=== PATIENT | female | born 1955 | race African-American/Black ===

== ENCOUNTER 2016-10-24 12:02 | Inpatient (IN) | payer OTHER ==
[~2016-10-24] VITALS: Ht 167.6 cm; Wt 85.0 kg
[2016-10-24] VITALS (7 sets, daily range): BP systolic 116–138; BP diastolic 65–89; PULSE 82–119; RESP 14–16; TEMP 98.2–101.4; O2SAT 94–98
[~2016-10-24 12:02] MED LIST: ASPI81 PO; IBUP-232 PO; LISI-363 PO; POLY10O EACH EYE
--- NOTE | 2016-10-24 12:16 | PD ---
Physical Exam Time Seen by Provider: 12:14 Narrative 61yo F w/ c/o right sided chest pain w/SOB and pain with breathing. Chest apin constant. Had reconstructive R breast surgery and tummy tuck 5 weeks ago. Awaiting chemotheropay tx. States she hopes she does'nt have a blood clot. Patient stable. Patient seen in triage. Awaiting bed placement. Data Data Last Documented VS Vital Signs Date Time Temp Pulse Resp B/P Pulse Ox O2 Delivery O2 Flow Rate FiO2 10/24/16 12:05 98.2 82 14 137/89 98 MDM Supervised Visit with RAFAEL: Pooja Gonzalez Oct 24, 2016 12:16
[2016-10-24] MEDS ORDERED: SODIUM CHLOR 0.9% 1000 ML INJ 1,000 ML IV ONE (12:24)
[2016-10-24] MEDS ORDERED: PIPERACIL-TAZO 4.5 GM PREMIX 100 ML IV STA (12:24)
[2016-10-24] MEDS ORDERED: VANCOMYCIN INJ 1,000 MG in SODIUM CHLOR 0.9% 250 ML INJ 250 ML IV STA (12:24)
[2016-10-24] MEDS ORDERED: MORPHINE SULFATE 8 MG/ML INJ IV PUSH ONE (12:30)
[2016-10-24] MEDS ORDERED: ONDANSETRON HCL 4 MG/2 ML VIAL IV ONE (12:30)
--- NOTE | 2016-10-24 12:55 | PD ---
HPI Chief Complaint: Pain: Acute or Chronic Time Seen by Provider: 12:43 Travel History International Travel<30 days: No Contact w/Intl Traveler<30days: No Traveled to known affect area: No History of Present Illness HPI 61-year-old female presents the emergency department with right sided chest, neck, and back pain which has been progressively worsening over the past 3 days. Patient has a history of intraductal breast cancer for which she had right breast reconstruction by Dr. Rodriguez, and patient is been being treated by the oncologist. Patient was seen by Dr. Rodriguez yesterday, and was told that he had to do some type of exploratory surgery on the breast. Patient denies fever or chills, but denies increased pain which is worse with deep breath and movement. Pain is 9 out of 10. Patient has been having daily wound dressing changes of the right breast by home health. Patient has no allergies other than Demerol. PFSH Past Medical History Cancer: Yes (BREAST) Cardiovascular Problems: Yes (PALPATATIONS/ ARRHYTHMIA) Diabetes: No GERD: Yes Hepatitis: No Hiatal Hernia: No Hypertension: Yes Immunizations Current: No Thyroid Disease: No ?: Not Menopausal: No Tubal Ligation: Yes Past Surgical History Abdominal Surgery: Yes (LAP. ALEIDA) Cholecystectomy: Yes Gynecologic Surgery: Yes (HYSTERECTOMY) Hysterectomy: Yes (ONE OVARY REMAINS) Mastectomy: Yes (RIGHT- LYMPH REMOVAL ONLY) Other Surgery: Yes Social History Alcohol Use: No Tobacco Use: No Substance Use: No Allergies-Medications (Allergen,Severity, Reaction): Coded Allergies: Demerol (Verified Allergy, Intermediate, Hallucinations, 10/24/16) Reported Meds & Prescriptions Reported Meds & Active Scripts Active Polytrim Opth (Polymyxin/Trimethoprim Sulfate) 10 Ml Soln 1 Drop EACH EYE Q4 7 Days Lisinopril 20 mg (Lisinopril) 20 Mg Tab 20 Mg PO DAILY Motrin (Ibuprofen) 600 Mg Tab 600 Mg PO QID GIVE WITH FOOD Reported Aspirin 81 Mg Tab 81 Mg PO DAILY Review of Systems Except as stated in HPI: all other systems reviewed are Neg General / Constitutional: No: Fever, Chills Eyes: No: Visual changes HENT: No: Headaches Cardiovascular: No: Chest Pain or Discomfort Respiratory: No: Shortness of Breath Gastrointestinal: No: Abdominal Pain Genitourinary: No: Dysuria Musculoskeletal: No: Pain Skin: Positive Breast Tenderness, Positive Breast Swelling, Positive Other, No Rash Neurologic: No: Weakness Psychiatric: No: Depression Endocrine: No: Polydipsia Hematologic/Lymphatic: No: Easy Bruising Physical Exam Narrative GENERAL: Patient appears in mild to moderate distress. SKIN: Warm and dry. Normal color. Normal turgor. Wound site over the right breast appears to have generalized mild dehiscence with yellowish discharge noted. This whole area is generally tender, without specific tenderness, signs of pointing, or obvious abscess. No significant erythema or lymphangitis is appreciated. Culture is obtained. HEAD: Atraumatic. Normocephalic. EYES: Pupils equal and round. No scleral icterus. No injection or drainage. ENT: No nasal bleeding or discharge. Mucous membranes pink and moist. Pharynx is clear. Airway is patent. NECK: Trachea midline. Supple and nontender. CARDIOVASCULAR: Tachycardic rate and normal rhythm. RESPIRATORY: No accessory muscle use. Clear to auscultation. Breath sounds equal bilaterally. GASTROINTESTINAL: Abdomen soft, non-tender, nondistended. Hepatic and splenic margins not palpable. MUSCULOSKELETAL: Extremities without clubbing, cyanosis, or edema. No obvious deformities. NEUROLOGICAL: Awake and alert. No obvious cranial nerve deficits. Motor grossly within normal limits. Five out of 5 muscle strength in the arms and legs. Normal speech. PSYCHIATRIC: Appropriate mood and affect; insight and judgment normal. Data Data Last Documented VS Vital Signs Date Time Temp Pulse Resp B/P Pulse Ox O2 Delivery O2 Flow Rate FiO2 10/24/16 12:05 98.2 82 14 137/89 98 Orders Electrocardiogram (10/24/16 12:24) Complete Blood Count With Diff (10/24/16 12:24) Comprehensive Metabolic Panel (10/24/16 12:24) Prothrombin Time / Inr (Pt) (10/24/16 12:24) Act Partial Throm Time (Ptt) (10/24/16 12:24) Lactic Acid Sepsis Protocol (10/24/16 12:24) Magnesium (Mg) (10/24/16 12:24) Phosphorus (Po4) (10/24/16 12:24) Lipase (10/24/16 12:24) Ckmb (Isoenzyme) Profile (10/24/16 12:24) Troponin I (10/24/16 12:24) Urinalysis - C+S If Indicated (10/24/16 12:24) Blood Culture (10/24/16 12:24) Wound Culture And Gram Stain (10/24/16 12:24) Chest, Single Ap (10/24/16 12:24) Blood Glucose (10/24/16 12:24) Ecg Monitoring (10/24/16 12:24) Iv Access Insert/Monitor (10/24/16 12:24) Oximetry (10/24/16 12:24) Oxygen Administration (10/24/16 12:24) Morphine Inj (Morphine Inj) (10/24/16 12:30) Ondansetron Inj (Zofran Inj) (10/24/16 12:30) Piperacil-Tazo 4.5 Gm Premix (Zosyn 4.5 (10/24/16 12:24) Vancomycin Inj (Vancomycin Inj) (10/24/16 12:24) Sodium Chlor 0.9% 1000 Ml Inj (Ns 1000 M (10/24/16 12:24) Ct Thorax/ Chest W Iv Contrast (10/24/16 12:24) CKMB (10/24/16 12:35) CKMB% (10/24/16 12:35) Hydromorphone Pf Inj (Dilaudid Pf Inj) (10/24/16 13:30) Labs Laboratory Tests Test 10/24/16 12:35 White Blood Count 12.7 TH/MM3 Red Blood Count 4.19 MIL/MM3 Hemoglobin 11.0 GM/DL Hematocrit 34.1 % Mean Corpuscular Volume 81.4 FL Mean Corpuscular Hemoglobin 26.2 PG Mean Corpuscular Hemoglobin 32.2 % Concent Red Cell Distribution Width 13.9 % Platelet Count 259 TH/MM3 Mean Platelet Volume 7.9 FL Neutrophils (%) (Auto) 83.0 % Lymphocytes (%) (Auto) 9.4 % Monocytes (%) (Auto) 6.9 % Eosinophils (%) (Auto) 0.2 % Basophils (%) (Auto) 0.5 % Neutrophils # (Auto) 10.6 TH/MM3 Lymphocytes # (Auto) 1.2 TH/MM3 Monocytes # (Auto) 0.9 TH/MM3 Eosinophils # (Auto) 0.0 TH/MM3 Basophils # (Auto) 0.1 TH/MM3 CBC Comment DIFF FINAL Differential Comment Prothrombin Time 11.0 SEC Prothromb Time International 1.0 RATIO Ratio Activated Partial 34.5 SEC Thromboplast Time Sodium Level 139 MEQ/L Potassium Level 3.9 MEQ/L Chloride Level 102 MEQ/L Carbon Dioxide Level 26.5 MEQ/L Anion Gap 11 MEQ/L Blood Urea Nitrogen 9 MG/DL Creatinine 0.82 MG/DL Estimat Glomerular Filtration 85 ML/MIN Rate Random Glucose 156 MG/DL Lactic Acid Level 1.4 mmol/L Calcium Level 9.1 MG/DL Phosphorus Level 3.2 MG/DL Magnesium Level 2.0 MG/DL Total Bilirubin 1.0 MG/DL Aspartate Amino Transf 25 U/L (AST/SGOT) Alanine Aminotransferase 26 U/L (ALT/SGPT) Alkaline Phosphatase 108 U/L Total Creatine Kinase 106 U/L Troponin I LESS THAN 0.02 NG/ML Total Protein 8.2 GM/DL Albumin 3.1 GM/DL Lipase 103 U/L [facility] Medical Decision Making Medical Screen Exam Complete: Yes Emergency Medical Condition: Yes Differential Diagnosis Postop infection. Abscess. Cellulitis. Sepsis. History of breast cancer. Narrative Course Patient is medically stable although tachycardic and febrile. Sepsis protocol was initiated. Labs ordered including CBC, CMP, lactic acid, blood cultures 2, wound culture, urinalysis, cardiac panel, PT PTT and INR, and magnesium and phosphorus. IV access is obtained. Patient is given 5 mg morphine IV as well as 4 mg Zofran IV. Chest x-ray is ordered as well as CT of the chest and thorax with IV contrast to evaluate for abscess in the chest wall. Patient is started on Zosyn 4.5 g IV as well as 1000 mg vancomycin IV. Patient started on normal saline bolus 1. Patient was discussed with Dr. Reyes who assessed the patient as well. Care of the patient was transferred to her at that time. CT of the chest was changed to a CTA angiogram to rule out PE as well as abscess. Please see her note for final disposition of the patient. Sepsis Criteria SIRS Criteria (2 or more): Temp > 100.9 or < 96.8, Heart rate over 90 Condition: Stable Trae Gil Oct 24, 2016 12:55
[2016-10-24 13:05] LABS: AUTOMATED NEUTROPHIL # 10.6 TH/MM3 (1.8-7.7); BASOPHIL # 0.1 TH/MM3 (0-0.2); BASOPHIL % 0.5 % (0.0-2.0); EOSINOPHIL % 0.2 % (0.0-4.0); HEMATOCRIT 34.1 % (35.0-46.0); HEMO FLAGS DIFF FINAL; LYMPH % 9.4 % (9.0-44.0); LYMPHOCYTE # 1.2 TH/MM3 (1.0-4.8); MEAN CELL VOLUME 81.4 FL (80.0-100.0); MEAN CORPUSCULAR HEMOGLOBIN 26.2 PG (27.0-34.0); MEAN CORPUSCULAR HGB CONC 32.2 % (32.0-36.0); MONO % 6.9 % (0.0-8.0); PLATELET COUNT 259 TH/MM3 (150-450); RED BLOOD COUNT 4.19 MIL/MM3 (4.00-5.30); RED CELL DISTRIBUTION WIDTH 13.9 % (11.6-17.2); WHITE BLOOD COUNT 12.7 TH/MM3 (4.0-11.0)
[2016-10-24 13:20] LABS: APTT (PATIENT) 34.5 SEC (24.3-30.1)
[2016-10-24 13:21] LABS: ANION GAP 11 MEQ/L (5-15); AST (GOT) 25 U/L (15-37); BICARBONATE 26.5 MEQ/L (21.0-32.0); BLOOD UREA NITROGEN 9 MG/DL (7-18); CHLORIDE 102 MEQ/L (98-107); GLOMERULAR FILTRATION RATE 85 ML/MIN (>89); POTASSIUM 3.9 MEQ/L (3.5-5.1); SODIUM (NA) 139 MEQ/L (136-145)
[2016-10-24 13:24] LABS: ALKALINE PHOSPHATASE 108 U/L (45-117); ALT (GPT) 26 U/L (10-53); CREATINE KINASE 106 U/L (26-192)
[2016-10-24] MEDS ORDERED: HYDROmorphone HCL PF 1 MG/ML VIAL IV PUSH ONE (13:30)
--- NOTE | 2016-10-24 13:34 | RADRPT ---
EXAM DATE/TIME: 10/24/2016 13:03 [facility] COMPARISON: No previous studies available for comparison. INDICATIONS : Chest pain. MEDICAL HISTORY : right breast ca 4 years ago and currently has right breast cancer again, recent reconstruction SURGICAL HISTORY : right breast surgery 5 weeks ago. ENCOUNTER: Initial ACUITY: 1 day PAIN SCORE: 5/10 LOCATION: Right chest FINDINGS: Right basilar patchiness is noted consistent with atelectasis and/or infiltrate. There is elevation of the right hemidiaphragm. The heart is normal. There is minimal atelectasis within the left lung base. Degenerative changes and mild scoliosis of the thoracic spine are noted. CONCLUSION: 1. Right basilar patchiness consistent with atelectasis and/or infiltrate. 2. Probable left basilar atelectasis. 3. Elevation of the right hemidiaphragm. 4. Degenerative changes and mild scoliosis of the thoracic spine. Júnior Suarez MD on October 24, 2016 at 13:27 Board Certified Radiologist. This report was verified electronically.
[2016-10-24 13:37] LABS: CKMB LESS THAN 0.5 NG/ML (0.5-3.6)
--- NOTE | 2016-10-24 14:19 | PD ---
HPI Chief Complaint: Pain: Acute or Chronic Time Seen by Provider: 12:23 Travel History International Travel<30 days: No Contact w/Intl Traveler<30days: No Traveled to known affect area: No History of Present Illness HPI 61-year-old female came to the emergency room with history of breast and neck pain for past 2-3 days. Patient says that she had a breast reconstruction surgery done by Dr. Rodriguez about 2 weeks ago. This was done at the [facility]. She was seen by him yesterday where he looked at the breast wound and expressed some brownish color fluid from it. He had told her that he would need to take her back to the OR at a later date. However her symptoms have worsened since then. Patient was tachycardic in ER. She appears to be in distress. She is hypoxic on room air at 86-87%. She was initially seen by the PA and I'm supervising him. Given the complicated nature of the case and patient being sick, I took over the care completely. [facility] Past Medical History Narrative Medical List of her past medical, surgical, social and family history was reviewed from the nursing note. Cancer: Yes (BREAST) Cardiovascular Problems: Yes (PALPATATIONS/ ARRHYTHMIA) Diabetes: No GERD: Yes Hepatitis: No Hiatal Hernia: No Hypertension: Yes Immunizations Current: No Thyroid Disease: No ?: Not Menopausal: No Tubal Ligation: Yes Past Surgical History Abdominal Surgery: Yes (LAP. ALEIDA) Cholecystectomy: Yes Gynecologic Surgery: Yes (HYSTERECTOMY) Hysterectomy: Yes (ONE OVARY REMAINS) Mastectomy: Yes (RIGHT- LYMPH REMOVAL ONLY) Other Surgery: Yes Social History Alcohol Use: No Tobacco Use: No Substance Use: No Allergies-Medications (Allergen,Severity, Reaction): Coded Allergies: Demerol (Verified Allergy, Intermediate, Hallucinations, 10/24/16) Comments List of her allergies reviewed from the nursing note. Reported Meds & Prescriptions Reported Meds & Active Scripts Active Polytrim Opth (Polymyxin/Trimethoprim Sulfate) 10 Ml Soln 1 Drop EACH EYE Q4 7 Days Lisinopril 20 mg (Lisinopril) 20 Mg Tab 20 Mg PO DAILY Motrin (Ibuprofen) 600 Mg Tab 600 Mg PO QID GIVE WITH FOOD Reported Aspirin 81 Mg Tab 81 Mg PO DAILY Narrative Medication List of her home medications reviewed from the nursing note. Review of Systems Except as stated in HPI: all other systems reviewed are Neg Physical Exam Narrative GENERAL: Awake, alert, moderate distress,anxious SKIN: Focused skin assessment warm/dry. Right breast skin graft looks necrotic especially on the superior aspect with brownish color drainage. HEAD: Atraumatic. Normocephalic. EYES: Pupils equal and round. No scleral icterus. No injection or drainage. ENT: No nasal bleeding or discharge. Mucous membranes pink and moist. NECK: Trachea midline. No JVD. CARDIOVASCULAR: Regular rate and rhythm. Tachycardia. No murmur appreciated. RESPIRATORY: No accessory muscle use. Clear to auscultation. Breath sounds equal bilaterally. GASTROINTESTINAL: Abdomen soft, non-tender, nondistended. Hepatic and splenic margins not palpable. MUSCULOSKELETAL: No obvious deformities. No clubbing. No cyanosis. No edema. NEUROLOGICAL: Awake and alert. No obvious cranial nerve deficits. Motor grossly within normal limits. Normal speech. PSYCHIATRIC: Appropriate mood and affect; insight and judgment normal. Data Data Last Documented VS Vital Signs Date Time Temp Pulse Resp B/P Pulse Ox O2 Delivery O2 Flow Rate FiO2 10/24/16 13:39 119 14 128/76 94 Nasal Cannula 3 10/24/16 12:05 98.2 Orders Electrocardiogram (10/24/16 12:24) Complete Blood Count With Diff (10/24/16 12:24) Comprehensive Metabolic Panel (10/24/16 12:24) Prothrombin Time / Inr (Pt) (10/24/16 12:24) Act Partial Throm Time (Ptt) (10/24/16 12:24) Lactic Acid Sepsis Protocol (10/24/16 12:24) Magnesium (Mg) (10/24/16 12:24) Phosphorus (Po4) (10/24/16 12:24) Lipase (10/24/16 12:24) Ckmb (Isoenzyme) Profile (10/24/16 12:24) Troponin I (10/24/16 12:24) Urinalysis - C+S If Indicated (10/24/16 12:24) Blood Culture (10/24/16 12:24) Wound Culture And Gram Stain (10/24/16 12:24) Chest, Single Ap (10/24/16 12:24) Blood Glucose (10/24/16 12:24) Ecg Monitoring (10/24/16 12:24) Iv Access Insert/Monitor (10/24/16 12:24) Oximetry (10/24/16 12:24) Oxygen Administration (10/24/16 12:24) Morphine Inj (Morphine Inj) (10/24/16 12:30) Ondansetron Inj (Zofran Inj) (10/24/16 12:30) Piperacil-Tazo 4.5 Gm Premix (Zosyn 4.5 (10/24/16 12:24) Vancomycin Inj (Vancomycin Inj) (10/24/16 12:24) Sodium Chlor 0.9% 1000 Ml Inj (Ns 1000 M (10/24/16 12:24) CKMB (10/24/16 12:35) CKMB% (10/24/16 12:35) Hydromorphone Pf Inj (Dilaudid Pf Inj) (10/24/16 13:30) Ct Pulmonary Angiogram (10/24/16 13:35) Urine Culture (10/24/16 13:15) Iohexol 350 Inj (Omnipaque 350 Inj) (10/24/16 14:37) Admit Order (Ed Use Only) (10/24/16 15:30) Labs Laboratory Tests Test 10/24/16 10/24/16 12:35 13:15 Prothrombin Time 11.0 SEC Prothromb Time International 1.0 RATIO Ratio Activated Partial 34.5 SEC Thromboplast Time Sodium Level 139 MEQ/L Potassium Level 3.9 MEQ/L Chloride Level 102 MEQ/L Carbon Dioxide Level 26.5 MEQ/L Anion Gap 11 MEQ/L Blood Urea Nitrogen 9 MG/DL Creatinine 0.82 MG/DL Estimat Glomerular Filtration 85 ML/MIN Rate Random Glucose 156 MG/DL Lactic Acid Level 1.4 mmol/L Calcium Level 9.1 MG/DL Phosphorus Level 3.2 MG/DL Magnesium Level 2.0 MG/DL Total Bilirubin 1.0 MG/DL Aspartate Amino Transf 25 U/L (AST/SGOT) Alanine Aminotransferase 26 U/L (ALT/SGPT) Alkaline Phosphatase 108 U/L Total Creatine Kinase 106 U/L Creatine Kinase MB LESS THAN 0.5 NG/ML Troponin I LESS THAN 0.02 NG/ML Total Protein 8.2 GM/DL Albumin 3.1 GM/DL Lipase 103 U/L White Blood Count 12.7 TH/MM3 Red Blood Count 4.19 MIL/MM3 Hemoglobin 11.0 GM/DL Hematocrit 34.1 % Mean Corpuscular Volume 81.4 FL Mean Corpuscular Hemoglobin 26.2 PG Mean Corpuscular Hemoglobin 32.2 % Concent Red Cell Distribution Width 13.9 % Platelet Count 259 TH/MM3 Mean Platelet Volume 7.9 FL Neutrophils (%) (Auto) 83.0 % Lymphocytes (%) (Auto) 9.4 % Monocytes (%) (Auto) 6.9 % Eosinophils (%) (Auto) 0.2 % Basophils (%) (Auto) 0.5 % Neutrophils # (Auto) 10.6 TH/MM3 Lymphocytes # (Auto) 1.2 TH/MM3 Monocytes # (Auto) 0.9 TH/MM3 Eosinophils # (Auto) 0.0 TH/MM3 Basophils # (Auto) 0.1 TH/MM3 CBC Comment DIFF FINAL Differential Comment Urine Color YELLOW Urine Turbidity CLEAR Urine pH 7.0 Urine Specific Higbee 1.015 Urine Protein TRACE mg/dL Urine Glucose (UA) NEG mg/dL Urine Ketones NEG mg/dL Urine Occult Blood NEG Urine Nitrite NEG Urine Bilirubin NEG Urine Urobilinogen LESS THAN 2.0 MG/DL Urine Leukocyte Esterase NEG Urine RBC 1 /hpf Urine WBC 1 /hpf Urine Squamous Epithelial 3 /hpf Cells Urine Bacteria OCC /hpf Urine Mucus FEW /lpf Microscopic Urinalysis Comment CATH-CULTURE IND MDM Medical Decision Making Medical Screen Exam Complete: Yes Emergency Medical Condition: Yes Medical Record Reviewed: Yes Interpretation(s) Twelve-lead EKG was reviewed by me. Normal sinus rhythm, normal axis, tachycardia, nonspecific ST-T wave changes. Heart rate of 125 bpm. Differential Diagnosis Sepsis, necrotizing fasciitis, PE Narrative Course 2:18 PM blood test results are back. Patient has slight leukocytosis. Lactic acid was within normal limit. Awaiting for CT pulmonary angiogram to be done and resulted. I spoke with Dr. Rodriguez and he wanted the patient to be admitted at [place] and he would have Dr. Tennille Ferguson consult on his behalf. Patient was given IV vancomycin and Zosyn for sepsis coverage along with IV fluid. Awaiting for the CT to be done and resulted. 3:[address] pulmonary angiogram shows a right lower lobe infiltrate. There is no PE. Awaiting for the hospitalist to call back for admission. Procedures EKG Prior to Arrival: No Physician Communication Physician Communication Dr. Rodriguez Dr. Roque Diagnosis Primary Impression: Pneumonia Qualified Code: J18.1 - Pneumonia of right lower lobe due to infectious organism Additional Impressions: Surgical wound infection Qualified Code: T81.4XXA - Surgical wound infection, initial encounter S/P breast reconstruction Qualified Code: Z98.890 - Status post right breast reconstruction Sepsis Qualified Code: A41.9 - Sepsis, due to unspecified organism Admitting Information Admitting Physician Requests: Admit Condition: Stable Jayashree Reyes MD Oct 24, 2016 14:19
[2016-10-24 14:22] LABS: BACTERIA, URINE OCC /hpf; BLOOD, URINE NEG (NEG); GLUCOSE,URINE NEG (NEG); KETONE, URINE NEG (NEG); MUCUS URINE FEW /lpf (OCC); NITRITE,URINE NEG (NEG); SQUAMOUS EPITHELIAL CELL URINE 3 /hpf (0-5); URINE COLOR YELLOW (YELLW/STRAW)
[2016-10-24 14:28] LABS: COMMENT (UR) CATH-CULTURE IND; CULTURE IF INDICATED CATH CULTURE IND
[2016-10-24] MEDS ORDERED: IOHEXOL 350 MG/ML 10 ML VIAL (for RAD DIAG) IV ONE (14:37)
--- NOTE | 2016-10-24 14:58 | RADRPT ---
EXAM DATE/TIME: 10/24/2016 14:26 [facility] COMPARISON: CT ABDOMEN & PELVIS W CONTRAST, May 17, 2013, 19:44. INDICATIONS : Right side chest pain following mastectomy. IV CONTRAST: 73 cc Omnipaque 350 (iohexol) IV RADIATION DOSE: 23.18 CTDIvol (mGy) MEDICAL HISTORY : Carcinoma, breast. Hypertension. SURGICAL HISTORY : Mastectomy, right. Hysterectomy.Tubal ligation. ENCOUNTER: Initial ACUITY: 1 week PAIN SCALE: 6/10 LOCATION: Right upper chest TECHNIQUE: Volumetric scanning of the chest was performed using a pulmonary embolism protocol MIP images were re constructed. Using automated exposure control and adjustment of the mA and/or kV according to patien t size, radiation dose was kept as low as reasonably achievable to obtain optimal diagnostic quality images. FINDINGS: There is dense consolidation in right lung base suspicious for pneumonia with slight left lung base a telectasis and/or infiltrate. The patient has had prior mastectomy on the right side and there is sof t tissue density measuring almost 8.3 cm in size in the right chest wall could be postsurgical change or possibly a flap if there is such clinical history. There is no pleural effusion. No appreciable pathological adenopathy is seen within the mediastinum. Approximate 3.2 cm cyst is present in the shawn er not changed since 2012. There is no evidence for PE for technique. CONCLUSION: 1. Right lower lobe pneumonia. 2. There is no evidence for PE for technique. 3. Soft tissue density in right chest wall could be postsurgical change in this patient with prior ma stectomy or a flap and the exact nature of the patient's surgery is not known to us. Tracy Austin MD on October 24, 2016 at 14:52 Board Certified Radiologist. This report was verified electronically.
[2016-10-24] MEDS ORDERED: RESP: ALBUTEROL 2.5 MG/IPRATROPIUM 0.5 MG NEB (PRN) NEB (17:00)
[2016-10-24] MEDS: SODIUM CHLOR 0.9% 1000 ML INJ 1,000 ML IV SCH ×2 (17:00→21:08)
[2016-10-24] MEDS ORDERED: Vancomycin Consult Pharmacy 1 EA OTHER SCH (17:00)
--- NOTE | 2016-10-24 17:00 | HHI.HP ---
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 Recently had right breast mastecomy then had right breast reconstruction and skin flap. Pt says over past several days more sob and cp into right neck with pain upon coughing. Seen by her surgeon yesterdayand apparently some purelent fluid drained from the right breast... with apparent plan to debride the wound. Pt now with more chills and came to ED. In ED noted to have right pneumonia and infected/necrotic looking right breast tissue. ED called pt's surgeon and said Dr Ngo would be covering and to admit the pt to medicine. Cx's taken in ED and vanco and zosyn given. Review of Systems Other cough cp/neck pain right breast infection Past Family Social History Past Medical History DCIS . 2010. hx radiation right breast ca. mod inv. ductal cell. .Lumpectomy mastectomy and reconstruction htn hysterectomy cholecystecomy Reported Medications Reported Meds & Active Scripts Active Polytrim Opth (Polymyxin/Trimethoprim Sulfate) 10 Ml Soln 1 Drop EACH EYE Q4 7 Days Lisinopril 20 mg (Lisinopril) 20 Mg Tab 20 Mg PO DAILY Motrin (Ibuprofen) 600 Mg Tab 600 Mg PO QID GIVE WITH FOOD Reported Aspirin 81 Mg Tab 81 Mg PO DAILY Allergies: Coded Allergies: Demerol (Verified Allergy, Intermediate, Hallucinations, 10/24/16) Family History nc Social History no etoh/tob Physical Exam Vital Signs oriented heart reg lung diminished bs right base/egophony right breast wound with necrotic tissue on edges abd incisional wound healing. no drainage. umbilical wound with some packing. currently no drainage Vital Signs Date Time Temp Pulse Resp B/P Pulse Ox O2 Delivery O2 Flow Rate FiO2 10/24/16 15:38 100.8 118 16 116/65 96 Nasal Cannula 2 10/24/16 13:39 119 14 128/76 94 Nasal Cannula 3 10/24/16 13:39 94 Nasal Cannula 3 10/24/16 13:38 119 16 128/76 95 Nasal Cannula 3 10/24/16 12:45 20 10/24/16 12:05 98.2 82 14 137/89 98 Laboratory Laboratory Tests Test 10/24/16 10/24/16 12:35 13:15 White Blood Count 12.7 Red Blood Count 4.19 Hemoglobin 11.0 Hematocrit 34.1 Mean Corpuscular Volume 81.4 Mean Corpuscular Hemoglobin 26.2 Mean Corpuscular Hemoglobin 32.2 Concent Red Cell Distribution Width 13.9 Platelet Count 259 Mean Platelet Volume 7.9 Neutrophils (%) (Auto) 83.0 Lymphocytes (%) (Auto) 9.4 Monocytes (%) (Auto) 6.9 Eosinophils (%) (Auto) 0.2 Basophils (%) (Auto) 0.5 Neutrophils # (Auto) 10.6 Lymphocytes # (Auto) 1.2 Monocytes # (Auto) 0.9 Eosinophils # (Auto) 0.0 Basophils # (Auto) 0.1 CBC Comment DIFF FINAL Differential Comment Prothrombin Time 11.0 Prothromb Time International 1.0 Ratio Activated Partial 34.5 Thromboplast Time Sodium Level 139 Potassium Level 3.9 Chloride Level 102 Carbon Dioxide Level 26.5 Anion Gap 11 Blood Urea Nitrogen 9 Creatinine 0.82 Estimat Glomerular Filtration 85 Rate Random Glucose 156 Lactic Acid Level 1.4 Calcium Level 9.1 Phosphorus Level 3.2 Magnesium Level 2.0 Total Bilirubin 1.0 Aspartate Amino Transf 25 (AST/SGOT) Alanine Aminotransferase 26 (ALT/SGPT) Alkaline Phosphatase 108 Total Creatine Kinase 106 Creatine Kinase MB LESS THAN 0.5 Troponin I LESS THAN 0.02 Total Protein 8.2 Albumin 3.1 Lipase 103 Urine Color YELLOW Urine Turbidity CLEAR Urine pH 7.0 Urine Specific [place] 1.015 Urine Protein TRACE Urine Glucose (UA) NEG Urine Ketones NEG Urine Occult Blood NEG Urine Nitrite NEG Urine Bilirubin NEG Urine Urobilinogen LESS THAN 2.0 Urine Leukocyte Esterase NEG Urine RBC 1 Urine WBC 1 Urine Squamous Epithelial 3 Cells Urine Bacteria OCC Urine Mucus FEW Microscopic Urinalysis Comment CATH-CULTURE IND Date/Time Procedure Status Source Growth 10/24/16 13:15 Urine Culture Received Urine Catheterized Urine Pending 10/24/16 12:48 Aerobic Blood Culture Received Blood Peripheral Pending 10/24/16 12:48 Anaerobic Blood Culture Received Blood Peripheral Pending 10/24/16 12:13 Gram Stain - Final Resulted Wound Breast 10/24/16 12:13 Wound Culture Resulted Wound Breast Pending Result Diagram: 10/24/16 1235 10/24/16 1235 Assessment and Plan Problem List: (1) Pneumonia Status: Acute Plan: Pt is 61 yo with hx DCIS right breast. Radiation. 2010. Now mod diff invasive ductal cell right breast. s/p mastecomy/reconstruction right now presents with surgical wound infection/necrosis right lung pna concern for sepsis cont brooad abx with vanco/zosyn blood cx plastic surgery notified. incentive spirometer prn duonebs oxygen dvt prophylaxis (2) Surgical wound infection Status: Acute Plan: see above (3) History of breast cancer Status: Chronic (4) Essential hypertension Status: Chronic Physician Certification 2 Midnight Certification Type: Admission for Inpatient Services Order for Inpatient Services 5The services are ordered in accordance with Medicare regulations or non- Medicare payer requirements, as applicable. In the case of services not specified as inpatient-only, they are appropriately provided as inpatient services in accordance with the 2-midnight benchmark. Estimated LOS (days): 5 5 days is the estimated time the patient will need to remain in the hospital, assuming treatment plan goals are met and no additional complications. Post-Hospital Plan: Home Problem Qualifiers (1) Pneumonia: Qualified Code: J18.1 - Pneumonia of right lower lobe due to infectious organism (2) Surgical wound infection: Qualified Code: T81.4XXA - Surgical wound infection, initial encounter Dany Leavitt MD Oct 24, 2016 17:00
[2016-10-24] MEDS: HYDROmorphone HCL PF 1 MG/ML VIAL IV PUSH PRN (18:52)
[2016-10-24] MEDS: PIPERACIL-TAZO 3.375 GM PREMIX 50 ML IV SCH (21:31)
[2016-10-24] MEDS: ACETAMINOPHEN 325 MG TAB PO PRN (22:50)
[2016-10-25] VITALS (8 sets, daily range): BP systolic 114–133; BP diastolic 68–83; PULSE 100–115; RESP 16–19; TEMP 99.3–101.4; O2SAT 92–97
[2016-10-25] MEDS ORDERED: VANCOMYCIN INJ 1,250 MG in SODIUM CHLOR 0.9% 250 ML INJ 250 ML IV SCH (01:00)
[2016-10-25] MEDS: PIPERACIL-TAZO 3.375 GM PREMIX 50 ML IV SCH ×4 (02:29→20:13)
[2016-10-25] MEDS: HYDROmorphone HCL PF 1 MG/ML VIAL IV PUSH PRN ×3 (04:24→14:45)
[2016-10-25 07:47] LABS: AUTOMATED NEUTROPHIL # 9.1 TH/MM3 (1.8-7.7); BASOPHIL % 0.4 % (0.0-2.0); EOSINOPHIL # 0.1 TH/MM3 (0-0.4); EOSINOPHIL % 0.4 % (0.0-4.0); HEMATOCRIT 26.3 % (35.0-46.0); HEMO FLAGS DIFF FINAL; LYMPH % 12.1 % (9.0-44.0); LYMPHOCYTE # 1.4 TH/MM3 (1.0-4.8); MEAN CELL VOLUME 80.7 FL (80.0-100.0); MEAN CORPUSCULAR HGB CONC 33.5 % (32.0-36.0); MONO % 11.1 % (0.0-8.0); PLATELET COUNT 206 TH/MM3 (150-450); RED BLOOD COUNT 3.26 MIL/MM3 (4.00-5.30); RED CELL DISTRIBUTION WIDTH 13.9 % (11.6-17.2)
[2016-10-25] MEDS: SODIUM CHLOR 0.9% 1000 ML INJ 1,000 ML IV SCH ×2 (08:30→22:48)
--- NOTE | 2016-10-25 08:31 | HHI.PR ---
Subjective Remarks pt feels much better. very thankful Objective Vitals heart reg lung diminished right base.egophony abd s/nt. umbilical open wound right breast wound...necrotic areas around edges actually look better today..no drainage abdomen horizontal incision no drainage Vital Signs Date Time Temp Pulse Resp B/P Pulse Ox O2 Delivery O2 Flow Rate FiO2 10/25/16 05:00 19 10/25/16 04:15 99.3 100 16 114/76 97 10/25/16 01:02 101.3 108 16 115/68 94 10/25/16 00:44 18 10/24/16 22:45 101.4 10/24/16 21:00 112 10/24/16 20:40 101.0 114 16 138/84 95 10/24/16 15:38 100.8 118 16 116/65 96 Nasal Cannula 2 10/24/16 13:39 119 14 128/76 94 Nasal Cannula 3 10/24/16 13:39 94 Nasal Cannula 3 10/24/16 13:38 119 16 128/76 95 Nasal Cannula 3 10/24/16 12:45 20 10/24/16 12:05 98.2 82 14 137/89 98 10/24/16 10/24/16 10/25/16 15:00 23:00 07:00 Intake Total 150 ml 200 ml Output Total 500 ml 500 ml Balance -350 ml -300 ml Intake Oral 150 ml 200 ml Output Urine Total 500 ml 500 ml # Bowel Movements 0 0 Result Diagram: 10/25/16 0634 10/24/16 1235 A/P Problem List: (1) Pneumonia Status: Acute Plan: Pt is 61 yo with hx DCIS right breast. Radiation. 2010. Now mod diff invasive ductal cell right breast. s/p mastecomy/reconstruction right now presents with surgical wound infection/necrosis right lung pna concern for sepsis cont brooad abx with vanco/zosyn blood cx pending plastic surgery notified. await reccs and wound care incentive spirometer prn duonebs oxygen dvt prophylaxis PT consult. lower ivf. (2) Surgical wound infection Status: Acute Plan: see above (3) History of breast cancer Status: Chronic (4) Essential hypertension Status: Chronic Problem Qualifiers (1) Pneumonia: Qualified Code: J18.1 - Pneumonia of right lower lobe due to infectious organism (2) Surgical wound infection: Qualified Code: T81.4XXA - Surgical wound infection, initial encounter Dany Leavitt MD Oct 25, 2016 08:30
[2016-10-25 08:45] LABS: BICARBONATE 25.1 MEQ/L (21.0-32.0); POTASSIUM 3.5 MEQ/L (3.5-5.1)
[2016-10-25] MEDS: ONDANSETRON HCL 4 MG/2 ML VIAL IV PUSH PRN ×3 (09:45→20:35)
[2016-10-25] MEDS: VANCOMYCIN 1,000 MG/NS 250 ML IV SCH ×2 (14:46)
[2016-10-25] MEDS: ACETAMINOPHEN 325 MG TAB PO PRN ×2 (14:47→22:28)
--- NOTE | 2016-10-25 16:50 | PD.CONS ---
History of Present Illness Service Plastic Surgery Consult Requested By Primary Care Physician Tomas Haas MD Diagnoses: History of Present Illness Patient is a 61yo female with history of a TRAM flap to reconstruct the right breast. She has tissue necrosis of a portion of the flap. Review of Systems Constitutional: COMPLAINS OF: Fever Integumentary: COMPLAINS OF: Breast skin changes Except as stated in HPI: all other systems reviewed are Neg Past Family Social History Allergies: Coded Allergies: Demerol (Verified Allergy, Intermediate, Hallucinations, 10/24/16) Physical Exam Vital Signs Vital Signs Date Time Temp Pulse Resp B/P Pulse Ox O2 Delivery O2 Flow Rate FiO2 10/25/16 16:20 101.4 10/25/16 12:02 93 Nasal Cannula 1.00 10/25/16 12:00 100.7 115 18 119/76 92 10/25/16 05:00 19 10/25/16 04:15 99.3 100 16 114/76 97 10/25/16 01:02 101.3 108 16 115/68 94 10/25/16 00:44 18 10/24/16 22:45 101.4 10/24/16 21:00 112 10/24/16 20:40 101.0 114 16 138/84 95 Physical Exam GENERAL: This is a well-nourished, well-developed patient, in no apparent distress. SKIN: No rashes, ecchymoses or lesions. Cool and dry. HEAD: Atraumatic. Normocephalic. No temporal or scalp tenderness. EYES: Pupils equal round and reactive. Extraocular motions intact. No scleral icterus. No injection or drainage. ENT: Nose without bleeding, purulent drainage or septal hematoma. Throat without erythema, tonsillar hypertrophy or exudate. Uvula midline. Airway patent. NECK: Trachea midline. No JVD or lymphadenopathy. Supple, nontender, no meningeal signs. CARDIOVASCULAR: Regular rate and rhythm without murmurs, gallops, or rubs. RESPIRATORY: Clear to auscultation. Breath sounds equal bilaterally. No wheezes , rales, or rhonchi. GASTROINTESTINAL: Abdomen soft, non-tender, nondistended. No hepato-splenomegaly , or palpable masses. No guarding. MUSCULOSKELETAL: Extremities without clubbing, cyanosis, or edema. No joint tenderness, effusion, or edema noted. No calf tenderness. Negative Homans sign bilaterally. NEUROLOGICAL: Awake and alert. Cranial nerves II through XII intact. Motor and sensory grossly within normal limits. Five out of 5 muscle strength in all muscle groups. Normal speech. BREAST: The right TRAM flap has peripheral necrosis and some weeping. Laboratory Laboratory Tests Test 10/25/16 10/25/16 06:34 06:35 White Blood Count 12.0 Red Blood Count 3.26 Hemoglobin 8.8 Hematocrit 26.3 Mean Corpuscular Volume 80.7 Mean Corpuscular Hemoglobin 27.0 Mean Corpuscular Hemoglobin 33.5 Concent Red Cell Distribution Width 13.9 Platelet Count 206 Mean Platelet Volume 8.2 Neutrophils (%) (Auto) 76.0 Lymphocytes (%) (Auto) 12.1 Monocytes (%) (Auto) 11.1 Eosinophils (%) (Auto) 0.4 Basophils (%) (Auto) 0.4 Neutrophils # (Auto) 9.1 Lymphocytes # (Auto) 1.4 Monocytes # (Auto) 1.3 Eosinophils # (Auto) 0.1 Basophils # (Auto) 0.0 CBC Comment DIFF FINAL Differential Comment Sodium Level 142 Potassium Level 3.5 Chloride Level 109 Carbon Dioxide Level 25.1 Anion Gap 8 Blood Urea Nitrogen 6 Creatinine 0.66 Estimat Glomerular Filtration 109 Rate Random Glucose 137 Calcium Level 8.0 Date/Time Procedure Status Source Growth 10/24/16 13:15 Urine Culture - Preliminary Resulted Urine Catheterized Urine Pseudomonas Species 10/24/16 12:48 Aerobic Blood Culture - Preliminary Resulted Blood Peripheral NO GROWTH IN 1 DAY 10/24/16 12:48 Anaerobic Blood Culture - Preliminary Resulted Blood Peripheral NO GROWTH IN 1 DAY 10/24/16 12:13 Gram Stain - Final Resulted Wound Breast 10/24/16 12:13 Wound Culture - Preliminary Resulted Gram Negative Alfred Result Diagram: 10/25/16 0634 10/25/16 0635 Course I recommend silvadene dressings BID and no tape to the skin. I have recommended a loosely fitting bra to hold the dressings. Await cultures. Continue antibiotics. Assessment and Plan Assessment and Plan as above. Tennille Ngo MD Oct 25, 2016 16:50
[2016-10-25] MEDS: SILVER SULFADIAZINE 1% CR 50 GM JAR TOPICAL SCH (20:17)
--- NOTE | 2016-10-25 20:36 | EKG ---
Date Performed: 10/24/2016 Time Performed: 13:32:24 PTAGE: 61 years EKG: SINUS TACHYCARDIA NONSPECIFIC ST & T-WAVE ABNORMALITY ST-T abnormality new from the prior t racing ABNORMAL RHYTHM ECG PREVIOUS TRACING : 08/31/2011 00.33 DOCTOR: Joby Mccarty Interpretating Date/Time 10/25/2016 20:34:35
[2016-10-26] VITALS (10 sets, daily range): BP systolic 132–170; BP diastolic 80–94; PULSE 80–103; RESP 18–20; TEMP 98.4–100.4; O2SAT 90–94
[2016-10-26] MEDS: ONDANSETRON HCL 4 MG/2 ML VIAL IV PUSH PRN ×4 (00:25→20:18)
[2016-10-26] MEDS: VANCOMYCIN 1,000 MG/NS 250 ML IV SCH ×2 (02:06)
[2016-10-26] MEDS: PIPERACIL-TAZO 3.375 GM PREMIX 50 ML IV SCH ×2 (02:06→08:55)
[2016-10-26 07:41] LABS: AUTOMATED NEUTROPHIL # 8.1 TH/MM3 (1.8-7.7); BASOPHIL % 0.3 % (0.0-2.0); EOSINOPHIL % 0.3 % (0.0-4.0); HEMATOCRIT 26.1 % (35.0-46.0); HEMO FLAGS DIFF FINAL; LYMPH % 15.8 % (9.0-44.0); LYMPHOCYTE # 1.8 TH/MM3 (1.0-4.8); MEAN CELL VOLUME 80.8 FL (80.0-100.0); MEAN CORPUSCULAR HEMOGLOBIN 26.2 PG (27.0-34.0); MEAN CORPUSCULAR HGB CONC 32.4 % (32.0-36.0); MONO % 10.9 % (0.0-8.0); NEUT % 72.7 % (16.0-70.0); PLATELET COUNT 190 TH/MM3 (150-450); RED BLOOD COUNT 3.22 MIL/MM3 (4.00-5.30); WHITE BLOOD COUNT 11.2 TH/MM3 (4.0-11.0)
[2016-10-26 08:15] LABS: BICARBONATE 22.8 MEQ/L (21.0-32.0); POTASSIUM 3.5 MEQ/L (3.5-5.1)
[2016-10-26] MEDS: HYDROmorphone HCL PF 1 MG/ML VIAL IV PUSH PRN ×2 (09:01→16:55)
[2016-10-26] MEDS: SILVER SULFADIAZINE 1% CR 50 GM JAR TOPICAL SCH ×2 (09:05→22:00)
--- NOTE | 2016-10-26 09:32 | HHI.PR ---
Subjective Remarks more nauseated this AM Objective Vitals heart reg lung diminished right base right breast necrotic tissue around surgical edges of graft. no discharge. abd s/nt/umbilical wound. no pus horizontal incision. no infection. no edema Vital Signs Date Time Temp Pulse Resp B/P Pulse Ox O2 Delivery O2 Flow Rate FiO2 10/26/16 04:00 100.4 90 18 141/83 93 10/26/16 01:36 103 10/26/16 00:00 100.0 98 18 143/80 92 10/26/16 00:00 19 10/25/16 20:57 92 Nasal Cannula 1.00 10/25/16 20:00 101.0 105 19 133/83 92 10/25/16 17:00 100.1 111 18 118/77 97 10/25/16 16:20 101.4 10/25/16 12:02 93 Nasal Cannula 1.00 10/25/16 12:00 100.7 115 18 119/76 92 10/25/16 10/25/16 10/26/16 15:00 23:00 07:00 Intake Total 240 ml Output Total 250 ml 250 ml Balance -250 ml -10 ml Intake Oral 240 ml Output Urine Total 250 ml 250 ml # Voids 2 2 Result Diagram: 10/26/16 0700 10/26/16 0700 A/P Problem List: (1) Pneumonia Status: Acute Plan: Pt is 61 yo with hx DCIS right breast. Radiation. 2010. Now mod diff invasive ductal cell right breast. s/p mastecomy/reconstruction right now presents with surgical wound infection/necrosis right lung pna concern for sepsis. ngtd urine and wound gnr on cx Now with audie today and nausea...?audie could be contrast nephropathy or AIN or ATN from antibiotics/sepsis renal dose zosyn. stop vanco for now seen by plastic who recommend topical silvadene bid f/u cx results consult renal. cont ivf. renal u/s. I/O measurement. valencia if needed. urine eosinophils. stop vanco. cont ivf incentive spirometer prn duonebs oxygen dvt prophylaxis PT consult. (2) Surgical wound infection Status: Acute Plan: see above (3) AUDIE (acute kidney injury) Status: Acute Plan: see above. (4) History of breast cancer Status: Chronic (5) Essential hypertension Status: Chronic Problem Qualifiers (1) Pneumonia: Qualified Code: J18.1 - Pneumonia of right lower lobe due to infectious organism (2) Surgical wound infection: Qualified Code: T81.4XXA - Surgical wound infection, initial encounter Dany Leavitt MD Oct 26, 2016 09:32
[2016-10-26] MEDS ORDERED: POTASSIUM CHLORIDE 20 MEQ CONTROLLED RELEASE TAB PO ONE (10:00)
[2016-10-26] MEDS ORDERED: PHARMACY ORDERED LAB ONE (13:45)
[2016-10-26] MEDS: PIPERACIL-TAZO 2.25 GM PREMIX 50 ML IV SCH ×2 (14:01→21:59)
[2016-10-26] MEDS: SODIUM CHLOR 0.9% 1000 ML INJ 1,000 ML IV SCH ×2 (14:06→20:00)
[2016-10-26] MEDS: DOCUSATE SODIUM 100 MG CAP PO SCH (20:23)
--- NOTE | 2016-10-26 23:52 | RADRPT ---
EXAM DATE/TIME: 10/26/2016 22:02 [facility] COMPARISON: No previous studies available for comparison. EXTERNAL COMPARISON : GLSS, CT ABDOMEN W/O CONTRAST, August 15, 2016 INDICATIONS : Increased BUN/creatinine. MEDICAL HISTORY : Carcinoma, breast. Hypertension. Gastroesophageal reflux disease. Palpatations/arrhythmia. Radiation therapy. Chemotherapy. SURGICAL HISTORY : Cholecystectomy. Mastectomy, right. Hysterectomy. ENCOUNTER: Initial ACUITY: 1 day PAIN SCORE: 6/10 LOCATION: Bilateral flank MEASUREMENTS: RIGHT KIDNEY: 12.7 x 5.4 x 4.8 cm LEFT KIDNEY: 10.6 x 6.1 x 5.4 cm FINDINGS: RIGHT KIDNEY: Renal cortex is normal in thickness and echotexture. No hydronephrosis, stone, or mass. LEFT KIDNEY: Renal cortex is normal in thickness and echotexture. No hydronephrosis, stone, or mass. BLADDER: Within normal limits given the degree of distension. CONCLUSION: Normal examination. Kane Mo Jr., MD on October 26, 2016 at 23:50 Board Certified Radiologist. This report was verified electronically.
[2016-10-27] VITALS (10 sets, daily range): BP systolic 129–151; BP diastolic 73–81; PULSE 70–93; RESP 18–20; TEMP 98.2–100.4; O2SAT 91–97
[2016-10-27] MEDS: ONDANSETRON HCL 4 MG/2 ML VIAL IV PUSH PRN ×4 (00:03→21:01)
[2016-10-27] MEDS ORDERED: ONDANSETRON HCL 4 MG/2 ML VIAL IV PUSH PRN (00:45)
[2016-10-27] MEDS ORDERED: ONDANSETRON INJ 8 MG in DEXTROSE 5% IN WATER INJ 50 ML IV PUSH PRN ×2 (03:00)
[2016-10-27] MEDS: PIPERACIL-TAZO 2.25 GM PREMIX 50 ML IV SCH (05:30)
[2016-10-27] MEDS: HYDROmorphone HCL PF 1 MG/ML VIAL IV PUSH PRN ×3 (05:37→23:32)
[2016-10-27] MEDS: SODIUM CHLOR 0.9% 1000 ML INJ 1,000 ML IV SCH ×2 (06:00→16:00)
[2016-10-27 07:27] LABS: AUTOMATED NEUTROPHIL # 7.6 TH/MM3 (1.8-7.7); BASOPHIL % 0.3 % (0.0-2.0); EOSINOPHIL # 0.1 TH/MM3 (0-0.4); EOSINOPHIL % 0.7 % (0.0-4.0); HEMATOCRIT 24.2 % (35.0-46.0); HEMO FLAGS DIFF FINAL; LYMPH % 14.1 % (9.0-44.0); LYMPHOCYTE # 1.4 TH/MM3 (1.0-4.8); MEAN CELL VOLUME 80.8 FL (80.0-100.0); MEAN CORPUSCULAR HEMOGLOBIN 26.5 PG (27.0-34.0); MEAN CORPUSCULAR HGB CONC 32.8 % (32.0-36.0); MONO % 7.9 % (0.0-8.0); PLATELET COUNT 210 TH/MM3 (150-450); RED BLOOD COUNT 2.99 MIL/MM3 (4.00-5.30); RED CELL DISTRIBUTION WIDTH 14.4 % (11.6-17.2); WHITE BLOOD COUNT 9.8 TH/MM3 (4.0-11.0)
[2016-10-27 07:42] LABS: BICARBONATE 19.8 MEQ/L (21.0-32.0); POTASSIUM 3.4 MEQ/L (3.5-5.1)
[2016-10-27] MEDS: DOCUSATE SODIUM 100 MG CAP PO SCH ×2 (09:37→20:59)
[2016-10-27] MEDS: SILVER SULFADIAZINE 1% CR 50 GM JAR TOPICAL SCH ×2 (09:38→21:05)
--- NOTE | 2016-10-27 09:46 | HHI.PR ---
Subjective Remarks had some abdomen pain last night. better now. vomiting with meals. breathing ok. Objective Vitals oriented no labored breathing heart reg lung diinished right base abd s/nt. horizontal incision without drainage. umbilical wound. right breast superficial necrotic tissue around graft. Vital Signs Date Time Temp Pulse Resp B/P Pulse Ox O2 Delivery O2 Flow Rate FiO2 10/27/16 08:40 94 Nasal Cannula 1.00 10/27/16 07:17 19 10/27/16 04:00 100.1 93 19 138/81 94 10/27/16 00:00 100.4 81 19 129/74 91 10/26/16 21:30 Nasal Cannula 1.00 10/26/16 21:00 80 10/26/16 20:00 99.1 100 18 140/80 93 10/26/16 16:00 98.7 87 20 170/94 93 10/26/16 12:38 94 Nasal Cannula 1.00 10/26/16 12:00 98.4 84 18 132/87 91 10/26/16 10/26/16 10/27/16 15:00 23:00 07:00 Intake Total 1195 ml 120 ml 729 ml Output Total 400 ml Balance 795 ml 120 ml 729 ml Intake Oral 600 ml 120 ml 120 ml IV Total 595 ml 609 ml Output Urine Total 400 ml # Voids 1 3 3 # Bowel Movements 1 Result Diagram: 10/27/16 0610 10/27/16 0610 A/P Problem List: (1) Pneumonia Status: Acute Plan: Pt is 61 yo with hx DCIS right breast. Radiation. 2010. Now mod diff invasive ductal cell right breast. s/p mastecomy/reconstruction right now presents with surgical wound infection/necrosis right lung pna concern for sepsis. ngtd urine and wound growing pseudomonas Now with audie and nausea... could be contrast nephropathy or AIN or ATN from antibiotics/sepsis urine eosinophils neg and renal u/s no obstruction. d/c vanco and zosyn cefepime and azithromycin. renal dose. seen by plastic who recommend topical silvadene bid f/u cx results consulted renal. cont ivf. I/O measurement. valencia if needed. so far pt making urine. cont ivf kub today. incentive spirometer prn duonebs oxygen dvt prophylaxis PT consult. (2) Surgical wound infection Status: Acute Plan: see above (3) AUDIE (acute kidney injury) Status: Acute Plan: see above. (4) History of breast cancer Status: Chronic (5) Essential hypertension Status: Chronic Problem Qualifiers (1) Pneumonia: Qualified Code: J18.1 - Pneumonia of right lower lobe due to infectious organism (2) Surgical wound infection: Qualified Code: T81.4XXA - Surgical wound infection, initial encounter Dany Leavitt MD Oct 27, 2016 09:46
[2016-10-27] MEDS ORDERED: POTASSIUM CHLORIDE 20 MEQ CONTROLLED RELEASE TAB PO ONE (10:15)
--- NOTE | 2016-10-27 11:53 | RADRPT ---
EXAM DATE/TIME: 10/27/2016 11:21 [facility] COMPARISON: No previous studies available for comparison. INDICATIONS : Abdomen Pain MEDICAL HISTORY : Carcinoma, breast. Hypertension SURGICAL HISTORY : Mastectomy, right. Hysterectomy. Tubal ligation. ENCOUNTER: Initial ACUITY: 2 days PAIN SCORE: 6/10 LOCATION: Bilateral Abdominal FINDINGS: Supine view of the abdomen was performed. The abdominal bowel gas pattern is normal. No abnormal ma sses, calcifications, or organomegaly is seen. The osseous structures are unremarkable. Clips are se en in the right upper quadrant. There are rounded calcifications in the pelvis likely related to phle boliths. CONCLUSION: No acute disease. Jose Alfredo Pradhan MD on October 27, 2016 at 11:51 Board Certified Radiologist. This report was verified electronically.
[2016-10-27] MEDS: AZITHROMYCIN INJ 500 MG in SODIUM CHLOR 0.9% 250 ML INJ 250 ML IV SCH (12:12)
--- NOTE | 2016-10-27 13:40 | HHI.NPPN ---
Subjective History of Present Illness 61 years old female with history of Breast reconstruction surgery, called to see for elevated BUN and Creatinine. Additional Remarks Patient is alert, no SOB, no vomiting today, has mild abd. discomfort. Review of Systems General Constitutional: Fatigue Cardiovascular Cardiac: PEREZ Gastrointestinal Gastrointestinal: Abdominal Pain Objective Data Data 10/26/16 10/27/16 19:00 07:00 Intake Total 1195 ml 849 ml Output Total 400 ml Balance 795 ml 849 ml Intake Oral 600 ml 240 ml IV Total 595 ml 609 ml Output Urine Total 400 ml # Voids 1 6 # Bowel Movements 1 Vital Signs Date Time Temp Pulse Resp B/P Pulse Ox O2 Delivery O2 Flow Rate FiO2 10/27/16 08:40 94 Nasal Cannula 1.00 10/27/16 07:50 98.2 80 20 142/75 94 10/27/16 07:17 19 10/27/16 04:00 100.1 93 19 138/81 94 10/27/16 00:00 100.4 81 19 129/74 91 10/26/16 21:30 Nasal Cannula 1.00 10/26/16 21:00 80 10/26/16 20:00 99.1 100 18 140/80 93 10/26/16 16:00 98.7 87 20 170/94 93 -: 10/27/16 0610 10/27/16 0610 Microbiology 10/26/16 Legionella Antigen - Final, Complete PRESUMPTIVE NEGATIVE FOR LEGIONELLA P... 10/26/16 Streptococcus pneumoniae Antigen (M - Final, Complete PRESUMPTIVE NEGATIVE FOR STREPTOCOCCU... Physical Exam General Appearance: No Acute Distress, Comfortable Eyes Eye Exam: Pupils Equal Throat Throat Exam: Oral Mucosa [place] & Moist Neck Neck Exam: Neck Supple Pulmonary Resp Exam: Clear Bilaterally, Breath Sounds Equal, No Distress, Rhonchi, Decreased Bases Cardiology CV Exam: Regular, Normal Sinus Rhythm Gastrointestinal/Abdomen GI Exam: Soft, Bowel Sounds Present, Distended Extremeties Extremities Exam: Trace Edema Neurologic Neuro Exam: Alert, Awake, Oriented Psychiatric Psych Exam: Appropriate Responses Assessment/Plan Assessment Summary: AUDIE/Acute Renal Failure Problem List: (1) History of breast cancer (2) Essential hypertension (3) URI, acute (4) Diabetes mellitus (5) AUDIE (acute kidney injury) Plan Patient has Renal U/S done and results noted. BP is stable. Non oliguric. Most likely has Contrast Nephropathy. Creatinine is still increasing. Continue antibiotics and IVF. K is low, not taking PO, give one dose IV. Avoid Nephrotoxins, and follow urine out put and BMP. Dinah Garcia MD Oct 27, 2016 13:40
[2016-10-27] MEDS ORDERED: POTASSIUM CHLOR 20 MEQ PREMIX 100 ML IV ONE (14:15)
[2016-10-27] MEDS: PROMETHAZINE HCL 25 MG TAB PO PRN ×2 (17:16→23:07)
[2016-10-28] VITALS (10 sets, daily range): BP systolic 143–183; BP diastolic 79–87; PULSE 68–82; RESP 16–18; TEMP 97.9–99.9; O2SAT 94–98
[2016-10-28] MEDS: SODIUM CHLOR 0.9% 1000 ML INJ 1,000 ML IV SCH ×2 (02:40→16:57)
[2016-10-28] MEDS: DOCUSATE SODIUM 100 MG CAP PO SCH ×2 (09:00→19:39)
[2016-10-28 09:35] LABS: AUTOMATED NEUTROPHIL # 6.5 TH/MM3 (1.8-7.7); BASOPHIL % 0.4 % (0.0-2.0); EOSINOPHIL # 0.4 TH/MM3 (0-0.4); EOSINOPHIL % 4.8 % (0.0-4.0); HEMO FLAGS DIFF FINAL; LYMPH % 14.9 % (9.0-44.0); LYMPHOCYTE # 1.4 TH/MM3 (1.0-4.8); MEAN CELL VOLUME 80.1 FL (80.0-100.0); MEAN CORPUSCULAR HEMOGLOBIN 26.8 PG (27.0-34.0); MEAN CORPUSCULAR HGB CONC 33.5 % (32.0-36.0); MONO % 8.6 % (0.0-8.0); NEUT % 71.3 % (16.0-70.0); PLATELET COUNT 243 TH/MM3 (150-450); RED BLOOD COUNT 2.99 MIL/MM3 (4.00-5.30); RED CELL DISTRIBUTION WIDTH 14.3 % (11.6-17.2); WHITE BLOOD COUNT 9.2 TH/MM3 (4.0-11.0)
[2016-10-28 10:06] LABS: BICARBONATE 21.2 MEQ/L (21.0-32.0); POTASSIUM 3.5 MEQ/L (3.5-5.1)
[2016-10-28] MEDS: HYDROmorphone HCL PF 1 MG/ML VIAL IV PUSH PRN ×3 (10:31→19:35)
[2016-10-28] MEDS: ONDANSETRON HCL 4 MG/2 ML VIAL IV PUSH PRN ×3 (10:35→23:57)
[2016-10-28] MEDS: CEFEPIME INJ 2,000 MG in SODIUM CHLORIDE 0.9% INJ 100 ML IV SCH (10:37)
[2016-10-28] MEDS: SILVER SULFADIAZINE 1% CR 50 GM JAR TOPICAL SCH ×2 (10:41→23:01)
--- NOTE | 2016-10-28 12:06 | HHI.PR ---
Subjective Remarks No new complaints. Pt is tolerating PO intake. Objective Vitals Vital Signs Date Time Temp Pulse Resp B/P Pulse Ox O2 Delivery O2 Flow Rate FiO2 10/28/16 09:22 94 Nasal Cannula 1.00 10/28/16 08:00 99.0 82 18 173/87 96 10/28/16 04:00 97.9 77 18 143/83 98 10/28/16 00:00 99.0 74 17 149/82 95 10/27/16 20:49 97 Nasal Cannula 1.00 10/27/16 20:03 78 10/27/16 20:00 98.2 80 18 146/73 96 10/27/16 15:50 98.8 70 20 148/76 95 10/27/16 10/27/16 10/28/16 15:00 23:00 07:00 Intake Total 1206 ml 240 ml 1035 ml Output Total 1000 ml 650 ml Balance 206 ml -410 ml 1035 ml Intake Oral 401 ml 240 ml 240 ml IV Total 805 ml 795 ml Output Urine Total 1000 ml 650 ml # Voids 2 # Bowel Movements 5 1 Result Diagram: 10/28/16 0707 10/28/16 0707 Other Results Laboratory Tests Test 10/26/16 10/27/16 10/28/16 14:00 06:10 07:07 Urine Eosinophils NONE SEEN /HPF Urine Random Sodium 46 MEQ/L White Blood Count 9.8 TH/MM3 9.2 TH/MM3 Red Blood Count 2.99 MIL/MM3 2.99 MIL/MM3 Hemoglobin 7.9 GM/DL 8.0 GM/DL Hematocrit 24.2 % 24.0 % Mean Corpuscular Volume 80.8 FL 80.1 FL Mean Corpuscular Hemoglobin 26.5 PG 26.8 PG Mean Corpuscular Hemoglobin 32.8 % 33.5 % Concent Red Cell Distribution Width 14.4 % 14.3 % Platelet Count 210 TH/MM3 243 TH/MM3 Mean Platelet Volume 8.3 FL 8.3 FL Neutrophils (%) (Auto) 77.0 % 71.3 % Lymphocytes (%) (Auto) 14.1 % 14.9 % Monocytes (%) (Auto) 7.9 % 8.6 % Eosinophils (%) (Auto) 0.7 % 4.8 % Basophils (%) (Auto) 0.3 % 0.4 % Neutrophils # (Auto) 7.6 TH/MM3 6.5 TH/MM3 Lymphocytes # (Auto) 1.4 TH/MM3 1.4 TH/MM3 Monocytes # (Auto) 0.8 TH/MM3 0.8 TH/MM3 Eosinophils # (Auto) 0.1 TH/MM3 0.4 TH/MM3 Basophils # (Auto) 0.0 TH/MM3 0.0 TH/MM3 CBC Comment DIFF FINAL DIFF FINAL Differential Comment Sodium Level 146 MEQ/L 147 MEQ/L Potassium Level 3.4 MEQ/L 3.5 MEQ/L Chloride Level 114 MEQ/L 115 MEQ/L Carbon Dioxide Level 19.8 MEQ/L 21.2 MEQ/L Anion Gap 12 MEQ/L 11 MEQ/L Blood Urea Nitrogen 17 MG/DL 18 MG/DL Creatinine 3.15 MG/DL 3.36 MG/DL Estimat Glomerular Filtration 18 ML/MIN 17 ML/MIN Rate Random Glucose 106 MG/DL 88 MG/DL Calcium Level 8.3 MG/DL 8.4 MG/DL Imaging Last Impressions Abdomen X-Ray 10/27/16 0000 Signed Impressions: Service Date/Time: Thursday, October 27, 2016 11:21 - CONCLUSION: No acute disease. Jose Alfredo Pradhan MD Renal Ultrasound 10/26/16 0000 Signed Impressions: Service Date/Time: Wednesday, October 26, 2016 22:02 - CONCLUSION: Normal examination. Kane Mo Jr., MD CT Angiography 10/24/16 1335 Signed Impressions: Service Date/Time: October 14:26 - CONCLUSION: 1. Right lower lobe pneumonia. 2. There is no evidence for PE for technique. 3. Soft tissue density in right chest wall could be postsurgical change in this patient with prior mastectomy or a flap and the exact nature of the patient's surgery is not known to us. Tracy Austin MD Chest X-Ray 10/24/16 1224 Signed Impressions: Service Date/Time: October 13:03 - CONCLUSION: 1. Right basilar patchiness consistent with atelectasis and/or infiltrate. 2. Probable left basilar atelectasis. 3. Elevation of the right hemidiaphragm. 4. Degenerative changes and mild scoliosis of the thoracic spine. Júnior Suarez MD Objective Remarks GENERAL: This is a well-nourished, well-developed patient, in no apparent distress. CARDIOVASCULAR: Regular rate and rhythm without murmurs, gallops, or rubs. RESPIRATORY: Clear to auscultation. Breath sounds equal bilaterally. No wheezes , rales, or rhonchi. GASTROINTESTINAL: Abdomen soft, non-tender, nondistended. Normal active bowel sounds MUSCULOSKELETAL: Extremities without clubbing, cyanosis, or edema. NEURO: Alert & Oriented x4 to person, place, time, situation. 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 - Blood cultures (10/24/16) with one out of four bottles growing pleomorphic gram positive rods in the anaerobic culture - Wound culture and urine culture from 10/24 with Pseudomonas aeruginosa - Pt had been on Vanco and Zosyn but developed some AUDIE and nausea felt to possibly be related to contrast nephropathy or AIN or ATN from antibiotics/sepsis - The Vanco and Zosyn were d/c's pn 10/06 and 10/27 - Pt was started on Cefepime and Azithromycin, renal dosed - Urine eosinophils were negative and renal u/s with no evidence of obstruction. - Silvadene bid - Pain control PRN - Incentive spirometer - PT - will d/w Plastics 10/29 - DVT prophylaxis with SCDs (2) Surgical wound infection Status: Acute Plan: - See above (3) AUDIE (acute kidney injury) Status: Acute Plan: - See above. (4) History of breast cancer Status: Chronic (5) Essential hypertension Status: Chronic Plan: - Clonidine PRN - Pt normally on Lisinopril 20mg but due to renal insufficiency will hold on resuming this. Assessment and Plan Patient examined. Assessment and plan formulated with Mehreen Pacheco PA-C. I agree with the above. Case d/w Dr. Jeni Ngo will reevaluate pt 10/29 Most likely debride wound in the OR 10/30 Problem Qualifiers (1) Pneumonia: Qualified Code: J18.1 - Pneumonia of right lower lobe due to infectious organism (2) Surgical wound infection: Qualified Code: T81.4XXA - Surgical wound infection, initial encounter Mehreen Pacheco Oct 28, 2016 12:06 Randall Amezcua DO Oct 28, 2016 18:14
[2016-10-28] MEDS: AZITHROMYCIN INJ 500 MG in SODIUM CHLOR 0.9% 250 ML INJ 250 ML IV SCH (12:16)
[2016-10-28] MEDS: PROMETHAZINE HCL 25 MG TAB PO PRN (13:33)
--- NOTE | 2016-10-28 17:44 | HHI.NPPN ---
Subjective History of Present Illness 61 years old female with history of Breast reconstruction surgery, called to see for elevated BUN and Creatinine. Additional Remarks Patient is alert, no SOB, no vomiting today, abd. pain is better. Review of Systems General Constitutional: Fatigue Cardiovascular Cardiac: PEREZ Gastrointestinal Gastrointestinal: Abdominal Pain Objective Data Data 10/27/16 10/28/16 19:00 07:00 Intake Total 1206 ml 1275 ml Output Total 1000 ml 650 ml Balance 206 ml 625 ml Intake Oral 401 ml 480 ml IV Total 805 ml 795 ml Output Urine Total 1000 ml 650 ml # Voids 2 # Bowel Movements 5 1 Vital Signs Date Time Temp Pulse Resp B/P Pulse Ox O2 Delivery O2 Flow Rate FiO2 10/28/16 12:00 98.6 69 18 183/83 95 10/28/16 11:01 18 10/28/16 09:22 94 Nasal Cannula 1.00 10/28/16 08:00 99.0 82 18 173/87 96 10/28/16 04:00 97.9 77 18 143/83 98 10/28/16 00:00 99.0 74 17 149/82 95 10/27/16 20:49 97 Nasal Cannula 1.00 10/27/16 20:03 78 10/27/16 20:00 98.2 80 18 146/73 96 -: 10/28/16 0707 10/28/16 0707 Physical Exam General Appearance: No Acute Distress, Comfortable Eyes Eye Exam: Pupils Equal Throat Throat Exam: Oral Mucosa [place] & Moist Neck Neck Exam: Neck Supple Pulmonary Resp Exam: Clear Bilaterally, Breath Sounds Equal, No Distress, Rhonchi, Decreased Bases Cardiology CV Exam: Regular, Normal Sinus Rhythm Gastrointestinal/Abdomen GI Exam: Soft, Bowel Sounds Present, Distended Extremeties Extremities Exam: Trace Edema Neurologic Neuro Exam: Alert, Awake, Oriented Psychiatric Psych Exam: Appropriate Responses Assessment/Plan Assessment Summary: AUDIE/Acute Renal Failure Problem List: (1) History of breast cancer (2) Essential hypertension (3) URI, acute (4) Diabetes mellitus (5) AUDIE (acute kidney injury) Plan Patient has Renal U/S done and results noted. BP is stable. Non oliguric. Most likely has Contrast Nephropathy. Creatinine is still increasing, now 3.3. Continue antibiotics and IVF. Avoid Nephrotoxins, and follow urine out put and BMP. Dinah Garcia MD Oct 28, 2016 17:44 Dinah Garcia MD Oct 28, 2016 17:44
[2016-10-28] MEDS: 1/2 NS + KCL 20 MEQ INJ 1,000 ML IV SCH (19:27)
[2016-10-28] MEDS: HYDROmorphone HCL PF 2 MG/ML VIAL IV PUSH PRN (23:57)
[2016-10-29] VITALS (9 sets, daily range): BP systolic 155–187; BP diastolic 78–88; PULSE 72–87; RESP 18–20; TEMP 98.8–100.1; O2SAT 95–97
[2016-10-29] MEDS: ONDANSETRON HCL 4 MG/2 ML VIAL IV PUSH PRN ×4 (04:35→22:29)
[2016-10-29] MEDS: HYDROmorphone HCL PF 2 MG/ML VIAL IV PUSH PRN ×3 (04:38→22:38)
[2016-10-29] MEDS: 1/2 NS + KCL 20 MEQ INJ 1,000 ML IV SCH ×2 (04:40→17:23)
[2016-10-29 07:39] LABS: AUTOMATED NEUTROPHIL # 5.7 TH/MM3 (1.8-7.7); BASOPHIL % 0.5 % (0.0-2.0); EOSINOPHIL # 0.5 TH/MM3 (0-0.4); HEMATOCRIT 23.9 % (35.0-46.0); HEMO FLAGS DIFF FINAL; LYMPH % 16.9 % (9.0-44.0); LYMPHOCYTE # 1.4 TH/MM3 (1.0-4.8); MEAN CORPUSCULAR HEMOGLOBIN 26.6 PG (27.0-34.0); MEAN CORPUSCULAR HGB CONC 32.8 % (32.0-36.0); MONO % 9.3 % (0.0-8.0); NEUT % 67.3 % (16.0-70.0); PLATELET COUNT 242 TH/MM3 (150-450); RED BLOOD COUNT 2.95 MIL/MM3 (4.00-5.30); RED CELL DISTRIBUTION WIDTH 14.4 % (11.6-17.2); WHITE BLOOD COUNT 8.4 TH/MM3 (4.0-11.0)
[2016-10-29 07:55] LABS: BICARBONATE 19.1 MEQ/L (21.0-32.0); POTASSIUM 3.6 MEQ/L (3.5-5.1)
[2016-10-29] MEDS: DOCUSATE SODIUM 100 MG CAP PO SCH ×2 (09:00→21:00)
[2016-10-29] MEDS: CEFEPIME INJ 2,000 MG in SODIUM CHLORIDE 0.9% INJ 100 ML IV SCH (09:43)
[2016-10-29] MEDS: SILVER SULFADIAZINE 1% CR 50 GM JAR TOPICAL SCH ×2 (09:52→22:38)
--- NOTE | 2016-10-29 10:14 | HHI.PR ---
Subjective Remarks No new complaints. BP has been running in the 140-160's systolic She states that she has had some diarrhea over the last 2-3 days, every time she goes to the bathroom to urinate she passes some loose stools. Objective Vitals Vital Signs Date Time Temp Pulse Resp B/P Pulse Ox O2 Delivery O2 Flow Rate FiO2 10/29/16 08:00 99.3 75 18 96 10/29/16 07:48 97 Nasal Cannula 1.00 10/29/16 04:00 99.5 87 18 165/81 95 10/29/16 00:00 99.3 78 18 162/84 96 10/28/16 20:48 79 10/28/16 20:00 99.9 75 18 161/79 94 10/28/16 17:52 95 Nasal Cannula 1.00 10/28/16 16:00 99.4 77 16 151/80 95 10/28/16 12:00 98.6 69 18 183/83 95 10/28/16 11:01 18 10/28/16 10/28/16 10/29/16 15:00 23:00 07:00 Intake Total 1380 ml 480 ml 1090 ml Output Total 200 ml 200 ml 800 ml Balance 1180 ml 280 ml 290 ml Intake Oral 700 ml 480 ml IV Total 680 ml 1090 ml Output Urine Total 200 ml 200 ml 800 ml # Voids 3 # Bowel Movements 2 Result Diagram: 10/29/1613 10/29/16 06 Other Results Laboratory Tests Test 10/28/16 10/29/16 07:07 06:13 White Blood Count 9.2 TH/MM3 8.4 TH/MM3 Red Blood Count 2.99 MIL/MM3 2.95 MIL/MM3 Hemoglobin 8.0 GM/DL 7.9 GM/DL Hematocrit 24.0 % 23.9 % Mean Corpuscular Volume 80.1 FL 81.0 FL Mean Corpuscular Hemoglobin 26.8 PG 26.6 PG Mean Corpuscular Hemoglobin 33.5 % 32.8 % Concent Red Cell Distribution Width 14.3 % 14.4 % Platelet Count 243 TH/MM3 242 TH/MM3 Mean Platelet Volume 8.3 FL 8.1 FL Neutrophils (%) (Auto) 71.3 % 67.3 % Lymphocytes (%) (Auto) 14.9 % 16.9 % Monocytes (%) (Auto) 8.6 % 9.3 % Eosinophils (%) (Auto) 4.8 % 6.0 % Basophils (%) (Auto) 0.4 % 0.5 % Neutrophils # (Auto) 6.5 TH/MM3 5.7 TH/MM3 Lymphocytes # (Auto) 1.4 TH/MM3 1.4 TH/MM3 Monocytes # (Auto) 0.8 TH/MM3 0.8 TH/MM3 Eosinophils # (Auto) 0.4 TH/MM3 0.5 TH/MM3 Basophils # (Auto) 0.0 TH/MM3 0.0 TH/MM3 CBC Comment DIFF FINAL DIFF FINAL Differential Comment Sodium Level 147 MEQ/L 146 MEQ/L Potassium Level 3.5 MEQ/L 3.6 MEQ/L Chloride Level 115 MEQ/L 116 MEQ/L Carbon Dioxide Level 21.2 MEQ/L 19.1 MEQ/L Anion Gap 11 MEQ/L 11 MEQ/L Blood Urea Nitrogen 18 MG/DL 15 MG/DL Creatinine 3.36 MG/DL 3.06 MG/DL Estimat Glomerular Filtration 17 ML/MIN 19 ML/MIN Rate Random Glucose 88 MG/DL 108 MG/DL Calcium Level 8.4 MG/DL 8.4 MG/DL Magnesium Level 2.0 MG/DL Imaging Last Impressions Abdomen X-Ray 10/27/16 0000 Signed Impressions: Service Date/Time: Thursday, October 27, 2016 11:21 - CONCLUSION: No acute disease. Jose Alfredo Pradhan MD Renal Ultrasound 10/26/16 0000 Signed Impressions: Service Date/Time: Wednesday, October 26, 2016 22:02 - CONCLUSION: Normal examination. Kane Mo Jr., MD CT Angiography 10/24/16 1335 Signed Impressions: Service Date/Time: October 14:26 - CONCLUSION: 1. Right lower lobe pneumonia. 2. There is no evidence for PE for technique. 3. Soft tissue density in right chest wall could be postsurgical change in this patient with prior mastectomy or a flap and the exact nature of the patient's surgery is not known to us. Tracy Austin MD Chest X-Ray 10/24/16 1224 Signed Impressions: Service Date/Time: October 13:03 - CONCLUSION: 1. Right basilar patchiness consistent with atelectasis and/or infiltrate. 2. Probable left basilar atelectasis. 3. Elevation of the right hemidiaphragm. 4. Degenerative changes and mild scoliosis of the thoracic spine. Júnior Suarez MD Objective Remarks General: NAD, AAOx3 Chest: CTA, right breast superficial necrotic tissue around graft Cardiac: Regular Abd: +BS, soft nondistended, lower transverse incision is healing well, umbilical incision is healing well. 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 - Blood cultures (10/24/16) with one out of four bottles growing pleomorphic gram positive rods in the anaerobic culture - Wound culture and urine culture from 10/24 with Pseudomonas aeruginosa - Pt had been on Vanco and Zosyn but developed some AUDIE and nausea felt to possibly be related to contrast nephropathy or AIN or ATN from antibiotics/sepsis - The Vanco and Zosyn were d/c'd on 10/26 and 10/27 - Pt was started on Cefepime and Azithromycin, renal dosed - Renal function is slowly improving. - Urine eosinophils were negative and renal u/s with no evidence of obstruction. - Silvadene bid - Pain control PRN - Incentive spirometer - PT - The case was discussed with Plastics, Dr. Ngo will reevaluate pt on 10/29 and tentatively planned for debridement of the wound in the OR on 10/30 - Pt has had some loose stools the last 2-3 days, may be secondary to GI upset from antibiotics. If she continues to have diarrhea we will check stool studies for C. diff. - DVT prophylaxis with SCDs (2) Surgical wound infection Status: Acute Plan: - See above (3) AUDIE (acute kidney injury) Status: Acute Plan: - See above. (4) History of breast cancer Status: Chronic (5) Essential hypertension Status: Chronic Plan: - BP has been more elevated - Start Norvasc 5mg po daily - Clonidine PRN - Pt normally on Lisinopril 20mg but due to renal insufficiency will hold on resuming this. Assessment and Plan Patient examined. Assessment and plan formulated with Mehreen Pacheco PA-C. I agree with the above. Problem Qualifiers (1) Pneumonia: Qualified Code: J18.1 - Pneumonia of right lower lobe due to infectious organism (2) Surgical wound infection: Qualified Code: T81.4XXA - Surgical wound infection, initial encounter Mehreen Pacheco Oct 29, 2016 10:14 Randall Amezcua DO Nov 03, 2016 14:29
[2016-10-29] MEDS: AZITHROMYCIN INJ 500 MG in SODIUM CHLOR 0.9% 250 ML INJ 250 ML IV SCH (11:22)
[2016-10-29] MEDS: cloNIDine HCL 0.1 MG TAB PO PRN (15:22)
--- NOTE | 2016-10-29 16:59 | HHI.NPPN ---
Subjective History of Present Illness 61 years old female with history of Breast reconstruction surgery, called to see for elevated BUN and Creatinine. Additional Remarks Patient is alert, no SOB, started taking oral liquids more, no vomiting. Review of Systems General Constitutional: Fatigue Cardiovascular Cardiac: PEREZ Gastrointestinal Gastrointestinal: Abdominal Pain Objective Data Data 10/28/16 10/29/16 19:00 07:00 Intake Total 1380 ml 1570 ml Output Total 200 ml 1000 ml Balance 1180 ml 570 ml Intake Oral 700 ml 480 ml IV Total 680 ml 1090 ml Output Urine Total 200 ml 1000 ml # Voids 3 # Bowel Movements 2 Vital Signs Date Time Temp Pulse Resp B/P Pulse Ox O2 Delivery O2 Flow Rate FiO2 10/29/16 12:00 99.5 73 20 187/88 96 10/29/16 08:00 99.3 75 18 96 10/29/16 07:48 97 Nasal Cannula 1.00 10/29/16 04:00 99.5 87 18 165/81 95 10/29/16 00:00 99.3 78 18 162/84 96 10/28/16 20:48 79 10/28/16 20:00 99.9 75 18 161/79 94 10/28/16 17:52 95 Nasal Cannula 1.00 -: 10/29/16 0613 10/29/16 0613 Physical Exam General Appearance: No Acute Distress, Comfortable Eyes Eye Exam: Pupils Equal Throat Throat Exam: Oral Mucosa [place] & Moist Neck Neck Exam: Neck Supple Pulmonary Resp Exam: Clear Bilaterally, Breath Sounds Equal, No Distress, Rhonchi, Decreased Bases Cardiology CV Exam: Regular, Normal Sinus Rhythm Gastrointestinal/Abdomen GI Exam: Soft, Bowel Sounds Present, Distended Extremeties Extremities Exam: Trace Edema Neurologic Neuro Exam: Alert, Awake, Oriented Psychiatric Psych Exam: Appropriate Responses Assessment/Plan Assessment Summary: AUDIE/Acute Renal Failure Problem List: (1) History of breast cancer (2) Essential hypertension (3) URI, acute (4) Diabetes mellitus (5) AUDIE (acute kidney injury) Plan Patient has Renal U/S done and results noted. BP is stable. Non oliguric. Most likely has Contrast Nephropathy. Creatinine started improving. Continue antibiotics and IVF. Avoid Nephrotoxins, and follow urine out put and BMP. K was low, now on IVF with Kcl. Dinah Garcia MD Oct 29, 2016 16:59
[2016-10-29] MEDS: PROMETHAZINE HCL 25 MG TAB PO PRN (17:23)
[2016-10-30] VITALS (11 sets, daily range): BP systolic 138–177; BP diastolic 81–90; PULSE 72–82; RESP 16–20; TEMP 98.1–99.2; O2SAT 95–100
[2016-10-30] MEDS: 1/2 NS + KCL 20 MEQ INJ 1,000 ML IV SCH ×3 (00:15→19:27)
[2016-10-30] MEDS ORDERED: SODIUM CHLORID 0.9% 500 ML IV PRN (05:00)
[2016-10-30] MEDS ORDERED: CHLORHEXIDINE GLUCONATE 2 % 1 PACK (2 CLOTHS) TOPICAL PRN (05:00)
[2016-10-30] MEDS ORDERED: POVIDONE IODINE 5% (ANTISEPSIS KIT) 4 APPLICATIONS EACH NARE PRN (05:00)
[2016-10-30] MEDS ORDERED: LACTATED RINGER'S 1000 ML IV PRN (05:00)
[2016-10-30] MEDS: ONDANSETRON HCL 4 MG/2 ML VIAL IV PUSH PRN ×3 (06:49→14:32)
[2016-10-30] MEDS: CEFEPIME INJ 2,000 MG in SODIUM CHLORIDE 0.9% INJ 100 ML IV SCH (08:47)
[2016-10-30] MEDS: PROMETHAZINE HCL 25 MG TAB PO PRN (08:47)
[2016-10-30] MEDS: SILVER SULFADIAZINE 1% CR 50 GM JAR TOPICAL SCH ×2 (09:00→21:00)
[2016-10-30] MEDS: DOCUSATE SODIUM 100 MG CAP PO SCH ×2 (09:01→20:17)
[2016-10-30] MEDS: AZITHROMYCIN INJ 500 MG in SODIUM CHLOR 0.9% 250 ML INJ 250 ML IV SCH (10:37)
[2016-10-30] MEDS ORDERED: LACTATED RINGER'S 1000 ML INJ 1,000 ML IV ONE (12:00)
[2016-10-30] MEDS ORDERED: PROPOFOL 200 MG/20 ML AMP IV ONE (12:00)
[2016-10-30] MEDS ORDERED: NEOSTIGMINE 3 MG/3 ML SYR IV ONE (12:00)
[2016-10-30] MEDS ORDERED: ONDANSETRON HCL 4 MG/2 ML VIAL IV PUSH ONE (12:00)
[2016-10-30] MEDS: cloNIDine HCL 0.1 MG TAB PO PRN (13:32)
[2016-10-30] MEDS ORDERED: BACITRACIN TOP OINT 15 GM TUBE ONE (13:53)
--- NOTE | 2016-10-30 15:49 | HHI.PR ---
Subjective Remarks Pt unable to be seen as she was in surgery Objective Vitals Vital Signs Date Time Temp Pulse Resp B/P Pulse Ox O2 Delivery O2 Flow Rate FiO2 10/30/16 11:50 99.1 79 20 177/90 97 10/30/16 09:00 74 10/30/16 08:12 97 Nasal Cannula 1.00 10/30/16 07:50 98.9 74 20 172/85 10/30/16 04:00 98.1 72 18 164/81 96 10/30/16 00:00 99.2 72 16 156/82 96 10/29/16 20:15 72 10/29/16 20:00 100.1 78 18 155/78 97 10/29/16 18:28 76 156/87 10/29/16 17:00 98.8 74 18 172/81 96 10/29/16 10/29/16 10/30/16 15:00 23:00 07:00 Intake Total 1496 ml 480 ml 1180 ml Output Total 1100 ml 700 ml 1200 ml Balance 396 ml -220 ml -20 ml Intake Oral 480 ml 480 ml 480 ml IV Total 1016 ml 700 ml Output Urine Total 1100 ml 700 ml 1200 ml # Bowel Movements 2 1 Result Diagram: 10/29/16 0613 10/29/16 0613 Other Results Laboratory Tests Test 10/29/16 06:13 White Blood Count 8.4 TH/MM3 Red Blood Count 2.95 MIL/MM3 Hemoglobin 7.9 GM/DL Hematocrit 23.9 % Mean Corpuscular Volume 81.0 FL Mean Corpuscular Hemoglobin 26.6 PG Mean Corpuscular Hemoglobin 32.8 % Concent Red Cell Distribution Width 14.4 % Platelet Count 242 TH/MM3 Mean Platelet Volume 8.1 FL Neutrophils (%) (Auto) 67.3 % Lymphocytes (%) (Auto) 16.9 % Monocytes (%) (Auto) 9.3 % Eosinophils (%) (Auto) 6.0 % Basophils (%) (Auto) 0.5 % Neutrophils # (Auto) 5.7 TH/MM3 Lymphocytes # (Auto) 1.4 TH/MM3 Monocytes # (Auto) 0.8 TH/MM3 Eosinophils # (Auto) 0.5 TH/MM3 Basophils # (Auto) 0.0 TH/MM3 CBC Comment DIFF FINAL Differential Comment Sodium Level 146 MEQ/L Potassium Level 3.6 MEQ/L Chloride Level 116 MEQ/L Carbon Dioxide Level 19.1 MEQ/L Anion Gap 11 MEQ/L Blood Urea Nitrogen 15 MG/DL Creatinine 3.06 MG/DL Estimat Glomerular Filtration 19 ML/MIN Rate Random Glucose 108 MG/DL Calcium Level 8.4 MG/DL Magnesium Level 2.0 MG/DL Imaging Last Impressions Abdomen X-Ray 10/27/16 0000 Signed Impressions: Service Date/Time: Thursday, October 27, 2016 11:21 - CONCLUSION: No acute disease. Jose Alfredo Pradhan MD Renal Ultrasound 10/26/16 0000 Signed Impressions: Service Date/Time: Wednesday, October 26, 2016 22:02 - CONCLUSION: Normal examination. Kane Mo Jr., MD CT Angiography 10/24/16 1335 Signed Impressions: Service Date/Time: October 14:26 - CONCLUSION: 1. Right lower lobe pneumonia. 2. There is no evidence for PE for technique. 3. Soft tissue density in right chest wall could be postsurgical change in this patient with prior mastectomy or a flap and the exact nature of the patient's surgery is not known to us. Tracy Austin MD Chest X-Ray 10/24/16 1224 Signed Impressions: Service Date/Time: October 13:03 - CONCLUSION: 1. Right basilar patchiness consistent with atelectasis and/or infiltrate. 2. Probable left basilar atelectasis. 3. Elevation of the right hemidiaphragm. 4. Degenerative changes and mild scoliosis of the thoracic spine. 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 - Blood cultures (10/24/16) with one out of four bottles growing pleomorphic gram positive rods in the anaerobic culture - Wound culture and urine culture from 10/24 with Pseudomonas aeruginosa - Pt had been on Vanco and Zosyn but developed some AUDIE and nausea felt to possibly be related to contrast nephropathy or AIN or ATN from antibiotics/sepsis - The Vanco and Zosyn were d/c'd on 10/26 and 10/27 - Pt was started on Cefepime and Azithromycin, renal dosed - Renal function is slowly improving. - Urine eosinophils were negative and renal u/s with no evidence of obstruction. - Silvadene bid - Pain control PRN - Incentive spirometer - PT - Dr. Ngo took the pt to the OR for further debridement of the wound on 10/30 - DVT prophylaxis with SCDs (2) Surgical wound infection Status: Acute Plan: - See above (3) AUDIE (acute kidney injury) Status: Acute Plan: - See above. (4) History of breast cancer Status: Chronic (5) Essential hypertension Status: Chronic Plan: - BP has been more elevated - Start Norvasc 5mg po daily - Clonidine PRN - Pt normally on Lisinopril 20mg but due to renal insufficiency will hold on resuming this. Assessment and Plan Patient examined. Assessment and plan formulated with Mehreen Pacheco PA-C. I agree with the above. Problem Qualifiers (1) Pneumonia: Qualified Code: J18.1 - Pneumonia of right lower lobe due to infectious organism (2) Surgical wound infection: Qualified Code: T81.4XXA - Surgical wound infection, initial encounter Mehreen Pacheco Oct 30, 2016 15:49 Randall Amezcua DO Nov 03, 2016 14:30
[2016-10-30] MEDS ORDERED: amLODIPine BESYLATE 5 MG TAB PO ONE (16:00)
[2016-10-30] MEDS ORDERED: ceFAZolin INJ 1,000 MG VIAL IV ONE (16:21)
[2016-10-30] MEDS ORDERED: BACITRACIN IM FOR SOLN 50,000 UNIT VIAL IM ONE (16:22)
[2016-10-30 16:38] LABS: HEMATOCRIT 26.4 % (35.0-46.0); REVIEW FLAG FINAL
[2016-10-30] MEDS ORDERED: PROPOFOL 1000 MG/100 ML INJ 100 ML ONE (17:34)
[2016-10-30] MEDS ORDERED: ONDANSETRON HCL 4 MG/2 ML VIAL IV PUSH PRN (17:45)
[2016-10-30] MEDS ORDERED: MORPHINE SULFATE 4 MG/ML INJ ONE (17:45)
[2016-10-30] MEDS ORDERED: fentaNYL CITRATE 250 MCG/5 ML AMP ONE (17:46)
[2016-10-30] MEDS ORDERED: *morphine SULFATE 8 MG/ML PERIprocedure ONLY ONE (18:22)
--- NOTE | 2016-10-30 18:59 | PD.CONS ---
[facility] Service Critical Care Medicine Consult Requested By Dr. 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 She is ventilator dependent and has pre-existing pneumonitis. Past Family Social History Allergies: Coded Allergies: Demerol (Verified Allergy, Intermediate, Hallucinations, 10/24/16) Past Medical History Past Medical History DCIS . 2010. hx radiation right breast ca. mod inv. ductal cell. .Lumpectomy mastectomy and reconstruction htn hysterectomy cholecystecomy Reported Medications Reported Meds & Active Scripts Active Polytrim Opth (Polymyxin/Trimethoprim Sulfate) 10 Ml Soln 1 Drop EACH EYE Q4 7 Days Lisinopril 20 mg (Lisinopril) 20 Mg Tab 20 Mg PO DAILY Motrin (Ibuprofen) 600 Mg Tab 600 Mg PO QID GIVE WITH FOOD Reported Aspirin 81 Mg Tab 81 Mg PO DAILY Allergies: Coded Allergies: Demerol (Verified Allergy, Intermediate, Hallucinations, 10/24/16) Family History nc Social History no etoh/tob Physical Exam Vital Signs Vital Signs Date Time Temp Pulse Resp B/P Pulse Ox O2 Delivery O2 Flow Rate FiO2 10/30/16 17:30 99.5 74 16 131/72 100 Mechanical Ventilator 50 10/30/16 17:30 96 50 10/30/16 11:50 99.1 79 20 177/90 97 10/30/16 09:00 74 10/30/16 08:12 97 Nasal Cannula 1.00 10/30/16 07:50 98.9 74 20 172/85 10/30/16 04:00 98.1 72 18 164/81 96 10/30/16 00:00 99.2 72 16 156/82 96 10/29/16 20:15 72 10/29/16 20:00 100.1 78 18 155/78 97 Physical Exam P 56, BP 168/90, R 12, Sats 100% Head: Normal. Neck: Supple, orally intubated. Lungs: Clear, no wheezes or crackles. Heart" NL S1S2, no JVD. RRR. Abdomen: Benign, soft. Extremities: Warm, well perfused. No edema. Neuro: Sedated for vent synchrony. TRINITY. Laboratory Laboratory Tests Test 10/30/16 10/30/16 10/30/16 10/30/16 16:16 16:42 16:44 17:43 Hemoglobin 8.5 Hematocrit 26.4 Crossmatch Leukocyte-Reduced Leukocyte-Reduced Red Blood Red Blood Cells Cells Blood Bank Comment Blood Type O POSITIVE O POSITIVE Antibody Screen POSITIVE Antigen Identification C Antigen - NEGATIVE Antibody Identification Anti-C Date/Time Procedure Status Source Growth 10/26/16 14:00 Legionella Antigen - Final Complete Urine Clean Catch PRESUMPTIVE NEGATIVE FOR LEGIONELLA P... 10/26/16 14:00 Streptococcus pneumoniae Antigen (M - Final Complete Urine Clean Catch PRESUMPTIVE NEGATIVE FOR STREPTOCOCCU... Result Diagram: 10/30/16 1616 10/29/16 0613 Imaging CXR with right base infiltrate. Assessment and Plan Assessment and Plan Assessment: 1. Respiratory Failure (J96.00) 2. 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 3. AUDIE. 4. Pneumonitis. Plan: 1. PRVC mode. 2. Wean to SBTs in early a.m. 3. Sputum culture. 4. Protonix. 5. SCDs. 6. Serial electrolyte determinations. 7. Continue cefepime coverage. 8. Restraints prn. Overall impression: Critically ill with ventilator dependent respiratory failure. Critical Care 38 mins Stefan Aden MD Oct 30, 2016 18:59
--- NOTE | 2016-10-30 19:21 | RADRPT ---
EXAM DATE/TIME: 10/30/2016 18:56 [place] COMPARISON: CHEST SINGLE AP, October 24, 2016, 13:03. INDICATIONS : ET tube placement. MEDICAL HISTORY : Carcinoma, breast. Hypertension. Gastroesophageal reflux disease. Palpatations/arrhythmia. Radiation therapy. Chemotherapy. SURGICAL HISTORY : Cholecystectomy. Mastectomy, right. Hysterectomy. ENCOUNTER: Subsequent ACUITY: 1 day PAIN SCORE: Non-responsive. LOCATION: chest FINDINGS: Endotracheal tube tip is approximately 1 cm above the margareth. There is right base consolidation and a n at least small right pleural effusion. Tiny effusion possible on the left. No pneumothorax. Heart s ize stable, within normal limits. CONCLUSION: 1. Consolidation and effusion right lung base. 2. Endotracheal tube tip just slightly above the margareth. Jose Alfredo Albarran MD on October 30, 2016 at 19:18 Board Certified Radiologist. This report was verified electronically.
[2016-10-30] MEDS: HYDROmorphone HCL PF 2 MG/ML VIAL IV PUSH PRN (19:27)
[2016-10-30] MEDS: PROPOFOL 1000 MG/100 ML IV SCH (19:27)
[2016-10-30] MEDS: ENOXAPARIN SODIUM 30 MG/0.3 ML SYRINGE SQ SCH (20:26)
[2016-10-30] MEDS ORDERED: hydrALAZINE HCL 20 MG/ML VIAL IV PUSH PRN (21:45)
[2016-10-31] VITALS (16 sets, daily range): BP systolic 118–148; BP diastolic 59–75; PULSE 51–92; RESP 11–19; TEMP 97.8–98.7; O2SAT 99–100
[2016-10-31] MEDS: 1/2 NS + KCL 20 MEQ INJ 1,000 ML IV SCH ×2 (02:30→16:15)
[2016-10-31] MEDS: HYDROmorphone HCL PF 2 MG/ML VIAL IV PUSH PRN ×4 (02:40→20:02)
[2016-10-31] MEDS: PROPOFOL 1000 MG/100 ML IV SCH (03:41)
[2016-10-31 04:23] LABS: AUTOMATED NEUTROPHIL # 6.7 TH/MM3 (1.8-7.7); BASOPHIL % 0.6 % (0.0-2.0); EOSINOPHIL % 0.1 % (0.0-4.0); HEMATOCRIT 25.2 % (35.0-46.0); HEMO FLAGS DIFF FINAL; LYMPH % 14.4 % (9.0-44.0); LYMPHOCYTE # 1.2 TH/MM3 (1.0-4.8); MEAN CORPUSCULAR HEMOGLOBIN 27.5 PG (27.0-34.0); MONO % 7.7 % (0.0-8.0); NEUT % 77.2 % (16.0-70.0); PLATELET COUNT 301 TH/MM3 (150-450); RED BLOOD COUNT 3.11 MIL/MM3 (4.00-5.30); RED CELL DISTRIBUTION WIDTH 14.4 % (11.6-17.2); WHITE BLOOD COUNT 8.6 TH/MM3 (4.0-11.0)
[2016-10-31 04:56] LABS: BICARBONATE 21.6 MEQ/L (21.0-32.0); MAGNESIUM 1.8 MG/DL (1.5-2.5); POTASSIUM 4.5 MEQ/L (3.5-5.1)
[2016-10-31] MEDS: CHLORHEXIDINE 0.12% (ORAL KIT) 15 ML CUP MT SCH ×2 (08:00→20:00)
[2016-10-31] MEDS: DOCUSATE SODIUM 100 MG CAP PO SCH ×2 (08:43→20:02)
[2016-10-31] MEDS: amLODIPine BESYLATE 5 MG TAB PO SCH (08:43)
--- NOTE | 2016-10-31 08:49 | PD.PLAS.PN ---
Subjective Remarks Patient is intubated but following commands. Objective Vital Signs Date Time Temp Pulse Resp B/P Pulse Ox O2 Delivery O2 Flow Rate FiO2 10/31/16 08:08 100 35 10/31/16 06:00 68 10/31/16 04:39 100 35 10/31/16 04:38 35 10/31/16 04:00 40 10/31/16 04:00 70 10/31/16 04:00 97.8 70 13 148/75 100 10/31/16 03:10 12 10/31/16 02:00 51 10/31/16 01:11 100 35 10/31/16 00:00 40 10/31/16 00:00 97.9 52 12 138/74 100 10/31/16 00:00 56 10/30/16 21:20 98 50 10/30/16 20:30 98.6 58 10 100 Mechanical Ventilator 50 10/30/16 20:01 100 50 10/30/16 20:00 59 10 134/80 100 Mechanical Ventilator 50 10/30/16 19:30 99.5 63 10 153/83 100 Mechanical Ventilator 50 10/30/16 19:00 99.9 65 16 123/75 100 Mechanical Ventilator 50 10/30/16 18:45 66 16 121/76 100 Mechanical Ventilator 50 10/30/16 18:30 68 16 111/66 100 Mechanical Ventilator 50 10/30/16 18:15 69 16 131/76 100 Mechanical Ventilator 50 10/30/16 18:00 67 16 141/80 99 Mechanical Ventilator 50 10/30/16 17:45 68 16 142/75 98 Mechanical Ventilator 50 10/30/16 17:30 99.5 74 16 131/72 100 Mechanical Ventilator 50 10/30/16 17:30 96 50 10/30/16 15:30 99.2 76 20 177/85 95 10/30/16 11:50 99.1 79 20 177/90 97 10/30/16 09:00 74 I/O 10/30/16 10/30/16 10/30/16 10/31/16 10/31/16 10/31/16 07:00 15:00 23:00 07:00 15:00 23:00 Intake Total 1180 ml 0 ml 2274 ml 1013 ml Output Total 1200 ml 1485 ml 1315 ml Balance -20 ml 0 ml 789 ml -302 ml Intake Oral 480 ml 0 ml 0 ml IV Total 700 ml 474 ml 1013 ml Other 1800 ml Output Urine Total 1200 ml 1400 ml 1300 ml Drainage Total 35 ml 15 ml Estimated Blood Loss 50 ml # Voids 3 # Bowel Movements 1 1 0 0 Laboratory Tests Test 10/30/16 10/30/16 10/30/16 10/30/16 16:16 16:42 16:44 17:43 Hemoglobin 8.5 Hematocrit 26.4 Crossmatch Leukocyte-Reduced Leukocyte-Reduced Red Blood Red Blood Cells Cells Blood Bank Comment Blood Type O POSITIVE O POSITIVE Antibody Screen POSITIVE Antigen Identification C Antigen - NEGATIVE Antibody Identification Anti-C Test 10/30/16 10/31/16 21:30 03:52 Nasal Screen MRSA (PCR) MRSA NOT DETECTED White Blood Count 8.6 Red Blood Count 3.11 Hemoglobin 8.6 Hematocrit 25.2 Mean Corpuscular Volume 81.0 Mean Corpuscular Hemoglobin 27.5 Mean Corpuscular Hemoglobin 34.0 Concent Red Cell Distribution Width 14.4 Platelet Count 301 Mean Platelet Volume 8.1 Neutrophils (%) (Auto) 77.2 Lymphocytes (%) (Auto) 14.4 Monocytes (%) (Auto) 7.7 Eosinophils (%) (Auto) 0.1 Basophils (%) (Auto) 0.6 Neutrophils # (Auto) 6.7 Lymphocytes # (Auto) 1.2 Monocytes # (Auto) 0.7 Eosinophils # (Auto) 0.0 Basophils # (Auto) 0.0 CBC Comment DIFF FINAL Differential Comment Sodium Level 145 Potassium Level 4.5 Chloride Level 112 Carbon Dioxide Level 21.6 Anion Gap 11 Blood Urea Nitrogen 15 Creatinine 2.63 Estimat Glomerular Filtration 22 Rate Random Glucose 123 Calcium Level 8.5 Magnesium Level 1.8 Date/Time Procedure Status Source Growth 10/30/16 17:05 Gram Stain Received Wound Breast Pending 10/30/16 17:05 Wound Culture Received Wound Breast Pending 10/30/16 17:05 Fungal Smear Received Wound Breast Pending 10/30/16 17:05 Fungal Culture Received Wound Breast Pending 10/30/16 17:05 Acid Fast Stain Received Wound Breast Pending 10/30/16 17:05 Mycobacterial Culture Received Wound Breast Pending 10/26/16 14:00 Legionella Antigen - Final Complete Urine Clean Catch PRESUMPTIVE NEGATIVE FOR LEGIONELLA P... 10/26/16 14:00 Streptococcus pneumoniae Antigen (M - Final Complete Urine Clean Catch PRESUMPTIVE NEGATIVE FOR STREPTOCOCCU... Result Diagram: 10/31/1635110/31/16351 Exam Findings Vacuum dressing intact and functioning on the right chest wall Assessment and Plan Assessment and Plan Patient is recovering from sepsis secondary to an ischemia flap that was removed in the OR yesterday evening. She is improving. Plan: Wean from ventilator today. Monitor renal function. Continue VAC changes Fri, Fri, Fri. Tennille Ngo MD Oct 31, 2016 08:49
[2016-10-31] MEDS: SILVER SULFADIAZINE 1% CR 50 GM JAR TOPICAL SCH ×2 (09:00→20:03)
[2016-10-31] MEDS: PANTOPRAZOLE SODIUM 40 MG VIAL IV SCH (09:00)
[2016-10-31] MEDS: CEFEPIME INJ 2,000 MG in SODIUM CHLORIDE 0.9% INJ 100 ML IV SCH (09:01)
--- NOTE | 2016-10-31 09:10 | HHI.CCPN ---
Subjective Remarks/Hospital Course 61 y/o woman underwent debridement and VAC placement for necrosis of right TRAM flap placed in 2010 following mastectomy. She is ventilator dependent and has pre-existing pneumonitis. Subjective: 10/31: Tmax 97.8. Overnight the patient was noted to have continued decrease in urine output, but creatinine is improving. The patient was maintained on mechanical ventilation currently CPAP trials are underway, with plans for SBT parameters and subsequent extubation. Objective Vital Signs Date Time Temp Pulse Resp B/P Pulse Ox O2 Delivery O2 Flow Rate FiO2 10/31/16 08:08 100 35 10/31/16 06:00 68 10/31/16 04:00 97.8 13 148/75 10/30/16 20:30 Mechanical Ventilator 10/30/16 08:12 1.00 Intake and Output 10/30/16 10/30/16 10/31/16 08:00 16:00 00:00 Intake Total 1180 ml 0 ml 2274 ml Output Total 1200 ml 1485 ml Balance -20 ml 0 ml 789 ml Result Diagram: 10/31/16 0352 10/31/16 0352 Imaging Last Impressions Chest X-Ray 10/30/16 0000 Signed Impressions: Service Date/Time: Sunday, October 30, 2016 18:56 - CONCLUSION: 1. Consolidation and effusion right lung base. 2. Endotracheal tube tip just slightly above the margareth. Jose Alfredo Albarran MD Abdomen X-Ray 10/27/16 0000 Signed Impressions: Service Date/Time: Thursday, October 27, 2016 11:21 - CONCLUSION: No acute disease. Jose Alfredo Pradhan MD Renal Ultrasound 10/26/16 0000 Signed Impressions: Service Date/Time: Wednesday, October 26, 2016 22:02 - CONCLUSION: Normal examination. Kane Mo Jr., MD CT Angiography 10/24/16 1335 Signed Impressions: Service Date/Time: October 14:26 - CONCLUSION: 1. Right lower lobe pneumonia. 2. There is no evidence for PE for technique. 3. Soft tissue density in right chest wall could be postsurgical change in this patient with prior mastectomy or a flap and the exact nature of the patient's surgery is not known to us. Tracy Austin MD Objective Remarks P 63 BP 122/69 R 8 Sats 100% GENERAL: Well-developed well-nourished female, sedated currently on CPAP trials with a RASS -2 SKIN: Warm and dry. Right breast wound VAC on suction 125 mmHg. Old surgical lower abdominal scar healed, no erythema, or drainage. HEAD: Atraumatic. Normocephalic. EYES: Pupils equal and round. No scleral icterus. No injection or drainage. ENT: No nasal bleeding or discharge. Mucous membranes pink and moist. NECK: Trachea midline. No JVD. Orotracheally intubated CARDIOVASCULAR: Normal rate, regular rhythm. RESPIRATORY: CPAP trials currently No accessory muscle use. Clear to auscultation. Breath sounds equal bilaterally. GASTROINTESTINAL: Abdomen soft, non-tender, nondistended. No guarding. MUSCULOSKELETAL: Extremities without clubbing, cyanosis, mild peripheral edema bilateral upper extremities edema. No obvious deformities. NEUROLOGICAL: RASS -2. No gross focal/sensory deficits. Follows commands in all 4 extremities. 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) Currently mechanically ventilated, on CPAP trials 12/5 FiO2 0.35 SBT parameters this morning, plans for extubation Postextubation begin incentive spirometry Bronchodilators when necessary Cardiovascular: Hypertension Maintain MAP greater than 65 mmHg, currently normotensive Clonidine, and Hydralazine PRN for systolic BP greater than 16o Renal: Acute kidney injury Contrast nephropathy Oliguria Nephrology Taylor, follow recommendations UOP 720 cc/24 hours Creatinine improving 3.3-> 3.0-> 2.63 today Maintain Dove for accurate I&O -- Strict I/Os FEN/GI: Monitor serial BMP Maintain NPO status for now Plan bedside swallow post extubation, a successful begin clear liquid diet Bowel regimen Zofran for nausea Heme/ID: Sepsis/pneumonia -on admission 10/24 Surgical wound infection necrosis right breast-right breast reconstruction with TRAM flap for breast cancer 2010 S/P debridement right TRAM flap with wound VAC placement-POD #1 Monitor CBC Continue cefepime, azithromycin F/U sputum culture Endocrine: Glucose monitoring per ICU protocol -- SSI Prophylaxis: GI Prophylaxis Protonix DVT Prophylaxis -- SCDs Lovenox every 24hrs Lines: Peripheral IV 2. Central line if indicated Dispo: Discussed with Dr. Tennille Ngo, and GYMNASTICS COACH at bedside. This patient remains critically ill with one or more organ systems which are or may become a threat to life. I have spent in excess of 37 minutes discontinuously in the care and management of this patient. This time is exclusive of procedures, and includes, but is not limited to, evaluation of the patient, review of the medical record, discussions with family, consultants, nursing staff, or respiratory therapy, and documentation in the medical record. Physician Sammie Goins MD Oct 31, 2016 09:10
--- NOTE | 2016-10-31 10:30 | HHI.NPPN ---
Subjective History of Present Illness 61 years old female with history of Breast reconstruction surgery, called to see for elevated BUN and Creatinine. Additional Remarks Patient is alert, no SOB, with nasal cannula, just extubated. Review of Systems General Constitutional: Fatigue Cardiovascular Cardiac: PEREZ Gastrointestinal Gastrointestinal: Abdominal Pain Objective Data Data 10/30/16 10/31/16 19:00 07:00 Intake Total 1800 ml 1487 ml Output Total 850 ml 1950 ml Balance 950 ml -463 ml Intake Oral 0 ml 0 ml IV Total 1487 ml Other 1800 ml Output Urine Total 800 ml 1900 ml Drainage Total 50 ml Estimated Blood Loss 50 ml # Voids 3 # Bowel Movements 1 0 Vital Signs Date Time Temp Pulse Resp B/P Pulse Ox O2 Delivery O2 Flow Rate FiO2 10/31/16 09:45 99 Nasal Cannula 3 10/31/16 09:45 100 Nasal Cannula 3.00 10/31/16 09:45 99 Nasal Cannula 3.00 10/31/16 08:08 100 35 10/31/16 08:00 98.4 60 11 122/59 100 10/31/16 08:00 61 10/31/16 08:00 40 10/31/16 06:00 68 10/31/16 04:39 100 35 10/31/16 04:38 35 10/31/16 04:00 40 10/31/16 04:00 70 10/31/16 04:00 97.8 70 13 148/75 100 10/31/16 03:10 12 10/31/16 02:00 51 10/31/16 01:11 100 35 10/31/16 00:00 40 10/31/16 00:00 97.9 52 12 138/74 100 10/31/16 00:00 56 10/30/16 21:20 98 50 10/30/16 20:30 98.6 58 10 100 Mechanical Ventilator 50 10/30/16 20:01 100 50 10/30/16 20:00 59 10 134/80 100 Mechanical Ventilator 50 10/30/16 19:30 99.5 63 10 153/83 100 Mechanical Ventilator 50 10/30/16 19:00 99.9 65 16 123/75 100 Mechanical Ventilator 50 10/30/16 18:45 66 16 121/76 100 Mechanical Ventilator 50 10/30/16 18:30 68 16 111/66 100 Mechanical Ventilator 50 10/30/16 18:15 69 16 131/76 100 Mechanical Ventilator 50 10/30/16 18:00 67 16 141/80 99 Mechanical Ventilator 50 10/30/16 17:45 68 16 142/75 98 Mechanical Ventilator 50 10/30/16 17:30 99.5 74 16 131/72 100 Mechanical Ventilator 50 10/30/16 17:30 96 50 10/30/16 15:30 99.2 76 20 177/85 95 10/30/16 11:50 99.1 79 20 177/90 97 -: 10/31/16 0352 10/31/16 0352 Microbiology 10/30/16 Gram Stain - Final, Resulted 10/30/16 Wound Culture, Resulted Pending 10/30/16 Acid Fast Stain, Received Pending 10/30/16 Mycobacterial Culture, Received Pending 10/30/16 Fungal Smear - Final, Resulted NO FUNGAL ELEMENTS SEEN. 10/30/16 Fungal Culture, Resulted Pending 10/31/16 Gram Stain, Received Pending 10/31/16 Sputum Culture, Received Pending Physical Exam General Appearance: No Acute Distress, Comfortable Eyes Eye Exam: Pupils Equal Throat Throat Exam: Oral Mucosa [place] & Moist Neck Neck Exam: Neck Supple Pulmonary Resp Exam: Clear Bilaterally, Breath Sounds Equal, No Distress, Rhonchi, Decreased Bases Cardiology CV Exam: Regular, Normal Sinus Rhythm Gastrointestinal/Abdomen GI Exam: Soft, Bowel Sounds Present, Distended Extremeties Extremities Exam: Trace Edema Neurologic Neuro Exam: Alert, Awake, Oriented Psychiatric Psych Exam: Appropriate Responses Assessment/Plan Assessment Summary: AUDIE/Acute Renal Failure Problem List: (1) History of breast cancer (2) Essential hypertension (3) URI, acute (4) Diabetes mellitus (5) AUDIE (acute kidney injury) Plan Patient has Renal U/S done and results noted. BP is stable. Non oliguric. Most likely has Contrast Nephropathy. Creatinine started improving. Continue antibiotics and IVF. Avoid Nephrotoxins, and follow urine out put and BMP. Has removal of ischemic breast flap yesterday. Plastic surgery following. Follow the urine out put and BMP. Dinah Garcia MD Oct 31, 2016 10:30
[2016-10-31] MEDS: AZITHROMYCIN INJ 500 MG in SODIUM CHLOR 0.9% 250 ML INJ 250 ML IV SCH (11:24)
[2016-10-31] MEDS: ENOXAPARIN SODIUM 30 MG/0.3 ML SYRINGE SQ SCH (20:02)
[2016-11-01] VITALS (11 sets, daily range): BP systolic 115–143; BP diastolic 58–73; PULSE 70–85; RESP 14–21; TEMP 98.5–99.4; O2SAT 94–100
[2016-11-01] MEDS: 1/2 NS + KCL 20 MEQ INJ 1,000 ML IV SCH ×3 (01:42→21:36)
[2016-11-01 05:14] LABS: HEMATOCRIT 23.4 % (35.0-46.0); MEAN CELL VOLUME 81.2 FL (80.0-100.0); MEAN CORPUSCULAR HEMOGLOBIN 27.2 PG (27.0-34.0); MEAN CORPUSCULAR HGB CONC 33.5 % (32.0-36.0); PLATELET COUNT 335 TH/MM3 (150-450); RED BLOOD COUNT 2.89 MIL/MM3 (4.00-5.30); RED CELL DISTRIBUTION WIDTH 14.4 % (11.6-17.2); REVIEW FLAG FINAL; WHITE BLOOD COUNT 8.2 TH/MM3 (4.0-11.0)
[2016-11-01 05:32] LABS: MAGNESIUM 1.7 MG/DL (1.5-2.5); POTASSIUM 3.8 MEQ/L (3.5-5.1)
[2016-11-01] MEDS: CHLORHEXIDINE 0.12% (ORAL KIT) 15 ML CUP MT SCH ×2 (07:46→20:00)
[2016-11-01] MEDS: SILVER SULFADIAZINE 1% CR 50 GM JAR TOPICAL SCH ×2 (08:33→21:00)
[2016-11-01] MEDS: DOCUSATE SODIUM 100 MG CAP PO SCH ×2 (08:33→21:00)
[2016-11-01] MEDS: PANTOPRAZOLE SODIUM 40 MG VIAL IV SCH (08:33)
[2016-11-01] MEDS: CEFEPIME INJ 2,000 MG in SODIUM CHLORIDE 0.9% INJ 100 ML IV SCH (08:33)
[2016-11-01] MEDS: amLODIPine BESYLATE 5 MG TAB PO SCH (08:33)
--- NOTE | 2016-11-01 09:42 | PD.PLAS.PN ---
Subjective Remarks Patient is doing very well after extubation. She is conversational and states that she has no complaints. Objective Vital Signs Date Time Temp Pulse Resp B/P Pulse Ox O2 Delivery O2 Flow Rate FiO2 11/01/16 08:00 81 11/01/16 08:00 98.7 79 19 143/65 100 11/01/16 07:00 100 Nasal Cannula 3.00 11/01/16 06:00 82 11/01/16 04:00 99.3 79 17 135/65 100 11/01/16 04:00 79 11/01/16 02:00 76 11/01/16 00:00 79 11/01/16 00:00 98.6 79 14 115/58 100 10/31/16 22:58 99 Nasal Cannula 3.00 10/31/16 22:00 81 10/31/16 20:00 78 10/31/16 20:00 98.7 78 16 131/61 100 10/31/16 19:00 100 Nasal Cannula 3.00 10/31/16 16:00 74 10/31/16 16:00 98.4 72 18 125/61 100 10/31/16 14:00 84 10/31/16 12:00 98.7 92 19 118/66 100 10/31/16 12:00 92 10/31/16 10:00 60 10/31/16 09:45 99 Nasal Cannula 3 10/31/16 09:45 40 10/31/16 09:45 100 Nasal Cannula 3.00 10/31/16 09:45 99 Nasal Cannula 3.00 I/O 10/31/16 10/31/16 10/31/16 11/01/16 11/01/16 11/01/16 07:00 15:00 23:00 07:00 15:00 23:00 Intake Total 1013 ml 1006 ml 780 ml 1040 ml Output Total 1315 ml 550 ml 750 ml 1225 ml Balance -302 ml 456 ml 30 ml -185 ml Intake Oral 120 ml 240 ml IV Total 1013 ml 1006 ml 660 ml 800 ml Output Urine Total 1300 ml 525 ml 700 ml 1200 ml Drainage Total 15 ml 25 ml 50 ml 25 ml # Bowel Movements 0 0 0 0 Laboratory Tests Test 11/01/16 04:27 White Blood Count 8.2 Red Blood Count 2.89 Hemoglobin 7.9 Hematocrit 23.4 Mean Corpuscular Volume 81.2 Mean Corpuscular Hemoglobin 27.2 Mean Corpuscular Hemoglobin 33.5 Concent Red Cell Distribution Width 14.4 Platelet Count 335 Mean Platelet Volume 7.9 Sodium Level 145 Potassium Level 3.8 Chloride Level 115 Carbon Dioxide Level 20.0 Anion Gap 10 Blood Urea Nitrogen 17 Creatinine 2.33 Estimat Glomerular Filtration 26 Rate Random Glucose 87 Calcium Level 8.3 Phosphorus Level 2.3 Magnesium Level 1.7 Date/Time Procedure Status Source Growth 10/31/16 09:15 Gram Stain - Final Resulted Sputum Endotracheal 10/31/16 09:15 Sputum Culture Resulted Sputum Endotracheal Pending 10/30/16 17:05 Fungal Smear - Final Resulted Wound Breast NO FUNGAL ELEMENTS SEEN. 10/30/16 17:05 Fungal Culture Resulted Wound Breast Pending 10/30/16 17:05 Acid Fast Stain Received Wound Breast Pending 10/30/16 17:05 Mycobacterial Culture Received Wound Breast Pending Result Diagram: 11/01/16 0427 11/01/16 0427 Exam Findings Vacuum dressing intact and functioning on the right chest wall. No erythema. Assessment and Plan Assessment and Plan Patient is recovering from sepsis secondary to an ischemia flap that was removed in the OR on Friday evening. She is improving. Plan: Transfer to floor today. Monitor renal function. Continue VAC changes Fri, Fri, Fri. Tennille Ngo MD Nov 01, 2016 09:42
[2016-11-01] MEDS: AZITHROMYCIN INJ 500 MG in SODIUM CHLOR 0.9% 250 ML INJ 250 ML IV SCH (11:26)
[2016-11-01] MEDS: HYDROmorphone HCL PF 2 MG/ML VIAL IV PUSH PRN ×2 (11:27→18:44)
[2016-11-01] MEDS: PROMETHAZINE HCL 25 MG TAB PO PRN (11:40)
--- NOTE | 2016-11-01 12:29 | HHI.NPPN ---
Subjective History of Present Illness 61 years old female with history of Breast reconstruction surgery, called to see for elevated BUN and Creatinine. Additional Remarks Patient is alert, no SOB, with nasal cannula, just extubated. Review of Systems General Constitutional: Fatigue Cardiovascular Cardiac: PEREZ Gastrointestinal Gastrointestinal: Abdominal Pain Objective Data Data 10/31/16 11/01/16 19:00 07:00 Intake Total 1006 ml 1820 ml Output Total 550 ml 1975 ml Balance 456 ml -155 ml Intake Oral 360 ml IV Total 1006 ml 1460 ml Output Urine Total 525 ml 1900 ml Drainage Total 25 ml 75 ml # Bowel Movements 0 0 Vital Signs Date Time Temp Pulse Resp B/P Pulse Ox O2 Delivery O2 Flow Rate FiO2 11/01/16 10:00 78 11/01/16 08:00 81 11/01/16 08:00 98.7 79 19 143/65 100 11/01/16 07:00 100 Nasal Cannula 3.00 11/01/16 06:00 82 11/01/16 04:00 99.3 79 17 135/65 100 11/01/16 04:00 79 11/01/16 02:00 76 11/01/16 00:00 79 11/01/16 00:00 98.6 79 14 115/58 100 10/31/16 22:58 99 Nasal Cannula 3.00 10/31/16 22:00 81 10/31/16 20:00 78 10/31/16 20:00 98.7 78 16 131/61 100 10/31/16 19:00 100 Nasal Cannula 3.00 10/31/16 16:00 74 10/31/16 16:00 98.4 72 18 125/61 100 10/31/16 14:00 84 -: 11/01/16 0427 11/01/16 0427 Physical Exam General Appearance: No Acute Distress, Comfortable Eyes Eye Exam: Pupils Equal Throat Throat Exam: Oral Mucosa [place] & Moist Neck Neck Exam: Neck Supple Pulmonary Resp Exam: Clear Bilaterally, Breath Sounds Equal, No Distress, Rhonchi, Decreased Bases Cardiology CV Exam: Regular, Normal Sinus Rhythm Gastrointestinal/Abdomen GI Exam: Soft, Bowel Sounds Present, Distended Extremeties Extremities Exam: Trace Edema Neurologic Neuro Exam: Alert, Awake, Oriented Psychiatric Psych Exam: Appropriate Responses Assessment/Plan Assessment Summary: AUDIE/Acute Renal Failure Problem List: (1) History of breast cancer (2) Essential hypertension (3) URI, acute (4) Diabetes mellitus (5) AUDIE (acute kidney injury) Plan Patient has Renal U/S done and results noted. BP is stable. Non oliguric. Most likely has Contrast Nephropathy. Creatinine started improving. Continue antibiotics and IVF. Avoid Nephrotoxins, and follow urine out put and BMP. Has removal of ischemic breast flap yesterday. Plastic surgery following. Follow the urine out put and BMP. Dinah Garcia MD Nov 01, 2016 12:29
--- NOTE | 2016-11-01 14:38 | HHI.PR ---
Subjective Remarks Pt tolerating PO intake. Objective Vitals Vital Signs Date Time Temp Pulse Resp B/P Pulse Ox O2 Delivery O2 Flow Rate FiO2 11/01/16 14:00 76 11/01/16 12:00 98.7 75 21 135/66 100 11/01/16 12:00 77 11/01/16 10:00 78 11/01/16 08:00 81 11/01/16 08:00 98.7 79 19 143/65 100 11/01/16 07:00 100 Nasal Cannula 3.00 11/01/16 06:00 82 11/01/16 04:00 99.3 79 17 135/65 100 11/01/16 04:00 79 11/01/16 02:00 76 11/01/16 00:00 79 11/01/16 00:00 98.6 79 14 115/58 100 10/31/16 22:58 99 Nasal Cannula 3.00 10/31/16 22:00 81 10/31/16 20:00 78 10/31/16 20:00 98.7 78 16 131/61 100 10/31/16 19:00 100 Nasal Cannula 3.00 10/31/16 16:00 74 10/31/16 16:00 98.4 72 18 125/61 100 10/31/16 10/31/16 11/01/16 14:59 22:59 06:59 Intake Total 1006 ml 780 ml 1040 ml Output Total 550 ml 750 ml 1225 ml Balance 456 ml 30 ml -185 ml Intake Oral 120 ml 240 ml IV Total 1006 ml 660 ml 800 ml Output Urine Total 525 ml 700 ml 1200 ml Drainage Total 25 ml 50 ml 25 ml # Bowel Movements 0 0 0 Result Diagram: 11/01/16 0427 11/01/16 0427 Imaging Last Impressions Abdomen X-Ray 10/27/16 0000 Signed Impressions: Service Date/Time: Thursday, October 27, 2016 11:21 - CONCLUSION: No acute disease. Jose Alfredo Pradhan MD Renal Ultrasound 10/26/16 0000 Signed Impressions: Service Date/Time: Wednesday, October 26, 2016 22:02 - CONCLUSION: Normal examination. Kane Mo Jr., MD CT Angiography 10/24/16 1335 Signed Impressions: Service Date/Time: October 14:26 - CONCLUSION: 1. Right lower lobe pneumonia. 2. There is no evidence for PE for technique. 3. Soft tissue density in right chest wall could be postsurgical change in this patient with prior mastectomy or a flap and the exact nature of the patient's surgery is not known to us. Tracy Austin MD Chest X-Ray 10/24/16 1224 Signed Impressions: Service Date/Time: , October 24, 2016 13:03 - CONCLUSION: 1. Right basilar patchiness consistent with atelectasis and/or infiltrate. 2. Probable left basilar atelectasis. 3. Elevation of the right hemidiaphragm. 4. Degenerative changes and mild scoliosis of the thoracic spine. Júnior Suarez MD Objective Remarks GENERAL: This is a well-nourished, well-developed patient, in no apparent distress. CARDIOVASCULAR: Regular rate and rhythm without murmurs, gallops, or rubs. RESPIRATORY: Clear to auscultation. Breath sounds equal bilaterally. No wheezes , rales, or rhonchi. GASTROINTESTINAL: Abdomen soft, non-tender, nondistended. Normal active bowel sounds MUSCULOSKELETAL: Extremities without clubbing, cyanosis, or edema. NEURO: Alert & Oriented x4 to person, place, time, situation. 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 - Blood cultures (10/24/16) with one out of four bottles growing pleomorphic gram positive rods in the anaerobic culture - Wound culture and urine culture from 10/24 with Pseudomonas aeruginosa - Pt had been on Vanco and Zosyn but developed some AUDIE and nausea felt to possibly be related to contrast nephropathy or AIN or ATN from antibiotics/sepsis - The Vanco and Zosyn were d/c'd on 10/26 and 10/27 - Pt was started on Cefepime and Azithromycin, renal dosed - Renal function is slowly improving. - Urine eosinophils were negative and renal u/s with no evidence of obstruction. - Pt taken to the OR with Dr. Ngo (10/30/16) - Pt underwent debridement and VAC placement for necrosis of right TRAM flap placed following mastectomy - Pt extubated (10/31/16) - Pt doing well and tolerating PO intake - wound VAC change 3x/week - transfer to general medical floor - anticipate discharge in the next 1-2 days - DVT prophylaxis with SCDs (2) Surgical wound infection Status: Acute Plan: - See above (3) AUDIE (acute kidney injury) Status: Acute Plan: - comgmt with Nephrology - improving (4) History of breast cancer Status: Chronic (5) Essential hypertension Status: Chronic Plan: - stable - Norvasc 5mg po daily - Clonidine PRN - Pt normally on Lisinopril 20mg but due to renal insufficiency will hold on resuming this. Problem Qualifiers (1) Pneumonia: Qualified Code: J18.1 - Pneumonia of right lower lobe due to infectious organism (2) Surgical wound infection: Qualified Code: T81.4XXA - Surgical wound infection, initial encounter Randall Amezcua DO Nov 01, 2016 14:38
--- NOTE | 2016-11-01 17:47 | MP ---
cc: TENNILLE ESCOBEDO MD DATE OF SURGERY: 10/30/2016 PREOPERATIVE DIAGNOSIS: Necrotic right breast after undergoing right breast transverse rectus abdominous muscle flap. POSTOPERATIVE DIAGNOSIS Complete necrosis of the right breast, transverse rectus abdominis flap. PROCEDURE PERFORMED Evaluation of right breast TRAM flap with subsequent removal of the flap, debridement of the chest wall and placement of a vacuum dressing. ATTENDING PHYSICIAN: Tennille Escobedo MD [employer] ORDNANCEMAN: Staff. ANESTHESIA General anesthesia OPERATIVE INDICATIONS Miss Fink is a 61-year-old woman who underwent right breast reconstruction with a transverse rectus abdominis muscle flap. I was consulted due to loss of the skin of the flap with worsening the patient health status. I evaluated the wound and she continued to have brown colored drainage from the wound. Given her decline with persistent fevers and pneumonia. I opted to take her to the operating room for exam under anesthesia with removal of necrotic breast tissue. I discussed the risks and benefits of this operation with the patient and her family preoperatively and they wanted to proceed. OPERATIVE NOTE After informed consent was obtained the patient was taken back to the operating room, placed in supine position and then general anesthesia. A time out was held, to identify the patient and the procedure being preformed and I administered 2 grams of intravenous Ancef prior to start. Sequential compression devices were placed on bilateral lower extremities at the time of induction. Her chest wall was prepped and draped in standard sterile fashion. I directed my attention to the wounds were I incised the TRAM flap and the overlying intact breast skin. I carefully these to anatomic structures and noted that the TRAM flap appeared to be completely necrotic in appearance. There is a very minimal bleeding as I continued to dissect down to the chest wall. I noted that the rectus muscle was completely necrotic and thrombosed. Every vessel that I encountered was completely thrombosed as well. Unfortunately after a complete and thorough evaluation of the flap I determined that it was nonsalvageable. It was completely necrotic and despite my twisting the flap back into proper position. There was no salvage of the material. It appeared as though there was a stricture across the base of the flap and the breast tissue had kinked on top of the vessel. I completely removed the entire TRAM flap. The flap measured 25 x 25 cm. I tied off the vessels of the rectus muscle. I then used a pulse lavage to debride away all remaining necrotic debris from the chest wall. Any bleeding tissue was cauterized with electrocautery. I thoroughly irrigated the wound and then tacked down portions of the skin to the chest wall. Unfortunately I was unable to close the skin due to be a significant amount of edema and swelling. I could not approximate the skin edges primarily. I then chose to place a vacuum dressing. This entire wound measured 25 x 25 cm on the chest wall. The vac was secured. The vacuum was placed to 125 mmHg of suction. Please note that all lap counts, and instrument counts were correct at the end of the case and I was present and scrubbed for the entire case. MD KATHY Guaman/jackeline /5:44 PM /5:11 PM MTDGeraldine
[2016-11-01] MEDS: ENOXAPARIN SODIUM 30 MG/0.3 ML SYRINGE SQ SCH (20:00)
[2016-11-02] VITALS (8 sets, daily range): BP systolic 141–170; BP diastolic 75–95; PULSE 70–84; RESP 18–20; TEMP 98.1–99.8; O2SAT 93–96
[2016-11-02] MEDS: HYDROmorphone HCL PF 2 MG/ML VIAL IV PUSH PRN ×2 (03:45→11:31)
[2016-11-02] MEDS: CHLORHEXIDINE 0.12% (ORAL KIT) 15 ML CUP MT SCH ×2 (08:00→20:00)
[2016-11-02 08:05] LABS: AUTOMATED NEUTROPHIL # 4.3 TH/MM3 (1.8-7.7); BASOPHIL % 0.5 % (0.0-2.0); EOSINOPHIL # 0.7 TH/MM3 (0-0.4); HEMATOCRIT 24.5 % (35.0-46.0); HEMO FLAGS DIFF FINAL; LYMPH % 20.3 % (9.0-44.0); LYMPHOCYTE # 1.4 TH/MM3 (1.0-4.8); MEAN CELL VOLUME 80.2 FL (80.0-100.0); MEAN CORPUSCULAR HEMOGLOBIN 26.2 PG (27.0-34.0); MEAN CORPUSCULAR HGB CONC 32.7 % (32.0-36.0); MONO % 8.7 % (0.0-8.0); NEUT % 60.5 % (16.0-70.0); PLATELET COUNT 356 TH/MM3 (150-450); RED BLOOD COUNT 3.06 MIL/MM3 (4.00-5.30); RED CELL DISTRIBUTION WIDTH 14.6 % (11.6-17.2); WHITE BLOOD COUNT 7.1 TH/MM3 (4.0-11.0)
[2016-11-02 08:30] LABS: BICARBONATE 24.9 MEQ/L (21.0-32.0); MAGNESIUM 1.6 MG/DL (1.5-2.5); POTASSIUM 3.9 MEQ/L (3.5-5.1)
[2016-11-02] MEDS: SILVER SULFADIAZINE 1% CR 50 GM JAR TOPICAL SCH ×2 (09:00→21:00)
--- NOTE | 2016-11-02 09:11 | RADRPT ---
EXAM DATE/TIME: 11/02/2016 08:53 [facility] COMPARISON: CHEST SINGLE AP, October 30, 2016, 18:56. INDICATIONS : Pneumonia. MEDICAL HISTORY : Carcinoma, breast. Hypertension. Gastroesophageal reflux disease. SURGICAL HISTORY : Cholecystectomy. Mastectomy, right. Hysterectomy. Wound-vac right breast. ENCOUNTER: Subsequent ACUITY: 4 - 6 days PAIN SCORE: 0/10 LOCATION: Bilateral chest FINDINGS: The lung volumes are diminished. Bilateral lower lobe consolidation and effusions right greater than left again noted. Osseous structures are intact. CONCLUSION: No significant change has occurred. Jax Snowden MD on November 02, 2016 at 9:09 Board Certified Radiologist. This report was verified electronically.
[2016-11-02] MEDS: 1/2 NS + KCL 20 MEQ INJ 1,000 ML IV SCH ×2 (09:22→18:15)
--- NOTE | 2016-11-02 09:24 | HHI.NPPN ---
Subjective History of Present Illness 61 years old female with history of Breast reconstruction surgery, called to see for elevated BUN and Creatinine. Additional Remarks Renal function continues to improve. Non oliguric. Review of Systems General Constitutional: Fatigue Cardiovascular Cardiac: PEREZ Gastrointestinal Gastrointestinal: Abdominal Pain Objective Data Data 11/01/16 11/02/16 19:00 07:00 Intake Total 2005 ml 250 ml Output Total 1130 ml 2125 ml Balance 875 ml -1875 ml Intake Oral 800 ml 250 ml IV Total 1205 ml Output Urine Total 1100 ml 2125 ml Drainage Total 30 ml # Bowel Movements 0 0 Vital Signs Date Time Temp Pulse Resp B/P Pulse Ox O2 Delivery O2 Flow Rate FiO2 11/02/16 09:09 98.1 80 18 168/85 95 11/02/16 04:13 18 11/02/16 04:00 99.1 84 20 170/85 95 11/02/16 00:00 99.2 80 20 155/79 95 11/01/16 21:00 97 Nasal Cannula 1.00 11/01/16 20:00 98.5 78 19 132/69 96 11/01/16 18:44 99.4 85 20 143/73 94 11/01/16 18:30 Nasal Cannula 1.00 11/01/16 16:00 98.5 73 14 137/71 100 11/01/16 16:00 70 11/01/16 14:00 76 11/01/16 12:00 98.7 75 21 135/66 100 11/01/16 12:00 77 11/01/16 10:00 78 -: 11/02/16 0635 11/02/16 0635 Physical Exam General Appearance: No Acute Distress, Comfortable Eyes Eye Exam: Pupils Equal Throat Throat Exam: Oral Mucosa [place] & Moist Neck Neck Exam: Neck Supple Pulmonary Resp Exam: Clear Bilaterally, Breath Sounds Equal, No Distress, Rhonchi, Decreased Bases Cardiology CV Exam: Regular, Normal Sinus Rhythm Gastrointestinal/Abdomen GI Exam: Soft, Bowel Sounds Present, Distended Extremeties Extremities Exam: Trace Edema Neurologic Neuro Exam: Alert, Awake, Oriented Psychiatric Psych Exam: Appropriate Responses Assessment/Plan Assessment Summary: AUDIE/Acute Renal Failure Problem List: (1) History of breast cancer (2) Essential hypertension (3) URI, acute (4) Diabetes mellitus (5) AUDIE (acute kidney injury) Plan P is stable. Non oliguric. Most likely had suffered contrast nephropathy. GFR is better. Continue supportive care. Avoid Nephrotoxins, and follow urine out put and BMP. Has removal of ischemic breast flap by plastic surgery. Monitor urine output and renal function. Teja Cleary MD Nov 02, 2016 09:24
[2016-11-02] MEDS: DOCUSATE SODIUM 100 MG CAP PO SCH ×2 (09:29→22:23)
[2016-11-02] MEDS: amLODIPine BESYLATE 5 MG TAB PO SCH (09:30)
[2016-11-02] MEDS: CEFEPIME INJ 2,000 MG in SODIUM CHLORIDE 0.9% INJ 100 ML IV SCH (09:30)
[2016-11-02] MEDS: PANTOPRAZOLE SODIUM 40 MG VIAL IV SCH (09:32)
[2016-11-02] MEDS: AZITHROMYCIN INJ 500 MG in SODIUM CHLOR 0.9% 250 ML INJ 250 ML IV SCH (11:06)
--- NOTE | 2016-11-02 13:00 | HHI.PR ---
Subjective Remarks No new complaints. Objective Vitals Vital Signs Date Time Temp Pulse Resp B/P Pulse Ox O2 Delivery O2 Flow Rate FiO2 11/02/16 12:20 98.7 82 18 141/75 96 11/02/16 11:37 70 11/02/16 09:09 98.1 80 18 168/85 95 11/02/16 04:13 18 11/02/16 04:00 99.1 84 20 170/85 95 11/02/16 00:00 99.2 80 20 155/79 95 11/01/16 21:00 97 Nasal Cannula 1.00 11/01/16 20:00 98.5 78 19 132/69 96 11/01/16 18:44 99.4 85 20 143/73 94 11/01/16 18:30 Nasal Cannula 1.00 11/01/16 16:00 98.5 73 14 137/71 100 11/01/16 16:00 70 11/01/16 14:00 76 11/01/16 11/01/16 11/02/16 15:00 23:00 07:00 Intake Total 2005 ml 250 ml Output Total 1130 ml 1200 ml 925 ml Balance 875 ml -950 ml -925 ml Intake Oral 800 ml 250 ml IV Total 1205 ml Output Urine Total 1100 ml 1200 ml 925 ml Drainage Total 30 ml # Bowel Movements 0 0 0 Result Diagram: 11/02/16 0635 11/02/16 0635 Imaging Last Impressions Abdomen X-Ray 10/27/16 0000 Signed Impressions: Service Date/Time: Thursday, October 27, 2016 11:21 - CONCLUSION: No acute disease. Jose Alfredo Pradhan MD Renal Ultrasound 10/26/16 0000 Signed Impressions: Service Date/Time: Wednesday, October 26, 2016 22:02 - CONCLUSION: Normal examination. Kane Mo Jr., MD CT Angiography 10/24/16 1335 Signed Impressions: Service Date/Time: October 14:26 - CONCLUSION: 1. Right lower lobe pneumonia. 2. There is no evidence for PE for technique. 3. Soft tissue density in right chest wall could be postsurgical change in this patient with prior mastectomy or a flap and the exact nature of the patient's surgery is not known to us. Tracy Austin MD Chest X-Ray 10/24/16 1224 Signed Impressions: Service Date/Time: October 13:03 - CONCLUSION: 1. Right basilar patchiness consistent with atelectasis and/or infiltrate. 2. Probable left basilar atelectasis. 3. Elevation of the right hemidiaphragm. 4. Degenerative changes and mild scoliosis of the thoracic spine. Júnior Suarez MD Objective Remarks GENERAL: This is a well-nourished, well-developed patient, in no apparent distress. CARDIOVASCULAR: Regular rate and rhythm without murmurs, gallops, or rubs. RESPIRATORY: Clear to auscultation. Breath sounds equal bilaterally. No wheezes , rales, or rhonchi. GASTROINTESTINAL: Abdomen soft, non-tender, nondistended. Normal active bowel sounds MUSCULOSKELETAL: Extremities without clubbing, cyanosis, or edema. NEURO: Alert & Oriented x4 to person, place, time, situation. 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 - Blood cultures (10/24/16) with one out of four bottles growing pleomorphic gram positive rods in the anaerobic culture - Wound culture and urine culture from 10/24 with Pseudomonas aeruginosa - Pt had been on Vanco and Zosyn but developed some AUDIE and nausea felt to possibly be related to contrast nephropathy or AIN or ATN from antibiotics/sepsis - The Vanco and Zosyn were d/c'd on 10/26 and 10/27 - Pt was started on Cefepime and Azithromycin, renal dosed - Renal function is slowly improving. - Urine eosinophils were negative and renal u/s with no evidence of obstruction. - Pt taken to the OR with Dr. Ngo (10/30/16) - Pt underwent debridement and VAC placement for necrosis of right TRAM flap placed following mastectomy - Pt extubated (10/31/16) - Pt doing well and tolerating PO intake - wound VAC change 3x/week - repeat CXR (11/02/16) --> continued density at right base - pt remains on cefepime and azithromycin - obtain repeat CT chest to clarify process at right lung base (2) Surgical wound infection Status: Acute Plan: - See above (3) AUDIE (acute kidney injury) Status: Acute Plan: - comgmt with Nephrology - improving (4) History of breast cancer Status: Chronic (5) Essential hypertension Status: Chronic Plan: - stable - Norvasc 5mg po daily - Clonidine PRN - Pt normally on Lisinopril 20mg but due to renal insufficiency will hold on resuming this. Problem Qualifiers (1) Pneumonia: Qualified Code: J18.1 - Pneumonia of right lower lobe due to infectious organism (2) Surgical wound infection: Qualified Code: T81.4XXA - Surgical wound infection, initial encounter Randall Amezcua DO Nov 02, 2016 13:00
--- NOTE | 2016-11-02 19:45 | RADRPT ---
EXAM DATE/TIME: 11/02/2016 18:40 [facility] COMPARISON: CT PULMONARY ANGIOGRAM, October 24, 2016, 14:26. INDICATIONS : Evaluate for pneumonia. RADIATION DOSE: 9.89 CTDIvol (mGy) MEDICAL HISTORY : Carcinoma, breast. Cardiovascular disease SURGICAL HISTORY : None. ENCOUNTER: Initial ACUITY: 1 day PAIN SCALE: 2/10 LOCATION: Bilateral chest TECHNIQUE: Volumetric scanning of the chest was performed. Using automated exposure control and adjustment of t he mA and/or kV according to patient size, radiation dose was kept as low as reasonably achievable to obtain optimal diagnostic quality images. FINDINGS: Previously seen masslike area in the right chest wall is no longer seen and probably resected farias rgically. The liver cysts are again identified not changed. Coronary artery calcifications are seen t ypically seen with CAD and need to be evaluated clinically. There is right lung base consolidation no t significantly changed with slight left lung base infiltrate and right pleural effusion is slightly larger. CONCLUSION: Slight increase in right pleural effusion, surgical removal of previously seen right breast opacity s pat the prior exam and otherwise not significantly changed. Tracy Austin MD on November 02, 2016 at 19:39 Board Certified Radiologist. This report was verified electronically.
[2016-11-02] MEDS: ONDANSETRON INJ 8 MG in DEXTROSE 5% IN WATER INJ 50 ML IV PRN ×2 (19:53)
[2016-11-02] MEDS: ENOXAPARIN SODIUM 30 MG/0.3 ML SYRINGE SQ SCH (22:23)
[2016-11-03] VITALS (8 sets, daily range): BP systolic 126–165; BP diastolic 78–88; PULSE 76–105; RESP 18–20; TEMP 98.3–100; O2SAT 91–97
[2016-11-03] MEDS: ONDANSETRON INJ 8 MG in DEXTROSE 5% IN WATER INJ 50 ML IV PRN ×2 (01:19)
[2016-11-03] MEDS: HYDROmorphone HCL PF 2 MG/ML VIAL IV PUSH PRN ×2 (01:21→21:59)
[2016-11-03] MEDS: CHLORHEXIDINE 0.12% (ORAL KIT) 15 ML CUP MT SCH ×2 (07:10→20:00)
[2016-11-03 07:32] LABS: AUTOMATED NEUTROPHIL # 3.6 TH/MM3 (1.8-7.7); BASOPHIL % 0.5 % (0.0-2.0); EOSINOPHIL # 0.3 TH/MM3 (0-0.4); HEMO FLAGS DIFF FINAL; LYMPH % 27.4 % (9.0-44.0); LYMPHOCYTE # 1.8 TH/MM3 (1.0-4.8); MEAN CELL VOLUME 79.5 FL (80.0-100.0); MEAN CORPUSCULAR HEMOGLOBIN 26.3 PG (27.0-34.0); MEAN CORPUSCULAR HGB CONC 33.1 % (32.0-36.0); MONO % 11.5 % (0.0-8.0); NEUT % 55.6 % (16.0-70.0); PLATELET COUNT 376 TH/MM3 (150-450); RED BLOOD COUNT 3.27 MIL/MM3 (4.00-5.30); RED CELL DISTRIBUTION WIDTH 14.5 % (11.6-17.2); WHITE BLOOD COUNT 6.5 TH/MM3 (4.0-11.0)
[2016-11-03 07:50] LABS: BICARBONATE 25.9 MEQ/L (21.0-32.0); MAGNESIUM 1.5 MG/DL (1.5-2.5); POTASSIUM 3.8 MEQ/L (3.5-5.1)
[2016-11-03] MEDS: SILVER SULFADIAZINE 1% CR 50 GM JAR TOPICAL SCH ×2 (07:59→21:00)
[2016-11-03] MEDS: 1/2 NS + KCL 20 MEQ INJ 1,000 ML IV SCH (09:16)
[2016-11-03] MEDS: amLODIPine BESYLATE 5 MG TAB PO SCH (09:18)
[2016-11-03] MEDS: PANTOPRAZOLE SODIUM 40 MG VIAL IV SCH (09:18)
[2016-11-03] MEDS: CEFEPIME INJ 2,000 MG in SODIUM CHLORIDE 0.9% INJ 100 ML IV SCH (09:18)
[2016-11-03] MEDS: DOCUSATE SODIUM 100 MG CAP PO SCH ×2 (09:19→21:59)
--- NOTE | 2016-11-03 09:38 | HHI.NPPN ---
Subjective History of Present Illness 61 years old female with history of Breast reconstruction surgery, called to see for elevated BUN and Creatinine. Additional Remarks Renal function continues to improve. Non oliguric. Creatinine is 1.5 today. Review of Systems General Constitutional: Fatigue Cardiovascular Cardiac: PEREZ Gastrointestinal Gastrointestinal: Abdominal Pain Objective Data Data 11/02/16 11/03/16 19:00 07:00 Intake Total 120 ml 2485 ml Output Total 3000 ml Balance -2880 ml 2485 ml Intake Oral 120 ml IV Total 2485 ml Output Urine Total 3000 ml Vital Signs Date Time Temp Pulse Resp B/P Pulse Ox O2 Delivery O2 Flow Rate FiO2 11/03/16 08:54 98.3 98 18 146/78 91 11/03/16 04:02 98.8 94 20 126/78 97 11/03/16 02:28 19 11/03/16 02:12 Room Air 11/03/16 02:12 88 11/02/16 20:00 99.8 84 18 160/95 95 11/02/16 18:06 82 11/02/16 16:48 98.7 82 18 160/79 93 11/02/16 12:20 96 1.00 11/02/16 12:20 98.7 82 18 141/75 96 11/02/16 11:37 70 -: 11/03/16 0612 11/03/16 0612 Physical Exam General Appearance: No Acute Distress, Comfortable Eyes Eye Exam: Pupils Equal Throat Throat Exam: Oral Mucosa [place] & Moist Neck Neck Exam: Neck Supple Pulmonary Resp Exam: Clear Bilaterally, Breath Sounds Equal, No Distress, Rhonchi, Decreased Bases Cardiology CV Exam: Regular, Normal Sinus Rhythm Gastrointestinal/Abdomen GI Exam: Soft, Bowel Sounds Present, Distended Extremeties Extremities Exam: Trace Edema Neurologic Neuro Exam: Alert, Awake, Oriented Psychiatric Psych Exam: Appropriate Responses Assessment/Plan Assessment Summary: AUDIE/Acute Renal Failure Problem List: (1) History of breast cancer (2) Essential hypertension (3) URI, acute (4) Diabetes mellitus (5) AUDIE (acute kidney injury) Plan Renal function is improving. Non oliguric. Most likely had suffered contrast nephropathy. Continue supportive care. Avoid Nephrotoxins, and follow urine out put and BMP. Had removal of ischemic breast flap by plastic surgery. Monitor urine output and renal function. Teja Cleary MD Nov 03, 2016 09:38
[2016-11-03] MEDS: AZITHROMYCIN INJ 500 MG in SODIUM CHLOR 0.9% 250 ML INJ 250 ML IV SCH (11:40)
--- NOTE | 2016-11-03 12:33 | RADRPT ---
EXAM DATE/TIME: 11/03/2016 10:56 [facility] COMPARISON: CT THORAX W/O CONTRAST, November 02, 2016, 18:40. INDICATIONS : Pleural effusion. MEDICAL HISTORY : Hypertension. Gastroesophageal reflux disease. Carcinoma, breast. SURGICAL HISTORY : Cholecystectomy. Mastectomy, right. Tubal ligation. Hysterectomy. ENCOUNTER: Initial ACUITY: 2 days PAIN SCORE: 2/10 LOCATION: Right chest MEASUREMENTS: SKIN TO PARIETAL PLEURA: Inadequate fluid SKIN TO MAX SAFE DEPTH: Inadequate fluid ESTIMATED FLUID VOLUME: 102 cc FLUID COMPOSITION: simple FINDINGS: No marking was performed. Small pleural effusion is identified with volume of approximately 102.0 cc CONCLUSION: Volume of fluid too small to safely perform thoracentesis. Kade Dhillon MD on November 03, 2016 at 12:30 Board Certified Radiologist. This report was verified electronically.
--- NOTE | 2016-11-03 14:36 | HHI.PR ---
Subjective Remarks No new complaints. Objective Vitals Vital Signs Date Time Temp Pulse Resp B/P Pulse Ox O2 Delivery O2 Flow Rate FiO2 11/03/16 12:35 99.2 88 18 165/88 93 11/03/16 12:30 93 Room Air 11/03/16 08:54 98.3 98 18 146/78 91 11/03/16 08:02 76 11/03/16 04:02 98.8 94 20 126/78 97 11/03/16 02:28 19 11/03/16 02:12 Room Air 11/03/16 02:12 88 11/02/16 20:00 99.8 84 18 160/95 95 11/02/16 18:06 82 11/02/16 16:48 98.7 82 18 160/79 93 11/02/16 11/02/16 11/03/16 15:00 23:00 07:00 Intake Total 2605 ml Output Total 1850 ml 1150 ml Balance -1850 ml 1455 ml Intake Oral 120 ml IV Total 2485 ml Output Urine Total 1850 ml 1150 ml Result Diagram: 11/03/16 0612 11/03/16 0612 Imaging Last Impressions Abdomen X-Ray 10/27/16 0000 Signed Impressions: Service Date/Time: Thursday, October 27, 2016 11:21 - CONCLUSION: No acute disease. Jose Alfredo Pradhan MD Renal Ultrasound 10/26/16 0000 Signed Impressions: Service Date/Time: Wednesday, October 26, 2016 22:02 - CONCLUSION: Normal examination. Kane Mo Jr., MD CT Angiography 10/24/16 1335 Signed Impressions: Service Date/Time: October 14:26 - CONCLUSION: 1. Right lower lobe pneumonia. 2. There is no evidence for PE for technique. 3. Soft tissue density in right chest wall could be postsurgical change in this patient with prior mastectomy or a flap and the exact nature of the patient's surgery is not known to us. Tracy Austin MD Chest X-Ray 10/24/16 1224 Signed Impressions: Service Date/Time: October 13:03 - CONCLUSION: 1. Right basilar patchiness consistent with atelectasis and/or infiltrate. 2. Probable left basilar atelectasis. 3. Elevation of the right hemidiaphragm. 4. Degenerative changes and mild scoliosis of the thoracic spine. Júnior Suarez MD Objective Remarks GENERAL: This is a well-nourished, well-developed patient, in no apparent distress. CARDIOVASCULAR: Regular rate and rhythm without murmurs, gallops, or rubs. RESPIRATORY: Clear to auscultation. Breath sounds equal bilaterally. No wheezes , rales, or rhonchi. GASTROINTESTINAL: Abdomen soft, non-tender, nondistended. Normal active bowel sounds MUSCULOSKELETAL: Extremities without clubbing, cyanosis, or edema. NEURO: Alert & Oriented x4 to person, place, time, situation. 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 - Blood cultures (10/24/16) with one out of four bottles growing pleomorphic gram positive rods in the anaerobic culture - Wound culture and urine culture from 10/24 with Pseudomonas aeruginosa - Pt had been on Vanco and Zosyn but developed some AUDIE and nausea felt to possibly be related to contrast nephropathy or AIN or ATN from antibiotics/sepsis - The Vanco and Zosyn were d/c'd on 10/26 and 10/27 - Pt was started on Cefepime and Azithromycin, renal dosed - Renal function is slowly improving. - Urine eosinophils were negative and renal u/s with no evidence of obstruction. - Pt taken to the OR with Dr. Ngo (10/30/16) - Pt underwent debridement and VAC placement for necrosis of right TRAM flap placed following mastectomy - Pt extubated (10/31/16) - Pt doing well and tolerating PO intake - wound VAC change 3x/week - repeat CXR (11/02/16) --> continued density at right base - pt remains on cefepime and azithromycin - repeat CT chest (11/02/16) --> right pleural effusion, right base pneumonia - Chest US (11/03/16) --> insufficient pleural effusion for thoracentesis - Consult placed to ID for recommendation regarding antibiotic coverage (2) Surgical wound infection Status: Acute Plan: - See above (3) AUDIE (acute kidney injury) Status: Acute Plan: - See above. (4) History of breast cancer Status: Chronic (5) Essential hypertension Status: Chronic Plan: - BP has been more elevated - change Norvasc 5mg to procardia XL 30mg daily - Clonidine PRN - Pt normally on Lisinopril 20mg but due to renal insufficiency will hold on resuming this. Problem Qualifiers (1) Pneumonia: Qualified Code: J18.1 - Pneumonia of right lower lobe due to infectious organism (2) Surgical wound infection: Qualified Code: T81.4XXA - Surgical wound infection, initial encounter Randall Amezcua DO Nov 03, 2016 14:36
[2016-11-03] MEDS: NIFEdipine 30 MG SUSTAINED RELEASE TAB PO SCH (15:52)
[2016-11-03] MEDS: ENOXAPARIN SODIUM 30 MG/0.3 ML SYRINGE SQ SCH (21:59)
--- NOTE | 2016-11-03 23:06 | PD.ID.CON ---
History of Present Illness Service ID Consult Requested By Dr Amezcua Reason for Consult R breast wound infx Primary Care Physician Tomas Haas MD Diagnoses: History of Present Illness Patient is a 61yo female with history of breast ca sp a TRAM flap to reconstruct the right breast. She has tissue necrosis of a portion of the flap. SHe developped drainage from the time of her surgery > 1 mo ago and was seen by her plastic surgeon almost 2 wks ago Large amount of brown d/c was expresed Pt noticed next day severe pain in R chest area, fevers, chills and maliase and she presented to the hospital 10 days ago She was found to have right lower lobe pneumonia and necrosis of breast flap She preogressed to complete necrosis of her breast TRAM flap and underwent I+ DHer initial clx grew out PSAE, repeat wound clx negative Review of Systems Except as stated in HPI: all other systems reviewed are Neg Past Family Social History Allergies: Coded Allergies: Demerol (Verified Allergy, Intermediate, Hallucinations, 10/24/16) Past Medical History right breast ca. mod inv. ductal cell. hx radiation htn Past Surgical History hysterectomy cholecystecomy .Lumpectomy mastectomy and reconstruction Active Ordered Medications Medications where reviewed in EMR Antibiotics Include: cefepime azithomycin Family History Non-Contributory. Social History No Tobacco. No ETOH. No Illicit Drugs. Physical Exam Vital Signs Vital Signs Date Time Temp Pulse Resp B/P Pulse Ox O2 Delivery O2 Flow Rate FiO2 11/03/16 20:00 100.0 105 20 137/82 92 11/03/16 16:20 99.2 100 18 141/78 94 11/03/16 12:35 99.2 88 18 165/88 93 11/03/16 12:30 93 Room Air 11/03/16 08:54 98.3 98 18 146/78 91 11/03/16 08:02 76 11/03/16 04:02 98.8 94 20 126/78 97 11/03/16 02:28 19 11/03/16 02:12 Room Air 11/03/16 02:12 88 Physical Exam CONSTITUTIONAL/GENERAL: This is an adequately nourished patient, in no apparent distress. TUBES/LINES/DRAINS: SKIN: No jaundice, rashes, or lesions. \Skin temperature appropriate. Not diaphoretic. BREASTS: sp R side mastectomy skin with post XRT changes VAC in place with serosang d/c some edema and induration present around dressing HEAD: Atraumatic. Normocephalic. EYES: Pupils equal and round and reactive. Extraocular motions intact. No scleral icterus. No injection or drainage. Fundi not examined. ENT: Hearing grossly normal. Nose without bleeding or purulent drainage. Throat without visible erythema, exudates, masses, or lesions. NECK: Trachea midline. Supple, nontender. No palpable thyroid enlargement or nodularity. CARDIOVASCULAR: Regular rate and rhythm without murmurs, gallops, or rubs. No JVD. Peripheral pulses symmetric. RESPIRATORY/CHEST: Symmetric, unlabored respirations. Clear to auscultation. Breath sounds equal bilaterally. No wheezes, rales, or rhonchi. GASTROINTESTINAL: Abdomen soft, non-tender, nondistended. No hepato-splenomegaly , or palpable masses. No guarding. Bowel sounds present. GENITOURINARY: Without palpable bladder distension. MUSCULOSKELETAL: Extremities without clubbing, cyanosis, or edema. No joint tenderness or effusion noted. No calf tenderness. No mottling or clubbing. LYMPHATICS: No palpable cervical or supraclavicular adenopathy. NEUROLOGICAL: Awake and alert. Motor and sensory grossly within normal limits. Follows commands. Normal speech Moves all extremities. PSYCHIATRIC: No obvious anxiety/depression. no apparent hallucinations or other psychotic thought process. Laboratory Laboratory Tests Test 11/03/16 06:12 White Blood Count 6.5 Red Blood Count 3.27 Hemoglobin 8.6 Hematocrit 26.0 Mean Corpuscular Volume 79.5 Mean Corpuscular Hemoglobin 26.3 Mean Corpuscular Hemoglobin 33.1 Concent Red Cell Distribution Width 14.5 Platelet Count 376 Mean Platelet Volume 8.0 Neutrophils (%) (Auto) 55.6 Lymphocytes (%) (Auto) 27.4 Monocytes (%) (Auto) 11.5 Eosinophils (%) (Auto) 5.0 Basophils (%) (Auto) 0.5 Neutrophils # (Auto) 3.6 Lymphocytes # (Auto) 1.8 Monocytes # (Auto) 0.7 Eosinophils # (Auto) 0.3 Basophils # (Auto) 0.0 CBC Comment DIFF FINAL Differential Comment Sodium Level 144 Potassium Level 3.8 Chloride Level 110 Carbon Dioxide Level 25.9 Anion Gap 8 Blood Urea Nitrogen 13 Creatinine 1.50 Estimat Glomerular Filtration 42 Rate Random Glucose 95 Calcium Level 8.6 Magnesium Level 1.5 Date/Time Procedure Status Source Growth 10/31/16 09:15 Gram Stain - Final Complete Sputum Endotracheal 10/31/16 09:15 Sputum Culture - Final Complete Sputum Endotracheal RARE GROWTH NORMAL RESPIRATORY RENARD 10/30/16 17:05 Fungal Smear - Final Resulted Wound Breast NO FUNGAL ELEMENTS SEEN. 10/30/16 17:05 Fungal Culture Resulted Wound Breast Pending 10/30/16 17:05 Acid Fast Stain - Final Resulted Wound Breast NO ACID FAST BACILLI SEEN 10/30/16 17:05 Mycobacterial Culture Resulted Wound Breast Pending Result Diagram: 11/03/16 0612 11/03/16 0612 Imaging Last Impressions Chest Ultrasound 11/03/16 0000 Signed Impressions: Service Date/Time: Thursday, November 03, 2016 10:56 - CONCLUSION: Volume of fluid too small to safely perform thoracentesis. Kade Dhillon MD Chest X-Ray 11/02/16 0800 Signed Impressions: Service Date/Time: Wednesday, November 02, 2016 08:53 - CONCLUSION: No significant change has occurred. Jax Snowden MD Chest CT 11/02/16 0000 Signed Impressions: Service Date/Time: Wednesday, November 02, 2016 18:40 - CONCLUSION: Slight increase in right pleural effusion, surgical removal of previously seen right breast opacity since the prior exam and otherwise not significantly changed. Tracy Austin MD Abdomen X-Ray 10/27/16 0000 Signed Impressions: Service Date/Time: Thursday, October 27, 2016 11:21 - CONCLUSION: No acute disease. Jose Alfredo Pradhan MD Renal Ultrasound 10/26/16 0000 Signed Impressions: Service Date/Time: Wednesday, October 26, 2016 22:02 - CONCLUSION: Normal examination. Kane Mo Jr., MD CT Angiography 10/24/16 1335 Signed Impressions: Service Date/Time: October 14:26 - CONCLUSION: 1. Right lower lobe pneumonia. 2. There is no evidence for PE for technique. 3. Soft tissue density in right chest wall could be postsurgical change in this patient with prior mastectomy or a flap and the exact nature of the patient's surgery is not known to us. Tracy Austin MD Assessment and Plan Assessment and Plan Pneumonia, clx with nl resp renard necrosis of right TRAM flap placed following mastectomy, sp debridement and VAC placement - PSAE in initial wounds Acute VDRF, resolved, pt extubated UTI vs bacteriuria,, PSAE Low grade cuorynobacteriam bactermia, doubt clin significance Low grade fever - Levaquin IV for nowm, then to PO - monitor fever Sunitha So MD Nov 03, 2016 23:06
[2016-11-04] VITALS: BP 117/70; PULSE 93; RESP 18; TEMP 98.2; O2SAT 93
[2016-11-04] MEDS: LEVOFLOXACIN 750 MG PREMIX INJ 150 ML IV SCH (00:45)
[2016-11-04 04:00] VITALS: BP 118/74; PULSE 96; RESP 18; TEMP 97.7; O2SAT 93
[2016-11-04] MEDS: CHLORHEXIDINE 0.12% (ORAL KIT) 15 ML CUP MT SCH ×2 (08:00→20:00)
[2016-11-04 08:04] VITALS: BP 135/81; PULSE 93; RESP 20; TEMP 97.9; O2SAT 94
[2016-11-04] MEDS: SILVER SULFADIAZINE 1% CR 50 GM JAR TOPICAL SCH ×2 (09:00→21:00)
[2016-11-04] MEDS: PANTOPRAZOLE SODIUM 40 MG VIAL IV SCH (09:33)
[2016-11-04] MEDS: DOCUSATE SODIUM 100 MG CAP PO SCH ×3 (09:34→22:19)
[2016-11-04] MEDS: NIFEdipine 30 MG SUSTAINED RELEASE TAB PO SCH (09:34)
--- NOTE | 2016-11-04 10:27 | HHI.PR ---
Subjective Remarks feeling stronger. Objective Vitals heart reg lung diminished right base wound vac right breast abd s/nt ext no edema Vital Signs Date Time Temp Pulse Resp B/P Pulse Ox O2 Delivery O2 Flow Rate FiO2 11/04/16 08:04 97.9 93 20 135/81 94 11/04/16 04:00 97.7 96 18 118/74 93 11/04/16 01:30 95 Room Air 11/04/16 00:36 95 Room Air 11/04/16 00:00 98.2 93 18 117/70 93 11/03/16 23:16 89 11/03/16 23:06 19 11/03/16 20:00 100.0 105 20 137/82 92 11/03/16 16:20 99.2 100 18 141/78 94 11/03/16 12:35 99.2 88 18 165/88 93 11/03/16 12:30 93 Room Air 11/03/16 11/03/16 11/04/16 15:00 23:00 07:00 Intake Total 120 ml 1603 ml 480 ml Output Total 525 ml Balance 120 ml 1078 ml 480 ml Intake Oral 120 ml 360 ml 480 ml IV Total 1243 ml Output Urine Total 525 ml # Voids 2 2 1 Result Diagram: 11/03/16 0612 11/03/16 0612 Imaging Last Impressions Abdomen X-Ray 10/27/16 0000 Signed Impressions: Service Date/Time: Thursday, October 27, 2016 11:21 - CONCLUSION: No acute disease. Jose Alfredo Pradhan MD Renal Ultrasound 10/26/16 0000 Signed Impressions: Service Date/Time: Wednesday, October 26, 2016 22:02 - CONCLUSION: Normal examination. Kane Mo Jr., MD CT Angiography 10/24/16 1335 Signed Impressions: Service Date/Time: October 14:26 - CONCLUSION: 1. Right lower lobe pneumonia. 2. There is no evidence for PE for technique. 3. Soft tissue density in right chest wall could be postsurgical change in this patient with prior mastectomy or a flap and the exact nature of the patient's surgery is not known to us. Tracy Austin MD Chest X-Ray 10/24/16 1224 Signed Impressions: Service Date/Time: October 13:03 - CONCLUSION: 1. Right basilar patchiness consistent with atelectasis and/or infiltrate. 2. Probable left basilar atelectasis. 3. Elevation of the right hemidiaphragm. 4. Degenerative changes and mild scoliosis of the thoracic spine. 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 - Blood cultures (10/24/16) with one out of four bottles growing pleomorphic gram positive rods in the anaerobic culture - Wound culture and urine culture from 10/24 with Pseudomonas aeruginosa - Pt had been on Vanco and Zosyn but developed some AUDIE and nausea felt to possibly be related to contrast nephropathy or AIN or ATN from antibiotics/sepsis - The Vanco and Zosyn were d/c'd on 10/26 and 10/27 - Pt was started on Cefepime and Azithromycin, renal dosed - Renal function is slowly improving. - Urine eosinophils were negative and renal u/s with no evidence of obstruction. -Anemia related to acute illness/infection. no active bleeding. - Pt taken to the OR with Dr. Ngo (10/30/16) - Pt underwent debridement and VAC placement for necrosis of right TRAM flap placed following mastectomy - Pt extubated (10/31/16) - wound VAC change 3x/week - repeat CXR (11/02/16) --> continued density at right base - pt remained on cefepime and azithromycin..changed to levaquin by ID on 11/03 - repeat CT chest (11/02/16) --> right pleural effusion, right base pneumonia - Chest US (11/03/16) --> insufficient pleural effusion for thoracentesis will plan for d/c when ok with plastic surgery, home wound vac and [facility] arranged and renal function more recovered. she is working with PT in [place] today. (2) Surgical wound infection Status: Acute Plan: - See above (3) AUDIE (acute kidney injury) Status: Acute Plan: - See above. (4) History of breast cancer Status: Chronic (5) Essential hypertension Status: Chronic Plan: procardia patricia on hold Problem Qualifiers (1) Pneumonia: Qualified Code: J18.1 - Pneumonia of right lower lobe due to infectious organism (2) Surgical wound infection: Qualified Code: T81.4XXA - Surgical wound infection, initial encounter Dany Leavitt MD November 04, 2016 10:27
[2016-11-04 10:31] LABS: AUTOMATED NEUTROPHIL # 3.7 TH/MM3 (1.8-7.7); BASOPHIL % 0.4 % (0.0-2.0); EOSINOPHIL # 0.3 TH/MM3 (0-0.4); EOSINOPHIL % 5.2 % (0.0-4.0); HEMO FLAGS DIFF FINAL; LYMPH % 23.3 % (9.0-44.0); LYMPHOCYTE # 1.4 TH/MM3 (1.0-4.8); MEAN CORPUSCULAR HEMOGLOBIN 25.7 PG (27.0-34.0); MEAN CORPUSCULAR HGB CONC 32.2 % (32.0-36.0); MONO % 9.9 % (0.0-8.0); NEUT % 61.2 % (16.0-70.0); PLATELET COUNT 417 TH/MM3 (150-450); RED BLOOD COUNT 3.63 MIL/MM3 (4.00-5.30); RED CELL DISTRIBUTION WIDTH 14.4 % (11.6-17.2); WHITE BLOOD COUNT 6.1 TH/MM3 (4.0-11.0)
[2016-11-04] MEDS: HYDROmorphone HCL PF 2 MG/ML VIAL IV PUSH PRN ×2 (10:42→22:16)
[2016-11-04 10:51] LABS: BICARBONATE 30.8 MEQ/L (21.0-32.0); POTASSIUM 3.9 MEQ/L (3.5-5.1)
[2016-11-04] MEDS: 1/2 NS + KCL 20 MEQ INJ 1,000 ML IV SCH (12:28)
[2016-11-04 12:45] VITALS: BP 133/83; PULSE 82; RESP 20; TEMP 98.8; O2SAT 95
[2016-11-04 16:22] VITALS: BP 131/81; PULSE 80; RESP 20; TEMP 98.5; O2SAT 94
--- NOTE | 2016-11-04 16:24 | HHI.NPPN ---
Subjective History of Present Illness 61 years old female with history of Breast reconstruction surgery, called to see for elevated BUN and Creatinine. Additional Remarks Patient is alert, feeling better, not in distress. Review of Systems General Constitutional: Fatigue Cardiovascular Cardiac: PEREZ Gastrointestinal Gastrointestinal: Abdominal Pain Objective Data Data 11/03/16 11/04/16 19:00 07:00 Intake Total 1363 ml 840 ml Output Total 525 ml Balance 1363 ml 315 ml Intake Oral 120 ml 840 ml IV Total 1243 ml Output Urine Total 525 ml # Voids 3 2 Vital Signs Date Time Temp Pulse Resp B/P Pulse Ox O2 Delivery O2 Flow Rate FiO2 11/04/16 14:00 16 11/04/16 12:45 98.8 82 20 133/83 95 11/04/16 08:04 97.9 93 20 135/81 94 11/04/16 04:00 97.7 96 18 118/74 93 11/04/16 01:30 95 Room Air 11/04/16 00:36 95 Room Air 11/04/16 00:00 98.2 93 18 117/70 93 11/03/16 23:16 89 11/03/16 20:00 100.0 105 20 137/82 92 -: 11/04/16 0940 11/04/16 0940 Physical Exam General Appearance: No Acute Distress, Comfortable Eyes Eye Exam: Pupils Equal Throat Throat Exam: Oral Mucosa [place] & Moist Neck Neck Exam: Neck Supple Pulmonary Resp Exam: Clear Bilaterally, Breath Sounds Equal, No Distress, Rhonchi, Decreased Bases Cardiology CV Exam: Regular, Normal Sinus Rhythm Gastrointestinal/Abdomen GI Exam: Soft, Bowel Sounds Present, Distended Extremeties Extremities Exam: Trace Edema Neurologic Neuro Exam: Alert, Awake, Oriented Psychiatric Psych Exam: Appropriate Responses Assessment/Plan Assessment Summary: AUDIE/Acute Renal Failure Problem List: (1) History of breast cancer (2) Essential hypertension (3) URI, acute (4) Diabetes mellitus (5) AUDIE (acute kidney injury) Plan Renal function is improving. Non oliguric. Most likely had suffered contrast nephropathy. Continue supportive care. Avoid Nephrotoxins, and follow urine out put and BMP. Had removal of ischemic breast flap by plastic surgery. Monitor urine output and renal function. Creatinine continue to improve. BP is stable. Problem Qualifiers (1) Diabetes mellitus: Dinah Garcia MD November 04, 2016 16:23
[2016-11-04 20:00] VITALS: BP 135/87; PULSE 98; RESP 20; TEMP 99.7; O2SAT 97
[2016-11-04] MEDS: ENOXAPARIN SODIUM 40 MG/0.4 ML SYRINGE SQ SCH (22:11)
[2016-11-05] VITALS (8 sets, daily range): BP systolic 121–144; BP diastolic 73–82; PULSE 83–109; RESP 18–20; TEMP 97.4–99.4; O2SAT 94–97
[2016-11-05] MEDS: LEVOFLOXACIN 750 MG PREMIX INJ 150 ML IV SCH ×2 (00:05→23:01)
[2016-11-05] MEDS: CHLORHEXIDINE 0.12% (ORAL KIT) 15 ML CUP MT SCH ×2 (08:00→20:00)
[2016-11-05] MEDS: NIFEdipine 30 MG SUSTAINED RELEASE TAB PO SCH (08:29)
[2016-11-05] MEDS: PANTOPRAZOLE SODIUM 40 MG VIAL IV SCH (08:30)
[2016-11-05] MEDS: SILVER SULFADIAZINE 1% CR 50 GM JAR TOPICAL SCH ×2 (09:00→21:00)
[2016-11-05 10:11] LABS: HEMATOCRIT 28.6 % (35.0-46.0); HEMO FLAGS AUTO DIFF; MEAN CELL VOLUME 79.3 FL (80.0-100.0); MEAN CORPUSCULAR HEMOGLOBIN 25.5 PG (27.0-34.0); MEAN CORPUSCULAR HGB CONC 32.2 % (32.0-36.0); PLATELET COUNT 419 TH/MM3 (150-450); RED BLOOD COUNT 3.61 MIL/MM3 (4.00-5.30); RED CELL DISTRIBUTION WIDTH 14.6 % (11.6-17.2); WHITE BLOOD COUNT 6.9 TH/MM3 (4.0-11.0)
--- NOTE | 2016-11-05 10:22 | HHI.PR ---
Subjective Remarks doing well. Objective Vitals heart reg lung diminished right base abd s/nt. horizontal incision no redness or discharge..umbilicus dry redness but no discharge right chest wall wound vac. Vital Signs Date Time Temp Pulse Resp B/P Pulse Ox O2 Delivery O2 Flow Rate FiO2 11/05/16 08:20 98.3 88 18 144/82 96 11/05/16 04:00 95 Room Air 11/05/16 04:00 97.7 83 18 133/81 96 11/05/16 02:45 106 11/05/16 00:00 97.4 91 18 128/76 94 11/04/16 23:10 19 11/04/16 20:00 99.7 98 20 135/87 97 11/04/16 16:22 98.5 80 20 131/81 94 11/04/16 12:45 98.8 82 20 133/83 95 11/04/16 11/04/16 11/05/16 15:00 23:00 07:00 Intake Total 120 ml 300 ml Balance 120 ml 300 ml Intake Oral 120 ml IV Total 300 ml # Voids 2 2 2 # Bowel Movements 0 0 Result Diagram: 11/05/16 0901 11/04/16 0940 Imaging Last Impressions Abdomen X-Ray 10/27/16 0000 Signed Impressions: Service Date/Time: Thursday, October 27, 2016 11:21 - CONCLUSION: No acute disease. Jose Alfredo Pradhan MD Renal Ultrasound 10/26/16 0000 Signed Impressions: Service Date/Time: Wednesday, October 26, 2016 22:02 - CONCLUSION: Normal examination. Kane Mo Jr., MD CT Angiography 10/24/16 1335 Signed Impressions: Service Date/Time: October 14:26 - CONCLUSION: 1. Right lower lobe pneumonia. 2. There is no evidence for PE for technique. 3. Soft tissue density in right chest wall could be postsurgical change in this patient with prior mastectomy or a flap and the exact nature of the patient's surgery is not known to us. Tracy Austin MD Chest X-Ray 10/24/16 1224 Signed Impressions: Service Date/Time: October 13:03 - CONCLUSION: 1. Right basilar patchiness consistent with atelectasis and/or infiltrate. 2. Probable left basilar atelectasis. 3. Elevation of the right hemidiaphragm. 4. Degenerative changes and mild scoliosis of the thoracic spine. 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 - Blood cultures (10/24/16) with one out of four bottles growing pleomorphic gram positive rods in the anaerobic culture - Wound culture and urine culture from 10/24 with Pseudomonas aeruginosa - Pt had been on Vanco and Zosyn but developed some AUDIE and nausea felt to possibly be related to contrast nephropathy or AIN or ATN from antibiotics/sepsis - The Vanco and Zosyn were d/c'd on 10/26 and 10/27 - Pt was started on Cefepime and Azithromycin, renal dosed - Renal function is slowly improving. - Urine eosinophils were negative and renal u/s with no evidence of obstruction. -Anemia related to acute illness/infection. no active bleeding. - Pt taken to the OR with Dr. Ngo (10/30/16) - Pt underwent debridement and VAC placement for necrosis of right TRAM flap placed following mastectomy - Pt extubated (10/31/16) - wound VAC change 3x/week - repeat CXR (11/02/16) --> continued density at right base - pt remained on cefepime and azithromycin..changed to levaquin by ID on 11/03 - repeat CT chest (11/02/16) --> right pleural effusion, right base pneumonia - Chest US (11/03/16) --> insufficient pleural effusion for thoracentesis will plan for d/c when ok with plastic surgery, home wound vac orders per Dr Ngo(CM to check and arrange) [facility] and renal function more recovered. she is working with PT [place] will plan to convert abx to po on d/c and get f/u chest imaging with pcp to assure resolution. (2) Surgical wound infection Status: Acute Plan: - See above (3) AUDIE (acute kidney injury) Status: Acute Plan: - See above. (4) History of breast cancer Status: Chronic (5) Essential hypertension Status: Chronic Plan: procardia patricia on hold Problem Qualifiers (1) Pneumonia: Qualified Code: J18.1 - Pneumonia of right lower lobe due to infectious organism (2) Surgical wound infection: Qualified Code: T81.4XXA - Surgical wound infection, initial encounter Dany Leavitt MD November 05, 2016 10:22
[2016-11-05 10:32] LABS: BICARBONATE 24.4 MEQ/L (21.0-32.0)
[2016-11-05 10:41] LABS: EOSINOPHILS 2 % (0-4); NEUTROPHIL # MANUAL DIFF 3.8 TH/MM3 (1.8-7.7); POLYS (SEG NEUTROPHILS) 55 % (16-70); WBC DIFF SAMPLE 100
[2016-11-05 10:43] LABS: PLATELET ESTIMATE SMEAR NORMAL (NORMAL); PLATELET MORPHOLOGY NORMAL (NORMAL); SCAN/DIFF FINAL DIFF MANUAL
[2016-11-05] MEDS: HYDROmorphone HCL PF 2 MG/ML VIAL IV PUSH PRN ×2 (13:23→23:02)
--- NOTE | 2016-11-05 15:00 | HHI.NPPN ---
Subjective History of Present Illness 61 years old female with history of Breast reconstruction surgery, called to see for elevated BUN and Creatinine. Additional Remarks Patient is alert, has mild abd. pain. Review of Systems General Constitutional: Fatigue Cardiovascular Cardiac: PEREZ Gastrointestinal Gastrointestinal: Abdominal Pain Objective Data Data 11/04/16 11/05/16 19:00 07:00 Intake Total 120 ml 300 ml Balance 120 ml 300 ml Intake Oral 120 ml IV Total 300 ml # Voids 2 4 # Bowel Movements 0 Vital Signs Date Time Temp Pulse Resp B/P Pulse Ox O2 Delivery O2 Flow Rate FiO2 11/05/16 12:18 99.4 93 18 121/76 97 11/05/16 08:20 98.3 88 18 144/82 96 11/05/16 04:00 95 Room Air 11/05/16 04:00 97.7 83 18 133/81 96 11/05/16 02:45 106 11/05/16 00:00 97.4 91 18 128/76 94 11/04/16 23:10 19 11/04/16 20:00 99.7 98 20 135/87 97 11/04/16 16:22 98.5 80 20 131/81 94 -: 11/05/16 0901 11/05/16 0901 Physical Exam General Appearance: No Acute Distress, Comfortable Eyes Eye Exam: Pupils Equal Throat Throat Exam: Oral Mucosa [place] & Moist Neck Neck Exam: Neck Supple Pulmonary Resp Exam: Clear Bilaterally, Breath Sounds Equal, No Distress, Rhonchi, Decreased Bases Cardiology CV Exam: Regular, Normal Sinus Rhythm Gastrointestinal/Abdomen GI Exam: Soft, Bowel Sounds Present, Distended Extremeties Extremities Exam: Trace Edema Neurologic Neuro Exam: Alert, Awake, Oriented Psychiatric Psych Exam: Appropriate Responses Assessment/Plan Assessment Summary: AUDIE/Acute Renal Failure Problem List: (1) History of breast cancer (2) Essential hypertension (3) URI, acute (4) Diabetes mellitus (5) AUDIE (acute kidney injury) Plan Creatinine is now stable 1.4-1.5. Non oliguric. Most likely had suffered contrast nephropathy. Continue supportive care. Avoid Nephrotoxins, and follow urine out put and BMP. Had removal of ischemic breast flap by plastic surgery. Monitor urine output and renal function. Avoid Nephrotoxins. Problem Qualifiers (1) Diabetes mellitus: Dinah Garcia MD November 05, 2016 15:00
[2016-11-05] MEDS: 1/2 NS + KCL 20 MEQ INJ 1,000 ML IV SCH (16:08)
[2016-11-05] MEDS: MUPIROCIN 2% OINT 22 GM TUBE TOPICAL SCH ×2 (18:14→20:41)
[2016-11-05] MEDS: DOCUSATE SODIUM 100 MG CAP PO SCH (20:44)
[2016-11-05] MEDS: ENOXAPARIN SODIUM 40 MG/0.4 ML SYRINGE SQ SCH (20:44)
[2016-11-06] VITALS (8 sets, daily range): BP systolic 117–152; BP diastolic 70–87; PULSE 79–108; RESP 18–20; TEMP 98.1–98.9; O2SAT 94–98
[2016-11-06] MEDS: 1/2 NS + KCL 20 MEQ INJ 1,000 ML IV SCH (01:56)
[2016-11-06] MEDS: MUPIROCIN 2% OINT 22 GM TUBE TOPICAL SCH ×4 (05:25→21:36)
[2016-11-06] MEDS: CHLORHEXIDINE 0.12% (ORAL KIT) 15 ML CUP MT SCH ×2 (07:09→20:00)
[2016-11-06] MEDS: ONDANSETRON INJ 8 MG in DEXTROSE 5% IN WATER INJ 50 ML IV PRN ×2 (08:24)
[2016-11-06] MEDS: PANTOPRAZOLE SOD 40 MG DELAYED RELEASE TAB PO SCH (08:25)
[2016-11-06] MEDS: DOCUSATE SODIUM 100 MG CAP PO SCH ×2 (08:25→21:34)
[2016-11-06] MEDS: NIFEdipine 30 MG SUSTAINED RELEASE TAB PO SCH (08:26)
[2016-11-06] MEDS: SILVER SULFADIAZINE 1% CR 50 GM JAR TOPICAL SCH ×2 (08:26→21:00)
[2016-11-06 08:42] LABS: BICARBONATE 24.3 MEQ/L (21.0-32.0); POTASSIUM 3.9 MEQ/L (3.5-5.1)
--- NOTE | 2016-11-06 11:29 | HHI.NPPN ---
Subjective History of Present Illness 61 years old female with history of Breast reconstruction surgery, called to see for elevated BUN and Creatinine. Additional Remarks Patient is alert, sitting on chair, feeling better. Review of Systems General Constitutional: Fatigue Cardiovascular Cardiac: PEREZ Gastrointestinal Gastrointestinal: Abdominal Pain Objective Data Data 11/05/16 11/06/16 18:59 06:59 Intake Total 240 ml 1230 ml Balance 240 ml 1230 ml Intake Oral 240 ml 480 ml IV Total 750 ml # Voids 2 2 # Bowel Movements 0 Vital Signs Date Time Temp Pulse Resp B/P Pulse Ox O2 Delivery O2 Flow Rate FiO2 11/06/16 09:42 79 11/06/16 08:15 95 Room Air 11/06/16 08:13 98.9 93 20 152/87 95 11/06/16 05:40 98.1 87 18 119/76 96 11/06/16 00:00 98.2 93 20 118/76 94 11/05/16 22:21 85 11/05/16 20:00 98.9 109 20 122/73 96 11/05/16 19:22 Room Air 11/05/16 16:35 97.9 85 18 121/75 95 11/05/16 16:25 16 11/05/16 12:18 99.4 93 18 121/76 97 -: 11/05/16 0901 11/06/16 0744 Physical Exam General Appearance: No Acute Distress, Comfortable Eyes Eye Exam: Pupils Equal Throat Throat Exam: Oral Mucosa [place] & Moist Neck Neck Exam: Neck Supple Pulmonary Resp Exam: Clear Bilaterally, Breath Sounds Equal, No Distress, Rhonchi, Decreased Bases Cardiology CV Exam: Regular, Normal Sinus Rhythm Gastrointestinal/Abdomen GI Exam: Soft, Bowel Sounds Present, Distended Extremeties Extremities Exam: Trace Edema Neurologic Neuro Exam: Alert, Awake, Oriented Psychiatric Psych Exam: Appropriate Responses Assessment/Plan Assessment Summary: AUDIE/Acute Renal Failure Problem List: (1) History of breast cancer (2) Essential hypertension (3) URI, acute (4) Diabetes mellitus (5) AUDIE (acute kidney injury) Plan Has been Non oliguric. Most likely had suffered contrast nephropathy. Continue supportive care. Avoid Nephrotoxins, and follow urine out put and BMP. Had removal of ischemic breast flap by plastic surgery. Monitor urine output and renal function. Avoid Nephrotoxins. Creatinine is 1.4-1.5, possibly her baseline. Problem Qualifiers (1) Diabetes mellitus: Dinah Garcia MD November 06, 2016 11:29
[2016-11-06] MEDS ORDERED: LACTULOSE SYRUP 20 GM/30 ML CUP PO ONE ×2 (12:15→17:00)
--- NOTE | 2016-11-06 12:45 | HHI.PR ---
Subjective Remarks constipated Objective Vitals heent neg heart reg lung right chest wound vac ext no edema Vital Signs Date Time Temp Pulse Resp B/P Pulse Ox O2 Delivery O2 Flow Rate FiO2 11/06/16 12:29 98.5 94 20 125/80 98 11/06/16 09:42 79 11/06/16 08:15 95 Room Air 11/06/16 08:13 98.9 93 20 152/87 95 11/06/16 05:40 98.1 87 18 119/76 96 11/06/16 00:00 98.2 93 20 118/76 94 11/05/16 22:21 85 11/05/16 20:00 98.9 109 20 122/73 96 11/05/16 19:22 Room Air 11/05/16 16:35 97.9 85 18 121/75 95 11/05/16 16:25 16 11/05/16 11/05/16 11/06/16 15:00 23:00 07:00 Intake Total 720 ml 750 ml Balance 720 ml 750 ml Intake Oral 720 ml IV Total 750 ml # Voids 3 1 # Bowel Movements 0 0 Result Diagram: 11/05/16 0901 11/06/16 0744 Imaging Last Impressions Abdomen X-Ray 10/27/16 0000 Signed Impressions: Service Date/Time: Thursday, October 27, 2016 11:21 - CONCLUSION: No acute disease. Jose Alfredo Pradhan MD Renal Ultrasound 10/26/16 0000 Signed Impressions: Service Date/Time: Wednesday, October 26, 2016 22:02 - CONCLUSION: Normal examination. Kane Mo Jr., MD CT Angiography 10/24/16 1335 Signed Impressions: Service Date/Time: October 14:26 - CONCLUSION: 1. Right lower lobe pneumonia. 2. There is no evidence for PE for technique. 3. Soft tissue density in right chest wall could be postsurgical change in this patient with prior mastectomy or a flap and the exact nature of the patient's surgery is not known to us. Tracy Austin MD Chest X-Ray 10/24/16 1224 Signed Impressions: Service Date/Time: October 13:03 - CONCLUSION: 1. Right basilar patchiness consistent with atelectasis and/or infiltrate. 2. Probable left basilar atelectasis. 3. Elevation of the right hemidiaphragm. 4. Degenerative changes and mild scoliosis of the thoracic spine. 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 - Blood cultures (10/24/16) with one out of four bottles growing pleomorphic gram positive rods in the anaerobic culture - Wound culture and urine culture from 10/24 with Pseudomonas aeruginosa - Pt had been on Vanco and Zosyn but developed some AUDIE and nausea felt to possibly be related to contrast nephropathy or AIN or ATN from antibiotics/sepsis - The Vanco and Zosyn were d/c'd on 10/26 and 10/27 - Pt was started on Cefepime and Azithromycin, renal dosed - Renal function is slowly improving. - Urine eosinophils were negative and renal u/s with no evidence of obstruction. -Anemia related to acute illness/infection. no active bleeding. - Pt taken to the OR with Dr. Ngo (10/30/16) - Pt underwent debridement and VAC placement for necrosis of right TRAM flap placed following mastectomy - Pt extubated (10/31/16) - wound VAC change 3x/week - repeat CXR (11/02/16) --> continued density at right base - pt remained on cefepime and azithromycin..changed to levaquin by ID on 11/03 - repeat CT chest (11/02/16) --> right pleural effusion, right base pneumonia - Chest US (11/03/16) --> insufficient pleural effusion for thoracentesis will plan for d/c when ok with plastic surgery, home wound vac orders per Dr Ngo and [facility] arranged and renal function more recovered. she is working with PT in [facility] will plan to convert abx to po on d/c and get f/u chest imaging with pcp to assure resolution. plan to d/c in next 2 days. laxative ordered. (2) Surgical wound infection Status: Acute Plan: - See above (3) AUDIE (acute kidney injury) Status: Acute Plan: - See above. (4) History of breast cancer Status: Chronic (5) Essential hypertension Status: Chronic Plan: procardia patricia on hold Problem Qualifiers (1) Pneumonia: Qualified Code: J18.1 - Pneumonia of right lower lobe due to infectious organism (2) Surgical wound infection: Qualified Code: T81.4XXA - Surgical wound infection, initial encounter Dany Leavitt MD November 06, 2016 12:45
--- NOTE | 2016-11-06 14:27 | HHI.IDPN ---
Subjective Subjective Remarks improving no fever less pain no cough no SOB co constipation Antibiotics levaquine Past Medical History breast ca Allergies: Coded Allergies: Demerol (Verified Allergy, Intermediate, Hallucinations, 10/24/16) Objective . Vital Signs Date Time Temp Pulse Resp B/P Pulse Ox O2 Delivery O2 Flow Rate FiO2 11/06/16 12:29 98.5 94 20 125/80 98 11/06/16 09:42 79 11/06/16 08:15 95 Room Air 11/06/16 08:13 98.9 93 20 152/87 95 11/06/16 05:40 98.1 87 18 119/76 96 11/06/16 00:00 98.2 93 20 118/76 94 11/05/16 22:21 85 11/05/16 20:00 98.9 109 20 122/73 96 11/05/16 19:22 Room Air 11/05/16 16:35 97.9 85 18 121/75 95 11/05/16 16:25 16 11/05/16 11/05/16 11/06/16 15:00 23:00 07:00 Intake Total 720 ml 750 ml Balance 720 ml 750 ml Intake Oral 720 ml IV Total 750 ml # Voids 3 1 # Bowel Movements 0 0 . Laboratory Tests Test 11/05/16 09:01 White Blood Count 6.9 TH/MM3 Red Blood Count 3.61 MIL/MM3 Hemoglobin 9.2 GM/DL Hematocrit 28.6 % Mean Corpuscular Volume 79.3 FL Mean Corpuscular Hemoglobin 25.5 PG Mean Corpuscular Hemoglobin 32.2 % Concent Red Cell Distribution Width 14.6 % Platelet Count 419 TH/MM3 Mean Platelet Volume 8.8 FL Neutrophils (%) (Auto) % Lymphocytes (%) (Auto) % Monocytes (%) (Auto) % Eosinophils (%) (Auto) % Basophils (%) (Auto) % Neutrophils # (Auto) TH/MM3 Lymphocytes # (Auto) TH/MM3 Monocytes # (Auto) TH/MM3 Eosinophils # (Auto) TH/MM3 Basophils # (Auto) TH/MM3 CBC Comment AUTO DIFF Differential Total Cells 100 Counted Neutrophils % (Manual) 55 % Lymphocytes % 37 % Monocytes % 6 % Eosinophils % 2 % Neutrophils # (Manual) 3.8 TH/MM3 Differential Comment FINAL DIFF MANUAL Platelet Estimate NORMAL Platelet Morphology Comment NORMAL Hematology Comments Laboratory Tests Test 11/05/16 11/06/16 09:01 07:44 Sodium Level 140 MEQ/L 140 MEQ/L Potassium Level 4.0 MEQ/L 3.9 MEQ/L Chloride Level 104 MEQ/L 105 MEQ/L Carbon Dioxide Level 24.4 MEQ/L 24.3 MEQ/L Anion Gap 12 MEQ/L 11 MEQ/L Blood Urea Nitrogen 12 MG/DL 11 MG/DL Creatinine 1.52 MG/DL 1.50 MG/DL Estimat Glomerular Filtration 42 ML/MIN 42 ML/MIN Rate Random Glucose 96 MG/DL 112 MG/DL Calcium Level 8.6 MG/DL 8.9 MG/DL Imaging Last Impressions Chest Ultrasound 11/03/16 0000 Signed Impressions: Service Date/Time: Thursday, November 03, 2016 10:56 - CONCLUSION: Volume of fluid too small to safely perform thoracentesis. Kade Dhillon MD Chest X-Ray 11/02/16 0800 Signed Impressions: Service Date/Time: Wednesday, November 02, 2016 08:53 - CONCLUSION: No significant change has occurred. Jax Snowden MD Chest CT 11/02/16 0000 Signed Impressions: Service Date/Time: Wednesday, November 02, 2016 18:40 - CONCLUSION: Slight increase in right pleural effusion, surgical removal of previously seen right breast opacity since the prior exam and otherwise not significantly changed. Tracy Austin MD Abdomen X-Ray 10/27/16 0000 Signed Impressions: Service Date/Time: Thursday, October 27, 2016 11:21 - CONCLUSION: No acute disease. Jose Alfredo Pradhan MD Renal Ultrasound 10/26/16 0000 Signed Impressions: Service Date/Time: Wednesday, October 26, 2016 22:02 - CONCLUSION: Normal examination. Kane Mo Jr., MD CT Angiography 10/24/16 1335 Signed Impressions: Service Date/Time: October 14:26 - CONCLUSION: 1. Right lower lobe pneumonia. 2. There is no evidence for PE for technique. 3. Soft tissue density in right chest wall could be postsurgical change in this patient with prior mastectomy or a flap and the exact nature of the patient's surgery is not known to us. Tracy Austin MD Physical Exam CONSTITUTIONAL/GENERAL: This is an adequately nourished patient, in no apparent distress. TUBES/LINES/DRAINS: SKIN: No jaundice, rashes, or lesions. \Skin temperature appropriate. Not diaphoretic. BREASTS: sp R side mastectomy skin with post XRT changes VAC in place with serosang d/c nearly completely resolved edema and induration noted CARDIOVASCULAR: Regular rate and rhythm without murmurs, gallops, or rubs. No JVD. Peripheral pulses symmetric. RESPIRATORY/CHEST: Symmetric, unlabored respirations. Clear to auscultation. Breath sounds equal bilaterally. No wheezes, rales, or rhonchi. GASTROINTESTINAL: Abdomen soft, non-tender, nondistended. No hepato-splenomegaly , or palpable masses. No guarding. Bowel sounds present. MUSCULOSKELETAL: Extremities without clubbing, cyanosis, or edema. NEUROLOGICAL: Awake and alert. Motor and sensory grossly within normal limits. Follows commands. Normal speech Moves all extremities. PSYCHIATRIC: No obvious anxiety/depression. no apparent hallucinations or other psychotic thought process. Assessment & Plan Remarks Pneumonia, clx with nl resp renard - clinically resolved necrosis of right TRAM flap placed following mastectomy, sp debridement and VAC placement - PSAE in initial wounds Acute VDRF, resolved, pt extubated UTI vs bacteriuria,, PSAE Low grade corynobacteria bactermia, doubt clin significance Low grade fever - resplved - complete Levaquin PO x 14 days total from the day of surgery (thru 11/15) - will sign off, please reconsult if needed Sunitha So MD November 06, 2016 14:26
[2016-11-06] MEDS: HYDROmorphone HCL PF 2 MG/ML VIAL IV PRN (15:53)
[2016-11-06] MEDS: ENOXAPARIN SODIUM 40 MG/0.4 ML SYRINGE SQ SCH (20:00)
[2016-11-07] VITALS (7 sets, daily range): BP systolic 112–131; BP diastolic 59–79; PULSE 75–108; RESP 18–20; TEMP 97.6–99.7; O2SAT 93–99
[2016-11-07] MEDS: MUPIROCIN 2% OINT 22 GM TUBE TOPICAL SCH ×3 (05:15→20:32)
[2016-11-07] MEDS: HYDROmorphone HCL PF 2 MG/ML VIAL IV PUSH PRN ×2 (05:24→23:58)
[2016-11-07] MEDS: CHLORHEXIDINE 0.12% (ORAL KIT) 15 ML CUP MT SCH ×2 (07:22→20:00)
[2016-11-07] MEDS: SILVER SULFADIAZINE 1% CR 50 GM JAR TOPICAL SCH ×2 (07:23→20:31)
[2016-11-07] MEDS: LEVOFLOXACIN 750 MG TAB PO SCH (08:46)
[2016-11-07] MEDS: 1/2 NS + KCL 20 MEQ INJ 1,000 ML IV SCH (08:46)
[2016-11-07] MEDS: PANTOPRAZOLE SOD 40 MG DELAYED RELEASE TAB PO SCH (08:46)
[2016-11-07] MEDS: DOCUSATE SODIUM 100 MG CAP PO SCH ×2 (08:47→20:30)
[2016-11-07] MEDS: NIFEdipine 30 MG SUSTAINED RELEASE TAB PO SCH (08:47)
--- NOTE | 2016-11-07 11:16 | HHI.NPPN ---
Subjective History of Present Illness 61 years old female with history of Breast reconstruction surgery, called to see for elevated BUN and Creatinine. Additional Remarks Patient is alert, feeling better, pain improving. Review of Systems General Constitutional: Fatigue Cardiovascular Cardiac: PEREZ Gastrointestinal Gastrointestinal: Abdominal Pain Objective Data Data 11/06/16 11/07/16 19:00 07:00 Intake Total 480 ml 1061 ml Balance 480 ml 1061 ml Intake Oral 480 ml 480 ml IV Total 581 ml # Voids 3 3 # Bowel Movements 2 0 Vital Signs Date Time Temp Pulse Resp B/P Pulse Ox O2 Delivery O2 Flow Rate FiO2 11/07/16 08:17 97.6 85 18 129/78 96 11/07/16 08:02 75 11/07/16 06:02 99.0 93 18 112/59 93 11/07/16 00:00 98.1 89 18 122/75 96 11/06/16 22:00 90 11/06/16 20:00 98.1 90 18 117/70 97 11/06/16 16:28 98.5 108 20 120/74 96 11/06/16 12:29 98.5 94 20 125/80 98 -: 11/05/16 0901 11/06/16 0744 Physical Exam General Appearance: No Acute Distress, Comfortable Eyes Eye Exam: Pupils Equal Throat Throat Exam: Oral Mucosa [place] & Moist Neck Neck Exam: Neck Supple Pulmonary Resp Exam: Clear Bilaterally, Breath Sounds Equal, No Distress, Rhonchi, Decreased Bases Cardiology CV Exam: Regular, Normal Sinus Rhythm Gastrointestinal/Abdomen GI Exam: Soft, Bowel Sounds Present, Distended Extremeties Extremities Exam: Trace Edema Neurologic Neuro Exam: Alert, Awake, Oriented Psychiatric Psych Exam: Appropriate Responses Assessment/Plan Assessment Summary: AUDIE/Acute Renal Failure Problem List: (1) History of breast cancer (2) Essential hypertension (3) URI, acute (4) Diabetes mellitus (5) AUDIE (acute kidney injury) Plan Has been Non oliguric. Most likely had suffered contrast nephropathy. Continue supportive care. Avoid Nephrotoxins, and follow urine out put and BMP. Had removal of ischemic breast flap by plastic surgery. Monitor urine output and renal function. Avoid Nephrotoxins. Creatinine is 1.4-1.5, possibly her baseline. Started on PO antibiotics, follow BMP. Problem Qualifiers (1) Diabetes mellitus: Dinah Garcia MD November 07, 2016 11:16
--- NOTE | 2016-11-07 11:45 | HHI.PR ---
Subjective Remarks bowels moving. Objective Vitals nad heart reg lung cta abd s/nt ext right chest wound vac. Vital Signs Date Time Temp Pulse Resp B/P Pulse Ox O2 Delivery O2 Flow Rate FiO2 11/07/16 08:17 97.6 85 18 129/78 96 11/07/16 08:02 75 11/07/16 06:02 99.0 93 18 112/59 93 11/07/16 00:00 98.1 89 18 122/75 96 11/06/16 22:00 90 11/06/16 20:00 98.1 90 18 117/70 97 11/06/16 16:28 98.5 108 20 120/74 96 11/06/16 12:29 98.5 94 20 125/80 98 11/06/16 11/06/16 11/07/16 15:00 23:00 07:00 Intake Total 1155 ml 386 ml Balance 1155 ml 386 ml Intake Oral 960 ml IV Total 195 ml 386 ml # Voids 4 2 # Bowel Movements 1 1 0 Result Diagram: 11/05/16 0901 11/06/16 0744 Imaging Last Impressions Abdomen X-Ray 10/27/16 0000 Signed Impressions: Service Date/Time: Thursday, October 27, 2016 11:21 - CONCLUSION: No acute disease. Jose Alfredo Pradhan MD Renal Ultrasound 10/26/16 0000 Signed Impressions: Service Date/Time: Wednesday, October 26, 2016 22:02 - CONCLUSION: Normal examination. Kane Mo Jr., MD CT Angiography 10/24/16 1335 Signed Impressions: Service Date/Time: October 14:26 - CONCLUSION: 1. Right lower lobe pneumonia. 2. There is no evidence for PE for technique. 3. Soft tissue density in right chest wall could be postsurgical change in this patient with prior mastectomy or a flap and the exact nature of the patient's surgery is not known to us. Tracy Austin MD Chest X-Ray 10/24/16 1224 Signed Impressions: Service Date/Time: October 13:03 - CONCLUSION: 1. Right basilar patchiness consistent with atelectasis and/or infiltrate. 2. Probable left basilar atelectasis. 3. Elevation of the right hemidiaphragm. 4. Degenerative changes and mild scoliosis of the thoracic spine. 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 - Blood cultures (10/24/16) with one out of four bottles growing pleomorphic gram positive rods in the anaerobic culture - Wound culture and urine culture from 10/24 with Pseudomonas aeruginosa - Pt had been on Vanco and Zosyn but developed some AUDIE and nausea felt to possibly be related to contrast nephropathy or AIN or ATN from antibiotics/sepsis - The Vanco and Zosyn were d/c'd on 10/26 and 10/27 - Pt was started on Cefepime and Azithromycin, renal dosed - Renal function is slowly improving. - Urine eosinophils were negative and renal u/s with no evidence of obstruction. -Anemia related to acute illness/infection. no active bleeding. - Pt taken to the OR with Dr. gNo (10/30/16) - Pt underwent debridement and VAC placement for necrosis of right TRAM flap placed following mastectomy - Pt extubated (10/31/16) - wound VAC change 3x/week - repeat CXR (11/02/16) --> continued density at right base - pt remained on cefepime and azithromycin..changed to levaquin by ID on 11/03 - repeat CT chest (11/02/16) --> right pleural effusion, right base pneumonia - Chest US (11/03/16) --> insufficient pleural effusion for thoracentesis d/c Friday with [facility] and wound vac. discussed with CM and pt po abx. f/u pcp/renal/surg. (2) Surgical wound infection Status: Acute Plan: - See above (3) AUDIE (acute kidney injury) Status: Acute Plan: - See above. (4) History of breast cancer Status: Chronic (5) Essential hypertension Status: Chronic Plan: procardia patricia on hold Problem Qualifiers (1) Pneumonia: Qualified Code: J18.1 - Pneumonia of right lower lobe due to infectious organism (2) Surgical wound infection: Qualified Code: T81.4XXA - Surgical wound infection, initial encounter Dany Leavitt MD November 07, 2016 11:44
[2016-11-07] MEDS: ENOXAPARIN SODIUM 40 MG/0.4 ML SYRINGE SQ SCH (20:00)
[2016-11-07] MEDS: ONDANSETRON INJ 8 MG in DEXTROSE 5% IN WATER INJ 50 ML IV PRN ×2 (20:27)
[2016-11-08] VITALS (7 sets, daily range): BP systolic 113–137; BP diastolic 68–82; PULSE 74–99; RESP 20; TEMP 98–99.2; O2SAT 94–96
[2016-11-08] MEDS ORDERED: LEVOFLOXACIN 750 MG PREMIX INJ 150 ML IV SCH
[2016-11-08] MEDS: MUPIROCIN 2% OINT 22 GM TUBE TOPICAL SCH ×3 (06:00→20:10)
[2016-11-08] MEDS: CHLORHEXIDINE 0.12% (ORAL KIT) 15 ML CUP MT SCH ×2 (08:00→19:41)
[2016-11-08] MEDS: SILVER SULFADIAZINE 1% CR 50 GM JAR TOPICAL SCH ×2 (09:00→19:42)
[2016-11-08] MEDS: NIFEdipine 30 MG SUSTAINED RELEASE TAB PO SCH (09:04)
[2016-11-08] MEDS: PANTOPRAZOLE SOD 40 MG DELAYED RELEASE TAB PO SCH (09:04)
[2016-11-08] MEDS: LEVOFLOXACIN 750 MG TAB PO SCH (09:04)
[2016-11-08] MEDS: DOCUSATE SODIUM 100 MG CAP PO SCH ×2 (09:04→20:10)
[2016-11-08] MEDS: HYDROmorphone HCL PF 2 MG/ML VIAL IV PRN ×2 (09:05→11:43)
[2016-11-08] MEDS ORDERED: LORATADINE 10 MG TAB PO ONE (10:45)
--- NOTE | 2016-11-08 10:50 | HHI.PR ---
Subjective Remarks Pt complains of lint from the air vents causing her to have a scratchy throat and headache. Pt reports that she is supposed to have wound vac changed today Afebrile Objective Vitals Vital Signs Date Time Temp Pulse Resp B/P Pulse Ox O2 Delivery O2 Flow Rate FiO2 11/08/16 08:35 99.2 87 20 119/77 96 11/08/16 04:00 98.0 99 20 113/68 95 11/08/16 03:44 Room Air 11/08/16 00:00 99.0 98 20 119/76 94 11/07/16 20:00 99.7 89 20 131/79 99 11/07/16 20:00 108 11/07/16 16:00 99.2 94 18 117/71 96 11/07/16 12:16 98.5 81 18 121/75 97 11/07/16 11/07/16 11/08/16 15:00 23:00 07:00 Intake Total 580 ml 240 ml 285 ml Balance 580 ml 240 ml 285 ml Intake Oral 580 ml 240 ml 240 ml IV Total 45 ml # Voids 3 1 1 # Bowel Movements 0 0 Result Diagram: 11/05/16 0901 11/06/16 0744 Imaging Last Impressions Abdomen X-Ray 10/27/16 0000 Signed Impressions: Service Date/Time: Thursday, October 27, 2016 11:21 - CONCLUSION: No acute disease. Jose Alfredo Pradhan MD Renal Ultrasound 10/26/16 0000 Signed Impressions: Service Date/Time: Wednesday, October 26, 2016 22:02 - CONCLUSION: Normal examination. Kane Mo Jr., MD CT Angiography 10/24/16 1335 Signed Impressions: Service Date/Time: October 14:26 - CONCLUSION: 1. Right lower lobe pneumonia. 2. There is no evidence for PE for technique. 3. Soft tissue density in right chest wall could be postsurgical change in this patient with prior mastectomy or a flap and the exact nature of the patient's surgery is not known to us. Tracy Austin MD Chest X-Ray 10/24/16 1224 Signed Impressions: Service Date/Time: October 13:03 - CONCLUSION: 1. Right basilar patchiness consistent with atelectasis and/or infiltrate. 2. Probable left basilar atelectasis. 3. Elevation of the right hemidiaphragm. 4. Degenerative changes and mild scoliosis of the thoracic spine. 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 - Blood cultures (10/24/16) with one out of four bottles growing pleomorphic gram positive rods in the anaerobic culture - Wound culture and urine culture from 10/24 with Pseudomonas aeruginosa - Pt had been on Vanco and Zosyn but developed some AUDIE and nausea felt to possibly be related to contrast nephropathy or AIN or ATN from antibiotics/sepsis - The Vanco and Zosyn were d/c'd on 10/26 and 10/27 - Pt was started on Cefepime and Azithromycin, renal dosed - Renal function is slowly improving. - Urine eosinophils were negative and renal u/s with no evidence of obstruction. - Anemia related to acute illness/infection. no active bleeding. - Pt taken to the OR with Dr. Ngo (10/30/16) - Pt underwent debridement and VAC placement for necrosis of right TRAM flap placed following mastectomy - Pt extubated (10/31/16) - Wound VAC ordered to be changed 3x/week - repeat CXR (11/02/16) --> continued density at right base - pt remained on cefepime and azithromycin..changed to Levaquin by ID on 11/03 - Repeat CT chest (11/02/16) --> right pleural effusion, right base pneumonia - Chest US (11/03/16) --> insufficient pleural effusion for thoracentesis - Pt improving clinically, anticipate d/c Friday with [facility] and wound vac. - Pt will continue po Abx. - She will need f/u with PCP/renal/surg. (2) Surgical wound infection Status: Acute Plan: - See above (3) AUDIE (acute kidney injury) Status: Acute Plan: - See above. (4) History of breast cancer Status: Chronic (5) Essential hypertension Status: Chronic Plan: procardia patricia on hold Assessment and Plan Patient examined. Assessment and plan formulated with Mehreen Pacheco PA-C. I agree with the above. stable. d/c tomorrow with [facility] and wound vac. Problem Qualifiers (1) Pneumonia: Qualified Code: J18.1 - Pneumonia of right lower lobe due to infectious organism (2) Surgical wound infection: Qualified Code: T81.4XXA - Surgical wound infection, initial encounter Mehreen Pacheco November 08, 2016 10:50 Dany Leavitt MD November 08, 2016 13:04
[2016-11-08] MEDS ORDERED: DOCU1CAP39 PO (13:07)
[2016-11-08] MEDS ORDERED: NIFE30TA8 PO (13:07)
[2016-11-08] MEDS ORDERED: LORA-361 PO (13:07)
[2016-11-08] MEDS ORDERED: LEVA750T PO (13:07)
[2016-11-08] MEDS ORDERED: NORC5TAB PO (13:08)
--- NOTE | 2016-11-08 13:09 | HHI.DCPOC ---
Discharge Care Plan Diagnosis: (1) Pneumonia (2) Surgical wound infection (3) AUDIE (acute kidney injury) (4) History of breast cancer (5) Essential hypertension Goals to Promote Your Health * To prevent worsening of your condition and complications * To maintain your health at the optimal level Directions to Meet Your Goals Take your medications as prescribed Follow your dietary instruction Follow activity as directed Keep your appointments as scheduled Take your immunizations and boosters as scheduled If your symptoms worsen call your PCP, if no PCP go to Urgent Care Center or Emergency Room Smoking is Dangerous to Your Health. Avoid second hand smoke Call the 24-hour hour crisis hotline for domestic abuse at Dany Leavitt MD November 08, 2016 13:08
--- NOTE | 2016-11-08 13:13 | HHI.FF ---
Face to Face Verification Diagnosis: (1) Surgical wound infection Home Health Nursing Order: Medical education Signs/symptoms of disease process Medication education-adverse effect Wound care and dressing changes Nursing assessment with vital signs Instructions: wound care right breast/chest wall with wound vac. see orders. change M/W/F. I have seen patient Isaura Fink on 11/08/16. My clinical findings support the need for the requested home health care services because: Limited ability to care for self I certify that my clinical findings support that this patient is homebound because: Post-op weakness Dany Leavitt MD November 08, 2016 13:13
--- NOTE | 2016-11-08 13:17 | HHI.NPPN ---
Subjective History of Present Illness 61 years old female with history of Breast reconstruction surgery, called to see for elevated BUN and Creatinine. Additional Remarks Patient is alert, has nausea, no vomiting, mild abd. pain. Review of Systems General Constitutional: Fatigue Cardiovascular Cardiac: PEREZ Gastrointestinal Gastrointestinal: Abdominal Pain Objective Data Data 11/07/16 11/08/16 19:00 07:00 Intake Total 580 ml 525 ml Balance 580 ml 525 ml Intake Oral 580 ml 480 ml IV Total 45 ml # Voids 3 2 # Bowel Movements 0 Vital Signs Date Time Temp Pulse Resp B/P Pulse Ox O2 Delivery O2 Flow Rate FiO2 11/08/16 12:00 99.2 95 20 131/80 96 11/08/16 08:35 99.2 87 20 119/77 96 11/08/16 04:00 98.0 99 20 113/68 95 11/08/16 03:44 Room Air 11/08/16 00:00 99.0 98 20 119/76 94 11/07/16 20:00 99.7 89 20 131/79 99 11/07/16 20:00 108 11/07/16 16:00 99.2 94 18 117/71 96 -: 11/05/16 0901 11/06/16 0744 Physical Exam General Appearance: No Acute Distress, Comfortable Eyes Eye Exam: Pupils Equal Throat Throat Exam: Oral Mucosa [place] & Moist Neck Neck Exam: Neck Supple Pulmonary Resp Exam: Clear Bilaterally, Breath Sounds Equal, No Distress, Rhonchi, Decreased Bases Cardiology CV Exam: Regular, Normal Sinus Rhythm Gastrointestinal/Abdomen GI Exam: Soft, Bowel Sounds Present, Distended Extremeties Extremities Exam: Trace Edema Neurologic Neuro Exam: Alert, Awake, Oriented Psychiatric Psych Exam: Appropriate Responses Assessment/Plan Assessment Summary: AUDIE/Acute Renal Failure Problem List: (1) History of breast cancer (2) Essential hypertension (3) URI, acute (4) Diabetes mellitus (5) AUDIE (acute kidney injury) Plan Has been Non oliguric. Most likely had suffered contrast nephropathy. Continue supportive care. Avoid Nephrotoxins, and follow urine out put and BMP. Had removal of ischemic breast flap by plastic surgery. Monitor urine output and renal function. Avoid Nephrotoxins. No new BMP, possible D/C in AM. Problem Qualifiers (1) Diabetes mellitus: Dinah Garcia MD November 08, 2016 13:17 Dinah Garcia MD November 08, 2016 13:17
[2016-11-08] MEDS: ONDANSETRON INJ 8 MG in DEXTROSE 5% IN WATER INJ 50 ML IV PRN ×2 (19:41)
[2016-11-08] MEDS: ENOXAPARIN SODIUM 40 MG/0.4 ML SYRINGE SQ SCH (20:10)
[2016-11-08] MEDS: HYDROmorphone HCL PF 2 MG/ML VIAL IV PUSH PRN (23:16)
[2016-11-09] VITALS (9 sets, daily range): BP systolic 110–130; BP diastolic 69–82; PULSE 87–102; RESP 18–20; TEMP 97.7–100.2; O2SAT 93–98
[2016-11-09] MEDS: MUPIROCIN 2% OINT 22 GM TUBE TOPICAL SCH ×3 (05:41→21:20)
[2016-11-09] MEDS: LORATADINE 10 MG TAB PO SCH (07:59)
[2016-11-09] MEDS: CHLORHEXIDINE 0.12% (ORAL KIT) 15 ML CUP MT SCH ×2 (07:59→20:00)
[2016-11-09] MEDS: NIFEdipine 30 MG SUSTAINED RELEASE TAB PO SCH (07:59)
[2016-11-09] MEDS: PANTOPRAZOLE SOD 40 MG DELAYED RELEASE TAB PO SCH (07:59)
[2016-11-09] MEDS: SILVER SULFADIAZINE 1% CR 50 GM JAR TOPICAL SCH ×2 (07:59→21:00)
[2016-11-09] MEDS: DOCUSATE SODIUM 100 MG CAP PO SCH ×2 (07:59→21:08)
[2016-11-09] MEDS: LEVOFLOXACIN 750 MG TAB PO SCH (07:59)
[2016-11-09] MEDS ORDERED: MAGNESIUM CITRATE SOLN 300 ML BTL PO ONE (11:15)
--- NOTE | 2016-11-09 11:24 | HHI.PR ---
Subjective Remarks pt says she is so nauseated and can't eat. thinks it might be the procardia. no bm x 5 days per her hx. she would like to hold off on d/c Objective Vitals heart reg lung cta chest right chest wound vac abd horizontal incision healed umbilical wound no pus no edema Vital Signs Date Time Temp Pulse Resp B/P Pulse Ox O2 Delivery O2 Flow Rate FiO2 11/09/16 10:36 98 11/09/16 08:01 Room Air 11/09/16 08:00 97.7 87 20 121/82 97 11/09/16 04:00 98.7 102 20 130/82 93 11/09/16 00:38 Room Air 11/09/16 00:21 92 11/09/16 00:00 99.4 92 20 129/78 94 11/08/16 23:48 15 11/08/16 23:17 Room Air 11/08/16 20:00 98.7 90 20 137/79 95 11/08/16 16:00 98.3 83 20 132/82 96 11/08/16 15:42 74 11/08/16 15:38 Room Air 11/08/16 12:00 99.2 95 20 131/80 96 11/08/16 11/08/16 11/09/16 15:00 23:00 07:00 Intake Total 480 ml 240 ml 240 ml Balance 480 ml 240 ml 240 ml Intake Oral 480 ml 240 ml 240 ml # Voids 3 1 2 # Bowel Movements 0 0 Result Diagram: 11/05/16 0901 11/06/16 0744 Imaging Last Impressions Abdomen X-Ray 10/27/16 0000 Signed Impressions: Service Date/Time: Thursday, October 27, 2016 11:21 - CONCLUSION: No acute disease. Jose Alfredo Pradhan MD Renal Ultrasound 10/26/16 0000 Signed Impressions: Service Date/Time: Wednesday, October 26, 2016 22:02 - CONCLUSION: Normal examination. Kane Mo Jr., MD CT Angiography 10/24/16 1335 Signed Impressions: Service Date/Time: October 14:26 - CONCLUSION: 1. Right lower lobe pneumonia. 2. There is no evidence for PE for technique. 3. Soft tissue density in right chest wall could be postsurgical change in this patient with prior mastectomy or a flap and the exact nature of the patient's surgery is not known to us. Tracy Austin MD Chest X-Ray 10/24/16 1224 Signed Impressions: Service Date/Time: October 13:03 - CONCLUSION: 1. Right basilar patchiness consistent with atelectasis and/or infiltrate. 2. Probable left basilar atelectasis. 3. Elevation of the right hemidiaphragm. 4. Degenerative changes and mild scoliosis of the thoracic spine. 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 - Blood cultures (10/24/16) with one out of four bottles growing pleomorphic gram positive rods in the anaerobic culture - Wound culture and urine culture from 10/24 with Pseudomonas aeruginosa - Pt had been on Vanco and Zosyn but developed some AUDIE and nausea felt to possibly be related to contrast nephropathy or AIN or ATN from antibiotics/sepsis - The Vanco and Zosyn were d/c'd on 10/26 and 10/27 - Pt was started on Cefepime and Azithromycin, renal dosed - Renal function is slowly improving. - Urine eosinophils were negative and renal u/s with no evidence of obstruction. - Anemia related to acute illness/infection. no active bleeding. - Pt taken to the OR with Dr. Ngo (10/30/16) - Pt underwent debridement and VAC placement for necrosis of right TRAM flap placed following mastectomy - Pt extubated (10/31/16) - Wound VAC ordered to be changed 3x/week - repeat CXR (11/02/16) --> continued density at right base - pt remained on cefepime and azithromycin..changed to Levaquin by ID on 11/03 - Repeat CT chest (11/02/16) --> right pleural effusion, right base pneumonia - Chest US (11/03/16) --> insufficient pleural effusion for thoracentesis - Pt improving clinically, anticipate d/c Friday with HHC and wound vac. - Pt will continue po Abx. - She will need f/u with PCP/renal/surg. addendum: hold d/c . pt says can't eat much and nauseated. no bm. thinks it's the bp med. will stop. kub laxative. try again tomorrow. (2) Surgical wound infection Status: Acute Plan: - See above (3) AUDIE (acute kidney injury) Status: Acute Plan: - See above. (4) History of breast cancer Status: Chronic (5) Essential hypertension Status: Chronic Plan: procardia patricia on hold Problem Qualifiers (1) Pneumonia: Qualified Code: J18.1 - Pneumonia of right lower lobe due to infectious organism (2) Surgical wound infection: Qualified Code: T81.4XXA - Surgical wound infection, initial encounter Dany Leavitt MD November 09, 2016 11:24
--- NOTE | 2016-11-09 12:34 | RADRPT ---
EXAM DATE/TIME: 11/09/2016 11:23 [place] COMPARISON: ABDOMEN KUB ONLY, October 27, 2016, 11:21. INDICATIONS : Nausea starting today MEDICAL HISTORY : Carcinoma, breast. Hypertension SURGICAL HISTORY : Mastectomy, right. Hysterectomy. Tubal ligation ENCOUNTER: Initial ACUITY: 1 day PAIN SCORE: Non-responsive. LOCATION: Bilateral abdomen FINDINGS: 2 AP supine views of the abdomen were obtained and demonstrate gas and stool noted segments of the co promise. There are several loops of nondilated air-containing small bowel in the midabdomen. There is no evidence of free air on this supine study. Patient is status post cholecystectomy. There are calcifie d phleboliths in the pelvis. CONCLUSION: Mildly nonspecific, nonobstructive bowel gas pattern most consistent with a mild ileu s. Shekhar Dwyer MD on November 09, 2016 at 12:31 Board Certified Radiologist. This report was verified electronically.
[2016-11-09] MEDS: ONDANSETRON ODT 4 MG TAB PO PRN ×3 (12:48→21:08)
[2016-11-09] MEDS: ACETAMINOPHEN 325 MG TAB PO PRN (12:48)
[2016-11-09] MEDS ORDERED: METHYLNALTREXONE BROMIDE 12 MG/0.6 ML VIAL SQ ONE (13:15)
[2016-11-09 14:14] LABS: BLOOD, URINE NEG (NEG); COMMENT (UR) CULT NOT INDICATED; CULTURE IF INDICATED CULT NOT INDICATED; GLUCOSE,URINE NEG (NEG); KETONE, URINE NEG (NEG); NITRITE,URINE NEG (NEG); SQUAMOUS EPITHELIAL CELL URINE 2 /hpf (0-5); URINE COLOR YELLOW (YELLW/STRAW)
--- NOTE | 2016-11-09 14:37 | HHI.NPPN ---
Subjective History of Present Illness 61 years old female with history of Breast reconstruction surgery, called to see for elevated BUN and Creatinine. Additional Remarks Patient is alert, has nausea, has mild abd. pain and vomited once. Review of Systems General Constitutional: Fatigue Cardiovascular Cardiac: PEREZ Gastrointestinal Gastrointestinal: Abdominal Pain Objective Data Data 11/08/16 11/09/16 19:00 07:00 Intake Total 480 ml 480 ml Balance 480 ml 480 ml Intake Oral 480 ml 480 ml # Voids 3 3 # Bowel Movements 0 Vital Signs Date Time Temp Pulse Resp B/P Pulse Ox O2 Delivery O2 Flow Rate FiO2 11/09/16 12:00 100.2 95 20 126/79 98 11/09/16 10:36 98 11/09/16 08:01 Room Air 11/09/16 08:00 97.7 87 20 121/82 97 11/09/16 04:00 98.7 102 20 130/82 93 11/09/16 00:38 Room Air 11/09/16 00:21 92 11/09/16 00:00 99.4 92 20 129/78 94 11/08/16 23:48 15 11/08/16 23:17 Room Air 11/08/16 20:00 98.7 90 20 137/79 95 11/08/16 16:00 98.3 83 20 132/82 96 11/08/16 15:42 74 11/08/16 15:38 Room Air -: 11/05/16 0901 11/06/16 0744 Physical Exam General Appearance: No Acute Distress, Comfortable Eyes Eye Exam: Pupils Equal Throat Throat Exam: Oral Mucosa [place] & Moist Neck Neck Exam: Neck Supple Pulmonary Resp Exam: Clear Bilaterally, Breath Sounds Equal, No Distress, Rhonchi, Decreased Bases Cardiology CV Exam: Regular, Normal Sinus Rhythm Gastrointestinal/Abdomen GI Exam: Soft, Bowel Sounds Present, Distended Extremeties Extremities Exam: Trace Edema Neurologic Neuro Exam: Alert, Awake, Oriented Psychiatric Psych Exam: Appropriate Responses Assessment/Plan Assessment Summary: AUDIE/Acute Renal Failure Problem List: (1) History of breast cancer (2) Essential hypertension (3) URI, acute (4) Diabetes mellitus (5) AUDIE (acute kidney injury) Plan Has been Non oliguric. Most likely had suffered contrast nephropathy. Continue supportive care. Avoid Nephrotoxins, and follow urine out put and BMP. Had removal of ischemic breast flap by plastic surgery. Monitor urine output and renal function. Avoid Nephrotoxins. No new BMP, will get in AM. Has low grade fever, UA is negative for UTI. Problem Qualifiers (1) Diabetes mellitus: Dinah Garcia MD November 09, 2016 14:37
[2016-11-09] MEDS: ENOXAPARIN SODIUM 40 MG/0.4 ML SYRINGE SQ SCH (20:00)
[2016-11-09] MEDS ORDERED: ACETAMINOPHEN/HYDROcodone 325 MG/5 MG TAB PO PRN (20:30)
[2016-11-09] MEDS: TEMAZEPAM 15 MG CAP PO PRN (21:08)
[2016-11-10] VITALS (8 sets, daily range): BP systolic 110–128; BP diastolic 70–80; PULSE 86–111; RESP 18–20; TEMP 97.9–98.9; O2SAT 96–98
[2016-11-10] MEDS: MUPIROCIN 2% OINT 22 GM TUBE TOPICAL SCH ×3 (06:00→21:15)
[2016-11-10] MEDS: CHLORHEXIDINE 0.12% (ORAL KIT) 15 ML CUP MT SCH ×2 (08:00→20:00)
[2016-11-10 08:10] LABS: BICARBONATE 28.9 MEQ/L (21.0-32.0); POTASSIUM 3.6 MEQ/L (3.5-5.1)
[2016-11-10] MEDS: ONDANSETRON ODT 4 MG TAB PO PRN ×3 (08:18→21:12)
[2016-11-10] MEDS: LEVOFLOXACIN 750 MG TAB PO SCH (08:18)
[2016-11-10] MEDS: PANTOPRAZOLE SOD 40 MG DELAYED RELEASE TAB PO SCH (08:19)
[2016-11-10] MEDS: DOCUSATE SODIUM 100 MG CAP PO SCH ×2 (08:19→21:12)
[2016-11-10] MEDS: SILVER SULFADIAZINE 1% CR 50 GM JAR TOPICAL SCH ×2 (08:19→21:00)
[2016-11-10] MEDS: LORATADINE 10 MG TAB PO SCH (08:19)
--- NOTE | 2016-11-10 09:32 | HHI.NPPN ---
Subjective History of Present Illness 61 years old female with history of Breast reconstruction surgery, called to see for elevated BUN and Creatinine. Additional Remarks Patient is alert, has no vomiting today, had BM. Review of Systems General Constitutional: Fatigue Cardiovascular Cardiac: PEREZ Gastrointestinal Gastrointestinal: Abdominal Pain Objective Data Data 11/09/16 11/10/16 19:00 07:00 Intake Total 480 ml Balance 480 ml Intake Oral 480 ml # Voids 2 4 # Bowel Movements 0 1 Vital Signs Date Time Temp Pulse Resp B/P Pulse Ox O2 Delivery O2 Flow Rate FiO2 11/10/16 08:24 87 11/10/16 08:14 Room Air 11/10/16 08:00 97.9 86 20 121/75 96 11/10/16 04:00 98.6 99 18 128/80 98 11/10/16 00:00 98.3 87 18 127/78 96 11/09/16 20:00 98.7 96 18 124/75 97 11/09/16 19:00 96 11/09/16 16:00 99.0 98 20 110/69 95 11/09/16 12:00 100.2 95 20 126/79 98 11/09/16 10:36 98 -: 11/10/16 0654 Physical Exam General Appearance: No Acute Distress, Comfortable Eyes Eye Exam: Pupils Equal Throat Throat Exam: Oral Mucosa [place] & Moist Neck Neck Exam: Neck Supple Pulmonary Resp Exam: Clear Bilaterally, Breath Sounds Equal, No Distress, Rhonchi, Decreased Bases Cardiology CV Exam: Regular, Normal Sinus Rhythm Gastrointestinal/Abdomen GI Exam: Soft, Bowel Sounds Present, Distended Extremeties Extremities Exam: Trace Edema Neurologic Neuro Exam: Alert, Awake, Oriented Psychiatric Psych Exam: Appropriate Responses Assessment/Plan Assessment Summary: AUDIE/Acute Renal Failure Problem List: (1) History of breast cancer (2) Essential hypertension (3) URI, acute (4) Diabetes mellitus (5) AUDIE (acute kidney injury) Plan Has been Non oliguric. Most likely had suffered contrast nephropathy. Continue supportive care. Avoid Nephrotoxins, and follow urine out put and BMP. Had removal of ischemic breast flap by plastic surgery. Monitor urine output and renal function. Avoid Nephrotoxins. Now afebrile. Creatinine remain at 1.5. Possible D/C in AM, if remain stable. Problem Qualifiers (1) Diabetes mellitus: Dinah Garcia MD November 10, 2016 09:32
--- NOTE | 2016-11-10 09:54 | HHI.PR ---
Subjective Remarks no n/v today bm after relistor not eating much yet today. Objective Vitals heart reg lung improved air entry abd no umbilical drainage horizontal incision scar tissue ext no edema right chest wall wound vac Vital Signs Date Time Temp Pulse Resp B/P Pulse Ox O2 Delivery O2 Flow Rate FiO2 11/10/16 08:24 87 11/10/16 08:14 Room Air 11/10/16 08:00 97.9 86 20 121/75 96 11/10/16 04:00 98.6 99 18 128/80 98 11/10/16 00:00 98.3 87 18 127/78 96 11/09/16 20:00 98.7 96 18 124/75 97 11/09/16 19:00 96 11/09/16 16:00 99.0 98 20 110/69 95 11/09/16 12:00 100.2 95 20 126/79 98 11/09/16 10:36 98 11/09/16 11/09/16 11/10/16 15:00 23:00 07:00 Intake Total 480 ml Balance 480 ml Intake Oral 480 ml # Voids 2 4 # Bowel Movements 0 1 Result Diagram: 11/10/16 0654 Imaging Last Impressions Abdomen X-Ray 10/27/16 0000 Signed Impressions: Service Date/Time: Thursday, October 27, 2016 11:21 - CONCLUSION: No acute disease. Jose Alfredo Pradhan MD Renal Ultrasound 10/26/16 0000 Signed Impressions: Service Date/Time: Wednesday, October 26, 2016 22:02 - CONCLUSION: Normal examination. Kane Mo Jr., MD CT Angiography 10/24/16 1335 Signed Impressions: Service Date/Time: October 14:26 - CONCLUSION: 1. Right lower lobe pneumonia. 2. There is no evidence for PE for technique. 3. Soft tissue density in right chest wall could be postsurgical change in this patient with prior mastectomy or a flap and the exact nature of the patient's surgery is not known to us. Tracy Austin MD Chest X-Ray 10/24/16 1224 Signed Impressions: Service Date/Time: October 13:03 - CONCLUSION: 1. Right basilar patchiness consistent with atelectasis and/or infiltrate. 2. Probable left basilar atelectasis. 3. Elevation of the right hemidiaphragm. 4. Degenerative changes and mild scoliosis of the thoracic spine. 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 - Blood cultures (10/24/16) with one out of four bottles growing pleomorphic gram positive rods in the anaerobic culture - Wound culture and urine culture from 10/24 with Pseudomonas aeruginosa - Pt had been on Vanco and Zosyn but developed some AUDIE and nausea felt to possibly be related to contrast nephropathy or AIN or ATN from antibiotics/sepsis - The Vanco and Zosyn were d/c'd on 10/26 and 10/27 - Pt was started on Cefepime and Azithromycin, renal dosed - Renal function is slowly improving. - Urine eosinophils were negative and renal u/s with no evidence of obstruction. - Anemia related to acute illness/infection. no active bleeding. - Pt taken to the OR with Dr. Ngo (10/30/16) - Pt underwent debridement and VAC placement for necrosis of right TRAM flap placed following mastectomy - Pt extubated (10/31/16) - Wound VAC ordered to be changed 3x/week - repeat CXR (11/02/16) --> continued density at right base - pt remained on cefepime and azithromycin..changed to Levaquin by ID on 11/03 - Repeat CT chest (11/02/16) --> right pleural effusion, right base pneumonia - Chest US (11/03/16) --> insufficient pleural effusion for thoracentesis D/C held over the weekend. c/o n/v Friday and low grade fever. no bm. Pt felt procardia making her sick. kub showed mild ileus. stopped procardia and prn dilaudid except for wound vac change. relistor and mag citrate given. had bm monitor for another 24hr to assure no fever and to see if pt tolerating diet d/c orders for hhc and wound vac were written and abx orders. so if stable d/c Friday (2) Surgical wound infection Status: Acute Plan: - See above (3) AUDIE (acute kidney injury) Status: Acute Plan: - See above. (4) History of breast cancer Status: Chronic (5) Essential hypertension Status: Chronic Plan: stable stopped patricia due to audie stopped procardia for "n/v" per pt. Problem Qualifiers (1) Pneumonia: Qualified Code: J18.1 - Pneumonia of right lower lobe due to infectious organism (2) Surgical wound infection: Qualified Code: T81.4XXA - Surgical wound infection, initial encounter Dany Leavitt MD November 10, 2016 09:54
[2016-11-10] MEDS ORDERED: BISACODYL EC 5 MG TABEC PO ONE (10:00)
[2016-11-10] MEDS ORDERED: BISACODYL EC 5 MG TABEC PO PRN (10:00)
[2016-11-10] MEDS: ENOXAPARIN SODIUM 40 MG/0.4 ML SYRINGE SQ SCH (20:00)
[2016-11-10] MEDS: TEMAZEPAM 15 MG CAP PO PRN (21:12)
[2016-11-11] VITALS (7 sets, daily range): BP systolic 111–130; BP diastolic 69–83; PULSE 79–107; RESP 18–20; TEMP 96.6–98.2; O2SAT 96–98
[2016-11-11] MEDS: MUPIROCIN 2% OINT 22 GM TUBE TOPICAL SCH ×3 (06:00→21:28)
[2016-11-11] MEDS: CHLORHEXIDINE 0.12% (ORAL KIT) 15 ML CUP MT SCH ×2 (08:00→21:25)
[2016-11-11] MEDS: DOCUSATE SODIUM 100 MG CAP PO SCH ×2 (08:55→21:22)
[2016-11-11] MEDS: PANTOPRAZOLE SOD 40 MG DELAYED RELEASE TAB PO SCH (08:55)
[2016-11-11] MEDS: SILVER SULFADIAZINE 1% CR 50 GM JAR TOPICAL SCH ×2 (08:56→21:00)
--- NOTE | 2016-11-11 10:24 | HHI.NPPN ---
Subjective History of Present Illness 61 years old female with history of Breast reconstruction surgery, called to see for elevated BUN and Creatinine. Additional Remarks Patient is alert, feeling better, no SOB, no vomiting and started eating better. Review of Systems General Constitutional: Fatigue Cardiovascular Cardiac: PEREZ Gastrointestinal Gastrointestinal: Abdominal Pain Objective Data Data 11/10/16 11/11/16 18:59 06:59 Intake Total 720 ml Balance 720 ml Intake Oral 720 ml # Voids 3 4 # Bowel Movements 0 Vital Signs Date Time Temp Pulse Resp B/P Pulse Ox O2 Delivery O2 Flow Rate FiO2 11/11/16 08:16 79 11/11/16 08:15 98.2 92 20 130/83 96 11/11/16 04:00 97.5 90 18 126/79 98 11/10/16 22:58 98.9 97 18 118/70 96 11/10/16 19:00 95 11/10/16 16:00 98.4 95 20 113/74 98 11/10/16 12:00 98.7 111 20 110/72 96 -: 11/10/16 0654 Physical Exam General Appearance: No Acute Distress, Comfortable Eyes Eye Exam: Pupils Equal Throat Throat Exam: Oral Mucosa [place] & Moist Neck Neck Exam: Neck Supple Pulmonary Resp Exam: Clear Bilaterally, Breath Sounds Equal, No Distress, Rhonchi, Decreased Bases Cardiology CV Exam: Regular, Normal Sinus Rhythm Gastrointestinal/Abdomen GI Exam: Soft, Bowel Sounds Present, Distended Extremeties Extremities Exam: Trace Edema Neurologic Neuro Exam: Alert, Awake, Oriented Psychiatric Psych Exam: Appropriate Responses Assessment/Plan Assessment Summary: AUDIE/Acute Renal Failure Problem List: (1) History of breast cancer (2) Essential hypertension (3) URI, acute (4) Diabetes mellitus (5) AUDIE (acute kidney injury) Plan Has been Non oliguric. Most likely had suffered contrast nephropathy. Continue supportive care. Avoid Nephrotoxins, and follow urine out put and BMP. Had removal of ischemic breast flap by plastic surgery. Monitor urine output and renal function. Avoid Nephrotoxins. Now afebrile. Creatinine remain at 1.5. Possible D/C today, has been non oliguric. Her baseline Creatinine is normal. I can follow her as out patient. Problem Qualifiers (1) Diabetes mellitus: Dinah Garcia MD November 11, 2016 10:24
[2016-11-11] MEDS: HYDROmorphone HCL PF 2 MG/ML VIAL IV PRN (12:40)
--- NOTE | 2016-11-11 15:49 | HHI.PR ---
Subjective Remarks Pt now tolerating PO intake. Objective Vitals Vital Signs Date Time Temp Pulse Resp B/P Pulse Ox O2 Delivery O2 Flow Rate FiO2 11/11/16 13:58 16 11/11/16 12:59 97.5 107 19 111/76 96 11/11/16 08:16 79 11/11/16 08:15 98.2 92 20 130/83 96 11/11/16 04:00 97.5 90 18 126/79 98 11/10/16 22:58 98.9 97 18 118/70 96 11/10/16 19:00 95 11/10/16 16:00 98.4 95 20 113/74 98 11/10/16 11/10/16 11/11/16 15:00 23:00 07:00 Intake Total 720 ml Balance 720 ml Intake Oral 720 ml # Voids 3 4 # Bowel Movements 0 Result Diagram: 11/10/16 0654 Imaging Last Impressions Abdomen X-Ray 10/27/16 0000 Signed Impressions: Service Date/Time: Thursday, October 27, 2016 11:21 - CONCLUSION: No acute disease. Jose Alfredo Pradhan MD Renal Ultrasound 10/26/16 0000 Signed Impressions: Service Date/Time: Wednesday, October 26, 2016 22:02 - CONCLUSION: Normal examination. Kane Mo Jr., MD CT Angiography 10/24/16 1335 Signed Impressions: Service Date/Time: October 14:26 - CONCLUSION: 1. Right lower lobe pneumonia. 2. There is no evidence for PE for technique. 3. Soft tissue density in right chest wall could be postsurgical change in this patient with prior mastectomy or a flap and the exact nature of the patient's surgery is not known to us. Tracy Austin MD Chest X-Ray 10/24/16 1224 Signed Impressions: Service Date/Time: October 13:03 - CONCLUSION: 1. Right basilar patchiness consistent with atelectasis and/or infiltrate. 2. Probable left basilar atelectasis. 3. Elevation of the right hemidiaphragm. 4. Degenerative changes and mild scoliosis of the thoracic spine. Júnior Suarez MD Objective Remarks GENERAL: This is a well-nourished, well-developed patient, in no apparent distress. CARDIOVASCULAR: Regular rate and rhythm without murmurs, gallops, or rubs. RESPIRATORY: Clear to auscultation. Breath sounds equal bilaterally. No wheezes , rales, or rhonchi. GASTROINTESTINAL: Abdomen soft, non-tender, nondistended. Normal active bowel sounds MUSCULOSKELETAL: Extremities without clubbing, cyanosis, or edema. NEURO: Alert & Oriented x4 to person, place, time, situation. 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 - Blood cultures (10/24/16) with one out of four bottles growing pleomorphic gram positive rods in the anaerobic culture - Wound culture and urine culture from 10/24 with Pseudomonas aeruginosa - Pt had been on Vanco and Zosyn but developed some AUDIE and nausea felt to possibly be related to contrast nephropathy or AIN or ATN from antibiotics/sepsis - The Vanco and Zosyn were d/c'd on 10/26 and 10/27 - Pt was started on Cefepime and Azithromycin, renal dosed - Renal function is slowly improving. - Urine eosinophils were negative and renal u/s with no evidence of obstruction. - Anemia related to acute illness/infection. no active bleeding. - Pt taken to the OR with Dr. Ngo (10/30/16) - Pt underwent debridement and VAC placement for necrosis of right TRAM flap placed following mastectomy - Pt extubated (10/31/16) - Wound VAC ordered to be changed 3x/week - repeat CXR (11/02/16) --> continued density at right base - pt remained on cefepime and azithromycin..changed to Levaquin by ID on 11/03 - Repeat CT chest (11/02/16) --> right pleural effusion, right base pneumonia - Chest US (11/03/16) --> insufficient pleural effusion for thoracentesis D/C held over the weekend. c/o n/v Friday and low grade fever. no bm. Pt felt procardia making her sick. kub showed mild ileus. stopped procardia and prn dilaudid except for wound vac change. relistor and mag citrate given. had bm monitor for another 24hr to assure no fever and to see if pt tolerating diet d/c orders for hhc and wound vac were written and abx orders. 11/11/16 - afebrile since 11/09/16 - unclear which surgeon pt will f/u with upon discharge - Pt initially had surgery with Dr. Lutz, but now requesting to f/u with Dr. Ngo - Case d/w Dr. Ngo (11/11/16) - Dr. Ngo was unaware of this dynamic. She will come to reassess pt this evening and review case with Dr. Lutz. - anticipate d/c to home with [facility] 11/12/16 (2) Surgical wound infection Status: Acute Plan: - See above (3) AUDIE (acute kidney injury) Status: Acute Plan: - See above. (4) History of breast cancer Status: Chronic (5) Essential hypertension Status: Chronic Plan: stable stopped patricia due to audie stopped procardia for "n/v" per pt. Problem Qualifiers (1) Pneumonia: Qualified Code: J18.1 - Pneumonia of right lower lobe due to infectious organism (2) Surgical wound infection: Qualified Code: T81.4XXA - Surgical wound infection, initial encounter Randall Amezcua DO November 11, 2016 15:49
--- NOTE | 2016-11-11 18:42 | PD.PLAS.PN ---
Subjective Remarks Patient is doing very well and her vacuum dressing is functional. Objective Vital Signs Date Time Temp Pulse Resp B/P Pulse Ox O2 Delivery O2 Flow Rate FiO2 11/11/16 17:05 96.6 84 18 113/69 97 11/11/16 13:58 16 11/11/16 12:59 97.5 107 19 111/76 96 11/11/16 08:16 79 11/11/16 08:15 98.2 92 20 130/83 96 11/11/16 04:00 97.5 90 18 126/79 98 11/10/16 22:58 98.9 97 18 118/70 96 11/10/16 19:00 95 I/O 11/10/16 11/10/16 11/10/16 11/11/16 11/11/16 11/11/16 07:00 15:00 23:00 07:00 15:00 23:00 Intake Total 720 ml 240 ml Balance 720 ml 240 ml Intake Oral 720 ml 240 ml # Voids 4 3 4 # Bowel Movements 0 Result Diagram: 11/10/16 0654 Other Results Vacuum dressing intact over the right chest wall. No evidence for erythema or infection. Exam Findings Vacuum dressing intact and functioning on the right chest wall. No erythema. Assessment and Plan Assessment and Plan Patient is recovering from sepsis secondary to an ischemia flap that was removed in the OR last week. Plan: I will see the patient in my office next week and follow her wound healing progress. Discharge Planning Tomorrow. Tennille Ngo MD November 11, 2016 18:42
[2016-11-11] MEDS: ENOXAPARIN SODIUM 40 MG/0.4 ML SYRINGE SQ SCH (20:00)
[2016-11-12] VITALS (7 sets, daily range): BP systolic 110–122; BP diastolic 64–84; PULSE 83–104; RESP 18–20; TEMP 97.4–99.3; O2SAT 95–98
[2016-11-12] MEDS: MUPIROCIN 2% OINT 22 GM TUBE TOPICAL SCH ×3 (05:47→20:59)
[2016-11-12] MEDS: CHLORHEXIDINE 0.12% (ORAL KIT) 15 ML CUP MT SCH ×2 (08:00→20:00)
[2016-11-12] MEDS: LEVOFLOXACIN 750 MG TAB PO SCH (08:15)
[2016-11-12] MEDS: PANTOPRAZOLE SOD 40 MG DELAYED RELEASE TAB PO SCH (08:15)
[2016-11-12] MEDS: DOCUSATE SODIUM 100 MG CAP PO SCH ×2 (08:15→20:59)
[2016-11-12] MEDS: SILVER SULFADIAZINE 1% CR 50 GM JAR TOPICAL SCH ×2 (08:20→20:59)
[2016-11-12] MEDS ORDERED: LEVA750T PO (08:39)
--- NOTE | 2016-11-12 08:57 | HHI.DS ---
Discharge Summary Admission Date Oct 24, 2016 at 15:32 Discharge Date: November 12, 2016 Admitting Diagnosis sepsis, pneumonia, surgical wound infection, status post breast adeline (1) Pneumonia Diagnosis: Secondary (2) Surgical wound infection Diagnosis: Principal (3) AUDIE (acute kidney injury) Diagnosis: Secondary (4) History of breast cancer Diagnosis: Secondary (5) Essential hypertension Diagnosis: Secondary Consultants Dr. Tennille Ngo - Plastic Surgery Dr. Lucy Garcia - Nephrology Dr. 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 Recently had right breast mastecomy then had right breast reconstruction and skin flap. Pt says over past several days more sob and cp into right neck with pain upon coughing. Seen by her surgeon yesterdayand apparently some purelent fluid drained from the right breast... with apparent plan to debride the wound. Pt now with more chills and came to ED. In ED noted to have right pneumonia and infected/necrotic looking right breast tissue. ED called pt's surgeon and said Dr Ngo would be covering and to admit the pt to medicine. Cx's taken in ED and vanco and zosyn given. CBC/BMP: 11/10/16 0654 Significant Findings Laboratory Tests Test 11/10/16 06:54 Creatinine 1.54 MG/DL (0.50-1.00) Estimat Glomerular Filtration 41 ML/MIN (>89) Rate Imaging Last Impressions Abdomen X-Ray 11/09/16 0000 Signed Impressions: Service Date/Time: Wednesday, November 09, 2016 11:23 - CONCLUSION: Mildly nonspecific, nonobstructive bowel gas pattern most consistent with a mild ileus. Shekhar Dwyer MD Chest Ultrasound 11/03/16 0000 Signed Impressions: Service Date/Time: Thursday, November 03, 2016 10:56 - CONCLUSION: Volume of fluid too small to safely perform thoracentesis. Kade Dhillon MD Chest X-Ray 11/02/16 0800 Signed Impressions: Service Date/Time: Wednesday, November 02, 2016 08:53 - CONCLUSION: No significant change has occurred. Jax Snowden MD Chest CT 11/02/16 0000 Signed Impressions: Service Date/Time: Wednesday, November 02, 2016 18:40 - CONCLUSION: Slight increase in right pleural effusion, surgical removal of previously seen right breast opacity since the prior exam and otherwise not significantly changed. Tracy Austin MD Renal Ultrasound 10/26/16 0000 Signed Impressions: Service Date/Time: Wednesday, October 26, 2016 22:02 - CONCLUSION: Normal examination. Kane Mo Jr., MD CT Angiography 10/24/16 1335 Signed Impressions: Service Date/Time: October 14:26 - CONCLUSION: 1. Right lower lobe pneumonia. 2. There is no evidence for PE for technique. 3. Soft tissue density in right chest wall could be postsurgical change in this patient with prior mastectomy or a flap and the exact nature of the patient's surgery is not known to us. Tracy Austin MD PE at Discharge GENERAL: This is a well-nourished, well-developed patient, in no apparent distress. CARDIOVASCULAR: Regular rate and rhythm without murmurs, gallops, or rubs. RESPIRATORY: Clear to auscultation. Breath sounds equal bilaterally. No wheezes , rales, or rhonchi. GASTROINTESTINAL: Abdomen soft, non-tender, nondistended. Normal active bowel sounds MUSCULOSKELETAL: Extremities without clubbing, cyanosis, or edema. NEURO: Alert & Oriented x4 to person, place, time, situation. Moves all ext x4 Hospital Course Pt is 61 yo with hx DCIS of the right breast s/p radiation in 2010. Pt now with moderately differentiated invasive ductal cell cancer of the right breast s/p mastectomy and reconstruction. She presented with surgical wound infection/ necrosis and right lung PNA with concern for sepsis. Blood cultures (10/24/16) with one out of four bottles growing actinomyces Sp and another growing Pseudomonas Aeruginosa. Urine culture from 10/24 with Pseudomonas aeruginosa as well. Pt was seen by ID and was initially on Vanco and Zosyn but developed some AUDIE and nausea felt to possibly be related to contrast nephropathy or AIN or ATN from antibiotics/sepsis. Nephrology was consulted. The Vanco and Zosyn were d/c'd on 10/26 and 10/27. Pt was started on Cefepime and Azithromycin, renal dosed. Her renal function has slowly improved. Urine eosinophils were negative and renal u/s with no evidence of obstruction. She was noted to be anemic which was felt to be related to acute illness/infection, there was no active bleeding. Pt was taken to the OR with Dr. Ngo (10/30/16). Pt underwent debridement and VAC placement for necrosis of right TRAM flap placed following mastectomy. Pt extubated on 10/31/16. Wound VAC ordered to be changed 3x/week. Repeat CXR () noted continued density at right base. Pt remained on cefepime and azithromycin until it was changed to Levaquin by ID on 11/03 and recommended to complete 14 days of Levaquin (until 11/15). Repeat CT chest (11/02/16) noted right pleural effusion, right base pneumonia. Chest US (11/03/16) showed insufficient pleural effusion for thoracentesis. Pt improved clinically with regards to the pneumonia and wound infection. She had been planned for discharge on 11/09/16 but she developed some N/V and a low grade fever on 11/09. She had not had a BM in several days. Pt felt Procardia was making her sick. KUB showed mild ileus. We stopped Procardia and prn Dilaudid except for wound vac change. Pt was given Relistor and mag citrate and did have a BM. Pt improved clinically and monitor there has been no fever since 11/09 and she has been tolerating diet. BP has remained stable. Pt will have [facility] arranged for wound vac changes on -. She will complete 3 more days of Levaquin. Pt initially had surgery with Dr. Lutz, but now requesting to f/u with Dr. Ngo. Dr. Ngo has agreed to follow the patient in the outpt setting and she will be seen at her office in 1 week. Pt will need followup with Dr. Garcia in 2 weeks Pt will need to followup with Dr. Haas in 1 week. Pt Condition on Discharge: Stable Discharge Disposition: Disch w/ Home Health Serv Discharge Instructions DIET: Follow Instructions for: As Tolerated, No Restrictions Activities you can perform: Regular-No Restrictions Follow up Referrals: Nephrology - [address] garcia PCP Follow-up - [address] haas Plastic Surgery - [address] tennille Ngo New Medications: Hydrocodone-Acetaminophen ([place]) 5-325 mg Tab 1-2 TAB PO Q4-6H PRN PAIN #30 Ref 0 TAB Docusate Sodium (Dok) 100 Mg Cap 100 MG PO BID Constipation Days 14 CAP Levofloxacin (Levaquin) 750 Mg Tab 750 MG PO DAILY Infection #3 TAB Loratadine (Claritin) 10 Mg Tab 10 MG PO DAILY Allergies Days 14 TAB Continued Medications: Aspirin (Aspirin) 81 Mg Tab 81 MG PO DAILY Discontinued Medications: Ibuprofen (Motrin) 600 Mg Tab 600 MG PO QID GIVE WITH FOOD #21 Lisinopril 20 mg (Lisinopril 20 mg) 20 Mg Tab 20 MG PO DAILY #60 Ref 0 TAB Polymyxin/Trimethoprim (Polytrim Opth) 10 Ml Soln 1 DROP EACH EYE Q4 Days 7 Mehreen Pacheco November 12, 2016 08:57
[2016-11-12] MEDS ORDERED: ZOFR4TAB3 SL (09:16)
[2016-11-12] MEDS: ONDANSETRON ODT 4 MG TAB PO PRN ×2 (09:27→17:19)
--- NOTE | 2016-11-12 10:09 | RADRPT ---
EXAM DATE/TIME: 11/12/2016 09:49 [place] COMPARISON: ABDOMEN KUB ONLY, November 09, 2016, 11:23. INDICATIONS : Abdominal pain. MEDICAL HISTORY : Carcinoma, breast. Hypertension SURGICAL HISTORY : Mastectomy, right. Hysterectomy. Tubal ligation. ENCOUNTER: Initial ACUITY: 2 days PAIN SCORE: 6/10 LOCATION: Bilateral lower quadrant abdomen FINDINGS: 2 AP supine views of the abdomen. Surgical clips in the right upper quadrant. Scattered gas and stool in the colon. Scattered gas within mildly distended small bowel loops. Bilateral pelvic calcificatio ns likely represent phleboliths. Degenerative findings of the lumbar spine. CONCLUSION: Nonspecific bowel gas pattern. No significant interval change. Kade Dhillon MD on November 12, 2016 at 10:05 Board Certified Radiologist. This report was verified electronically.
--- NOTE | 2016-11-12 11:00 | HHI.NPPN ---
Subjective History of Present Illness 61 years old female with history of Breast reconstruction surgery, called to see for elevated BUN and Creatinine. Additional Remarks Patient is alert, started vomiting again, mild abd. pain. Review of Systems General Constitutional: Fatigue Cardiovascular Cardiac: PEREZ Gastrointestinal Gastrointestinal: Abdominal Pain Objective Data Data 11/11/16 11/12/16 19:00 07:00 Intake Total 240 ml Balance 240 ml Intake Oral 240 ml # Voids 3 Vital Signs Date Time Temp Pulse Resp B/P Pulse Ox O2 Delivery O2 Flow Rate FiO2 11/12/16 08:57 84 11/12/16 08:55 97 Room Air 11/12/16 08:22 98.0 89 18 122/77 97 11/12/16 04:00 Room Air 11/12/16 04:00 99.3 104 18 112/73 95 11/12/16 00:28 97.4 83 18 118/84 98 11/12/16 00:00 Room Air 11/11/16 21:49 97.9 107 18 115/70 96 11/11/16 20:00 Room Air 11/11/16 17:53 92 11/11/16 17:05 96.6 84 18 113/69 97 11/11/16 13:58 16 11/11/16 12:59 97.5 107 19 111/76 96 -: 11/10/16 0654 Physical Exam General Appearance: No Acute Distress, Comfortable Eyes Eye Exam: Pupils Equal Throat Throat Exam: Oral Mucosa [place] & Moist Neck Neck Exam: Neck Supple Pulmonary Resp Exam: Clear Bilaterally, Breath Sounds Equal, No Distress, Rhonchi, Decreased Bases Cardiology CV Exam: Regular, Normal Sinus Rhythm Gastrointestinal/Abdomen GI Exam: Soft, Bowel Sounds Present, Distended Extremeties Extremities Exam: Trace Edema Neurologic Neuro Exam: Alert, Awake, Oriented Psychiatric Psych Exam: Appropriate Responses Assessment/Plan Assessment Summary: AUDIE/Acute Renal Failure Problem List: (1) History of breast cancer (2) Essential hypertension (3) URI, acute (4) Diabetes mellitus (5) AUDIE (acute kidney injury) Plan Has been Non oliguric. Most likely had suffered contrast nephropathy. Continue supportive care. Avoid Nephrotoxins, and follow urine out put and BMP. Had removal of ischemic breast flap by plastic surgery. Monitor urine output and renal function. Avoid Nephrotoxins. Now afebrile. Creatinine remain at 1.5. Now for abd. x-ray and CT abd. Problem Qualifiers (1) Diabetes mellitus: Dinah Garcia MD November 12, 2016 11:00 Dinah Garcia MD November 12, 2016 11:00
[2016-11-12] MEDS ORDERED: METHYLNALTREXONE BROMIDE 12 MG/0.6 ML VIAL SQ ONE (12:00)
[2016-11-12] MEDS: DIATRIZOATE MEGLUM/DIATRIZOATE SOD 9 ML CUP PO ONE ×2 (15:05→15:32)
--- NOTE | 2016-11-12 15:06 | HHI.PR ---
Subjective Remarks Pt had been planned for discharge again today but is complaining of nausea and poor appetite. She was feeling constipated and was given Relistor and had a BM. No vomiting but dry heaving. Afebrile. No abd pain. No reflux Pt was rather tearful this morning and at re-evaluation in the afternoon her sisters report that they think her nausea may be related to her emotions. Objective Vitals Vital Signs Date Time Temp Pulse Resp B/P Pulse Ox O2 Delivery O2 Flow Rate FiO2 11/12/16 12:05 98.2 103 18 122/64 97 11/12/16 08:57 84 11/12/16 08:55 97 Room Air 11/12/16 08:22 98.0 89 18 122/77 97 11/12/16 04:00 Room Air 11/12/16 04:00 99.3 104 18 112/73 95 11/12/16 00:28 97.4 83 18 118/84 98 11/12/16 00:00 Room Air 11/11/16 21:49 97.9 107 18 115/70 96 11/11/16 20:00 Room Air 11/11/16 17:53 92 11/11/16 17:05 96.6 84 18 113/69 97 11/11/16 11/11/16 11/12/16 14:59 22:59 06:59 Intake Total 240 ml Balance 240 ml Intake Oral 240 ml # Voids 3 Result Diagram: 11/10/16 0654 Imaging Last Impressions Abdomen X-Ray 10/27/16 0000 Signed Impressions: Service Date/Time: Thursday, October 27, 2016 11:21 - CONCLUSION: No acute disease. Jose Alfredo Pradhan MD Renal Ultrasound 10/26/16 0000 Signed Impressions: Service Date/Time: Wednesday, October 26, 2016 22:02 - CONCLUSION: Normal examination. Kane Mo Jr., MD CT Angiography 10/24/16 1335 Signed Impressions: Service Date/Time: October 14:26 - CONCLUSION: 1. Right lower lobe pneumonia. 2. There is no evidence for PE for technique. 3. Soft tissue density in right chest wall could be postsurgical change in this patient with prior mastectomy or a flap and the exact nature of the patient's surgery is not known to us. Tracy Austin MD Chest X-Ray 10/24/16 1224 Signed Impressions: Service Date/Time: October 13:03 - CONCLUSION: 1. Right basilar patchiness consistent with atelectasis and/or infiltrate. 2. Probable left basilar atelectasis. 3. Elevation of the right hemidiaphragm. 4. Degenerative changes and mild scoliosis of the thoracic spine. Júnior Suarez MD Objective Remarks General: NAD, AAOx3 Chest: CTA, wound vac in place on right chest Cardiac: Regular Abd: +BS, soft ND/NT, transverse lower abdominal incision is healing well A/P Problem List: (1) Pneumonia Status: Acute Plan: - Pt is 61 yo with hx DCIS of the right breast s/p radiation in 2010. 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 - Blood cultures (10/24/16) with one out of four bottles growing pleomorphic gram positive rods in the anaerobic culture - Wound culture and urine culture from 10/24 with Pseudomonas aeruginosa - Pt had been on Vanco and Zosyn but developed some AUDIE and nausea felt to possibly be related to contrast nephropathy or AIN or ATN from antibiotics/sepsis - The Vanco and Zosyn were d/c'd on 10/26 and 10/27 - Pt was started on Cefepime and Azithromycin, renal dosed - Renal function is slowly improving. - Urine eosinophils were negative and renal u/s with no evidence of obstruction. - Anemia related to acute illness/infection. no active bleeding. - Pt taken to the OR with Dr. Ngo (10/30/16) - Pt underwent debridement and VAC placement for necrosis of right TRAM flap placed following mastectomy - Pt extubated (10/31/16) - Wound VAC ordered to be changed 3x/week - repeat CXR (11/02/16) --> continued density at right base - pt remained on cefepime and azithromycin..changed to Levaquin by ID on 11/03 - Repeat CT chest (11/02/16) --> right pleural effusion, right base pneumonia - Chest US (11/03/16) --> insufficient pleural effusion for thoracentesis - D/C was held over the weekend as the pt complained of n/v on Friday and low grade fever. She had not had a BM - Pt felt Procardia making her sick. kub showed mild ileus. - The Procardia was stopped and prn Dilaudid except for wound vac change. - Relistor and mag citrate given. Pt had a BM - Again today pt complains of nausea and dry heaves and poor appetite. - KUB ordered which noted nonspecific bowel gas. Pt was again given Relistor with a resulting BM - No reflux or dysphagia. - Hold discharge today. - Obtain CT Abd/pelvis - Recheck CMP, Lipase - GI consultation for evaluation of her nausea. - Add Ensure with each meal and at bedtime. - Pt likely has some situational depression which may be contributing. We will add Cymbalta to her regimen and consult Dr. Wang. (2) Surgical wound infection Status: Acute Plan: - See above (3) AUDIE (acute kidney injury) Status: Acute Plan: - See above. (4) History of breast cancer Status: Chronic (5) Essential hypertension Status: Chronic Plan: stable stopped patricia due to audie stopped procardia for "n/v" per pt. Assessment and Plan Patient examined. Assessment and plan formulated with Mehreen Pacheco PA-C. I agree with the above. Pt tearful at times. Pt's sisters felt that Ms. Fink was NOT completed candid about her high level of anxiety d/t medical illness. Pt started on scheduled cymbalta and prn xanax Consultation placed with Psychiatry. CT abd ordered consultation placed with GI service d/t nause - lipase WNL Problem Qualifiers (1) Pneumonia: Qualified Code: J18.1 - Pneumonia of right lower lobe due to infectious organism (2) Surgical wound infection: Qualified Code: T81.4XXA - Surgical wound infection, initial encounter Mehreen Pacheco November 12, 2016 15:06 Randall Amezcua DO November 13, 2016 00:29
[2016-11-12] MEDS: DULoxetine HCl DR 30 MG CAP PO SCH (15:15)
--- NOTE | 2016-11-12 17:11 | PD.CONS ---
HPI History of Present Illness This is a 61 year old [lady] was admitted 10/24/16 for surgical site infection and PNA following mastectomy and reconstruction right breast. She was to be discharged but then c/o n/v for which GI has been consulted. Pt says she has been having n/v since she has been in the hospital, and vomiting worse after being given food. She does admit some constipation, she had a BM today after admin relistor. She denies prior n/v, GERD . She also complains of crying all the time and she says some new medicatiosn were suggested to help with depression and anxiety but the only one she will take is Xanax. No abdominal pain, diarrhea, blood in stool, hematemesis. Never had EGD or colonoscopy. ( [place]) PFSH Past Medical History HTN personal hx BRca Past Surgical History right mastectomy right breast reconstruction abdominoplasty 09/2016 cholecystectomy hysterectomy ([place]) Coded Allergies: Demerol (Verified Allergy, Intermediate, Hallucinations, 10/24/16) Medications Current Medications Medications (Trade) Dose Ordered Sig/Audie Route PRN Reason Start Time Stop Time Status Last Admin Dose Admin Acetaminophen (Tylenol) 650 mg Q4H PRN PO fever 10/24/16 17:00 11/09/16 12:48 Silver Sulfadiazine (Silvadene 1% Cream (50 Gm)) 1 applic BID TOPICAL 10/25/16 17:00 11/10/16 21:00 Docusate Sodium (Colace) 100 mg BID PO 10/26/16 21:00 11/12/16 08:15 Clonidine (Catapres) 0.1 mg Q6H PRN PO SBP>170, DBP>90 10/28/16 12:15 10/30/16 13:32 Chlorhexidine Gluconate (Peridex 0.12% Liq) 15 ml BID@08,20 MT 10/31/16 08:00 11/12/16 08:00 Enoxaparin Sodium (Lovenox Inj) 40 mg Q24H SQ 11/04/16 20:00 11/08/16 20:10 Hydromorphone HCl (Dilaudid Pf Inj) 2 mg MoWeFr PRN IV WOUND DRESSING CHANGES 11/04/16 17:00 11/11/16 12:40 Pantoprazole Sodium (Protonix) 40 mg DAILY PO 11/06/16 09:00 11/12/16 08:15 Mupirocin (Bactroban 2% Oint) 1 applic Q8HR TOPICAL 11/05/16 14:00 11/12/16 14:46 Ondansetron HCl (Zofran Odt) 4 mg Q4H PRN PO NAUSEA OR VOMITING 11/09/16 12:00 11/12/16 09:27 Acetaminophen/ Hydrocodone Bitart ([place] 5-325 Mg) 1 tab Q6H PRN PO pain over 3 11/09/16 20:30 Temazepam (Restoril) 15 mg HS PRN PO insomnia 11/09/16 20:30 11/10/16 21:12 Bisacodyl (Dulcolax Ec) 10 mg DAILY PRN PO constipation 11/10/16 10:00 11/11/16 12:13 Levofloxacin (Levaquin) 750 mg Q48H PO 11/12/16 09:00 11/12/16 08:15 Duloxetine HCl (Cymbalta Dr) 30 mg DAILY PO 11/12/16 15:15 Alprazolam (Xanax) 0.25 mg Q6H PRN PO ANXIETY 11/12/16 15:15 Family History HTN BrCa Social History no etoh, drugs, tobacco ([place]) Review of Systems Constitutional: DENIES: Fever Eyes: DENIES: Blurred vision Ears, nose, mouth, throat: DENIES: Hearing loss Respiratory: DENIES: Hemoptysis, Sputum production Cardiovascular: DENIES: Chest pain Gastrointestinal: COMPLAINS OF: Constipation, Nausea, Vomiting, DENIES: Abdominal pain, Black stools, Bloody stools, Diarrhea, Difficulty Swallowing, Hematemesis Genitourinary: DENIES: Hematuria Musculoskeletal: DENIES: Muscle aches Integumentary: DENIES: Abnormal pigmentation Neurologic: DENIES: Abnormal gait Psychiatric: COMPLAINS OF: Depression (says she cries all the time) ([place]) GI Exam Vitals I&O Vital Signs Date Time Temp Pulse Resp B/P Pulse Ox O2 Delivery O2 Flow Rate FiO2 11/12/16 16:08 98.8 101 20 115/72 96 11/12/16 12:05 98.2 103 18 122/64 97 11/12/16 08:57 84 11/12/16 08:55 97 Room Air 11/12/16 08:22 98.0 89 18 122/77 97 11/12/16 04:00 Room Air 11/12/16 04:00 99.3 104 18 112/73 95 11/12/16 00:28 97.4 83 18 118/84 98 11/12/16 00:00 Room Air 11/11/16 21:49 97.9 107 18 115/70 96 11/11/16 20:00 Room Air 11/11/16 17:53 92 11/11/16 17:05 96.6 84 18 113/69 97 I/O 11/11/16 11/11/16 11/11/16 11/12/16 11/12/16 11/12/16 07:00 15:00 23:00 07:00 15:00 23:00 Intake Total 240 ml Balance 240 ml Intake Oral 240 ml # Voids 4 3 Imaging Last Impressions Abdomen X-Ray 11/12/16 0000 Signed Impressions: Service Date/Time: Saturday, November 12, 2016 09:49 - CONCLUSION: Nonspecific bowel gas pattern. No significant interval change. Kade Dhillon MD Chest Ultrasound 11/03/16 0000 Signed Impressions: Service Date/Time: Thursday, November 03, 2016 10:56 - CONCLUSION: Volume of fluid too small to safely perform thoracentesis. Kade Dhillon MD Chest X-Ray 11/02/16 0800 Signed Impressions: Service Date/Time: Wednesday, November 02, 2016 08:53 - CONCLUSION: No significant change has occurred. Jax Snowden MD Chest CT 11/02/16 0000 Signed Impressions: Service Date/Time: Wednesday, November 02, 2016 18:40 - CONCLUSION: Slight increase in right pleural effusion, surgical removal of previously seen right breast opacity since the prior exam and otherwise not significantly changed. Tracy Austin MD Renal Ultrasound 10/26/16 0000 Signed Impressions: Service Date/Time: Wednesday, October 26, 2016 22:02 - CONCLUSION: Normal examination. Kane Mo Jr., MD CT Angiography 10/24/16 1335 Signed Impressions: Service Date/Time: October 14:26 - CONCLUSION: 1. Right lower lobe pneumonia. 2. There is no evidence for PE for technique. 3. Soft tissue density in right chest wall could be postsurgical change in this patient with prior mastectomy or a flap and the exact nature of the patient's surgery is not known to us. Tracy Austin MD Physical Examination HEENT: EOMI; normocephalic; atraumatic; no jaundice. CHEST: CTA CARDIAC: RRR ABDOMEN: Soft, nondistended, nontender; no hepatosplenomegaly; bowel sounds are present in all four quadrants. EXTREMITIES: No clubbing, cyanosis, or edema. SKIN: Normal; no rash; no jaundice. [employer]: No focal deficits; alert and oriented times three. ([place]) Assessment and Plan Plan ASSESSMENT - Nausea/vomiting - unclear etiology. Onset approx 3 weeks ago. No hematemesis or abd pain. CTabd pending, lipase pending, CMP pending. Pt admits frequent tearfulness, psych consult pending. Will do EGD tomorrow. PLAN - EGD in tomorrow - obtain consents - SARA - NPO after midnight - hold lovenox - await labwork, CT abd - await psych consult - further recommendations based on results of above This pt seen by myself and Dr Osborne and this note is written on her behalf. ( [place]) Physician Comments seen, examined agree with above (Eldia Osborne MD) [place] November 12, 2016 17:11 Elida Osborne MD November 12, 2016 20:54
[2016-11-12 17:36] LABS: AUTOMATED NEUTROPHIL # 3.9 TH/MM3 (1.8-7.7); BASOPHIL # 0.1 TH/MM3 (0-0.2); BASOPHIL % 1.2 % (0.0-2.0); EOSINOPHIL # 0.3 TH/MM3 (0-0.4); EOSINOPHIL % 3.8 % (0.0-4.0); HEMATOCRIT 32.8 % (35.0-46.0); HEMO FLAGS DIFF FINAL; LYMPH % 33.4 % (9.0-44.0); LYMPHOCYTE # 2.5 TH/MM3 (1.0-4.8); MEAN CELL VOLUME 79.3 FL (80.0-100.0); MEAN CORPUSCULAR HEMOGLOBIN 26.1 PG (27.0-34.0); MEAN CORPUSCULAR HGB CONC 32.9 % (32.0-36.0); MONO % 8.8 % (0.0-8.0); NEUT % 52.8 % (16.0-70.0); PLATELET COUNT 357 TH/MM3 (150-450); RED BLOOD COUNT 4.14 MIL/MM3 (4.00-5.30); RED CELL DISTRIBUTION WIDTH 14.7 % (11.6-17.2); WHITE BLOOD COUNT 7.4 TH/MM3 (4.0-11.0)
--- NOTE | 2016-11-12 18:00 | RADRPT ---
EXAM DATE/TIME: 11/12/2016 17:32 [place] COMPARISON: CT THORAX W/O CONTRAST, November 02, 2016, 18:40. CT ABDOMEN & PELVIS W CONTRAST, May 17, 2013, 19 :44. INDICATIONS : Abdomen pain with nausea. ORAL CONTRAST: No oral contrast ingested. RADIATION DOSE: 9.96 CTDIvol (mGy) MEDICAL HISTORY : Cardiovascular disease. Hypertension. Carcinoma, breast.Radiation therapy. SURGICAL HISTORY : Cholecystectomy. Hysterectomy.Right breast removed and reconstructed. ENCOUNTER: Initial ACUITY: 2 weeks PAIN SCALE: 10/10 LOCATION: Bilateral lower quadrant TECHNIQUE: Volumetric scanning of the abdomen and pelvis was performed. Using automated exposure control and ad justment of the mA and/or kV according to patient size, radiation dose was kept as low as reasonably achievable to obtain optimal diagnostic quality images. FINDINGS: LOWER LUNGS: Moderate-sized area of right lower lobe consolidation/atelectasis posteriorly. Patchy consolidation/a telectasis in the left lower lobe. LIVER: Scattered hepatic hypodensities with the largest measuring 3.8 cm indicating cysts. These are seen on prior studies. Cholecystectomy clips. SPLEEN: Normal size without lesion. PANCREAS: Within normal limits. KIDNEYS: Normal in size and shape. There is no mass, stone, or hydronephrosis. ADRENAL GLANDS: Within normal limits. VASCULAR: Arterial calcification. Abdominal aortic diameter within normal limits. BOWEL/MESENTERY: No evidence of bowel dilatation. No free air or free fluid. Appendix within normal limits. ABDOMINAL WALL: Right upper quadrant anterior abdominal wall superficial soft tissue defect is again seen essentially unchanged from 11/02/2016. Diffuse anterior abdominal wall superficial soft tissue edema of the lower abdomen. RETROPERITONEUM: There is no lymphadenopathy. BLADDER: No wall thickening or mass. REPRODUCTIVE: Within normal limits. INGUINAL: There is no lymphadenopathy or hernia. MUSCULOSKELETAL: Degenerative findings of the lumbar spine. CONCLUSION: 1. No acute intra-abdominal findings. 2. Nonspecific soft tissue defect in the anterior abdominal wall the right upper quadrant unchanged. 3. Nonspecific diffuse superficial soft tissue edema in the anterior lower abdomen. 4. Bilateral lower lobe consolidation/atelectasis again seen, less prominent than on the comparison c hest CT. Hepatic cysts. Kade Dhillon MD on November 12, 2016 at 17:49 Board Certified Radiologist. This report was verified electronically.
[2016-11-12 18:14] LABS: BICARBONATE 21.8 MEQ/L (21.0-32.0); INDIRECT BILIRUBIN 0.3 MG/DL (0.0-0.8); MAGNESIUM 1.7 MG/DL (1.5-2.5); POTASSIUM 3.7 MEQ/L (3.5-5.1); TOTAL BILIRUBIN ADULT 0.4 MG/DL (0.2-1.0)
--- NOTE | 2016-11-12 19:48 | MB ---
cc: JANKI PEGUERO M.D. DATE OF CONSULTATION 11/12/2016 HISTORY This 61-year-old black female was admitted with "sepsis pneumonia", surgical wound infection, status post breast reconstructive surgery, shortness of breath and right chest pain. Psychiatric consultation is requested by Dr. Amezcua / Dr. Leavitt for evaluation and assistance in the management of "depression / anxiety." Review of her available records indicates that Ms. Fink had a right breast lumpectomy in 2010 and had recurrence of the cancer in the same breast and underwent right mastectomy in September with subsequent right breast reconstruction. She came to the emergency room with infection of surgical wound. LABORATORY DATA Significant lab workup, CBC with differential was done on different dates and on 11/12/2016 her hemoglobin is 10.8, hematocrit 32.8. CMP was also done on different dates. Her serum sodium is low at 132 done today. BUN is normal but serum creatinine is slightly elevated at 1.4. Lipase normal. Liver enzymes normal. Routine urinalysis on 10/24/2016 indicated urinary tract infection and culture was indicated. Repeated on 11/09/2016 it was unremarkable. Nasal secretion for MRSA negative. IMAGING Chest x-ray on 10/24/2016 shows right basilar patchiness consistent with atelectasis and/or infiltrate, probable left basilar atelectasis, elevation of right hemidiaphragm, degenerative changes and mild scoliosis of thoracic spine. CT angiography shows right lower lobe pneumonia. No evidence of pulmonary embolism. Renal ultrasound unremarkable. Abdominal x-ray showed normal bowel gas pattern. No abnormal masses, calcification or organomegaly. Chest x-ray 10/30 shows consolidation and effusion right lung base. Endotracheal tube in place. Chest CT on 11/02/2016 shows slight increase in right pleural effusion, surgical removal of previously seen right breast opacity since the prior exam and otherwise not significantly changed. CT abdomen on 11/12/2016 no acute intraabdominal findings, bilateral lower lobe consolidation, atelectasis again seen. MEDICATIONS Her current medications are: 1. Cymbalta 30 mg daily. 2. Xanax 0.25 mg q.6 h p.r.n. for anxiety. 3. Levaquin. 4. Dulcolax. 5. [place]. 6. Restoril 15 mg q.h.s. p.r.n. for insomnia. 7. Zofran. 8. Protonix. 9. Bactroban. 10. Dilaudid. At the time of this evaluation Ms. Fink was pleasant and cooperative. When asked about her understanding of the reason for this hospitalization she responded "I had lumpectomy in my right breast about 3 years ago and then I had another mass and Dr. Aranda did the reconstructive surgery. A few days later I started feeling sick and I called his office. I came to the emergency room because I was having chills. I have been sick ever since then" She went on to state that she was feeling very well up until the reappearance of the cancer and the resulting surgery. She described herself as a "very strong woman." She stated since being in the hospital she has been feeling "kind of nervous and down." While describing this she became tearful. She stated she has not been eating well and has been increasingly irritable. She denied entertaining any suicidal thoughts or any previous suicide attempts "I have always been a strong person. I am not that kind of person who would hurt herself". She went on to state that she has very significant support system, i.e. both of her sisters from [id number] are with her. She has four children who according to her are all "good kids and very supportive." On direct questioning she denied any history suggestive of bipolar affective disorder. Further exploration did not reveal any other significant psychosocial stressor. PAST PSYCHIATRIC HISTORY She denied any previous psychiatric intervention. PAST MEDICAL HISTORY 1. As mentioned she had carcinoma of the breast right side and is status post right mastectomy / reconstructive surgery. 2. Hypertension. 3. Status post hysterectomy. 4. Status post cholecystectomy. ALLERGIES SHE IS ALLERGIC TO DEMEROL. FAMILY HISTORY Her mother when she was 15 years old and she moved in with her father. She has two sisters and one brother. She has good relationship with all of them. She described her relationship with her father as "really good." Her father was an alcoholic. She denied any family history of psychiatric illness. 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 She was twice both of which ended in divorce. She did not have any children from either of these marriages but had two sons and two daughters from different relationships. She denied any alcohol or drug abuse. She denied any history of physical or sexual trauma. CLINICAL OBSERVATION AND MENTAL STATUS EXAMINATION At the time of this evaluation Ms. Fink presented as a reasonably well-groomed black female who looked her stated age. She was overall pleasant, polite and cooperative with this interviewer. Her responses to questions were relevant and logical. At times she became tearful while describing her complicated medical / postoperative complications. Speech: Coherent and appropriate. Affect: appropriate, blunted. Subjectively she described her mood as "I have been feeling kind of nervous, down." There was no evidence of any thought disorder. No digna delusions, auditory or visual hallucinations were noticed or reported. She denied active suicidal or homicidal ideations or intent at this time. She denied any previous suicide attempts. Cognitive functions, she was alert, oriented to time, place, person and situation. She gave the date as "November 12, 2016". Memory, immediate she could do 5 digits, 4 digits backward. Recent she could recall 3/3 objects after 10 minutes. Remote she could recall presidents up to President Ramírez Dee. Her attention and concentration was somewhat impaired. She could do serial sevens up to 86. Her judgment and was felt to be good. DIAGNOSTIC IMPRESSION 1. Adjustment reaction with mixed emotional features. 2. Status post right mastectomy / reconstructive surgery. 3. Hypertension. 4. Infected surgical wound. 5. Pneumonia. FORMULATION AND RECOMMENDATIONS Based on this evaluation and the background information available to me at this time, Ms. Fink is experiencing emotional distress due to certain psychosocial stressors operating in her life at this time, i.e. current medical situation / postop complications resulting in prolonged hospitalization. She has been a very productive person all of her life and takes a great deal of pride in her ability to be self supportive and independent. Being in the hospital she is totally dependent and confined which she is having difficulty dealing with. I addressed this with her and she was quite receptive to the feedback. She verbalized positive feelings towards the physicians involved in her care and expressed confidence in them. I concur with your plans to start Cymbalta and a small dose of Xanax to reduce her anxiety level. I recommended outpatient psychiatric followup to which she was receptive. This can be arranged through [facility]. Thank you Dr. Amezcua / Dr. Leavitt for allowing me to participate in the care of Ms. Fink. I will follow her on an as-needed basis. MD ELDA Gonzalez /6:25 PM /7:00 PM
[2016-11-12] MEDS: ALPRAZolam 0.25 MG TAB PO PRN (20:58)
[2016-11-12] MEDS: TEMAZEPAM 15 MG CAP PO PRN (23:22)
[2016-11-13] VITALS (8 sets, daily range): BP systolic 113–127; BP diastolic 71–76; PULSE 80–109; RESP 18–20; TEMP 97–98.9; O2SAT 9–99
[2016-11-13] MEDS: MUPIROCIN 2% OINT 22 GM TUBE TOPICAL SCH ×3 (05:00→21:40)
[2016-11-13] MEDS: CHLORHEXIDINE 0.12% (ORAL KIT) 15 ML CUP MT SCH ×2 (07:30→20:00)
[2016-11-13] MEDS: SILVER SULFADIAZINE 1% CR 50 GM JAR TOPICAL SCH ×2 (07:31→21:00)
[2016-11-13] MEDS: DULoxetine HCl DR 30 MG CAP PO SCH (07:31)
[2016-11-13] MEDS: DOCUSATE SODIUM 100 MG CAP PO SCH ×2 (07:31→21:39)
[2016-11-13] MEDS: PANTOPRAZOLE SOD 40 MG DELAYED RELEASE TAB PO SCH (07:31)
[2016-11-13] MEDS ORDERED: INSULIN HUMAN REGULAR 1,000 UNITS/10 ML VIAL SQ PRN (07:45)
[2016-11-13] MEDS ORDERED: CHLORHEXIDINE GLUCONATE 2 % 1 PACK (2 CLOTHS) TOPICAL PRN (07:45)
[2016-11-13] MEDS ORDERED: LACTATED RINGER'S 1000 ML IV PRN (07:45)
[2016-11-13] MEDS ORDERED: POVIDONE IODINE 5% (ANTISEPSIS KIT) 4 APPLICATIONS EACH NARE PRN (07:45)
[2016-11-13] MEDS ORDERED: SODIUM CHLORID 0.9% 500 ML IV PRN (07:45)
[2016-11-13] MEDS ORDERED: METOPROLOL TARTRATE 25 MG TAB PO PRN (07:45)
--- NOTE | 2016-11-13 10:51 | HHI.PR ---
Subjective Remarks Pt to undergo EGD today Objective Vitals Vital Signs Date Time Temp Pulse Resp B/P Pulse Ox O2 Delivery O2 Flow Rate FiO2 11/13/16 08:57 98.0 95 18 127/76 97 11/13/16 06:10 98.2 94 18 117/72 97 11/13/16 00:00 97.0 94 18 113/74 95 11/12/16 21:00 Room Air 11/12/16 20:00 98.9 94 18 110/69 98 11/12/16 16:08 98.8 101 20 115/72 96 11/12/16 12:05 98.2 103 18 122/64 97 11/12/16 11/12/16 11/13/16 15:00 23:00 07:00 Intake Total 480 ml Balance 480 ml Intake Oral 480 ml # Voids 2 1 # Bowel Movements 1 0 Result Diagram: 11/12/16 1706 11/12/16 1706 Other Results Laboratory Tests Test 11/12/16 17:06 White Blood Count 7.4 TH/MM3 Red Blood Count 4.14 MIL/MM3 Hemoglobin 10.8 GM/DL Hematocrit 32.8 % Mean Corpuscular Volume 79.3 FL Mean Corpuscular Hemoglobin 26.1 PG Mean Corpuscular Hemoglobin 32.9 % Concent Red Cell Distribution Width 14.7 % Platelet Count 357 TH/MM3 Mean Platelet Volume 8.2 FL Neutrophils (%) (Auto) 52.8 % Lymphocytes (%) (Auto) 33.4 % Monocytes (%) (Auto) 8.8 % Eosinophils (%) (Auto) 3.8 % Basophils (%) (Auto) 1.2 % Neutrophils # (Auto) 3.9 TH/MM3 Lymphocytes # (Auto) 2.5 TH/MM3 Monocytes # (Auto) 0.6 TH/MM3 Eosinophils # (Auto) 0.3 TH/MM3 Basophils # (Auto) 0.1 TH/MM3 CBC Comment DIFF FINAL Differential Comment Sodium Level 132 MEQ/L Potassium Level 3.7 MEQ/L Chloride Level 101 MEQ/L Carbon Dioxide Level 21.8 MEQ/L Anion Gap 9 MEQ/L Blood Urea Nitrogen 13 MG/DL Creatinine 1.47 MG/DL Estimat Glomerular Filtration 43 ML/MIN Rate Random Glucose 101 MG/DL Calcium Level 9.0 MG/DL Magnesium Level 1.7 MG/DL Total Bilirubin 0.4 MG/DL Direct Bilirubin 0.1 MG/DL Indirect Bilirubin 0.3 MG/DL Aspartate Amino Transf 25 U/L (AST/SGOT) Alanine Aminotransferase 28 U/L (ALT/SGPT) Alkaline Phosphatase 86 U/L Total Protein 7.9 GM/DL Albumin 2.7 GM/DL Lipase 227 U/L Imaging Last Impressions Abdomen/Pelvis CT 11/12/16 0000 Signed Impressions: Service Date/Time: Saturday, November 12, 2016 17:32 - CONCLUSION: 1. No acute intra-abdominal findings. 2. Nonspecific soft tissue defect in the anterior abdominal wall the right upper quadrant unchanged. 3. Nonspecific diffuse superficial soft tissue edema in the anterior lower abdomen. 4. Bilateral lower lobe consolidation/atelectasis again seen, less prominent than on the comparison chest CT. Hepatic cysts. Kade Dhillon MD Abdomen X-Ray 11/12/16 0000 Signed Impressions: Service Date/Time: Saturday, November 12, 2016 09:49 - CONCLUSION: Nonspecific bowel gas pattern. No significant interval change. Kade Dhillon MD Chest Ultrasound 11/03/16 0000 Signed Impressions: Service Date/Time: Thursday, November 03, 2016 10:56 - CONCLUSION: Volume of fluid too small to safely perform thoracentesis. Kade Dhillon MD Chest X-Ray 11/02/16 0800 Signed Impressions: Service Date/Time: Wednesday, November 02, 2016 08:53 - CONCLUSION: No significant change has occurred. Jax Snowden MD Chest CT 11/02/16 0000 Signed Impressions: Service Date/Time: Wednesday, November 02, 2016 18:40 - CONCLUSION: Slight increase in right pleural effusion, surgical removal of previously seen right breast opacity since the prior exam and otherwise not significantly changed. Tracy Austin MD Renal Ultrasound 10/26/16 0000 Signed Impressions: Service Date/Time: Wednesday, October 26, 2016 22:02 - CONCLUSION: Normal examination. Kane Mo Jr., MD CT Angiography 10/24/16 1335 Signed Impressions: Service Date/Time: October 14:26 - CONCLUSION: 1. Right lower lobe pneumonia. 2. There is no evidence for PE for technique. 3. Soft tissue density in right chest wall could be postsurgical change in this patient with prior mastectomy or a flap and the exact nature of the patient's surgery is not known to us. 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 - Blood cultures (10/24/16) with one out of four bottles growing pleomorphic gram positive rods in the anaerobic culture - Wound culture and urine culture from 10/24 with Pseudomonas aeruginosa - Pt had been on Vanco and Zosyn but developed some AUDIE and nausea felt to possibly be related to contrast nephropathy or AIN or ATN from antibiotics/sepsis - The Vanco and Zosyn were d/c'd on 10/26 and 10/27 - Pt was started on Cefepime and Azithromycin, renal dosed - Renal function is slowly improving. - Urine eosinophils were negative and renal u/s with no evidence of obstruction. - Anemia related to acute illness/infection. no active bleeding. - Pt taken to the OR with Dr. Ngo (10/30/16) - Pt underwent debridement and VAC placement for necrosis of right TRAM flap placed following mastectomy - Pt extubated (10/31/16) - Wound VAC ordered to be changed 3x/week - repeat CXR (11/02/16) --> continued density at right base - pt remained on cefepime and azithromycin..changed to Levaquin by ID on 11/03 - Repeat CT chest (11/02/16) --> right pleural effusion, right base pneumonia - Chest US (11/03/16) --> insufficient pleural effusion for thoracentesis - D/C was held over the weekend as the pt complained of n/v on Friday and low grade fever. She had not had a BM - Pt felt Procardia making her sick. kub showed mild ileus. - The Procardia was stopped and prn Dilaudid except for wound vac change. - Relistor and mag citrate given. Pt had a BM - On 11/12 again pt complained of nausea and dry heaves and poor appetite. - KUB ordered which noted nonspecific bowel gas. Pt was again given Relistor with a resulting BM - No reflux or dysphagia. - Discharge on 11/12 was held. - CT Abd/pelvis (11/12/16) --> No acute intra-abdominal findings. Nonspecific soft tissue defect in the anterior abdominal wall the right upper quadrant unchanged. Nonspecific diffuse superficial soft tissue edema in the anterior lower abdomen. Bilateral lower lobe consolidation/atelectasis again seen, less prominent than on the comparison chest CT. Hepatic cysts. - CMP, Lipase are WNL - Appreciate GI consultation. Pt to undergo EGD for today - Ensure with each meal and at bedtime. - Appreciate Psychiatry consultation, pt likely with situational depression/ anxiety. Cont. Cymbalta and Xanax PRN. Pt will f/u outpt with [facility] psychiatry. (2) Surgical wound infection Status: Acute Plan: - See above (3) AUDIE (acute kidney injury) Status: Acute Plan: - See above. (4) History of breast cancer Status: Chronic (5) Essential hypertension Status: Chronic Plan: stable stopped patricia due to audie stopped procardia for "n/v" per pt. Assessment and Plan Patient examined. Assessment and plan formulated with Mehreen Pacheco PA-C. I agree with the above. EGD (11/13/16) showed some gastritis. Pt refused cymbalta, but willing to take xanax prn Anticipate d/c to home with [facility] 11/14/16 Problem Qualifiers (1) Pneumonia: Qualified Code: J18.1 - Pneumonia of right lower lobe due to infectious organism (2) Surgical wound infection: Qualified Code: T81.4XXA - Surgical wound infection, initial encounter Mehreen Pacheco November 13, 2016 10:51 Randall Amezcua DO November 13, 2016 20:06
--- NOTE | 2016-11-13 11:20 | GIPROC ---
[facility] [address] [facility]. [facility], [id number] EGD PROCEDURE REPORT EXAM DATE: 11/13/2016 PATIENT NAME: Isaura Fink MR #: [id number] BIRTHDATE: 1955 ATTENDING: Elida Osborne MD ORDER #: [id number] [employer] MANAGER: Meng Ferguson and Silvia Juarez STATUS: inpatient INDICATIONS: The patient is a 61 yr old female here for an EGD due to nausea PROCEDURE PERFORMED: EGD w/ biopsy MEDICATIONS: None and Per Anesthesia. TOPICAL ANESTHETIC: none CONSENT: The patient understands the risks and benefits of the procedure and understands that these risks include, but are not limited to: sedation, allergic reaction, infection, perforation and/or bleeding. Alternative means of evaluation and treatment include, among others: physical exam, x-rays, and/or surgical intervention. The patient elects to proceed with this endoscopic procedure. medical equipment was checked for proper function. Hand hygiene and appropriate measures for infection prevention was taken. After the risks, benefits and alternatives of the procedure were thoroughly explained, Informed consent was verified, confirmed and timeout was successfully executed by the treatment team. The patient was anesthetized with topical anesthesia and the Pentax [id number] and [id number] endoscope was introduced through the mouth and advanced to the second portion of the duodenum. Retroflexed views revealed a hiatal hernia The gastroscope was then slowly withdrawn and removed. Gastritis antrum-biopsy irregulr z line -biopsy. ADVERSE EVENTS: There were no complications. IMPRESSIONS: 1. Gastritis antrum-biopsy irregulr z line -biopsy 2. Retroflexed views revealed a hiatal hernia RECOMMENDATIONS: 1. Await biopsy results. Biopsy results will not be ready for 7-10 days. If you don't hear from us in two weeks, call our office for biopsy results. 2. Continue PPI 3. Avoid NSAIDS PATIENT CONDITION: stable DISPOSITION: Inpatient REPEAT EXAM: EGD pending biopsy results Elida Osborne MD eSigned: Elida Osborne MD 11/13/2016 11:20 AM cc:
[2016-11-13] MEDS ORDERED: DO NOT ADM ANY ANTICOAGULANT DRUGS PRN (12:15)
--- NOTE | 2016-11-13 16:54 | HHI.NPPN ---
Subjective History of Present Illness 61 years old female with history of Breast reconstruction surgery, called to see for elevated BUN and Creatinine. Additional Remarks Patient is alert, now has no vomiting, seen after EGD. Review of Systems General Constitutional: Fatigue Cardiovascular Cardiac: PEREZ Gastrointestinal Gastrointestinal: Abdominal Pain Objective Data Data 11/12/16 11/13/16 19:00 07:00 Intake Total 480 ml Balance 480 ml Intake Oral 480 ml # Voids 3 # Bowel Movements 1 Vital Signs Date Time Temp Pulse Resp B/P Pulse Ox O2 Delivery O2 Flow Rate FiO2 11/13/16 15:57 9 21 11/13/16 12:32 98.8 80 18 121/71 97 11/13/16 11:44 87 11/13/16 11:18 92 18 143/82 95 11/13/16 11:08 98 18 138/69 98 11/13/16 11:02 97.4 96 18 118/65 98 11/13/16 08:57 98.0 95 18 127/76 97 11/13/16 07:30 97 Room Air 11/13/16 06:10 98.2 94 18 117/72 97 11/13/16 00:00 97.0 94 18 113/74 95 11/12/16 21:00 Room Air 11/12/16 20:00 98.9 94 18 110/69 98 -: 11/12/16 1706 11/12/16 1706 Physical Exam General Appearance: No Acute Distress, Comfortable Eyes Eye Exam: Pupils Equal Throat Throat Exam: Oral Mucosa [place] & Moist Neck Neck Exam: Neck Supple Pulmonary Resp Exam: Clear Bilaterally, Breath Sounds Equal, No Distress, Rhonchi, Decreased Bases Cardiology CV Exam: Regular, Normal Sinus Rhythm Gastrointestinal/Abdomen GI Exam: Soft, Bowel Sounds Present, Distended Extremeties Extremities Exam: Trace Edema Neurologic Neuro Exam: Alert, Awake, Oriented Psychiatric Psych Exam: Appropriate Responses Assessment/Plan Assessment Summary: AUDIE/Acute Renal Failure Problem List: (1) History of breast cancer (2) Essential hypertension (3) URI, acute (4) Diabetes mellitus (5) AUDIE (acute kidney injury) Plan Has been Non oliguric. Most likely had suffered contrast nephropathy. Continue supportive care. Avoid Nephrotoxins, and follow urine out put and BMP. Had removal of ischemic breast flap by plastic surgery. Monitor urine output and renal function. Avoid Nephrotoxins. Now afebrile. Creatinine was 1.4 yesterday. Abd. x-ray and CT abd. noted. Also results of EGD seen. Started eating better. Problem Qualifiers (1) Diabetes mellitus: Dinah Garcia MD November 13, 2016 16:53
[2016-11-13] MEDS ORDERED: PROPOFOL 200 MG/20 ML AMP IV ONE (17:30)
[2016-11-13] MEDS: ENOXAPARIN SODIUM 40 MG/0.4 ML SYRINGE SQ SCH (20:00)
[2016-11-13] MEDS: ALPRAZolam 0.25 MG TAB PO PRN (21:39)
[2016-11-14] VITALS: BP 117/76; PULSE 98; RESP 18; TEMP 97.7; O2SAT 98
[2016-11-14] MEDS: MUPIROCIN 2% OINT 22 GM TUBE TOPICAL SCH ×2 (06:00→14:00)
[2016-11-14 06:35] VITALS: BP 110/68; PULSE 84; RESP 18; TEMP 97.7; O2SAT 97
[2016-11-14] MEDS: CHLORHEXIDINE 0.12% (ORAL KIT) 15 ML CUP MT SCH (07:22)
[2016-11-14] MEDS: SILVER SULFADIAZINE 1% CR 50 GM JAR TOPICAL SCH (07:22)
[2016-11-14] MEDS: DOCUSATE SODIUM 100 MG CAP PO SCH (07:25)
[2016-11-14] MEDS: LEVOFLOXACIN 750 MG TAB PO SCH (07:25)
[2016-11-14] MEDS: PANTOPRAZOLE SOD 40 MG DELAYED RELEASE TAB PO SCH (07:25)
[2016-11-14] MEDS: DULoxetine HCl DR 30 MG CAP PO SCH (07:26)
[2016-11-14 07:35] VITALS: BP 109/68; PULSE 91; RESP 18; TEMP 98; O2SAT 96
[2016-11-14 08:16] VITALS: PULSE 81
--- NOTE | 2016-11-14 11:49 | HHI.NPPN ---
Subjective History of Present Illness 61 years old female with history of Breast reconstruction surgery, called to see for elevated BUN and Creatinine. Additional Remarks Patient is alert, now has no vomiting, want to eat lunch. Review of Systems General Constitutional: Fatigue Cardiovascular Cardiac: PEREZ Gastrointestinal Gastrointestinal: Abdominal Pain Objective Data Data 11/13/16 11/14/16 18:59 06:59 Intake Total 100 ml 240 ml Balance 100 ml 240 ml Intake Oral 240 ml Other 100 ml # Voids 1 # Bowel Movements 0 Vital Signs Date Time Temp Pulse Resp B/P Pulse Ox O2 Delivery O2 Flow Rate FiO2 11/14/16 08:16 81 11/14/16 07:35 98.0 91 18 109/68 96 11/14/16 06:35 97.7 84 18 110/68 97 11/14/16 00:00 97.7 98 18 117/76 98 11/13/16 20:13 Room Air 11/13/16 20:00 98.9 95 18 114/75 99 11/13/16 17:04 98.0 109 20 115/76 98 11/13/16 15:57 9 21 11/13/16 12:32 98.8 80 18 121/71 97 -: 11/12/16 1706 11/12/16 1706 Physical Exam General Appearance: No Acute Distress, Comfortable Eyes Eye Exam: Pupils Equal Throat Throat Exam: Oral Mucosa [place] & Moist Neck Neck Exam: Neck Supple Pulmonary Resp Exam: Clear Bilaterally, Breath Sounds Equal, No Distress, Rhonchi, Decreased Bases Cardiology CV Exam: Regular, Normal Sinus Rhythm Gastrointestinal/Abdomen GI Exam: Soft, Bowel Sounds Present, Distended Extremeties Extremities Exam: Trace Edema Neurologic Neuro Exam: Alert, Awake, Oriented Psychiatric Psych Exam: Appropriate Responses Assessment/Plan Assessment Summary: AUDIE/Acute Renal Failure Problem List: (1) History of breast cancer (2) Essential hypertension (3) URI, acute (4) Diabetes mellitus (5) AUDIE (acute kidney injury) Plan Has been Non oliguric. Most likely had suffered contrast nephropathy. Continue supportive care. Avoid Nephrotoxins, and follow urine out put and BMP. Had removal of ischemic breast flap by plastic surgery. Monitor urine output and renal function. Avoid Nephrotoxins. Now afebrile. Creatinine was 1.4 . EGD results noted. Told to drink more fluid. Possible D/C if stable. Problem Qualifiers (1) Diabetes mellitus: Dinah Garcia MD November 14, 2016 11:49
[2016-11-14 11:52] VITALS: BP 114/76; PULSE 102; RESP 18; TEMP 98.5; O2SAT 97
[2016-11-14] MEDS ORDERED: ALPR.25 PO (12:37)
[2016-11-14] MEDS ORDERED: NORC5TAB PO (12:37)
[2016-11-14] MEDS ORDERED: LEVA750T PO (12:45)
--- NOTE | 2016-11-14 15:33 | HHI.DS ---
Discharge Summary Admission Date Oct 24, 2016 at 15:32 Discharge Date: November 14, 2016 Admitting Diagnosis sepsis, pneumonia, surgical wound infection, status post breast adeline (1) Pneumonia Diagnosis: Secondary (2) Surgical wound infection Diagnosis: Principal (3) AUDIE (acute kidney injury) Diagnosis: Secondary (4) History of breast cancer Diagnosis: Secondary (5) Essential hypertension Diagnosis: Secondary Consultants Dr. Tennille Ngo - Plastic Surgery Dr. Lucy Garcia - Nephrology Dr. 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 Recently had right breast mastecomy then had right breast reconstruction and skin flap. Pt says over past several days more sob and cp into right neck with pain upon coughing. Seen by her surgeon yesterdayand apparently some purelent fluid drained from the right breast... with apparent plan to debride the wound. Pt now with more chills and came to ED. In ED noted to have right pneumonia and infected/necrotic looking right breast tissue. ED called pt's surgeon and said Dr Ngo would be covering and to admit the pt to medicine. Cx's taken in ED and vanco and zosyn given. CBC/BMP: 11/12/16 1706 11/12/16 1706 Significant Findings Laboratory Tests Test 11/12/16 17:06 Hemoglobin 10.8 GM/DL (11.6-15.3) Hematocrit 32.8 % (35.0-46.0) Mean Corpuscular Volume 79.3 FL (80.0-100.0) Mean Corpuscular Hemoglobin 26.1 PG (27.0-34.0) Monocytes (%) (Auto) 8.8 % (0.0-8.0) Sodium Level 132 MEQ/L (136-145) Creatinine 1.47 MG/DL (0.50-1.00) Estimat Glomerular Filtration 43 ML/MIN (>89) Rate Albumin 2.7 GM/DL (3.4-5.0) Imaging Last Impressions Abdomen/Pelvis CT 11/12/16 0000 Signed Impressions: Service Date/Time: Saturday, November 12, 2016 17:32 - CONCLUSION: 1. No acute intra-abdominal findings. 2. Nonspecific soft tissue defect in the anterior abdominal wall the right upper quadrant unchanged. 3. Nonspecific diffuse superficial soft tissue edema in the anterior lower abdomen. 4. Bilateral lower lobe consolidation/atelectasis again seen, less prominent than on the comparison chest CT. Hepatic cysts. Kade Dhillon MD Abdomen X-Ray 11/12/16 0000 Signed Impressions: Service Date/Time: Saturday, November 12, 2016 09:49 - CONCLUSION: Nonspecific bowel gas pattern. No significant interval change. Kade Dhillon MD Chest Ultrasound 11/03/16 0000 Signed Impressions: Service Date/Time: Thursday, November 03, 2016 10:56 - CONCLUSION: Volume of fluid too small to safely perform thoracentesis. Kade Dhillon MD Chest X-Ray 11/02/16 0800 Signed Impressions: Service Date/Time: Wednesday, November 02, 2016 08:53 - CONCLUSION: No significant change has occurred. Jax Snowden MD Chest CT 11/02/16 0000 Signed Impressions: Service Date/Time: Wednesday, November 02, 2016 18:40 - CONCLUSION: Slight increase in right pleural effusion, surgical removal of previously seen right breast opacity since the prior exam and otherwise not significantly changed. Tracy Austin MD Renal Ultrasound 10/26/16 0000 Signed Impressions: Service Date/Time: Wednesday, October 26, 2016 22:02 - CONCLUSION: Normal examination. Kane Mo Jr., MD CT Angiography 10/24/16 1335 Signed Impressions: Service Date/Time: October 14:26 - CONCLUSION: 1. Right lower lobe pneumonia. 2. There is no evidence for PE for technique. 3. Soft tissue density in right chest wall could be postsurgical change in this patient with prior mastectomy or a flap and the exact nature of the patient's surgery is not known to us. Tracy Austin MD PE at Discharge General: NAD, AAOx3 Chest: CTA, wound vac in place on right chest Cardiac: Regular Abd: +BS, soft ND/NT, transverse lower abdominal incision is healing well Hospital Course Pt is 61 yo with hx DCIS of the right breast s/p radiation in 2010. Pt now with moderately differentiated invasive ductal cell cancer of the right breast s/p mastectomy and reconstruction. She presented with surgical wound infection/ necrosis and right lung PNA with concern for sepsis. Blood cultures (10/24/16) with one out of four bottles growing actinomyces Sp and another growing Pseudomonas Aeruginosa. Urine culture from 10/24 with Pseudomonas aeruginosa as well. Pt was seen by ID and was initially on Vanco and Zosyn but developed some AUDIE and nausea felt to possibly be related to contrast nephropathy or AIN or ATN from antibiotics/sepsis. Nephrology was consulted. The Vanco and Zosyn were d/c'd on 10/26 and 10/27. Pt was started on Cefepime and Azithromycin, renal dosed. Her renal function has slowly improved. Urine eosinophils were negative and renal u/s with no evidence of obstruction. She was noted to be anemic which was felt to be related to acute illness/infection, there was no active bleeding. Pt was taken to the OR with Dr. Ngo (10/30/16). Pt underwent debridement and VAC placement for necrosis of right TRAM flap placed following mastectomy. Pt extubated on 10/31/16. Wound VAC ordered to be changed 3x/week. Repeat CXR () noted continued density at right base. Pt remained on cefepime and azithromycin until it was changed to Levaquin by ID on 11/03 and recommended to complete 14 days of Levaquin (until 11/15). Repeat CT chest (11/02/16) noted right pleural effusion, right base pneumonia. Chest US (11/03/16) showed insufficient pleural effusion for thoracentesis. Pt improved clinically with regards to the pneumonia and wound infection. She had been planned for discharge on 11/09/16 but she developed some N/V and a low grade fever on 11/09. She had not had a BM in several days. Pt felt Procardia was making her sick. KUB showed mild ileus. We stopped Procardia and prn Dilaudid except for wound vac change. Pt was given Relistor and mag citrate and did have a BM. Pt improved clinically and monitor there has been no fever since 11/09 and she has been tolerating diet. BP has remained stable. On 11/12 again pt complained of nausea and dry heaves and poor appetite. KUB ordered which noted nonspecific bowel gas. Pt was again given Relistor with a resulting BM. No reflux or dysphagia. Discharge on 11/[address] Abd/pelvis (11/12/16) --> No acute intra- abdominal findings. Nonspecific soft tissue defect in the anterior abdominal wall the right upper quadrant unchanged. Nonspecific diffuse superficial soft tissue edema in the anterior lower abdomen. Bilateral lower lobe consolidation/ atelectasis again seen, less prominent than on the comparison chest CT. Hepatic cysts. CMP, Lipase were WNL. GI was consulted. Pt underwent EGD on 11/13 which noted gastritis and hiatal hernia otherwise negative. Psychiatry was consulted, pt likely with situational depression/anxiety. She was recommended to take Cymbalta and Xanax PRN. She refused Cymbalta. Pt will followup outpt with [facility] psychiatry. Pt will have [facility] arranged for wound vac changes on 3 times per week. It was changed on 11/14 prior to discharge. She will complete 1 more day of Levaquin. Pt initially had surgery with Dr. Lutz, but now requesting to f/u with Dr. Ngo. Dr. Ngo has agreed to follow the patient in the outpt setting and she will be seen at her office in 1 week. Pt will need followup with Dr. Garcia in 2 weeks Pt will need to followup with Dr. Haas in 1 week. Pt Condition on Discharge: Stable Discharge Disposition: Disch w/ Home Health Serv Discharge Instructions DIET: Follow Instructions for: As Tolerated, No Restrictions Activities you can perform: Regular-No Restrictions Follow up Referrals: Nephrology - [address] garcia PCP Follow-up - [address] haas Plastic Surgery - [address] tennille Ngo Psychiatry Adult - 2 Weeks with [facility] Psychiatry SN[facility]/ with [facility] New Medications: Alprazolam (Xanax) 0.25 Mg Tab 0.25 MG PO Q6H PRN ANXIETY #20 Ref 0 TAB Hydrocodone-Acetaminophen ([place]) 5-325 mg Tab 1 TAB PO Q6H PRN PAIN #20 Ref 0 TAB Levofloxacin (Levaquin) 750 Mg Tab 750 MG PO DAILY Infection #1 Ref 0 TAB Ondansetron Odt (Zofran Odt) 4 Mg Tab 4 MG SL Q6HR PRN Nausea/Vomiting #30 Ref 0 TAB Docusate Sodium (Dok) 100 Mg Cap 100 MG PO BID Constipation Days 14 CAP Loratadine (Claritin) 10 Mg Tab 10 MG PO DAILY Allergies Days 14 TAB Continued Medications: Aspirin (Aspirin) 81 Mg Tab 81 MG PO DAILY Discontinued Medications: Ibuprofen (Motrin) 600 Mg Tab 600 MG PO QID GIVE WITH FOOD #21 Lisinopril 20 mg (Lisinopril 20 mg) 20 Mg Tab 20 MG PO DAILY #60 Ref 0 TAB Polymyxin/Trimethoprim (Polytrim Opth) 10 Ml Soln 1 DROP EACH EYE Q4 Days 7 Additional Information Patient examined. Assessment and plan formulated with Mehreen Pacheco PA-C. I agree with the above. Mehreen Pacheco November 14, 2016 15:32 Randall Amezcua DO November 16, 2016 10:08
== END 2016-11-14 14:56 | disposition home health service (06) | DRG 907 ==
LOC: NEPE 12:02 → NEDA 15:32 → HOCA 20:02 → N03B 10-30 17:32 → N03A 10-30 21:16 → N05A 11-01 18:29
PROVIDERS: ADMIT Hospitalist; ATTEND Hospitalist
PROC: 0HBTXZZ (ICD-10-PCS; 2016-10-30)
PROC: 0JD60ZZ Extraction of Chest Subcutaneous Tissue and Fascia, Open Approach (ICD-10-PCS; 2016-10-30)
PROC: 5A1935Z Respiratory Ventilation, Less than 24 Consecutive Hours (ICD-10-PCS; 2016-10-30)
PROC: 0HW Skin and Breast, Revision (ICD-10-PCS; principal; 2016-10-30 16:02)
PROC: 0DB68ZX Excision of Stomach, Via Natural or Artificial Opening Endoscopic, Diagnostic (ICD-10-PCS; 2016-11-13)
DX: T86.822 Skin graft (allograft) (autograft) infection (principal); A41.9 Sepsis, unspecified organism; J18.9 Pneumonia, unspecified organism; N17.9 Acute kidney failure, unspecified; N39.0 Urinary tract infection, site not specified; K56.7 Ileus, unspecified; I10 Essential (primary) hypertension; K21.9 Gastro-esophageal reflux disease without esophagitis; Z85.3 Personal history of malignant neoplasm of breast; Z88.5 Allergy status to narcotic agent; Z92.3 Personal history of irradiation; G47.00 Insomnia, unspecified; Z90.11 Acquired absence of right breast and nipple; Z90.49 Acquired absence of other specified parts of digestive tract; Z90.710 Acquired absence of both cervix and uterus; F43.23 Adjustment disorder with mixed anxiety and depressed mood; J06.9 Acute upper respiratory infection, unspecified; E11.9 Type 2 diabetes mellitus without complications; K29.70 Gastritis, unspecified, without bleeding; K44.9 Diaphragmatic hernia without obstruction or gangrene; N14.1 Nephropathy induced by other drugs, medicaments and biological substances; T50.8X5A Adverse effect of diagnostic agents, initial encounter; K76.89 Other specified diseases of liver
CPT/HCPCS: 71010; 71020; 71250; 71275; 74000; 74176; 76604; 76775; 76937; 80048; 80053; 80076; 81001; 82550; 82552; 83605; 83690; 83735; 84100; 84300; 84484; 85007; 85014; 85018; 85025; 85027; 85048; 85610; 85730; 86077; 86403; 86850; 86870; 86900; 86901; 86902; 86920; 86922; 87015; 87040; 87070; 87076; 87077; 87086; 87102; 87116; 87153; 87186; 87205; 87206; 87449; 87641; 88305; 88312; 93005; 94002; 94003; 94150; 96365; 96368; 96375; C9113; J0360; J0456; J0690; J0692; J1170; J1650; J1956; J2212; J2270; J2405; J2543; J2710; J3010; J3370; J3480; J7030; J7050; J7120; Q0169; Q9963; Q9967

== ENCOUNTER 2016-12-06 21:22 | Emergency (ER) | payer OTHER ==
[~2016-12-06] VITALS: Ht 167.6 cm; Wt 85.0 kg
[~2016-12-06 21:22] MED LIST changes: +ALPR.25 PO; +DOCU1CAP39 PO; -IBUP-232 PO; +LEVA750T PO; -LISI-363 PO; +LORA-361 PO; +NORC5TAB PO; -POLY10O EACH EYE; +ZOFR4TAB3 SL
[2016-12-06 21:24] VITALS: BP 193/103; PULSE 119; RESP 16; TEMP 98.7; O2SAT 98
[2016-12-06] MEDS ORDERED: LISI10TA3 PO (22:08)
[2016-12-06 22:11] VITALS: BP 183/98; PULSE 100; RESP 19; O2SAT 97
--- NOTE | 2016-12-06 22:29 | PD ---
HPI Chief Complaint: Hypertension Time Seen by Provider: 22:09 Travel History International Travel<30 days: No Contact w/Intl Traveler<30days: No Traveled to known affect area: No History of Present Illness HPI 61-year-old female complains of headache, elevated blood pressure. Patient has history hypertension. Patient was seen at [facility] this morning and blood pressure was 180/105. Patient states that she has a lot of mental stress today and took Xanax 0.25 mg about 2-1/2 hour prior to coming to the ED. Patient states that she was checking her blood pressure home today and it was 190/100 at home. Patient denies any visual change. Patient states that she has mild aching headache diffuse over the head. Patient denies any neck pain. Patient denies any chest pain or shortness of breath. Patient denies abdominal pain. Patient denies any focal weakness or numbness of extremity. Patient was on lisinopril 10 mg daily. Patient states that she has been taking dictation as directed. Patient status post right mastectomy 3 weeks ago with Wound VAC in place. PFSH Past Medical History Cancer: Yes (RT BREAST) Cardiovascular Problems: Yes (PALPATATIONS/ ARRHYTHMIA) Chemotherapy: No Chest Pain: No Congestive Heart Failure: No Diabetes: No Diminished Hearing: No Endocrine: No GERD: Yes Genitourinary: No Hepatitis: No Hiatal Hernia: No Hypertension: Yes Musculoskeletal: No Neurologic: No Psychiatric: No Reproductive: No Respiratory: No Immunizations Current: No Radiation Therapy: Yes Thyroid Disease: No ?: Not Menopausal: No Tubal Ligation: Yes Past Surgical History Abdominal Surgery: Yes (LAP. ALEIDA) Cholecystectomy: Yes Gynecologic Surgery: Yes (HYSTERECTOMY) Hysterectomy: Yes (ONE OVARY REMAINS) Mastectomy: Yes (RIGHT- LYMPH REMOVAL ONLY) Other Surgery: Yes Social History Alcohol Use: No Tobacco Use: No Substance Use: No Allergies-Medications (Allergen,Severity, Reaction): Coded Allergies: Demerol (Verified Allergy, Intermediate, Hallucinations, 10/24/16) Reported Meds & Prescriptions Reported Meds & Active Scripts Active Levaquin (Levofloxacin) 750 Mg Tab 750 Mg PO DAILY [place] (Hydrocodone-Acetaminophen) 5-325 mg Tab 1 Tab PO Q6H PRN Xanax (Alprazolam) 0.25 Mg Tab 0.25 Mg PO Q6H PRN Zofran Odt (Ondansetron Odt) 4 Mg Tab 4 Mg SL Q6HR PRN Claritin (Loratadine) 10 Mg Tab 10 Mg PO DAILY 14 Days Dok (Docusate Sodium) 100 Mg Cap 100 Mg PO BID 14 Days Reported Lisinopril 10 Mg Tab 10 Mg PO DAILY Aspirin 81 Mg Tab 81 Mg PO DAILY Review of Systems General / Constitutional: No: Fever Eyes: No: Visual changes HENT: Positive: Headaches Cardiovascular: No: Chest Pain or Discomfort Respiratory: No: Shortness of Breath Gastrointestinal: No: Abdominal Pain Genitourinary: No: Dysuria Musculoskeletal: No: Pain Skin: No Rash Neurologic: No: Weakness Psychiatric: No: Depression Endocrine: No: Polydipsia Hematologic/Lymphatic: No: Easy Bruising Physical Exam Narrative GENERAL: Well-nourished, well-developed patient. SKIN: Focused skin assessment warm/dry. HEAD: Normocephalic. EYES: No scleral icterus. No injection or drainage. NECK: Supple, trachea midline. No JVD or lymphadenopathy. CARDIOVASCULAR: Regular rate and rhythm without murmurs, gallops, or rubs. RESPIRATORY: Breath sounds equal bilaterally. No accessory muscle use. GASTROINTESTINAL: Abdomen soft, non-tender, nondistended. MUSCULOSKELETAL: No cyanosis, or edema. Wound VAC on the right side chest wall. BACK: Nontender without obvious deformity. No CVA tenderness. Neurologic exam: Patient's awake and alert oriented 3. No obvious focal neurological deficit. Data Data Last Documented VS Vital Signs Date Time Temp Pulse Resp B/P Pulse Ox O2 Delivery O2 Flow Rate FiO2 12/07/16 00:00 98.4 85 16 160/77 100 12/06/16 23:32 Room Air Orders Clonidine (Catapres) (12/06/16 22:30) Acetaminophen (Tylenol) (12/06/16 22:30) Ct Brain W/O Iv Contrast(Rout) (12/06/16 23:38) MDM Medical Decision Making Medical Screen Exam Complete: Yes Emergency Medical Condition: Yes Interpretation(s) Last Impressions Head CT 12/06/16 4371 Signed Impressions: Service Date/Time: Wednesday, December 07, 2016 00:30 - CONCLUSION: Unremarkable study. Tracy Austin MD Differential Diagnosis Differential diagnosis including uncontrolled hypertension, hypertensive emergency, hypertensive crisis, migraine headache, tension headache, cluster headache. Narrative Course 61-year-old female with elevated blood pressure, headache and mental stress. Clonidine 0.1 mg by mouth given. Diagnosis Primary Impression: Uncontrolled hypertension Additional Impression: Cephalgia Qualified Code: R51 - Acute nonintractable headache, unspecified headache type Patient Instructions: General Instructions Additional Instructions: Take medications as directed. Follow-up with personal physician for blood pressure check. Follow with neurologist for persistent headache. Return if worse. Med/Other Pt SpecificInfo: Prescription(s) given Scripts Zjxkkeogbl-Zyimuvqicjggm-Wojxfsel (Fioricet)50-300-40 Mg Cap1-2 Cap PO Q6H PRN ( HEADACHE) #20 CAP Ref 0 Prov:Ej Gutierrez MD 12/07/16 Clonidine 0.1 Mg Tab0.1 Mg PO BID #30 TAB Ref 0 Prov:Ej Gutierrez MD 12/07/16 Disposition: 01 DISCHARGE HOME Condition: Stable Ej Gutierrez MD Dec 06, 2016 22:29
[2016-12-06] MEDS ORDERED: cloNIDine HCL 0.1 MG TAB PO ONE (22:30)
[2016-12-06] MEDS ORDERED: ACETAMINOPHEN 325 MG TAB PO ONE (22:30)
[2016-12-06 23:32] VITALS: BP 147/86; PULSE 98; RESP 19; O2SAT 100
[2016-12-07] VITALS: BP 160/77; PULSE 85; RESP 16; TEMP 98.4; O2SAT 100
--- NOTE | 2016-12-07 00:42 | RADRPT ---
EXAM DATE/TIME: 12/07/2016 00:30 [facility] COMPARISON: CT BRAIN W/O CONTRAST, April 12, 2013, 10:12. INDICATIONS : Headaches. RADIATION DOSE: 56.27 CTDIvol (mGy) MEDICAL HISTORY : Hypertension. Carcinoma, breast. SURGICAL HISTORY : None. ENCOUNTER: Initial ACUITY: 1 day PAIN SCALE: 8/10 LOCATION: Bilateral cranial TECHNIQUE: Multiple contiguous axial images were obtained of the head. Using automated exposure control and adj ustment of the mA and/or kV according to patient size, radiation dose was kept as low as reasonably a chievable to obtain optimal diagnostic quality images. FINDINGS: There is no evidence for intracranial hemorrhage, mass effect, mass lesions, edema, or extra-axial fl uid collections. The visualized bony structures appear intact. The ventricles are normal size for t he patient's age. There are no signs of acute infarction for technique. CONCLUSION: Unremarkable study. Tracy Austin MD on December 07, 2016 at 0:39 Board Certified Radiologist. This report was verified electronically.
[2016-12-07] MEDS ORDERED: BUTA1CAP PO (01:41)
[2016-12-07] MEDS ORDERED: CLON0.1T PO (01:41)
== END 2016-12-07 02:00 | disposition home or self-care (01) ==
LOC: NEPE 21:22
DX: I10 Essential (primary) hypertension (principal); R51 Headache
CPT/HCPCS: 70450

== ENCOUNTER 2017-04-03 02:45 | Emergency (ER) | payer OTHER ==
[~2017-04-03] VITALS: Ht 167.6 cm; Wt 75.0 kg
[~2017-04-03 02:45] MED LIST changes: +BUTA1CAP PO; +CLON0.1T PO; +LISI10TA3 PO
[2017-04-03 02:48] VITALS: BP 138/88; PULSE 96; RESP 15; TEMP 98.5; O2SAT 97
[2017-04-03] MEDS ORDERED: predniSONE 20 MG TAB PO ONE (03:15)
[2017-04-03] MEDS ORDERED: diphenhydrAMINE HCL 25 MG CAP PO ONE (03:15)
--- NOTE | 2017-04-03 03:28 | PD ---
HPI Chief Complaint: Skin Problem Time Seen by Provider: 03:01 Travel History International Travel<30 days: No Contact w/Intl Traveler<30days: No Traveled to known affect area: No History of Present Illness HPI 61-year-old female presents to emergency department for evaluation of itching. Patient states it has been persistent for the day but worse this evening. She denies any new exposures. Denies any chest or tightness. No difficulty breathing. No sensation of oral swelling. Patient recently had a right mastectomy and is on Lortab for this. She denies any other new medications or exposures. No recent illnesses, fever, or chills. Nobody else in the house is itching like this. She has no other symptoms to report. PFSH Past Medical History Cancer: Yes (RT BREAST) Cardiovascular Problems: Yes (PALPATATIONS/ ARRHYTHMIA) Chemotherapy: No Chest Pain: No Congestive Heart Failure: No Diabetes: No Diminished Hearing: No Endocrine: No GERD: Yes Genitourinary: No Hepatitis: No Hiatal Hernia: No Hypertension: Yes Musculoskeletal: No Neurologic: No Psychiatric: No Reproductive: No Respiratory: No Immunizations Current: No Radiation Therapy: Yes Thyroid Disease: No Menopausal: No Tubal Ligation: Yes Past Surgical History Abdominal Surgery: Yes (LAP. ALEIDA) Cholecystectomy: Yes Gynecologic Surgery: Yes (HYSTERECTOMY) Hysterectomy: Yes (ONE OVARY REMAINS) Mastectomy: Yes (RIGHT- LYMPH REMOVAL ONLY) Other Surgery: Yes Social History Alcohol Use: No Tobacco Use: No Substance Use: No Allergies-Medications (Allergen,Severity, Reaction): Coded Allergies: meperidine (Unverified Allergy, Intermediate, Hallucinations, 04/03/17) Reported Meds & Prescriptions Reported Meds & Active Scripts Active Fioricet (Paqmooyvea-Jctnadbnjaili-Cwbxdalz) 50-300-40 Mg Cap 1-2 Cap PO Q6H PRN Clonidine (Clonidine HCl) 0.1 Mg Tab 0.1 Mg PO BID Levaquin (Levofloxacin) 750 Mg Tab 750 Mg PO DAILY [place] (Hydrocodone-Acetaminophen) 5-325 mg Tab 1 Tab PO Q6H PRN Xanax (Alprazolam) 0.25 Mg Tab 0.25 Mg PO Q6H PRN Zofran Odt (Ondansetron Odt) 4 Mg Tab 4 Mg SL Q6HR PRN Claritin (Loratadine) 10 Mg Tab 10 Mg PO DAILY 14 Days Dok (Docusate Sodium) 100 Mg Cap 100 Mg PO BID 14 Days Reported Lisinopril 10 Mg Tab 10 Mg PO DAILY Aspirin 81 Mg Tab 81 Mg PO DAILY Review of Systems Except as stated in HPI: all other systems reviewed are Neg Physical Exam Narrative GENERAL: Well-nourished, well-developed female patient in no acute distress SKIN: Focused skin assessment warm/dry. On the posterior trunk, there are a few centimeter-sized raised lesions consistent with hives or insect bites. No specific pattern. No vesicle or pustule formation. HEAD: Normocephalic. EYES: No scleral icterus. No injection or drainage. ENT: Mucosa pink and moist. No erythema or exudates. No uvular edema. No uvular , palatal, or tonsillar deviation. Airway patent. Nasal turbinates appear normal without nasal blood, purulent drainage or septal hematoma. NECK: Supple, trachea midline. No JVD or lymphadenopathy. No stridor CARDIOVASCULAR: Regular rate and rhythm without murmurs, gallops, or rubs. RESPIRATORY: Breath sounds equal bilaterally. No accessory muscle use. GASTROINTESTINAL: Abdomen soft, non-tender, nondistended. MUSCULOSKELETAL: No cyanosis, or edema. BACK: Nontender without obvious deformity. No CVA tenderness. Data Data Last Documented VS Vital Signs Date Time Temp Pulse Resp B/P (MAP) Pulse Ox O2 Delivery O2 Flow Rate FiO2 04/03/17 03:42 04/03/17 02:48 98.5 96 15 97 Room Air Orders Orders Diphenhydramine (Benadryl) (04/03/17 03:15) Prednisone (Deltasone) (04/03/17 03:15) MDM Medical Decision Making Medical Screen Exam Complete: Yes Emergency Medical Condition: Yes Medical Record Reviewed: Yes Differential Diagnosis Urticaria versus allergic reaction versus contact dermatitis versus medication side effect versus insect bites Narrative Course 61-year-old female presents to the emergency department for evaluation of itching. Patient appears without distress. I really do feel that this is most likely a side effect of the Lortab she is taking. Patient will be given oral steroid and Benadryl here. I have encouraged continued use of the Benadryl. She agrees to return immediately with any acute worsening symptoms. Diagnosis Primary Impression: Itching due to drug Referrals: Primary Care Physician Patient Instructions: General Instructions, Itchy Skin (ED) Additional Instructions: Avoid scratching Vuzy-phk-pmpkyjg antihistamine such as Benadryl or severe tach as structural the package as needed for itching Follow-up the primary care provider Return immediately with any acute worsening of symptoms Med/Other Pt SpecificInfo: No Change to Meds Disposition: 01 DISCHARGE HOME Condition: Stable [place] Edwards Apr 03, 2017 03:28
[2017-04-04] MEDS ORDERED: HYDR25TA5 PO ×2 (15:55→16:28)
[2017-04-04] MEDS ORDERED: LISI-515 PO (15:55)
[2017-04-04] MEDS ORDERED: PRED20 PO (16:27)
[2017-04-18] MEDS ORDERED: HYDR25TA5 PO (14:29)
[2017-04-18] MEDS ORDERED: FERR325T8 PO (14:31)
== END 2017-04-03 03:43 | disposition home or self-care (01) ==
LOC: NEPD 02:45
DX: L29.8 Other pruritus (principal); I49.9 Cardiac arrhythmia, unspecified; I10 Essential (primary) hypertension
CPT/HCPCS: 99283; J7512

== ENCOUNTER → 2017-04-14 | Outpatient (CLI) | payer OTHER ==
[~2017-04-14] MED LIST changes: -ASPI81 PO; -BUTA1CAP PO; -CLON0.1T PO; -DOCU1CAP39 PO; +FERR325T8 PO; +HYDR25TA5 PO; -LEVA750T PO; +LISI-515 PO; -LISI10TA3 PO; -LORA-361 PO; +PRED20 PO; -ZOFR4TAB3 SL
--- NOTE | 2017-04-14 14:51 | RADRPT ---
EXAM DATE/TIME: 04/14/2017 14:29 [facility] COMPARISON: CT BRAIN W/O CONTRAST, December 07, 2016, 0:30. INDICATIONS : Lower abdominal pain - post tummy tuck ORAL CONTRAST: Prescribed oral contrast ingested. RADIATION DOSE: 8.23 CTDIvol (mGy) MEDICAL HISTORY : Carcinoma, breast. SURGICAL HISTORY : Mastectomy, bilateral. ENCOUNTER: Initial ACUITY: 4 - 6 months PAIN SCALE: 6/10 LOCATION: Bilateral lower quadrant TECHNIQUE: Volumetric scanning of the abdomen and pelvis was performed. Using automated exposure control and ad justment of the mA and/or kV according to patient size, radiation dose was kept as low as reasonably achievable to obtain optimal diagnostic quality images. DICOM format image data is available electro nically for review and comparison. FINDINGS: Imaging through the lung bases demonstrate mild atelectatic changes in the right lower lobe. The kamala ent is post right mastectomy. Examination of the liver demonstrates a 3.6 x 3.8 cm well-circumscribed low attenuation lesion in the central aspect of the liver. This measures only 5.9 Hounsfield units it would be most compatible wit h a simple cyst. The patient is post cholecystectomy. The spleen, pancreas, adrenal glands and kidneys are intact. There is no free intraperitoneal air. No free intraperitoneal fluid is identified. There is no retrop eritoneal lymphadenopathy. The aorta is normal in caliber. The visualized loops of small and large bowel are unremarkable. The anterior abdominal wall is grossl y intact. There is some induration in the intra-abdominal wall likely from the patient's previous iris naomi. No abscess is seen. There is no free fluid within the pelvis. No iliac or inguinal adenopathy is present. The visualized loops of small and large bowel within the pelvis are unremarkable. The patient is post hysterectomy. The osseous structures demonstrate mild degenerative changes in the lumbar spine are otherwise intact . CONCLUSION: 1. 3.8 x 3.6 cm cyst within the right lobe of the liver. 2. Small area of atelectasis in the right lung base. 3. Post right mastectomy. 4. There is some induration in the anterior abdominal wall consistent with patient's previous history of tummy tuck. There is no abscess. Bartolo Bruce MD on April 14, 2017 at 14:47 Board Certified Radiologist. This report was verified electronically.
== END ==
LOC: HRAD 13:08
PROVIDERS: ATTEND Family Medicine
DX: R10.30 Lower abdominal pain, unspecified (principal)
CPT/HCPCS: 74176

== ENCOUNTER 2017-04-18 22:57 | Emergency (ER) | payer OTHER ==
[~2017-04-18] VITALS: Ht 167.6 cm; Wt 75.0 kg
[2017-04-18 23:13] VITALS: BP 166/83; PULSE 95; RESP 18; TEMP 98.6; O2SAT 98
[2017-04-18 23:35] VITALS: BP 134/84; PULSE 77; RESP 15; O2SAT 98
--- NOTE | 2017-04-19 00:45 | PD ---
HPI Chief Complaint: Hypertension Time Seen by Provider: 00:08 Travel History International Travel<30 days: No Contact w/Intl Traveler<30days: No Traveled to known affect area: No History of Present Illness HPI 61-year-old female complains of headache and elevated blood pressure. Patient has history hypertension. Patient was on lisinopril and stopped taking it because of a rash. Patient was seen by personal physician today and advised to take HCTZ. Patient has been checking her blood pressure today and was found it to be elevated in the 160s range. Patient states that she has mild aching headache. Patient denies any visual change. Patient denies any chest pain or shortness of breath. Patient denies abdominal pain. Patient denies any focal weakness or numbness of extremity. PFSH Past Medical History Cancer: Yes (RT BREAST) Cardiovascular Problems: Yes (PALPATATIONS/ ARRHYTHMIA) Chemotherapy: No Chest Pain: No Congestive Heart Failure: No Diabetes: No Diminished Hearing: No Endocrine: No GERD: Yes Genitourinary: No Hepatitis: No Hiatal Hernia: No Hypertension: Yes Musculoskeletal: No Neurologic: No Psychiatric: No Reproductive: No Respiratory: No Immunizations Current: No Radiation Therapy: Yes Thyroid Disease: No Tetanus Vaccination: Unknown Influenza Vaccination: No ?: Not Menopausal: No Tubal Ligation: Yes Past Surgical History Abdominal Surgery: Yes (LAP. ALEIDA) Cholecystectomy: Yes Gynecologic Surgery: Yes (HYSTERECTOMY) Hysterectomy: Yes Mastectomy: Yes (RIGHT- LYMPH REMOVAL ONLY) Other Surgery: Yes (tummy tuck and reconstruction right breast) Social History Alcohol Use: No Tobacco Use: No Substance Use: No Allergies-Medications (Allergen,Severity, Reaction): Coded Allergies: lisinopril (Verified Allergy, Severe, 04/18/17) lip swelling meperidine (Unverified Allergy, Intermediate, Hallucinations, 04/18/17) Reported Meds & Prescriptions Reported Meds & Active Scripts Active Ferrous Sulfate 325 Mg (65 Mg Iron) Tablet 325 Mg PO DAILY Hydrochlorothiazide 25 Mg Tab 12.5 Mg PO DAILY [place] (Hydrocodone-Acetaminophen) 5-325 mg Tab 1 Tab PO Q6H PRN Xanax (Alprazolam) 0.25 Mg Tab 0.25 Mg PO Q6H PRN Review of Systems General / Constitutional: No: Fever Eyes: No: Visual changes HENT: Positive: Headaches Cardiovascular: No: Chest Pain or Discomfort Respiratory: No: Shortness of Breath Gastrointestinal: No: Abdominal Pain Genitourinary: No: Dysuria Musculoskeletal: No: Pain Skin: No Rash Neurologic: No: Weakness Psychiatric: No: Depression Endocrine: No: Polydipsia Hematologic/Lymphatic: No: Easy Bruising Physical Exam Narrative GENERAL: Well-nourished, well-developed patient. SKIN: Focused skin assessment warm/dry. HEAD: Normocephalic. EYES: No scleral icterus. No injection or drainage. NECK: Supple, trachea midline. No JVD or lymphadenopathy. CARDIOVASCULAR: Regular rate and rhythm without murmurs, gallops, or rubs. RESPIRATORY: Breath sounds equal bilaterally. No accessory muscle use. GASTROINTESTINAL: Abdomen soft, non-tender, nondistended. MUSCULOSKELETAL: No cyanosis, or edema. BACK: Nontender without obvious deformity. No CVA tenderness. Neurologic exam normal. Data Data Last Documented VS Vital Signs Date Time Temp Pulse Resp B/P (MAP) Pulse Ox O2 Delivery O2 Flow Rate FiO2 04/18/17 23:35 77 15 134/84 (101) 98 Room Air 04/18/17 23:13 98.6 MDM Medical Decision Making Medical Screen Exam Complete: Yes Emergency Medical Condition: Yes Differential Diagnosis Differential diagnosis including hypertensive urgency, hypertensive crisis. Narrative Course 61-year-old female with mild aching headache and elevated blood pressure. History hypertension. Blood pressure doing well in the emergency room. Diagnosis Primary Impression: Labile hypertension Patient Instructions: General Instructions Additional Instructions: continue with HCTZ as directed. Follow-up with personal physician. Return if persistent elevated blood pressure above 180/100. Med/Other Pt SpecificInfo: No Change to Meds Disposition: 01 DISCHARGE HOME Condition: Stable Ej Gutierrez MD Apr 19, 2017 00:45
== END 2017-04-19 01:05 | disposition home or self-care (01) ==
LOC: NEPE 22:57
DX: I10 Essential (primary) hypertension (principal); R51 Headache; Z85.3 Personal history of malignant neoplasm of breast; K21.9 Gastro-esophageal reflux disease without esophagitis; Z79.899 Other long term (current) drug therapy
CPT/HCPCS: 99281

== ENCOUNTER 2017-05-26 23:58 | Inpatient (IN) | payer OTHER ==
[~2017-05-26] VITALS: Ht 165.1 cm; Wt 73.2 kg
[~2017-05-26 23:58] MED LIST changes: +FERR325T18 PO; -FERR325T8 PO; -LISI-515 PO; -PRED20 PO
[2017-05-27] VITALS (11 sets, daily range): BP systolic 104–155; BP diastolic 55–87; PULSE 99–122; RESP 16–23; TEMP 98.4–101; O2SAT 96–100
--- NOTE | 2017-05-27 00:36 | PD ---
HPI Chief Complaint: Headache Time Seen by Provider: 00:24 Travel History International Travel<30 days: No Contact w/Intl Traveler<30days: No Traveled to known affect area: No History of Present Illness HPI The patient is a 61 year old female who presents to the [facility] emergency department with a history of beginning yesterday. She has had a headache, body aches, and fever with a tmax of 100.1 prior to arrival. She reports that the headache is located over the top of her head and forehead. She last took a hydrocodone on . Her last bp was today. She has palpitations and chest pain. She reports that she has had chest pain that has been coming and going since last week. The pain is in the center of her chest. She has had chest pain in the past on the right side related to her mastectomy, however this is reported different from her postop pain. The pain is sharp in character. She denies any prior history of cardiac disease, DVT, or PE. She is not currently on chemotherapy. Her oncologist is Dr. Sanchez. Additionally on review of systems, she reports that her urine was darker today and smelled stronger than usual. She has urinary frequency. No dysuria or urgency. Otherwise on review of systems, she denies having any cough, congestion, neck pain, abdominal pain, vomiting, diarrhea, or neurologic symptoms. She denies having any known sick contacts. [facility] Past Medical History Narrative Medical The patient's past medical history is significant for invasive ductal carcinoma of the right breast, arthritis, hypertension, migraine headaches. Cancer: Yes (RT BREAST) Cardiovascular Problems: Yes (PALPATATIONS/ ARRHYTHMIA) Chemotherapy: No Chest Pain: No Congestive Heart Failure: No Diabetes: No Diminished Hearing: No Endocrine: No GERD: Yes Genitourinary: No Hepatitis: No Hiatal Hernia: No Hypertension: Yes Musculoskeletal: No Neurologic: No Psychiatric: No Reproductive: No Respiratory: No Immunizations Current: No Radiation Therapy: Yes Thyroid Disease: No ?: Not Menopausal: No Tubal Ligation: Yes Past Surgical History Narrative Surgical The patient's past surgical history is significant for a cholecystectomy, hysterectomy, breast biopsy, right breast mastectomy with reconstruction. Abdominal Surgery: Yes (LAP. ALEIDA) Cholecystectomy: Yes Gynecologic Surgery: Yes (HYSTERECTOMY) Hysterectomy: Yes Mastectomy: Yes (RIGHT- LYMPH REMOVAL ONLY) Other Surgery: Yes (tummy tuck and reconstruction right breast) Social History Alcohol Use: No Tobacco Use: No Substance Use: No Allergies-Medications (Allergen,Severity, Reaction): Coded Allergies: lisinopril (Verified Allergy, Severe, 05/27/17) lip swelling meperidine (Unverified Allergy, Intermediate, Hallucinations, 05/27/17) Reported Meds & Prescriptions Reported Meds & Active Scripts Active Hydrochlorothiazide 25 Mg Tab 12.5 Mg PO DAILY [place] (Hydrocodone-Acetaminophen) 5-325 mg Tab 1 Tab PO Q6H PRN Review of Systems Except as stated in HPI: all other systems reviewed are Neg General / Constitutional: Positive: Fever, Chills Eyes: No: Visual changes HENT: No: Headaches Cardiovascular: Positive: Chest Pain or Discomfort Respiratory: No: Cough, Shortness of Breath Gastrointestinal: Positive: Nausea, No: Vomiting, Diarrhea, Abdominal Pain Genitourinary: Positive: Frequency, Other (strong odor to her urine), No: Dysuria Musculoskeletal: No: Pain Skin: No Rash Neurologic: Positive: Weakness (generalized weakness), Headache, No: Change in Mentation, Slurred Speech, Sensory Disturbance Psychiatric: No: Depression Endocrine: No: Polydipsia Hematologic/Lymphatic: No: Easy Bruising Physical Exam Narrative General: The patient is a well-developed well-nourished female in no acute distress. Head and Neck exam: Head is normocephalic atraumatic. Eyes: EOMI, pupils are equal round and reactive to light. Nose: Midline septum with pink mucous membranes Mouth: Dentition unremarkable. Moist mucus membranes. Posterior oropharynx is not erythematous. No tonsillar hypertrophy. Uvula midline. Airway patent. Neck: No palpable lymphadenopathy. No nuchal rigidity. No thyromegaly. Cardiovascular: Regular rate and rhythm without murmurs, gallops, or rubs. Lungs: Clear to auscultation bilaterally. No wheezes, rhonchi, or rales. Abdomen: Soft, without tenderness to palpation in all 4 quadrants of the abdomen. No guarding, rebound, or rigidity. Normal bowel sounds are audible. No tenderness on palpation of McBurney's point. Extremities: No clubbing, cyanosis, or edema. 2+ pulses in all 4 extremities. No calf tenderness on palpation. Back: No spinous process tenderness to palpation. Right-sided CVA tenderness is noted on palpation. Neurologic Exam: Grossly nonfocal. Skin Exam: No rash noted. Intact skin that is warm and dry. Data Data Last Documented VS Vital Signs Date Time Temp Pulse Resp B/P (MAP) Pulse Ox O2 Delivery O2 Flow Rate FiO2 05/27/17 01:14 101.0 116 18 134/78 (96) 100 Room Air Orders Orders Urinalysis - C+S If Indicated (05/27/17 00:24) Complete Blood Count With Diff (05/27/17:24) Blood Culture (05/27/17) Iv Access Insert/Monitor (05/27/17:) Ecg Monitoring (05/27/17) Influenzae A/B Antigen (05/27/17) Electrocardiogram (05/27/17) Comprehensive Metabolic Panel (05/27/17) C-Reactive Protein (Crp) (05/27/17:) Magnesium (Mg) (05/27/17:) Chest, Single Ap (05/27/17:) Ct Brain W/O Iv Contrast(Rout) (05/27/17:) Oximetry (05/27/17:) Lactic Acid Sepsis Protocol (05/27/17:) Sodium Chlor 0.9% 1000 Ml Inj (Ns 1000 M (05/27/17 01:30) Ondansetron Inj (Zofran Inj) (05/27/17 01:30) Acetaminophen (Tylenol) (05/27/17 01:30) Creatine Kinase (Cpk) (05/27/17:26) Ckmb (Isoenzyme) Profile (05/27/17 01:26) Troponin I (05/27/17 01:26) Prothrombin Time / Inr (Pt) (05/27/17:26) Act Partial Throm Time (Ptt) (05/27/17:26) Aspirin Chew (Aspirin Chew) (05/27/17 02:30) Nitroglycerin 2% Oint (Nitroglycerin 2% (05/27/17 02:30) Admit Order (Ed Use Only) (05/27/17 02:32) Labs Laboratory Tests Test 05/27/17 00:20 05/27/17 01:35 White Blood Count 6.5 TH/MM3 Red Blood Count 3.92 MIL/MM3 Hemoglobin 11.2 GM/DL Hematocrit 33.1 % Mean Corpuscular Volume 84.4 FL Mean Corpuscular Hemoglobin 28.5 PG Mean Corpuscular Hemoglobin Concent 33.8 % Red Cell Distribution Width 13.8 % Platelet Count 256 TH/MM3 Mean Platelet Volume 7.8 FL Neutrophils (%) (Auto) 42.3 % Lymphocytes (%) (Auto) 44.7 % Monocytes (%) (Auto) 10.2 % Eosinophils (%) (Auto) 2.3 % Basophils (%) (Auto) 0.5 % Neutrophils # (Auto) 2.7 TH/MM3 Lymphocytes # (Auto) 2.9 TH/MM3 Monocytes # (Auto) 0.7 TH/MM3 Eosinophils # (Auto) 0.2 TH/MM3 Basophils # (Auto) 0.0 TH/MM3 CBC Comment DIFF FINAL Differential Comment Urine Color LIGHT-YELLOW Urine Turbidity CLEAR Urine pH 7.0 Urine Specific [place] 1.010 Urine Protein NEG mg/dL Urine Glucose (UA) NEG mg/dL Urine Ketones NEG mg/dL Urine Occult Blood NEG Urine Nitrite NEG Urine Bilirubin NEG Urine Urobilinogen LESS THAN 2.0 MG/DL Urine Leukocyte Esterase NEG Urine RBC LESS THAN 1 /hpf Urine WBC LESS THAN 1 /hpf Urine Squamous Epithelial Cells <1 /hpf Microscopic Urinalysis Comment CULT NOT INDICATED Blood Urea Nitrogen 21 MG/DL Creatinine 0.97 MG/DL Random Glucose 117 MG/DL Total Protein 7.6 GM/DL Albumin 3.6 GM/DL Calcium Level 9.4 MG/DL Magnesium Level 2.4 MG/DL Alkaline Phosphatase 127 U/L Aspartate Amino Transf (AST/SGOT) 151 U/L Alanine Aminotransferase (ALT/SGPT) 129 U/L Total Bilirubin 0.6 MG/DL Sodium Level 143 MEQ/L Potassium Level 3.6 MEQ/L Chloride Level 106 MEQ/L Carbon Dioxide Level 28.8 MEQ/L Anion Gap 8 MEQ/L Estimat Glomerular Filtration Rate 70 ML/MIN Lactic Acid Level 1.0 mmol/L Total Creatine Kinase 81 U/L Troponin I LESS THAN 0.02 NG/ML C-Reactive Protein 0.71 MG/DL Prothrombin Time 9.6 SEC Prothromb Time International Ratio 0.9 RATIO Activated Partial Thromboplast Time 23.9 SEC MDM Medical Decision Making Medical Screen Exam Complete: Yes Emergency Medical Condition: Yes Medical Record Reviewed: Yes Differential Diagnosis Viral syndrome, versus pneumonia, versus pyelonephritis, versus bacteremia of undetermined origin, versus acute coronary syndrome, versus pericarditis, versus endocarditis Narrative Course During the course of the patients emergency department visit, the patients history, examination, and differential diagnosis were reviewed with the patient. The patient was placed on a monitor car operator with oximetry and frequent blood pressure monitoring. The patient had IV access obtained and blood work sent for analysis. The patient was initially provided Tylenol 650 by mouth 1 for fever, Zofran 4 mg IV for nausea, normal saline 1 L IV fluid bolus, aspirin 324 mg by mouth 1, nitroglycerin 1 inch the chest wall. The patients laboratory studies were reviewed and remarkable for a white count of 6.5, hemoglobin 11.2, platelets 256 with 44.7 lymphocytes and monocytes 10.2 suggestive of viral process. CMP is remarkable for BUN of 21, glucose 117, AST 151, ALT 129, alkaline phosphatase 127 which is also increased compared to previously with a normal total bilirubin of 0.6, C-reactive protein 0.71, PT 9.6 , PTT 23.9, urinalysis is unremarkable Radiology studies were reviewed and remarkable for a chest x-ray shows no evidence of acute cardiopulmonary disease, CT scan of the brain shows no acute abnormality. The patient is agreeable with the plan to proceed with admission for rule out serial cardiac enzyme protocol given her new chest pain. The patients results were discussed with the patient, including the plan of care. I explained that further testing and/ or monitoring is indicated based on the patients history, examination, and/ or laboratory findings. Therefore, I recommended admission for additional evaluation. The patient expressed understanding and was agreeable with this plan. The patient was admitted to the hospital in stable condition and [facility] Physician Communication Physician Communication The patient's case including history, pertinent physical examination findings, and laboratory studies were discussed with Dr. Manjarrez. It was agreed that the [facility] would [facility] Diagnosis Primary Impression: Chest pain, rule out acute myocardial infarction Additional Impression: Febrile illness Admitting Information Admitting Physician Requests: Ronda Alaniz MD May 27, 2017 00:36
[2017-05-27 00:43] LABS: AUTOMATED NEUTROPHIL # 2.7 TH/MM3 (1.8-7.7); BASOPHIL % 0.5 % (0.0-2.0); EOSINOPHIL # 0.2 TH/MM3 (0-0.4); EOSINOPHIL % 2.3 % (0.0-4.0); HEMATOCRIT 33.1 % (35.0-46.0); HEMO FLAGS DIFF FINAL; LYMPH % 44.7 % (9.0-44.0); LYMPHOCYTE # 2.9 TH/MM3 (1.0-4.8); MEAN CELL VOLUME 84.4 FL (80.0-100.0); MEAN CORPUSCULAR HEMOGLOBIN 28.5 PG (27.0-34.0); MEAN CORPUSCULAR HGB CONC 33.8 % (32.0-36.0); MONO % 10.2 % (0.0-8.0); NEUT % 42.3 % (16.0-70.0); PLATELET COUNT 256 TH/MM3 (150-450); RED BLOOD COUNT 3.92 MIL/MM3 (4.00-5.30); RED CELL DISTRIBUTION WIDTH 13.8 % (11.6-17.2); WHITE BLOOD COUNT 6.5 TH/MM3 (4.0-11.0)
[2017-05-27 00:45] LABS: BLOOD, URINE NEG (NEG); GLUCOSE,URINE NEG (NEG); KETONE, URINE NEG (NEG); NITRITE,URINE NEG (NEG); SQUAMOUS EPITHELIAL CELL URINE <1 /hpf (0-5); URINE COLOR LIGHT-YELLOW (YELLW/STRAW)
[2017-05-27 00:47] LABS: COMMENT (UR) CULT NOT INDICATED; CULTURE IF INDICATED CULT NOT INDICATED
[2017-05-27 01:06] LABS: ALT (GPT) 129 U/L (10-53); ANION GAP 8 MEQ/L (5-15); AST (GOT) 151 U/L (15-37); BICARBONATE 28.8 MEQ/L (21.0-32.0); BLOOD UREA NITROGEN 21 MG/DL (7-18); CHLORIDE 106 MEQ/L (98-107); GLOMERULAR FILTRATION RATE 70 ML/MIN (>89); MAGNESIUM 2.4 MG/DL (1.5-2.5); POTASSIUM 3.6 MEQ/L (3.5-5.1); SODIUM (NA) 143 MEQ/L (136-145)
[2017-05-27 01:08] LABS: ALKALINE PHOSPHATASE 127 U/L (45-117); TOTAL BILIRUBIN ADULT 0.6 MG/DL (0.2-1.0)
--- NOTE | 2017-05-27 01:08 | RADRPT ---
EXAM DATE/TIME: 05/27/2017 01:00 [facility] COMPARISON: No previous studies available for comparison. INDICATIONS : Cough. MEDICAL HISTORY : None. SURGICAL HISTORY : None. ENCOUNTER: Initial ACUITY: 1 day PAIN SCORE: 0/10 LOCATION: Bilateral chest FINDINGS: A single view of the chest demonstrates the lungs to be symmetrically aerated without evidence of mas s, infiltrate or effusion. The cardiomediastinal contours are unremarkable. Osseous structures are intact. CONCLUSION: No evidence of acute cardiopulmonary disease. Jose Alfredo Albarran MD on May 27, 2017 at 1:06 Board Certified Radiologist. This report was verified electronically.
--- NOTE | 2017-05-27 01:25 | RADRPT ---
EXAM DATE/TIME: 05/27/2017 00:54 [facility] COMPARISON: CT BRAIN W/O CONTRAST, December 07, 2016, 0:30. INDICATIONS : Cephalgia x2 days. RADIATION DOSE: 56.35 CTDIvol (mGy) MEDICAL HISTORY : Gastroesophageal reflux disease. Hypertension. Carcinoma, breast. SURGICAL HISTORY : Hysterectomy. Cholecystectomy. ENCOUNTER: Initial ACUITY: 2 days PAIN SCALE: 6/10 LOCATION: cranial TECHNIQUE: Multiple contiguous axial images were obtained of the head. Using automated exposure control and adj ustment of the mA and/or kV according to patient size, radiation dose was kept as low as reasonably a chievable to obtain optimal diagnostic quality images. DICOM format image data is available electro nically for review and comparison. FINDINGS: CEREBRUM: The ventricles are normal for age. No evidence of midline shift, mass lesion, hemorrhage or acute in farction. No extra-axial fluid collections are seen. POSTERIOR FOSSA: The cerebellum and brainstem are intact. The 4th ventricle is midline. The cerebellopontine angle i s unremarkable. EXTRACRANIAL: The visualized portion of the orbits is intact. SKULL: The calvaria is intact. No evidence of skull fracture. CONCLUSION: Negative noncontrast head CT. Jose Alfredo Albarran MD on May 27, 2017 at 1:23 Board Certified Radiologist. This report was verified electronically.
[2017-05-27] MEDS ORDERED: ACETAMINOPHEN 325 MG TAB PO ONE (01:30)
[2017-05-27] MEDS ORDERED: ONDANSETRON HCL 4 MG/2 ML VIAL IV ONE (01:30)
[2017-05-27] MEDS ORDERED: SODIUM CHLOR 0.9% 1000 ML INJ 1,000 ML IV ONE (01:30)
[2017-05-27 01:47] LABS: CREATINE KINASE 81 U/L (26-192)
[2017-05-27 01:59] LABS: APTT (PATIENT) 23.9 SEC (24.3-30.1); INTERNATIONAL NORMALIZED RATIO 0.9 RATIO; PROTHROMBIN TIME - PATIENT 9.6 SEC (9.8-11.6)
[2017-05-27] MEDS ORDERED: NITROGLYCERIN 2% OINT 1 GM PACKET TOPICAL ONE (02:30)
[2017-05-27] MEDS ORDERED: ASPIRIN 81 MG CHEW TAB CHEW ONE (02:30)
[2017-05-27] MEDS: SODIUM CHLORIDE 0.9% FLUSH 10 ML FLUSH IV FLUSH PRN ×2 (03:17→06:13)
[2017-05-27] MEDS: MORPHINE SULFATE 2 MG/ML INJ IV PRN ×2 (03:17→06:12)
[2017-05-27] MEDS: HEPARIN SODIUM - SQ 10,000 UNITS/ML VIAL SQ SCH ×3 (05:40→21:51)
[2017-05-27] MEDS ORDERED: DIATRIZOATE MEGLUM/DIATRIZOATE SOD 9 ML CUP PO ONE (06:45)
--- NOTE | 2017-05-27 06:50 | HHI.HP ---
HPI Service [facility] Primary Care Physician No Primary Care Physician Admission Diagnosis Cp R/O [place], Fever, viral syndrome Diagnoses: Chief Complaint: Headache Travel History International Travel<30 Days: No Contact w/Intl Traveler <30 Da: No Traveled to Known Affected Are: No History of Present Illness Ms. Fink is 61 yo, with history of migraine headaches "but none for a long time." She also reported receiving physical therapy for "my neck muscle pain" and denied having headaches associated with that condition. Ms. Fink reported having had a headache early on and "i took an advil and the pain didn't go away." She noted the pain was on the crown of her head and "a little bit on the left side of my head." She denied having nausea, vomiting, altered vision/sensorium, limb weakness or difficulty ambulating. As her headache did not improve she came to [facility] for evaluation and management of her condition. During her work-up she reported having chest pain and "I felt my heart beating funny.' She noted the chest pain would decrease "if I just mashed on my chest"Mid sternum" and the pain would get better." She also reported having abdominal pain that "comes and goes" and at time of interview she had episodic pain and rated it an "8 out of 10 when it's there." When asked if it had a cramping sensation she said "it might. I hadn't thought of it like that." Ms. Fink spoke of having had breast cancer and undergone breast reconstruction with "them using a skin flap from my belly." She spoke of the abdominal pain as having led her to "not want to teat" and she has lost weight.She denied nausea, vomiting, and diarrhea. She noted before the reconstruction and "tummy tuck" she was "in the 200's. Now I think I weight about 160." She noted she eats "ok. " sleep is reported to be or short duration and not restful. Review of Systems Constitutional: COMPLAINS OF: Weight loss, Change in appetite Endocrine: DENIES: Polyuria, Polyphagia Eyes: DENIES: Blurred vision, Eye pain, Photosensitivity Ears, nose, mouth, throat: DENIES: Hearing loss, Vertigo, Throat pain Respiratory: DENIES: Cough, Wheezing, Shortness of breath Cardiovascular: COMPLAINS OF: Chest pain, Palpitations Gastrointestinal: COMPLAINS OF: Abdominal pain, DENIES: Black stools, Constipation, Diarrhea, Nausea, Vomiting Genitourinary: DENIES: Urinary incontinence, Hematuria Hematologic/lymphatic: DENIES: Bruising Neurologic: COMPLAINS OF: Headache, DENIES: Abnormal gait, Poor Balance Except as stated in HPI: all other systems reviewed are Neg Past Family Social History Past Medical History Breast cancer (right). Heart palpitations GERD Anxiety hypertension migraine headache Past Surgical History Right mastectomy with reconstruction. tummy tuck Tubal ligation hysterectomy cholecystectomy. Reported Medications Reported Meds & Active Scripts Active Hydrochlorothiazide 25 Mg Tab 12.5 Mg PO DAILY [place] (Hydrocodone-Acetaminophen) 5-325 mg Tab 1 Tab PO Q6H PRN Allergies: Coded Allergies: lisinopril (Verified Allergy, Severe, 05/27/17) lip swelling meperidine (Unverified Allergy, Intermediate, Hallucinations, 05/27/17) Active Ordered Medications Current Medications Medications (Trade) Dose Ordered Sig/Audie Route Start Time Stop Time Status Last Admin (Microzide) 12.5 mg DAILY PO 05/27/17 09:00 (NS Flush) 2 ml BID IV FLUSH 05/27/17 09:00 (NS Flush) 2 ml UNSCH PRN IV FLUSH 05/27/17 02:45 05/27/17 03:17 (Morphine Inj) 2 mg Q30M PRN IV 05/27/17 02:45 05/27/17 03:17 (Heparin Inj) 5,000 units Q8H SQ 05/27/17 06:00 05/27/17 05:40 Family History Mother reportedly born with a "bad heart" and att he age of 37 due to a "heart attack. Father- at unknown age due to throat cancer. Pt reported maternal side of the family has breast cancer history; two aunts positive for breast cancer. Social History Pt denied history of alcohol use. Illicit/recreational drug usage was denied. Pt denied nicotine/cigarette use. Physical Exam Vital Signs Vital Signs Date Time Temp Pulse Resp B/P (MAP) Pulse Ox O2 Delivery O2 Flow Rate FiO2 05/27/17 05:22 106 05/27/17 04:01 98.9 115 16 104/55 (71) 96 05/27/17 02:58 05/27/17 02:58 99.5 05/27/17 01:14 101.0 116 18 134/78 (96) 100 Room Air 05/27/17 00:00 100.1 122 20 155/87 (109) 98 Physical Exam GENERAL: This is a well-nourished, well-developed patient, in no apparent distress. SKIN: No rashes, ecchymoses or lesions. Cool and dry. HEAD: Atraumatic. Normocephalic. EYES: Pupils equal round and reactive. Extraocular motions intact. No scleral icterus. No injection or drainage. ENT: Nose without bleeding or purulent drainage. Airway patent. NECK: Trachea midline. No lymphadenopathy. Supple and nontender. CARDIOVASCULAR: Tachycardic rate with normal rhythm without murmurs, gallops, or rubs. RESPIRATORY: Clear to auscultation. Breath sounds equal bilaterally. No wheezes , rales, or rhonchi. GASTROINTESTINAL: Abdomen soft, tender,ness at midline and LUQ noted on palpation, nondistended. No hepato-splenomegaly. Pt evidenced guarding of LUQ. MUSCULOSKELETAL: Extremities without clubbing, cyanosis, or edema. NEUROLOGICAL: Awake and alert. Cranial nerves II through XII intact. Motor and sensory grossly within normal limits. Five out of 5 muscle strength in all muscle groups. Speech was clear and fluent. Laboratory Laboratory Tests Test 05/27/17 00:20 05/27/17 01:35 White Blood Count 6.5 Red Blood Count 3.92 Hemoglobin 11.2 Hematocrit 33.1 Mean Corpuscular Volume 84.4 Mean Corpuscular Hemoglobin 28.5 Mean Corpuscular Hemoglobin Concent 33.8 Red Cell Distribution Width 13.8 Platelet Count 256 Mean Platelet Volume 7.8 Neutrophils (%) (Auto) 42.3 Lymphocytes (%) (Auto) 44.7 Monocytes (%) (Auto) 10.2 Eosinophils (%) (Auto) 2.3 Basophils (%) (Auto) 0.5 Neutrophils # (Auto) 2.7 Lymphocytes # (Auto) 2.9 Monocytes # (Auto) 0.7 Eosinophils # (Auto) 0.2 Basophils # (Auto) 0.0 CBC Comment DIFF FINAL Differential Comment Urine Color LIGHT-YELLOW Urine Turbidity CLEAR Urine pH 7.0 Urine Specific Ethel 1.010 Urine Protein NEG Urine Glucose (UA) NEG Urine Ketones NEG Urine Occult Blood NEG Urine Nitrite NEG Urine Bilirubin NEG Urine Urobilinogen LESS THAN 2.0 Urine Leukocyte Esterase NEG Urine RBC LESS THAN 1 Urine WBC LESS THAN 1 Urine Squamous Epithelial Cells <1 Microscopic Urinalysis Comment CULT NOT INDICATED Blood Urea Nitrogen 21 Creatinine 0.97 Random Glucose 117 Total Protein 7.6 Albumin 3.6 Calcium Level 9.4 Magnesium Level 2.4 Alkaline Phosphatase 127 Aspartate Amino Transf (AST/SGOT) 151 Alanine Aminotransferase (ALT/SGPT) 129 Total Bilirubin 0.6 Sodium Level 143 Potassium Level 3.6 Chloride Level 106 Carbon Dioxide Level 28.8 Anion Gap 8 Estimat Glomerular Filtration Rate 70 Lactic Acid Level 1.0 Total Creatine Kinase 81 Troponin I LESS THAN 0.02 C-Reactive Protein 0.71 Prothrombin Time 9.6 Prothromb Time International Ratio 0.9 Activated Partial Thromboplast Time 23.9 Date/Time Source Procedure Growth Status 05/27/17 00:30 Blood Peripheral Aerobic Blood Culture Pending Received 05/27/17 00:30 Blood Peripheral Anaerobic Blood Culture Pending Received 05/27/17 00:20 Nasal Washing Influenza Types A,B Antigen (ARNALDO) - Final NEGATIVE FOR FLU A AND B ANTIGEN.... Complete Result Diagram: 05/27/171905/27/1719 Imaging Last Impressions Head CT 05/27/1726 Signed Impressions: Service Date/Time: Saturday, May 27, 2017 00:54 - CONCLUSION: Negative noncontrast head CT. Jose Alfredo Albarran MD Chest X-Ray 05/27/1726 Signed Impressions: Service Date/Time: Saturday, May 27, 2017 01:00 - CONCLUSION: No evidence of acute cardiopulmonary disease. Jose Alfredo Albarran MD Caprini VTE Risk Assessment Caprini VTE Risk Assessment: Mod/High Risk (score >= 2) Caprini Risk Assessment Model Point Value = 1 Point Value = 2 Point Value = 3 Point Value = 5 Age 41-60 Minor surgery BMI > 25 kg/m2 Swollen legs Varicose veins or History of unexplained or recurrent spontaneous Oral contraceptives or hormone replacement Sepsis (< 1 month) Serious lung disease, including pneumonia (< 1 month) Abnormal pulmonary function Acute myocardial infarction Congestive heart failure (< 1 month) History of inflammatory bowel disease Medical patient at bed rest Age 61-74 Arthroscopic surgery Major open surgery (> 45 min) Laparoscopic surgery (> 45 min) Malignancy Confined to bed (> 72 hours) Immobilizing plaster cast Central venous access Age >= 75 History of VTE Family history of VTE Factor V Leiden Prothrombin [id number] Lupus anticoagulant Anticardiolipin antibodies Elevated serum homocysteine Heparin-induced thrombocytopenia Other congenital or acquired thrombophilia Stroke (< 1 month) Elective arthroplasty Hip, pelvis, or leg fracture Acute spinal cord injury (< 1 month) Prophylaxis Regimen Total Risk Factor Score Risk Level Prophylaxis Regimen 0-1 Low Early ambulation 2 Moderate Order ONE of the following: *Sequential Compression Device (SCD) *Heparin 5000 units SQ BID 3-4 Higher Order ONE of the following medications: *Heparin 5000 units SQ TID *Enoxaparin/Lovenox 40 mg SQ daily (WT < 150 kg, CrCl > 30 mL/min) *Enoxaparin/Lovenox 30 mg SQ daily (WT < 150 kg, CrCl > 10-29 mL/min) *Enoxaparin/Lovenox 30 mg SQ BID (WT < 150 kg, CrCl > 30 mL/min) AND/OR *Sequential Compression Device (SCD) 5 or more Highest Order ONE of the following medications: *Heparin 5000 units SQ TID (Preferred with Epidurals) *Enoxaparin/Lovenox 40 mg SQ daily (WT < 150 kg, CrCl > 30 mL/min) *Enoxaparin/Lovenox 30 mg SQ daily (WT < 150 kg, CrCl > 10-29 mL/min) *Enoxaparin/Lovenox 30 mg SQ BID (WT < 150 kg, CrCl > 30 mL/min) AND *Sequential Compression Device (SCD) Assessment and Plan Problem List: (1) SIRS (systemic inflammatory response syndrome) ICD Code: R65.10 - Systemic inflammatory response syndrome (SIRS) of non- infectious origin without acute organ dysfunction Status: Acute (2) Essential hypertension ICD Code: I10 - Essential hypertension Status: Chronic (3) Abdominal pain, acute, generalized ICD Code: R10.84 - Acute generalized abdominal pain Status: Acute (4) Cephalgia ICD Code: R51 - Headache Status: Acute (5) Heart palpitations ICD Code: R00.2 - Palpitations Status: Acute Assessment and Plan Ms. Fink is 61 yo, with history of migraine headaches "but none for a long time." She also reported receiving physical therapy for "my neck muscle pain" and denied having headaches associated with that condition. Chest pain hypertension -Troponin x1 non diagnostic. Second troponin level pending. -Telemetry -morphine for chest pain -EKG ordered. -lipid panel -CKMB x2 ordered -HCTZ 12.5 mg po daily. Headache -Pain management Transaminitis Abdominal pain -CT of abdomen and pelvis ordered. -hepatitis profile ordered SIRS -Criteria met by fever and elevated pulse -monitor vitals -Fever improved over night as did pulse. DVT prophylaxis -Heparin 5000 units q 8 hrs. Discussed Condition With Pt Physician Certification 2 Midnight Certification Type: Admission for Inpatient Services Order for Inpatient Services The services are ordered in accordance with Medicare regulations or non- Medicare payer requirements, as applicable. In the case of services not specified as inpatient-only, they are appropriately provided as inpatient services in accordance with the 2-midnight benchmark. Estimated LOS (days): 3 Three days is the estimated time the patient will need to remain in the hospital , assuming treatment plan goals are met and no additional complications. Post-Hospital Plan: Home Adam Jasmine Jr. May 27, 2017 06:50
[2017-05-27 06:58] LABS: AUTOMATED NEUTROPHIL # 3.3 TH/MM3 (1.8-7.7); BASOPHIL % 0.5 % (0.0-2.0); EOSINOPHIL # 0.2 TH/MM3 (0-0.4); EOSINOPHIL % 2.3 % (0.0-4.0); HEMATOCRIT 28.3 % (35.0-46.0); HEMO FLAGS DIFF FINAL; LYMPH % 37.1 % (9.0-44.0); LYMPHOCYTE # 2.5 TH/MM3 (1.0-4.8); MEAN CORPUSCULAR HEMOGLOBIN 28.2 PG (27.0-34.0); MEAN CORPUSCULAR HGB CONC 33.2 % (32.0-36.0); MONO % 11.2 % (0.0-8.0); NEUT % 48.9 % (16.0-70.0); PLATELET COUNT 227 TH/MM3 (150-450); RED BLOOD COUNT 3.32 MIL/MM3 (4.00-5.30); RED CELL DISTRIBUTION WIDTH 13.8 % (11.6-17.2); WHITE BLOOD COUNT 6.7 TH/MM3 (4.0-11.0)
[2017-05-27 07:34] LABS: ANION GAP 8 MEQ/L (5-15); BICARBONATE 24.2 MEQ/L (21.0-32.0); BLOOD UREA NITROGEN 20 MG/DL (7-18); CHLORIDE 111 MEQ/L (98-107); GLOMERULAR FILTRATION RATE 80 ML/MIN (>89); POTASSIUM 3.6 MEQ/L (3.5-5.1); SODIUM (NA) 143 MEQ/L (136-145)
[2017-05-27 07:38] LABS: HDL CHOLESTEROL 62.7 MG/DL (40.0-60.0); LDL CHOLESTEROL 108 MG/DL (0-99)
[2017-05-27 07:42] LABS: CREATINE KINASE 66 U/L (26-192)
[2017-05-27] MEDS: HYDROCHLOROTHIAZIDE 12.5 MG CAP PO SCH (08:27)
[2017-05-27] MEDS: SODIUM CHLORIDE 0.9% FLUSH 10 ML FLUSH IV FLUSH SCH ×2 (08:28→20:28)
[2017-05-27] MEDS: ACETAMIN 325 MG/BUTALBITAL 50 MG/CAFFEINE 40 MG TAB PO PRN ×2 (10:21→17:42)
--- NOTE | 2017-05-27 10:39 | RADRPT ---
EXAM DATE/TIME: 05/27/2017 10:01 [facility] COMPARISON: CT ABDOMEN & PELVIS W/O CONTRAST, April 14, 2017, 14:29. INDICATIONS : Abdominal pain. ORAL CONTRAST: No oral contrast ingested. RADIATION DOSE: 6.90 CTDIvol (mGy) MEDICAL HISTORY : Gastroesophageal reflux disease. Hypertension. Carcinoma, breast. SURGICAL HISTORY : Hysterectomy. Cholecystectomy.Tummy tuck. Right breast reconstruction. ENCOUNTER: Initial ACUITY: 4 - 6 months PAIN SCALE: 6/10 LOCATION: Bilateral buttock TECHNIQUE: Volumetric scanning of the abdomen and pelvis was performed. Using automated exposure control and ad justment of the mA and/or kV according to patient size, radiation dose was kept as low as reasonably achievable to obtain optimal diagnostic quality images. DICOM format image data is available electro nically for review and comparison. FINDINGS: LOWER LUNGS: Stable atelectasis and scarring in the right lower lobe LIVER: Homogeneous density without lesion multiple stable cysts.. There is no dilation of the biliary tree. Cholecystectomy clips. SPLEEN: Normal size without lesion. PANCREAS: Within normal limits. KIDNEYS: Normal in size and shape. There is no mass, stone, or hydronephrosis. ADRENAL GLANDS: Within normal limits. VASCULAR: There is no aortic aneurysm. BOWEL/MESENTERY: The stomach, small bowel, and colon demonstrate no acute abnormality. There is no free intraperitone al air or fluid. ABDOMINAL WALL: 2 continued inflammation in the lower anterior abdominal wall related to previous incision. It is sim ilar to April. There is a small fatty hernia just to the right of midline in the midabdomen with a peritoneal defect measuring 2 cm across. RETROPERITONEUM: There is no lymphadenopathy. BLADDER: No wall thickening or mass. REPRODUCTIVE: Within normal limits. INGUINAL: There is no lymphadenopathy or hernia. MUSCULOSKELETAL: Within normal limits for patient age. CONCLUSION: Status post cholecystectomy. The appendix is normal. Hernia and inflammation the intra-abdominal wall similar to April. No etiology for abdominal pain is identified elsewhere. Kai Sarabia MD on May 27, 2017 at 10:35 Board Certified Radiologist. This report was verified electronically.
--- NOTE | 2017-05-27 12:17 | HHI.PR ---
Subjective Remarks Follow-up for headache Patient main complaint is headache. She stated that she does have a history of migraine headache but this is different hepatic. Headache located on the top of her head and bilateral. Nothing makes it better or worse. Deny any nausea or vomiting, visual changes or focal neurologic deficits. Patient stated that the right-sided chest and abdomen or always in pain. She stated this has been a chronic problem. Objective Vitals Vital Signs Date Time Temp Pulse Resp B/P (MAP) Pulse Ox O2 Delivery O2 Flow Rate FiO2 05/27/17 11:32 99.2 117 23 114/66 (82) 97 05/27/17 08:00 105 05/27/17 07:50 98.4 107 20 110/67 (81) 98 05/27/17 05:22 106 05/27/17 04:01 98.9 115 16 104/55 (71) 96 05/27/17 02:58 05/27/17 02:58 99.5 05/27/17 01:14 101.0 116 18 134/78 (96) 100 Room Air 05/27/17 00:00 100.1 122 20 155/87 (109) 98 I/O 05/26/17 05/26/17 05/26/17 05/27/17 05/27/17 05/27/17 07:00 15:00 23:00 07:00 15:00 23:00 Intake Total 1000 ml Balance 1000 ml Intake IV Total 1000 ml # Voids 1 Result Diagram: 05/27/17 0615 05/27/17 0618 Imaging Last Impressions Head CT 05/27/177 Signed Impressions: Service Date/Time: Saturday, May 27, 2017 00:54 - CONCLUSION: Negative noncontrast head CT. Jose Alfredo Albarran MD Chest X-Ray 05/27/17 0027 Signed Impressions: Service Date/Time: Saturday, May 27, 2017 01:00 - CONCLUSION: No evidence of acute cardiopulmonary disease. Jose Alfredo Albarran MD Abdomen/Pelvis CT 05/27/17 0000 Signed Impressions: Service Date/Time: Saturday, May 27, 2017 10:01 - CONCLUSION: Status post cholecystectomy. The appendix is normal. Hernia and inflammation the intra-abdominal wall similar to April. No etiology for abdominal pain is identified elsewhere. Kai Sarabia MD Objective Remarks GENERAL: in NAD CARDIOVASCULAR: Regular rate and rhythm without murmurs, gallops, or rubs. RESPIRATORY: Breath sounds equal bilaterally. No accessory muscle use. GASTROINTESTINAL: Diffuse tenderness palpation with moderate pressure. Per patient this is normal for her. Nondistended. Negative for any peritoneal signs. Normoactive bowel sounds. NEURO: AAO X 4. CN 2-12 motor and sensation grossly intact. coordination is intact. No meningeal signs. Medications and IVs Current Medications Sodium Chloride 1,000 ml @ 1,000 mls/hr Q1H ONCE IV Last administered on 05/27 01:36; Start 05/27/17 at 01:30; Stop 05/27/17 at 02:29; Status DC Ondansetron HCl (Zofran Inj) 4 mg ONCE ONCE IV Last administered on 01:36; Start 05/27/17 at 01:30; Stop 05/27/17 at 01:31; Status DC Acetaminophen (Tylenol) 650 mg ONCE ONCE PO Last administered on 05/27/17 01 :36; Start 05/27/17 at 01:30; Stop 05/27/17 at 01:31; Status DC Aspirin (Aspirin Chew) 324 mg ONCE ONCE CHEW Last administered on 05/27/17 02:57; Start 05/27/17 at 02:30; Stop 05/27/17 at 02:31; Status DC Nitroglycerin (Nitroglycerin 2% Oint) 1 inch ONCE ONCE TOPICAL ; Start at 02:30; Stop 05/27/17 at 02:31; Status DC Hydrochlorothiazide (Microzide) 12.5 mg DAILY PO Last administered on 08:27; Start 05/27/17 at 09:00 Sodium Chloride (NS Flush) 2 ml BID IV FLUSH Last administered on 05/27/17 08 :28; Start 05/27/17 at 09:00 Sodium Chloride (NS Flush) 2 ml UNSCH PRN IV FLUSH FLUSH AFTER USING IV ACCESS Last administered on 05/27/17 06:13; Start 05/27/17 at 02:45 Morphine Sulfate (Morphine Inj) 2 mg Q30M PRN IV CHEST PAIN Last administered on 05/27/17 06:12; Start 05/27/17 at 02:45 Heparin Sodium (Porcine) (Heparin Inj) 5,000 units Q8H SQ Last administered on 05/27/17 05:40; Start 05/27/17 at 06:00 Diatrizoate Meglum/ Diatrizoate Sod ( Gastrosue Liq) 18 ml ONCE ONCE PO Last administered on 05/27/17 06:42; Start 05/27/17 at 06:45; Stop 05/27/17 at 06:46; Status DC Acetaminophen/ Butalbital/ Caffeine (Fioricet 325-50-40) 1 tab Q6H PRN PO headache Last administered on 05/27/17 10:21; Start 05/27/17 at 10:00 Sodium Chloride 1,000 ml @ 100 mls/hr Q10H IV ; Start 05/27/17 at 12:30 A/P Problem List: (1) SIRS (systemic inflammatory response syndrome) ICD Code: R65.10 - Systemic inflammatory response syndrome (SIRS) of non- infectious origin without acute organ dysfunction Status: Acute (2) Essential hypertension ICD Code: I10 - Essential hypertension Status: Chronic (3) Abdominal pain, acute, generalized ICD Code: R10.84 - Acute generalized abdominal pain Status: Acute (4) Cephalgia ICD Code: R51 - Headache Status: Acute (5) Heart palpitations ICD Code: R00.2 - Palpitations Status: Acute Assessment and Plan Ms. Fink is 61 yo, with history of migraine headaches who is complaining of a different type of headache, muscle aches and fevers Headache -This is her main complaints. Patient also has muscle aches and fevers. This may be secondary to a viral syndrome. Flu is negative. Patient stated that this is not similar to her migraines. Sounds more like tension headache. -No meningeal signs. -Will consult neurologist. Fever/myalgia -See recommendations as above. -Will give supportive care with IV fluids and Tylenol/ibuprofen when necessary for pain. Chest pain, atypical -this is chronic issue. Troponin order/trend and within normal limits. -Very unlikely cardiac in nature. Transaminitis -Patient has chronic abdominal pain which CT scan is stable from previous admission. Her LFTs are elevated but she does have a history of cholecystectomy. Hepatitis panel negative. Will get ethanol level. Lipid panel review LDL 108 and triglyceride 42. Consult GI. Chronic abdominal pain -This has been chronic. CT treatment as above. SIRS -Most likely secondary to viral illness. Lactic acid normal. -Continue to give supportive care with IV fluids. DVT prophylaxis -Heparin 5000 units q 8 hrs. Magdalena Hess MD May 27, 2017 12:17
[2017-05-27 14:03] LABS: CREATINE KINASE 74 U/L (26-192)
--- NOTE | 2017-05-27 14:11 | HHI.PR ---
Subjective Remarks Follow for headache. Patient main complaint Objective Vitals Vital Signs Date Time Temp Pulse Resp B/P (MAP) Pulse Ox O2 Delivery O2 Flow Rate FiO2 05/27/17 12:18 98.6 99 16 121/74 (90) 98 05/27/17 11:32 99.2 117 23 114/66 (82) 97 05/27/17 08:00 105 05/27/17 07:50 98.4 107 20 110/67 (81) 98 05/27/17 05:22 106 05/27/17 04:01 98.9 115 16 104/55 (71) 96 05/27/17 02:58 05/27/17 02:58 99.5 05/27/17 01:14 101.0 116 18 134/78 (96) 100 Room Air 05/27/17 00:00 100.1 122 20 155/87 (109) 98 I/O 05/26/17 05/26/17 05/26/17 05/27/17 05/27/17 05/27/17 07:00 15:00 23:00 07:00 15:00 23:00 Intake Total 1000 ml Balance 1000 ml Intake IV Total 1000 ml # Voids 1 Result Diagram: 05/27/17 0615 05/27/17 0618 A/P Problem List: (1) SIRS (systemic inflammatory response syndrome) ICD Code: R65.10 - Systemic inflammatory response syndrome (SIRS) of non- infectious origin without acute organ dysfunction Status: Acute (2) Essential hypertension ICD Code: I10 - Essential hypertension Status: Chronic (3) Abdominal pain, acute, generalized ICD Code: R10.84 - Acute generalized abdominal pain Status: Acute (4) Cephalgia ICD Code: R51 - Headache Status: Acute (5) Heart palpitations ICD Code: R00.2 - Palpitations Status: Acute Magdalena Hess MD May 27, 2017 14:11
[2017-05-27 14:18] LABS: HEMOGLOBIN A1a 2.2 %; HEMOGLOBIN A1b 0.5 %; HEMOGLOBIN Ao 53.2 %; HEMOGLOBIN F 1.7 %; HEMOGLOBIN LA1C 1.3 %; HEMOGLOBIN P3 2.4 %
[2017-05-27] MEDS: SODIUM CHLOR 0.9% 1000 ML INJ 1,000 ML IV SCH ×2 (14:44→23:59)
--- NOTE | 2017-05-27 16:43 | PD.CONS ---
HPI History of Present Illness This is a 61 year old female with a history of breast cancer who presented to the emergency room for evaluation of headaches, fever, chills, and chest pressure that she describes as acid reflux. She reports that her symptoms began on Friday and have progressively getting worse. She came to the ER and was given Morphine for her chest discomfort. After receiving this she started having more abdominal discomfort in her right upper quadrant. She also has associated bloating. She reports that she was diagnosed with breast cancer in 2010 and treated with lumpectomy and radiation. She then was found to have recurrence in 2015 and she reports that she ended up having mastectomy and reconstructive surgery in September. She then developed a wound infection with sepsis and pneumonia in October and had a prolonged hospitalization at that time, at which time she underwent debridement and VAC placement for necrosis of right TRAM flap. Of note, CT imaging did note nonspecific soft tissue defect in the anterior abdominal wall the right upper quadrant. Since her surgery, she has had intermittent RUQ discomfort. She denies any diarrhea or bowel changes. Of note, she was evaluated with EGD during that hospitalization (11/13/16)---> Gastritis antrum, irregular zline, hiatal hernia. She denies any issues with liver problems in herself or other family members. She does not drink etoh. She denies any sick contacts, suspicious food, or travel. CT Scan abdomen and pelvis without contrast (05/27/17)---> S/P Cholecystectomy, appendix is normal, hernia and inflammation the intra-abdominal wall similar to April. No etiology for abdominal pain is identified. She reports that her blood pressure meds were recently changed from lisinopril to Clonidine/lisinopril to HCTZ and Clonidine sometime between November and January. (Guerda Pascal) PFSH Past Medical History Breast cancer (right). Heart palpitations GERD Anxiety Hypertension Migraine headache Wound infection from reconstructive surgery Sepsis PNA Hx Respiratory failure Gastritis Past Surgical History Right mastectomy with reconstruction EGD Right breast TRAM flap with subsequent removal of the flap, debridement of the chest wall and placement of wound vac Tubal ligation Hysterectomy Cholecystectomy (Guerda Pascal) Coded Allergies: lisinopril (Verified Allergy, Severe, 05/27/17) lip swelling meperidine (Unverified Allergy, Intermediate, Hallucinations, 05/27/17) Medications Allergies Coded Allergies Type Severity Reaction Last Updated Verified lisinopril Allergy Severe 05/27/17 Yes meperidine Allergy Intermediate Hallucinations 05/27/17 No Active Scripts Medications Dose Route/Sig Max Daily Dose Days Date Category Hydrochlorothiazide 25 Mg Tab 12.5 Mg PO DAILY 04/18/17 Rx [place] (Hydrocodone-Acetaminophen) 5-325 mg Tab 1 Tab PO Q6H PRN 11/14/16 Rx Family History Mother reportedly born with a "bad heart" and att he age of 37 due to a "heart attack. Father- at unknown age due to throat cancer. Pt reported maternal side of the family has breast cancer history; two aunts positive for breast cancer. Social History Pt denied history of alcohol use. Illicit/recreational drug usage was denied. Pt denied nicotine/cigarette use. (Guerda Pascal) Review of Systems Constitutional: COMPLAINS OF: Fatigue, Fever, Weight loss (40 lbs since October) , Chills Cardiovascular: COMPLAINS OF: Chest pain Gastrointestinal: COMPLAINS OF: Abdominal pain, Swelling of Abdomen, Heartburn , DENIES: Black stools, Bloody stools, Constipation, Diarrhea, Hematemesis Neurologic: COMPLAINS OF: Headache Psychiatric: DENIES: Confusion (Guerda Pascal) GI Exam Vitals I&O Vital Signs Date Time Temp Pulse Resp B/P (MAP) Pulse Ox O2 Delivery O2 Flow Rate FiO2 05/27/17 12:18 98.6 99 16 121/74 (90) 98 05/27/17 11:32 99.2 117 23 114/66 (82) 97 05/27/17 08:00 105 05/27/17 07:50 98.4 107 20 110/67 (81) 98 05/27/17 05:22 106 05/27/17 04:01 98.9 115 16 104/55 (71) 96 05/27/17 02:58 05/27/17 02:58 99.5 05/27/17 01:14 101.0 116 18 134/78 (96) 100 Room Air 05/27/17 00:00 100.1 122 20 155/87 (109) 98 I/O 05/26/17 05/26/17 05/26/17 05/27/17 05/27/17 05/27/17 07:00 15:00 23:00 07:00 15:00 23:00 Intake Total 1000 ml Balance 1000 ml Intake IV Total 1000 ml # Voids 1 Imaging Last Impressions Head CT 05/27/1726 Signed Impressions: Service Date/Time: Saturday, May 27, 2017 00:54 - CONCLUSION: Negative noncontrast head CT. Jose Alfredo Albarran MD Chest X-Ray 05/27/1726 Signed Impressions: Service Date/Time: Saturday, May 27, 2017 01:00 - CONCLUSION: No evidence of acute cardiopulmonary disease. Jose Alfredo Albarran MD Abdomen/Pelvis CT 05/27/17 0000 Signed Impressions: Service Date/Time: Saturday, May 27, 2017 10:01 - CONCLUSION: Status post cholecystectomy. The appendix is normal. Hernia and inflammation the intra-abdominal wall similar to April. No etiology for abdominal pain is identified elsewhere. Kai Sarabia MD Laboratory Test 05/27/17 00:20 05/27/17 01:35 05/27/17 06:15 05/27/17 06:18 White Blood Count 6.5 TH/MM3 6.7 TH/MM3 Red Blood Count 3.92 MIL/MM3 3.32 MIL/MM3 Hemoglobin 11.2 GM/DL 9.4 GM/DL Hematocrit 33.1 % 28.3 % Mean Corpuscular Volume 84.4 FL 85.0 FL Mean Corpuscular Hemoglobin 28.5 PG 28.2 PG Mean Corpuscular Hemoglobin Concent 33.8 % 33.2 % Red Cell Distribution Width 13.8 % 13.8 % Platelet Count 256 TH/MM3 227 TH/MM3 Mean Platelet Volume 7.8 FL 7.7 FL Neutrophils (%) (Auto) 42.3 % 48.9 % Lymphocytes (%) (Auto) 44.7 % 37.1 % Monocytes (%) (Auto) 10.2 % 11.2 % Eosinophils (%) (Auto) 2.3 % 2.3 % Basophils (%) (Auto) 0.5 % 0.5 % Neutrophils # (Auto) 2.7 TH/MM3 3.3 TH/MM3 Lymphocytes # (Auto) 2.9 TH/MM3 2.5 TH/MM3 Monocytes # (Auto) 0.7 TH/MM3 0.7 TH/MM3 Eosinophils # (Auto) 0.2 TH/MM3 0.2 TH/MM3 Basophils # (Auto) 0.0 TH/MM3 0.0 TH/MM3 CBC Comment DIFF FINAL DIFF FINAL Differential Comment Urine Color LIGHT-YELLOW Urine Turbidity CLEAR Urine pH 7.0 Urine Specific [place] 1.010 Urine Protein NEG mg/dL Urine Glucose (UA) NEG mg/dL Urine Ketones NEG mg/dL Urine Occult Blood NEG Urine Nitrite NEG Urine Bilirubin NEG Urine Urobilinogen LESS THAN 2.0 MG/DL Urine Leukocyte Esterase NEG Urine RBC LESS THAN 1 /hpf Urine WBC LESS THAN 1 /hpf Urine Squamous Epithelial Cells <1 /hpf Microscopic Urinalysis Comment CULT NOT INDICATED Blood Urea Nitrogen 21 MG/DL 20 MG/DL Creatinine 0.97 MG/DL 0.87 MG/DL Random Glucose 117 MG/DL 117 MG/DL Total Protein 7.6 GM/DL Albumin 3.6 GM/DL Calcium Level 9.4 MG/DL 8.7 MG/DL Magnesium Level 2.4 MG/DL Alkaline Phosphatase 127 U/L Aspartate Amino Transf (AST/SGOT) 151 U/L Alanine Aminotransferase (ALT/SGPT) 129 U/L Total Bilirubin 0.6 MG/DL Sodium Level 143 MEQ/L 143 MEQ/L Potassium Level 3.6 MEQ/L 3.6 MEQ/L Chloride Level 106 MEQ/L 111 MEQ/L Carbon Dioxide Level 28.8 MEQ/L 24.2 MEQ/L Anion Gap 8 MEQ/L 8 MEQ/L Estimat Glomerular Filtration Rate 70 ML/MIN 80 ML/MIN Lactic Acid Level 1.0 mmol/L Total Creatine Kinase 81 U/L 66 U/L Troponin I LESS THAN 0.02 NG/ML LESS THAN 0.02 NG/ML C-Reactive Protein 0.71 MG/DL Prothrombin Time 9.6 SEC Prothromb Time International Ratio 0.9 RATIO Activated Partial Thromboplast Time 23.9 SEC Triglycerides Level 42 MG/DL Cholesterol Level 179 MG/DL LDL Cholesterol 108 MG/DL HDL Cholesterol 62.7 MG/DL Cholesterol/HDL Ratio 2.85 RATIO Test 05/27/17 09:05 05/27/17 13:12 Hepatitis A IgM Antibody NEGATIVE Hepatitis B Surface Antigen NEGATIVE Hepatitis B Core IgM Antibody NEGATIVE Hepatitis C Antibody NEGATIVE Total Creatine Kinase 74 U/L Troponin I LESS THAN 0.02 NG/ML Date/Time Source Procedure Growth Status 05/27/17 00:30 Blood Peripheral Aerobic Blood Culture Pending Received 05/27/17 00:30 Blood Peripheral Anaerobic Blood Culture Pending Received 05/27/17 00:20 Nasal Washing Influenza Types A,B Antigen (ARNALDO) - Final NEGATIVE FOR FLU A AND B ANTIGEN.... Complete Physical Examination HEENT: Normocephalic; atraumatic; no jaundice. CHEST: CTA CARDIAC: RRR. ABDOMEN: Soft, mildly distended, RUQ tenderness; no hepatosplenomegaly; bowel sounds are present in all four quadrants. EXTREMITIES: No clubbing, cyanosis, or edema. SKIN: Normal; no rash; no jaundice. STREET PHOTOGRAPHER: No focal deficits; alert and oriented times three. (Guerda Pascal SCIENCE TECHNICIAN) Assessment and Plan Plan ASSESSMENT: - Elevated LFTs. CT unremarkable other than inflammation in intra-abdominal wall (chronic). T. Bili 0.6, AST 151, ALT 129, Alk Phosph 127 Hepatitis profile negative. Pt with fevers, chills, malaise. Medications recently changed (Lisinopril to HCTZ/Clonidine). Takes hydrocodone, but as directed. No ETOH use. Will check EBV, AFP, RAJ, AMA, ASMA, Ceruloplasmin, Alpha 1 Antitrypsin, Ferritin, Iron Saturation. Will monitor. - RUQ abdominal pain. Intermittent since her surgery, unclear if this is related to her prior surgery or biliary in nature, given elevated LFTs. CT Scan abdomen and pelvis without contrast (05/27/17)---> S/P Cholecystectomy, appendix is normal, hernia and inflammation the intra-abdominal wall similar to April. No etiology for abdominal pain is identified. Of note, she CT scan in November with nonspecific soft tissue defect in anterior abdominal wall in RUQ. Will get MRCP. - Headache with fevers/aches. She does have chronic headaches, but fevers/ chills since Friday. Hepatitis profile pending. Check for EBV. - Chest pain, heart burn. EGD during that hospitalization (11/13/16)---> Gastritis antrum, irregular zline, hiatal hernia. PPI - Hx breast cancer. Dx 2010, had recurrence in 2013. S/P Mastectomy/ reconstruction, then had prolonged hospitalization for wound infection debridement and VAC placement for necrosis of right TRAM flap. She reports that her oncologist recommended Chemotherapy pill, but she declined. PLAN: - SARA - MRCP - EBV - AFP - Ferritin, Iron Saturation - Ceruloplasmin, Alpha 1 Antitrypsin - RAJ, AMA, ASMA - Monitor LFTs - Acetaminophen level from admission - Supportive care - Further recommendations to follow based on results of above - Pt seen and examined by Dr. Bourne and myself and this note is written on his behalf (Guerda Pascal) Physician Comments Seen and examined with SCIENCE TECHNICIAN, Liver watt ordered. Check MRCP. Colonoscopy inpt. vs. out pt. THankyou (Yosvany Bourne MD) Guerda Pascal May 27, 2017 16:43 Yosvany Bourne MD May 27, 2017 17:14
[2017-05-27] MEDS ORDERED: SODIUM CHLORID 0.9% 500 ML IV PRN (17:15)
[2017-05-27] MEDS ORDERED: CHLORHEXIDINE GLUCONATE 2 % 1 PACK (2 CLOTHS) TOPICAL PRN (17:15)
[2017-05-27] MEDS ORDERED: POVIDONE IODINE 5% (ANTISEPSIS KIT) 4 APPLICATIONS EACH NARE PRN (17:15)
[2017-05-27] MEDS ORDERED: LACTATED RINGER'S 1000 ML IV PRN (17:15)
[2017-05-27] MEDS ORDERED: METOPROLOL TARTRATE 25 MG TAB PO PRN (17:15)
--- NOTE | 2017-05-27 19:03 | EKG ---
Date Performed: 05/27/2017 Time Performed: 07:07:39 PTAGE: 61 years EKG: SINUS TACHYCARDIA Since previous tracing, no significant change noted ABNORMAL RHYTHM ECG PREVIOUS TRACING : 05/27/2017 01.11 DOCTOR: Joby Mccarty Interpretating Date/Time 05/27/2017 19:03:21
--- NOTE | 2017-05-27 19:03 | EKG ---
Date Performed: 05/27/2017 Time Performed: 01:11:07 PTAGE: 61 years EKG: SINUS TACHYCARDIA Since previous tracing, no significant change noted ABNORMAL RHYTHM ECG PREVIOUS TRACING : 10/24/2016 13.32 DOCTOR: Joby Mccarty Interpretating Date/Time 05/27/2017 19:02:59
[2017-05-27 20:22] LABS: ACETAMINOPHEN LESS THAN 2.0 MCG/ML (10.0-30.0); TRANSFERRIN IRON PROFILE 174 MG/DL (200-360)
[2017-05-27 20:25] LABS: FERRITIN 438 NG/ML (8-252)
--- NOTE | 2017-05-27 20:54 | MB ---
cc: DANN CAMARGO MD DATE OF CONSULTATION 05/27/17 REASON FOR CONSULTATION Headache HISTORY OF PRESENT ILLNESS Ms. Fink is a 61-year-old -Welsh female with past medical history of breast cancer right side diagnosed in June 2016 followed by mastectomy, in October 2015 followed by deep x-ray therapy. Recently, she was diagnosed with necrosis of the breast implant and reconstruction surgery and she underwent another surgical intervention with removal of the breast implant. The patient denies history of headache or migraine, but recently over the last two weeks she has had some frontal headache, "onto the top of my head and light pressure on the scalp" tend to relieve the headache. Denies any radiation of the pain. Pain is constant, dull. There is no burning quality. no associated double vision, blurred vision, slurred speech, nausea or vomiting. Denies phonophobia or photophobia. There is mild neck spasm and myalgias. She also endorses fever and occasional night sweats and she has lost some weight after she has done her gastric surgery. The patient denies history of TIA, stroke or recent head trauma. Denies any episode of disorientation or convulsions. REVIEW OF SYSTEMS A 12 point review of system was negative except for what is stated in the HPI. PAST MEDICAL HISTORY 1. Breast cancer right side 2. Tachycardia, 3. Gastroesophageal reflux disease, 4. Anxiety, hypertension. PAST SURGICAL HISTORY 1. Right mastectomy with reconstruction 2. Tummy tuck 3. Tubal ligation, 4. Hysterectomy, 5. Cholecystectomy 6. Deep x-ray therapy for the right breast. MEDICATIONS 1. Hydrochlorothiazide. 2. [place]. ALLERGIES LISINOPRIL - LIP SWELLING MEPERIDINE FAMILY HISTORY Mother reportedly at a young age because of a heart attack. Father with throat cancer, history of throat cancer and positive family history for breast cancer. SOCIAL HISTORY Denies alcohol use, cigarette use or illicit drug abuse. PHYSICAL EXAMINATION GENERAL: Lays in bed comfortably, pleasant, good historian not in apparent distress HEENT: Atraumatic, normocephalic. Intact hearing. Intact vision. NECK: Trachea midline. No carotid bruit. No signs of meningeal irritation. CARDIOVASCULAR: Regular rate and rhythm. RESPIRATORY: Clear to auscultation. No wheezes GASTROINTESTINAL: Soft abdomen, no tenderness or distension. MUSCULOSKELETAL: Extremities without clubbing, cyanosis or edema. NEUROLOGIC: Awake, alert, oriented to time, person and place. No dysarthria or dysphagia. No signs of meningeal irritation. Negative Kernig's or Brudzinski sign. Cranial nerves II-XII are grossly intact. No diplopia. No nystagmus. No temporal tenderness. As a matter of fact pressing on the temples relieves the headache. Upper and lower extremities 5/5 throughout. No abnormal movement. Normal tone. Ezifcm-rf-cqny, ypdr-xp-[id number] is intact bilateral and symmetrical. Sensation is intact throughout. PSYCHIATRIC: Cooperative. No hallucinations. Normal mood and behavior. LABORATORY DATA WBC 6.7, hemoglobin 9.4, MCV 85, platelet 227. Sodium 143, potassium 3.6, anion gap eight, BUN 20, creatinine 0.87, A1c 6.1, calcium 8.7, CK 74, triglyceride 42 , cholesterol 179, LDL elevated at 108, HDL 62.7. IMAGING STUDIES - Head CT scan is reported as negative. DIAGNOSTIC IMPRESSION 1. New onset headache May be secondary to a viral/inflammatory disorder, unlikely of COUNTY DIRECTOR origin, less likely a meningeal encephalitic process or migrainous in time. A less likely possibility is temporal arteritis. Medication overuse headache. The patient has been on [place] at home. 2. Hypertension. 3. Tachycardia. 4. Anxiety. PLAN 1. Neuro checks q. four hourly 2. Hold opiate medication/taper down opiate 3. Nortriptyline 10 mg nightly 4. Tylenol 500 mg as needed q. six hourly. 5. Continue current supportive medical therapy. 6. Obtain sed rate and C-reactive protein in the blood. 7. DVT prophylaxis. 8. GI prophylaxis. Thank you for the opportunity to participate in the care of your patient. MD RIZWANA Tanner/ /8:17 PM /8:36 PM FELA
[2017-05-27] MEDS ORDERED: NORTRIPTYLINE HCL 10 MG CAP PO SCH (21:00)
[2017-05-28] VITALS: BP 122/76; PULSE 98; RESP 18; TEMP 98.5; O2SAT 98
[2017-05-28 04:00] VITALS: BP 119/72; PULSE 105; RESP 18; TEMP 99.2; O2SAT 97
[2017-05-28] MEDS: ACETAMINOPHEN 500 MG CPLT PO PRN ×2 (04:37→11:30)
[2017-05-28] MEDS: HEPARIN SODIUM - SQ 10,000 UNITS/ML VIAL SQ SCH ×2 (05:48→14:00)
[2017-05-28 06:26] LABS: HEMATOCRIT 28.4 % (35.0-46.0); MEAN CORPUSCULAR HEMOGLOBIN 28.2 PG (27.0-34.0); MEAN CORPUSCULAR HGB CONC 33.2 % (32.0-36.0); PLATELET COUNT 218 TH/MM3 (150-450); RED BLOOD COUNT 3.34 MIL/MM3 (4.00-5.30); RED CELL DISTRIBUTION WIDTH 13.9 % (11.6-17.2); REVIEW FLAG FINAL; WHITE BLOOD COUNT 5.5 TH/MM3 (4.0-11.0)
[2017-05-28 06:53] LABS: ANION GAP 7 MEQ/L (5-15); AST (GOT) 112 U/L (15-37); BICARBONATE 26.1 MEQ/L (21.0-32.0); BLOOD UREA NITROGEN 17 MG/DL (7-18); CHLORIDE 110 MEQ/L (98-107); GLOMERULAR FILTRATION RATE 90 ML/MIN (>89); POTASSIUM 3.8 MEQ/L (3.5-5.1); SODIUM (NA) 143 MEQ/L (136-145)
[2017-05-28 07:00] LABS: ALKALINE PHOSPHATASE 124 U/L (45-117); ALT (GPT) 181 U/L (10-53)
[2017-05-28 08:00] VITALS: PULSE 145
[2017-05-28 08:15] VITALS: BP 115/66; PULSE 103; RESP 20; TEMP 98.6; O2SAT 96
[2017-05-28] MEDS: SODIUM CHLORIDE 0.9% FLUSH 10 ML FLUSH IV FLUSH SCH (09:00)
[2017-05-28] MEDS: HYDROCHLOROTHIAZIDE 12.5 MG CAP PO SCH (09:24)
--- NOTE | 2017-05-28 09:25 | RADRPT ---
EXAM DATE/TIME: 05/28/2017 08:10 [place] COMPARISON: No previous studies available for comparison. INDICATIONS : Abdominal pain. MEDICAL HISTORY : Hypertension. Carcinoma, breast. SURGICAL HISTORY : Hysterectomy. Cholecystectomy. Tubal ligation. mastectomy ENCOUNTER: Subsequent ACUITY: 2 day PAIN SCORE: 3/10 LOCATION: middle abdomen TECHNIQUE: Multiplanar, multisequence magnetic resonance imaging of the abdomen was performed. H igh-resolution 3D dataset was utilized to reconstruct maximum-intensity projection (MIP) images. FINDINGS: INTRAHEPATIC BILE DUCTS: Within normal limits. No significant anatomical variant is present. EXTRAHEPATIC BILE DUCTS: The common bile duct measures 9mm. No stone or filling defect is identi fied. GALLBLADDER: Status post cholecystectomy LIVER: Normal size and signal intensity. No concerning liver lesion is identified on this non-con trast exam other than 2 benign cysts. PANCREAS: The main pancreatic duct is normal in size. There is no significant anatomical variant . Signal intensity is within normal limits. No mass is visualized on this non-contrast exam. OTHER: The remaining visualized structures demonstrate no acute abnormality on this non-contrast exam. Stable inflammation the anterior lower abdominal wall CONCLUSION: Status post cholecystectomy. No evidence of free fluid or obstruction. No retained st one is noted. Kai Sarabia MD on May 28, 2017 at 9:21 Board Certified Radiologist. This report was verified electronically.
[2017-05-28] MEDS: SODIUM CHLOR 0.9% 1000 ML INJ 1,000 ML IV SCH (09:26)
--- NOTE | 2017-05-28 09:49 | EKG ---
Date Performed: 05/27/2017 Time Performed: 17:02:46 PTAGE: 61 years EKG: SINUS TACHYCARDIA ABNORMAL RHYTHM ECG PREVIOUS TRACING : 05/27/2017 07.07 DOCTOR: Kai Casanova Interpretating Date/Time 05/28/2017 09:47:06
[2017-05-28 11:20] VITALS: BP 124/75; PULSE 101; RESP 20; TEMP 98.2; O2SAT 99
--- NOTE | 2017-05-28 14:27 | HHI.PR ---
Review/Management Diagnosis - New onset headache Likely related to medication over use headache, patient has been on [place] at home. 2. Hypertension. 3. Tachycardia. 4. Anxiety. Plan 1. Neurologic exam is non focal 2. Hold opiate medication/taper down opiate 3. Nortriptyline 10 mg nightly 4. Tylenol 500 mg as needed q. six hourly. 5. Continue current supportive medical therapy. 6. DVT prophylaxis. 7. Continue Nortriptyline 10mg nightly and Tylenol prn for 4 weeks 8. Follow up neurology as outpatient 9. Please francisco javier for questions Diagnosis/Plan: Subjective Subjective Comments Sits on a chair Denies headache States that she slept well overnight Mild elevation of sed rate and elevated CRP Active Medications Current Medications Medications (Trade) Dose Ordered Sig/Audie Route Start Time Stop Time Status Last Admin (Microzide) 12.5 mg DAILY PO 05/27/17 09:00 05/28/17 09:24 (NS Flush) 2 ml BID IV FLUSH 05/27/17 09:00 05/27/17 08:28 (NS Flush) 2 ml UNSCH PRN IV FLUSH 05/27/17 02:45 05/27/17 06:13 (Morphine Inj) 2 mg Q30M PRN IV 05/27/17 02:45 05/27/17 06:12 (Heparin Inj) 5,000 units Q8H SQ 05/27/17 06:00 05/28/17 05:48 Sodium Chloride 1,000 ml @ 100 mls/hr Q10H IV 05/27/17 12:30 05/28/17 09:26 Lactated Ringer's 1,000 ml @ 30 mls/hr Q24H PRN IV 05/27/17 17:15 05/30/17 17:14 Sodium Chloride 500 ml @ 30 mls/hr [id number] PRN IV 05/27/17 17:15 05/30/17 17:14 (Lopressor) 25 mg COMPUTER AIDED DESIGN TECHNICIAN PRN PO 05/27/17 17:15 05/30/17 17:14 (Betadine 5% Antisepsis Kit) 1 applic COMPUTER AIDED DESIGN TECHNICIAN PRN EACH NARE 05/27/17 17:15 05/30/17 17:14 (Chlorhexidine 2% Cloth) 3 pack COMPUTER AIDED DESIGN TECHNICIAN PRN TOPICAL 05/27/17 17:15 05/30/17 17:14 (Pamelor) 10 mg HS PO 05/27/17 21:00 05/27/17 21:03 (Tylenol) 500 mg Q6H PRN PO 05/27/17 20:30 05/28/17 11:30 Allergies Allergies Coded Allergies lisinopril (Verified Allergy, Severe, 05/27/17) meperidine (Unverified Allergy, Intermediate, Hallucinations, 05/27/17) Review of Systems All other ROS: ROS reviewed as documented in chart Exam I&O / VS 05/28/17 05/28/17 05/29/17 15:00 23:00 07:00 Intake Total 600 ml Balance 600 ml Intake Oral 600 ml # Voids 3 # Bowel Movements 0 Vital Signs Date Time Temp Pulse Resp B/P (MAP) Pulse Ox O2 Delivery O2 Flow Rate FiO2 05/28/17 11:20 98.2 101 20 124/75 (91) 99 05/28/17 08:15 98.6 103 20 115/66 (82) 96 05/28/17 05:49 18 05/28/17 04:00 99.2 105 18 119/72 (88) 97 05/28/17 00:00 98.5 98 18 122/76 (91) 98 05/27/17 20:00 119 05/27/17 20:00 98.8 100 18 120/61 (80) 98 05/27/17 16:00 98.4 114 16 123/78 (93) 99 Exam Comments GENERAL: Sits on a chair comfortably, pleasant, good historian not in apparent distress HEENT: Atraumatic, normocephalic. Intact hearing. Intact vision. NECK: Trachea midline. No carotid bruit. No signs of meningeal irritation. CARDIOVASCULAR: Regular rate and rhythm. RESPIRATORY: Clear to auscultation. No wheezes GASTROINTESTINAL: Soft abdomen, no tenderness or distension. MUSCULOSKELETAL: Extremities without clubbing, cyanosis or edema. NEUROLOGIC: Awake, alert, oriented to time, person and place. No dysarthria or dysphagia. No signs of meningeal irritation. Negative Kernig's or Brudzinski sign. Cranial nerves II-XII are grossly intact. No diplopia. No nystagmus. No temporal tenderness. As a matter of fact pressing on the temples relieves the headache. Upper and lower extremities 5/5 throughout. No abnormal movement. Normal tone. Cwqglb-je-tiie, ihvb-[id number] is intact bilateral and symmetrical. Sensation is intact throughout. PSYCHIATRIC: Cooperative. No hallucinations. Normal mood and behavior. Objective Radiology Results Last 72 hours Impressions Cholangiopancreatography MRI 05/28/17 0000 Signed Impressions: Service Date/Time: Sunday, May 28, 2017 08:10 - CONCLUSION: Status post cholecystectomy. No evidence of free fluid or obstruction. No retained stone is noted. Kai Sarabia MD Head CT 05/27/17 002 Signed Impressions: Service Date/Time: Saturday, May 27, 2017 00:54 - CONCLUSION: Negative noncontrast head CT. Jose Alfredo Albarran MD Chest X-Ray 05/27/1726 Signed Impressions: Service Date/Time: Saturday, May 27, 2017 01:00 - CONCLUSION: No evidence of acute cardiopulmonary disease. Jose Alfredo Albarran MD Abdomen/Pelvis CT 05/27/17 0000 Signed Impressions: Service Date/Time: Saturday, May 27, 2017 10:01 - CONCLUSION: Status post cholecystectomy. The appendix is normal. Hernia and inflammation the intra-abdominal wall similar to April. No etiology for abdominal pain is identified elsewhere. Kai Sarabia MD Micro and Labs Laboratory Tests Test 05/27/17 19:13 05/27/17 19:14 05/28/17 06:03 Iron Level 62 Total Iron Binding Capacity 244 Percent Iron Saturation 25.5 Ferritin 438 C-Reactive Protein 0.75 Acetaminophen Level LESS THAN 2.0 Tumor Marker Alpha Fetoprotein 4.7 Anti-Nuclear Antibody Screen NEG White Blood Count 5.5 Red Blood Count 3.34 Hemoglobin 9.4 Hematocrit 28.4 Mean Corpuscular Volume 85.0 Mean Corpuscular Hemoglobin 28.2 Mean Corpuscular Hemoglobin Concent 33.2 Red Cell Distribution Width 13.9 Platelet Count 218 Mean Platelet Volume 7.7 Erythrocyte Sedimentation Rate 31 Blood Urea Nitrogen 17 Creatinine 0.78 Random Glucose 137 Total Protein 6.4 Albumin 2.8 Calcium Level 8.8 Alkaline Phosphatase 124 Aspartate Amino Transf (AST/SGOT) 112 Alanine Aminotransferase (ALT/SGPT) 181 Total Bilirubin 1.0 Sodium Level 143 Potassium Level 3.8 Chloride Level 110 Carbon Dioxide Level 26.1 Anion Gap 7 Estimat Glomerular Filtration Rate 90 Date/Time Source Procedure Growth Status 05/27/17 00:30 Blood Peripheral Aerobic Blood Culture - Preliminary NO GROWTH IN 1 DAY Resulted 05/27/17 00:30 Blood Peripheral Anaerobic Blood Culture - Preliminary NO GROWTH IN 1 DAY Resulted 05/27/17 00:20 Nasal Washing Influenza Types A,B Antigen (ARNALDO) - Final NEGATIVE FOR FLU A AND B ANTIGEN.... Complete Gwen Griffin MD May 28, 2017 14:27
--- NOTE | 2017-05-28 15:16 | HHI.PR ---
Subjective Remarks feels well no headaches, nausea or vomiting no abdominal pain complains of frequent nasal congestion. sneezing Objective Vitals Vital Signs Date Time Temp Pulse Resp B/P (MAP) Pulse Ox O2 Delivery O2 Flow Rate FiO2 05/28/17 11:20 98.2 101 20 124/75 (91) 99 05/28/17 08:15 98.6 103 20 115/66 (82) 96 05/28/17 05:49 18 05/28/17 04:00 99.2 105 18 119/72 (88) 97 05/28/17 00:00 98.5 98 18 122/76 (91) 98 05/27/17 20:00 119 05/27/17 20:00 98.8 100 18 120/61 (80) 98 05/27/17 16:00 98.4 114 16 123/78 (93) 99 I/O 05/27/17 05/27/17 05/27/17 05/28/17 05/28/17 05/28/17 07:00 15:00 23:00 07:00 15:00 23:00 Intake Total 1000 ml 480 ml 2055 ml 600 ml Balance 1000 ml 480 ml 2055 ml 600 ml Intake Oral 480 ml 480 ml 600 ml IV Total 1000 ml 1575 ml # Voids 1 2 3 # Bowel Movements 0 Result Diagram: 05/28/17 0603 05/28/17 0603 Imaging Last Impressions Cholangiopancreatography MRI 05/28/17 0000 Signed Impressions: Service Date/Time: Sunday, May 28, 2017 08:10 - CONCLUSION: Status post cholecystectomy. No evidence of free fluid or obstruction. No retained stone is noted. Kai Sarabia MD Head CT 05/27/1726 Signed Impressions: Service Date/Time: Saturday, May 27, 2017 00:54 - CONCLUSION: Negative noncontrast head CT. Jose Alfredo Albarran MD Chest X-Ray 05/27/1726 Signed Impressions: Service Date/Time: Saturday, May 27, 2017 01:00 - CONCLUSION: No evidence of acute cardiopulmonary disease. Jose Alfredo Albarran MD Abdomen/Pelvis CT 05/27/17 0000 Signed Impressions: Service Date/Time: Saturday, May 27, 2017 10:01 - CONCLUSION: Status post cholecystectomy. The appendix is normal. Hernia and inflammation the intra-abdominal wall similar to April. No etiology for abdominal pain is identified elsewhere. Kai Sarabia MD Objective Remarks anicteric no nuchal rigidity lungs clear regular rhythm abdomen soft, nontender extremities no edema neuro exam non focal A/P Problem List: (1) SIRS (systemic inflammatory response syndrome) ICD Code: R65.10 - Systemic inflammatory response syndrome (SIRS) of non- infectious origin without acute organ dysfunction Status: Acute (2) Essential hypertension ICD Code: I10 - Essential hypertension Status: Chronic (3) Abdominal pain, acute, generalized ICD Code: R10.84 - Acute generalized abdominal pain Status: Acute (4) Cephalgia ICD Code: R51 - Headache Status: Acute (5) Heart palpitations ICD Code: R00.2 - Palpitations Status: Acute Assessment and Plan Ms. Fink is 61 yo, with history of migraine headaches who is complaining of a different type of headache, muscle aches and fevers Headache- improved - discussed with her to use [place] sparingly -This is her main complaints. Patient also has muscle aches and fevers. This may be secondary to a viral syndrome. Flu is negative. Patient stated that this is not similar to her migraines. Sounds more like tension headache. -No meningeal signs. - cleared by neurologist for - frequent nasal congestions with heachaces and sneezing- trail of steroid nasal spray- - treat as allergic rhinistis/ possible sinusitis- OP referral to ENT if persists through PCP- d/w her Chest pain, atypical -this is chronic issue. Troponin order/trend and within normal limits. -Very unlikely cardiac in nature. Transaminitis -Patient has chronic abdominal pain which CT scan is stable from previous admission. Her LFTs are elevated but she does have a history of cholecystectomy. Hepatitis panel negative. Will get ethanol level. Lipid panel review LDL 108 and triglyceride 42. d/w her OP ff up with GI- Dr. Lord advised no Tylenols PTC Motrin for pain on full stomach Chronic abdominal pain -This has been chronic. CT treatment as above. SIRS -Most likely secondary to viral illness. Lactic acid normal. DVT prophylaxis -Heparin 5000 units q 8 hrs. DC today aOP ff up with Vaibhav Hudson MD May 28, 2017 15:16
[2017-05-28 15:25] VITALS: BP 116/72; PULSE 111; RESP 20; TEMP 99; O2SAT 99
[2017-05-28] MEDS ORDERED: NORT10CA PO (15:30)
[2017-05-28] MEDS ORDERED: FLUT50SP EACH NARE (15:37)
[2017-05-28] MEDS ORDERED: FLUTICASONE PROPIONATE 50 MCG/ACT 16 GM NASAL SPRAY NASAL SCH (16:00)
[2017-06-02 23:51] LABS: MITOCHONDRIAL ABS LESS THAN 20.0 U (<=20.0)
== END 2017-05-28 19:29 | disposition home or self-care (01) | DRG 866 ==
LOC: NEPC 23:58 → NEDA 05-27 02:34 → NEPFCDU 05-27 03:23 → OBSVTOIN 05-27 03:55 → N05A 05-27 12:07
PROVIDERS: ADMIT Internal Medicine; ATTEND Internal Medicine
DX: B34.9 Viral infection, unspecified (principal); R65.10 Systemic inflammatory response syndrome (SIRS) of non-infectious origin without acute organ dysfunction; G44.40 Drug-induced headache, not elsewhere classified, not intractable; R07.89 Other chest pain; I10 Essential (primary) hypertension; K21.9 Gastro-esophageal reflux disease without esophagitis; R10.11 Right upper quadrant pain; R00.2 Palpitations; K29.70 Gastritis, unspecified, without bleeding; R79.89 Other specified abnormal findings of blood chemistry; R00.0 Tachycardia, unspecified; R74.8 Abnormal levels of other serum enzymes; M19.90 Unspecified osteoarthritis, unspecified site; M79.1 Myalgia; F41.9 Anxiety disorder, unspecified; G89.29 Other chronic pain; T40.2X5A Adverse effect of other opioids, initial encounter; Z85.3 Personal history of malignant neoplasm of breast; Z90.11 Acquired absence of right breast and nipple; Z92.3 Personal history of irradiation
CPT/HCPCS: 70450; 71010; 74176; 74181; 76377; 80048; 80053; 80061; 80074; 80307; 81001; 82103; 82105; 82390; 82550; 82728; 83036; 83520; 83540; 83550; 83605; 83735; 84484; 85025; 85027; 85610; 85652; 85730; 86038; 86140; 86255; 87040; 87804; 93005; 96361; 96374; J1644; J2270; J2405; J7030; Q9963

== ENCOUNTER → 2017-07-18 | Outpatient (CLI) | payer OTHER ==
[~2017-07-18] MED LIST changes: -ALPR.25 PO; -FERR325T18 PO; +FLUT50SP EACH NARE; -NORC5TAB PO; +NORT10CA PO
[2017-07-18 12:58] LABS: AUTOMATED NEUTROPHIL # 2.9 TH/MM3 (1.8-7.7); BASOPHIL # 0.1 TH/MM3 (0-0.2); BASOPHIL % 0.9 % (0.0-2.0); EOSINOPHIL # 0.4 TH/MM3 (0-0.4); HEMATOCRIT 34.6 % (35.0-46.0); HEMOGLOBIN 11.4 GM/DL (11.6-15.3); LYMPH % 40.2 % (9.0-44.0); LYMPHOCYTE # 2.5 TH/MM3 (1.0-4.8); MEAN CELL VOLUME 82.6 FL (80.0-100.0); MEAN CORPUSCULAR HEMOGLOBIN 27.2 PG (27.0-34.0); MEAN CORPUSCULAR HGB CONC 32.9 % (32.0-36.0); MEAN PLATELET VOLUME 7.8 FL (7.0-11.0); MONO % 6.9 % (0.0-8.0); MONOCYTE # 0.4 TH/MM3 (0-0.9); PLATELET COUNT 288 TH/MM3 (150-450); RED BLOOD COUNT 4.18 MIL/MM3 (4.00-5.30); WHITE BLOOD COUNT 6.2 TH/MM3 (4.0-11.0)
[2017-07-18 13:19] LABS: CHOLESTEROL 246 MG/DL (120-200); TRIGLYCERIDES 70 MG/DL (42-150)
[2017-07-18 13:21] LABS: ALBUMIN 3.7 GM/DL (3.4-5.0); AMYLASE 40 U/L (25-115); AST (GOT) 30 U/L (15-37); BLOOD UREA NITROGEN 19 MG/DL (7-18); CALCIUM 9.1 MG/DL (8.5-10.1); CHLORIDE 106 MEQ/L (98-107); CREATININE 1.01 MG/DL (0.50-1.00); GLOMERULAR FILTRATION RATE 67 ML/MIN (>89); GLUCOSE,FASTING 99 MG/DL (74-99); LIPASE 122 U/L (73-393); SODIUM (NA) 139 MEQ/L (136-145)
[2017-07-18 13:28] LABS: ALKALINE PHOSPHATASE 117 U/L (45-117); ALT (GPT) 35 U/L (10-53); CHOLESTEROL/ HDL RATIO 3.61 RATIO; HDL CHOLESTEROL 68.1 MG/DL (40.0-60.0); LDL CHOLESTEROL 164 MG/DL (0-99); TOTAL BILIRUBIN ADULT 0.5 MG/DL (0.2-1.0); TOTAL PROTEIN 7.8 GM/DL (6.4-8.2)
== END ==
LOC: CLAB 12:29
DX: R10.9 Unspecified abdominal pain (principal)
CPT/HCPCS: 36415; 80053; 80061; 82150; 83690; 84443; 85025

== ENCOUNTER 2017-10-01 09:01 | Day surgery (SDC) | payer OTHER ==
[~2017-10-01] VITALS: Ht 162.6 cm; Wt 81.8 kg
[2017-10-01] MEDS ORDERED: VITA1000 PO (09:18)
[2017-10-01] MEDS ORDERED: IBUP1TAB5 PO (09:18)
[2017-10-01] MEDS ORDERED: ASPI81CH6 CHEW (09:18)
[2017-10-01] MEDS ORDERED: HYDR-3516 PO (09:21)
[2017-10-01] MEDS ORDERED: CYAN1TAB8 PO (09:21)
[2017-10-01 09:24] VITALS: BP 149/97; PULSE 85; RESP 20; TEMP 98.2; O2SAT 93
[2017-10-01] MEDS ORDERED: SODIUM CHLORIDE 0.9% 1000 ML IV SCH (09:30)
[2017-10-01] MEDS ORDERED: fentaNYL CITRATE 250 MCG/5 ML AMP ONE (09:52)
[2017-10-01] MEDS ORDERED: MIDAZOLAM HCL 2 MG/2 ML VIAL ONE (09:52)
[2017-10-01 10:42] VITALS: BP 110/70; PULSE 73; RESP 17; TEMP 97.8; O2SAT 92
--- NOTE | 2017-10-01 10:46 | PD.RAD ---
Post CT Procedure Prog Note Pre Procedure Diagnosis: (1) Abdominal wall seroma (2) Abdominal pain, acute, generalized (3) Surgical wound infection Post Procedure Diagnosis: (1) Abdominal wall seroma (2) Abdominal pain, acute, generalized (3) Surgical wound infection Procedure Date: Oct 01, 2017 Supervising Radiologist: Eze Duffy Anesthesia: Local, Conscious Sedation Plan of Activity Patient to Unit: ROPU Patient Condition: Good See PACS Report for procedural detail/treatment Drainage Procedure Procedure 1 Imaging Guidance: CT Side: Right Procedure Type: Aspiration Procedure: Removal Sami: 6 Drainage: Suction Fluid Removal (CCs): 250 Fluid Description: Cloudy, Yellow Findings: Large Anterior abdominal wall seroma Eze Duffy MD Oct 01, 2017 10:46
[2017-10-01 10:57] VITALS: BP 111/68; PULSE 68; RESP 18; O2SAT 97
[2017-10-01] MEDS ORDERED: LIDOCAINE 1%/EPINEPHrine 1:100,000 SOLN 50 ML VIAL OTHER ONE (11:15)
--- NOTE | 2017-10-01 11:24 | RADRPT ---
EXAM DATE/TIME: 10/01/2017 10:12 [facility] COMPARISON: No previous studies available for comparison. INDICATIONS : Postoperative abdominal seroma. SEDATION TIME: 30 minutes MEDICATION(S): 1.) 2 mg midazolam (Versed) IV 2.) 250 mcg fentanyl (Sublimaze) IV DEVICE(S): 1.) 18 gauge Cordero blunt needle 2.) 6 Fr [place] FLUID: Total volume of 250 cc of cloudy, yellow fluid was removed. Fluid was sent for laboratory ordered studies. MEDICAL HISTORY : Carcinoma, breast. SURGICAL HISTORY : Mastectomy, right. Cholecystectomy. Hysterectomy. ENCOUNTER: Initial ACUITY: 1 day PAIN SCORE: 0/10 LOCATION: anterior PROCEDURE: 1.) Conscious sedation with continuous EKG and oximetry monitoring. PROCEDURE : CT guided drainage of an anterior abdominal wall fluid collection. The risks, benefits and alternatives to the procedure were explained and verbal and written consent w as obtained. Using automated exposure control and adjustment of the mA and/or kV according to patien t size, radiation dose was kept as low as reasonably achievable to obtain optimal diagnostic quality images. The site was prepped in sterile fashion. Full sterile technique was used, including cap, ma sk, sterile gloves and gown and a large sterile sheet. Hand hygiene and 2% chlorhexidine and/or beta dine/alcohol prep was utilized per protocol for cutaneous antisepsis. The skin and subcutaneous tiss ues were infiltrated with local anesthetic solution. DICOM format image data is available electronic ally for review and comparison. A 6 Malay all-purpose drainage catheter was inserted into the anterior abdominal wall fluid collecti on. The entire contents of the collection was aspirated yielding 250 cc of cloudy yellow fluid. CONCLUSION: Uncomplicated CT-guided aspiration of an anterior abdominal wall fluid collection as above. Specimen sent for culture and sensitivity. Eze Duffy MD on October 01, 2017 at 11:20 Board Certified Radiologist. This report was verified electronically.
[2017-10-01 11:57] VITALS: BP 106/65; PULSE 75; RESP 18; O2SAT 95
== END 2017-10-01 14:00 | disposition home or self-care (01) ==
LOC: HRIP 09:01 → HRAD 09:01
PROVIDERS: ATTEND Surgery
DX: L76.34 Postprocedural seroma of skin and subcutaneous tissue following other procedure (principal)
CPT/HCPCS: 10022; 77012; 87015; 87070; 87102; 87116; 87205; 87206; 99152; 99153; C1729; C1769; J2250; J3010; J7030

== ENCOUNTER 2017-11-14 08:04 | Day surgery (SDC) | payer OTHER ==
[~2017-11-14] VITALS: Ht 175.3 cm; Wt 81.8 kg
[~2017-11-14 08:04] MED LIST changes: +ASPI81CH6 CHEW; +CYAN1TAB8 PO; -FLUT50SP EACH NARE; +HYDR-3516 PO; +IBUP1TAB5 PO; -NORT10CA PO; +VITA1000 PO
[2017-11-14] MEDS ORDERED: LIDOCAINE HCL 1% 10 ML VIAL OTHER ONE (08:05)
[2017-11-14 08:20] VITALS: BP 134/96; PULSE 71; RESP 18; TEMP 97.9; O2SAT 93
[2017-11-14 08:30] VITALS: BP 134/96; PULSE 71; RESP 17; TEMP 97.9; O2SAT 93
[2017-11-14] MEDS ORDERED: SODIUM CHLORIDE 0.9% 1000 ML IV SCH (08:45)
[2017-11-14] MEDS ORDERED: STERILE WATER FOR INJECTION 10 ML VIAL ONE (09:25)
[2017-11-14 10:03] VITALS: BP 116/73; PULSE 67; RESP 18; TEMP 97.6; O2SAT 92
[2017-11-14 10:18] VITALS: BP 123/80; PULSE 67; RESP 17; O2SAT 95
--- NOTE | 2017-11-14 10:36 | RADRPT ---
EXAM DATE/TIME: 11/14/2017 09:27 [facility] COMPARISON: CT GUIDED ASPIRATION, October 01, 2017, 10:12. INDICATIONS : Post surgical seroma. MEDICATION(S): 1.) 100 mcg fentanyl (Sublimaze) IV DEVICE(S): 1.) 10 Fr [place] FLUID: Total volume of 175 cc of cloudy, yellow fluid was removed. Fluid was discarded. MEDICAL HISTORY : Carcinoma, breast. Hypertension. SURGICAL HISTORY : Hysterectomy. Mastectomy, right. hernia repair, ENCOUNTER: Initial ACUITY: 1 day PAIN SCORE: 0/10 LOCATION: abdomen PROCEDURE: 1.) Conscious sedation with continuous EKG and oximetry monitoring. 2.) EKG and oximetry remained stable throughout the procedure. PROCEDURE : CT guided aspiration and sclerosis with Betadine of postsurgical seroma. The risks, benefits and alternatives to the procedure were explained and verbal and written consent w as obtained. Using automated exposure control and adjustment of the mA and/or kV according to patien t size, radiation dose was kept as low as reasonably achievable to obtain optimal diagnostic quality images. The site was prepped in sterile fashion. Full sterile technique was used, including cap, ma sk, sterile gloves and gown and a large sterile sheet. Hand hygiene and 2% chlorhexidine and/or beta dine/alcohol prep was utilized per protocol for cutaneous antisepsis. The skin and subcutaneous tiss ues were infiltrated with local anesthetic solution. DICOM format image data is available electronic ally for review and comparison. 10 transcatheter was placed in seroma. Fluid was removed. Seroma was irrigated clear with normal sa line in the usual sterile fashion. 30 cc of Betadine solution were instilled and allowed to dwell for 30 minutes. Betadine was then rem kath. Followup CT scan reveals no residual seroma. Midline abdominal hernia, 4 cm containing bowel. CONCLUSION: Uncomplicated drainage and sclerosis as above the Kleber Bruce MD FACR on November 14, 2017 at 10:32 Board Certified Radiologist. This report was verified electronically.
[2017-11-14 10:48] VITALS: BP 105/58; PULSE 72; RESP 18; O2SAT 96
[2017-11-14 11:18] VITALS: BP 112/57; PULSE 78; RESP 19; O2SAT 97
== END 2017-11-14 12:00 | disposition home or self-care (01) ==
LOC: HROP 08:04 → HRIP 08:08 → HROP 12:00
PROVIDERS: ATTEND Surgery
DX: L76.34 Postprocedural seroma of skin and subcutaneous tissue following other procedure (principal)
CPT/HCPCS: 10030; 77012; C1729; J3010; J7030